=== PATIENT | male | born 1940 | race Caucasian/White ===

== ENCOUNTER 2016-11-27 21:48 | Inpatient (IN) | payer MEDICARE, OTHER ==
[2016-11-27] MEDS ORDERED: Famotidine TAB* 20 MG PO ONE (22:02)
[2016-11-27] MEDS: Aspirin Low Dose CHEW TAB* 81 MG PO ONE ×2 (22:39→22:40)
[2016-11-27 22:44] LABS: Hematocrit 38 % (42-52); Hemoglobin 12.8 g/dl (14.0-18.0); Mean Corpuscular HGB Conc 33 g/dl (31-36); Mean Corpuscular Hemoglobin 30 pg (27-31); Mean Corpuscular Volume 89 fL (80-94); Mean Platelet Volume 9 um3 (7.4-10.4); Red Blood Count 4.31 10^6/ul (4.0-5.4); Red Cell Distribution Width 13 % (10.5-15); White Blood Count 9.3 10^3/ul (3.5-10.8)
--- NOTE | 2016-11-27 22:53 | RAD ---
INDICATION: Midsternal chest pain for a few hours. Previous cardiac valve replacement. Coronary artery disease. Respiratory disease. COMPARISON: May 02, 2016 TECHNIQUE: Dual energy PA and routine lateral views of the chest were obtained. REPORT: Minimal prominence and rarefaction of the interstitial markings. Negative for alveolar consolidation, focal pulmonary lesion, pleural effusion, pneumothorax. Negative for cardiomegaly. Median sternotomy wires and aortic valve replacement. Unremarkable central pulmonary vasculature and mediastinal contours. IMPRESSION: Stigmata of potential chronic obstructive pulmonary disease and emphysema. No acute cardiopulmonary process evident.
[2016-11-27 23:01] LABS: Albumin 3.7 g/dL (3.2-5.2); BUN/Creatinine Ratio 31.8 (8-20); Calcium 9.3 mg/dL (8.6-10.3); EGFR African American 112.4 (>60); EGFR Non-African American 87.4 (>60); Globulin 2.4 g/dL (2-4); Magnesium 1.8 mg/dL (1.9-2.7); Potassium 3.8 mmol/L (3.5-5.0); Total Bilirubin 1.5 mg/dL (0.2-1.0); Total Protein 6.1 g/dL (6.4-8.9)
[2016-11-27 23:02] LABS: Troponin I 0.03 ng/mL (<0.04)
[2016-11-27] MEDS ORDERED: Nitroglycerin TAB 0.4 MG* 0.4 MG TAB SL ONE (23:34)
[2016-11-27] MEDS ORDERED: Morphine INJ* 2 MG/ML 1 ML CARPUJECT IV ONE (23:34)
[2016-11-27] MEDS ORDERED: Ondansetron INJ* 2 MG/ML VIAL IV ONE (23:34)
[2016-11-27] MEDS ORDERED: Nitroglycerin TAB 0.4 MG* 0.4 MG TAB ONE (23:36)
[2016-11-27] MEDS ORDERED: NS 0.9% 1000 ML* 1,000 ML IV ONE (23:56)
[2016-11-28] MEDS ORDERED: Ondansetron INJ* 2 MG/ML VIAL IV PRN (00:34)
[2016-11-28] MEDS ORDERED: Acetaminophen TAB* 325 MG PO PRN (00:34)
[2016-11-28] MEDS ORDERED: Al Hydrox/Mg Hydrox/Simet LIQ* 30 ML UDC PO PRN (00:41)
[2016-11-28] MEDS ORDERED: NS 0.9% 1000 ML* 1,000 ML IV SCH (00:45)
[2016-11-28] MEDS ORDERED: Pantoprazole IV* 40 MG IV SCH (01:00)
[2016-11-28] MEDS: Morphine INJ* 2 MG/ML 1 ML CARPUJECT IV PRN ×3 (03:05→21:16)
[2016-11-28] MEDS: Heparin VIAL(*) 5000 UNITS/ML VIAL (FIVE THOUSAND) SUBCUT SCH ×3 (05:13→21:15)
[2016-11-28 05:42] LABS: Troponin I 0.03 ng/mL (<0.04)
[2016-11-28] MEDS: Aspirin TAB* 325 MG PO SCH (09:11)
[2016-11-28] MEDS: Tamsulosin CAP* 0.4 MG PO SCH (09:16)
[2016-11-28] MEDS: Lisinopril TAB* 10 MG PO SCH (09:17)
[2016-11-28] MEDS: Finasteride TAB* 5 MG PO SCH (09:18)
[2016-11-28] MEDS: Metoprolol Tartrate TAB* 25 MG PO SCH (09:28)
[2016-11-28] MEDS: amLODIPine TAB* 5 MG PO SCH (09:29)
[2016-11-28] MEDS: Hydrochlorothiazide TAB* 25 MG PO SCH (09:30)
[2016-11-28] MEDS ORDERED: Magnesium Sulfate 1 GM IV* 1 GM/100 ML BAG IV ONE (10:30)
[2016-11-28 10:43] LABS: Urine Bacteria Absent (Absent); Urine Bilirubin Negative (Negative); Urine Glucose Negative (Negative); Urine Nitrite Negative (Negative)
--- NOTE | 2016-11-28 11:01 | PN ---
Subjective Date of Service: 11/28/16 Interval History: pt had N/v after eating at a diner last night. c/o his ribs hurting when taking a deep breath after vomiting. Noted some blood in urine. Has not had a BM since admission. Denies abd pain, stated that his chest is "sore" Had clears for breakfast and tolerated it fine. Noted to be in sinus tachy with PVC's on telem. Objective Active Medications: Acetaminophen (Tylenol Tab*) 650 mg PO Q4H PRN PRN Reason: FEVER/PAIN Al Hydrox/Mg Hydrox/Simethicone (Maalox Plus*) 30 ml PO Q6H PRN PRN Reason: INDIGESTION Amlodipine Besylate (Norvasc Tab*) [facility] [place] Last Admin: 11/28/16 09:29 Dose: 5 mg Aspirin (Aspirin Tab*) [facility] [place] Last Admin: 11/28/16 09:11 Dose: 325 mg Atorvastatin Calcium (Lipitor*) 40 mg PO QPM [facility] Finasteride (Proscar Tab*) 5 mg PO [facility] Last Admin: 11/28/16 09:18 Dose: 5 mg Heparin Sodium (Porcine) (Heparin Vial(*)) 5,000 units SUBCUT Q8HR [facility] Last Admin: 11/28/16 05:13 Dose: 5,000 units Hydrochlorothiazide (Hydrodiuril Tab*) 12.5 mg PO DAILY [facility] Last Admin: 11/28/16 09:30 Dose: 12.5 mg Magnesium Sulfate/Dextrose (Magnesium Sulfate 1 Gm Iv*) 1 gm in 100 mls @ 200 mls/hr IV ONCE ONE Stop: 11/28/16 10:59 Lisinopril (Prinivil Tab*) 20 mg PO [facility] Last Admin: 11/28/16 09:17 Dose: 20 mg Metoprolol Tartrate (Lopressor Tab*) 12.5 mg PO DAILY [facility] Last Admin: 11/28/16 09:28 Dose: 12.5 mg Morphine Sulfate (Morphine Inj (Syringe)*) 2 mg IV Q2H PRN PRN Reason: PAIN Last Admin: 11/28/16 09:03 Dose: 2 mg Ondansetron HCl (Zofran Inj*) 4 mg IV Q4H PRN PRN Reason: NAUSEA Pantoprazole Sodium (Protonix Iv*) 40 mg IV 2200 [facility] Last Admin: 11/28/16 01:01 Dose: 40 mg Tamsulosin HCl (Flomax Cap*) 0.4 mg PO QAM [facility] Last Admin: 11/28/16 09:16 Dose: 0.4 mg Vital Signs 11/28/16 11/28/16 11/28/16 01:00 01:01 01:30 Temperature 98.0 F Pulse Rate 71 66 Respiratory 21 16 16 Rate Blood Pressure 145/62 148/60 (mmHg) O2 Sat by Pulse 94 91 Oximetry 11/28/16 11/28/16 11/28/16 02:10 03:05 03:30 Temperature 97.9 F Pulse Rate 86 Respiratory 16 16 24 Rate Blood Pressure 145/62 (mmHg) O2 Sat by Pulse 100 Oximetry 11/28/16 11/28/16 11/28/16 04:05 04:06 04:21 Temperature Pulse Rate Respiratory 16 20 16 Rate Blood Pressure (mmHg) O2 Sat by Pulse Oximetry 11/28/16 11/28/16 11/28/16 07:42 09:03 09:11 Temperature 97.9 F Pulse Rate 117 109 Respiratory 16 18 Rate Blood Pressure 129/62 (mmHg) O2 Sat by Pulse 90 94 Oximetry Oxygen Devices in Use Now: None Appearance: 76 yo M in nAD, aAOx3, [place] Eyes: No Scleral Icterus, PERRLA Ears/Nose/Mouth/Throat: NL Teeth, Lips, Gums, Mucous Membranes Moist Neck: NL Appearance and Movements; NL JVP, Trachea Midline Respiratory: Symmetrical Chest Expansion and Respiratory Effort, - - faint crackles at b/l bases Cardiovascular: NL Sounds; No Murmurs; No JVD, RRR Abdominal: NL Sounds; No Tenderness; No Distention, No Hepatosplenomegaly Lymphatic: No Cervical Adenopathy Extremities: No Edema, No Clubbing, Cyanosis Skin: No Rash or Ulcers, No Nodules or Sclerosis Neurological: Alert and Oriented x 3, NL Muscle Strength and Tone Result Diagrams: 11/27/16 22:30 11/27/16 22:30 Assess/Plan/Problems-Billing Assessment: 76 yo M with h/o HTN, porcine AVR in 2008, NSTEMI in 04/2016 ( unremarkable cath) presents with N/V after eating at a diner - Patient Problems (1) Nausea & vomiting Comment: resolved, suspect foord poisoning. Stop IVF, advance diet (2) Pleuritic chest pain Comment: suspect related to vomiting and of musculoskeletal origin Trop 0.03 x 3 D dimer negative (3) HTN (hypertension) Comment: BP is under good control. Continue current medication regimen. (4) Hematuria Comment: no WBC's on UA. to f/u with urology as outpatient (5) DVT prophylaxis Comment: SQ heparin Status and Disposition: cont OBV, most likely d/c tomorrow
[2016-11-28 11:02] LABS: Albumin 3.6 g/dL (3.2-5.2); BUN/Creatinine Ratio 36.2 (8-20); EGFR Non-African American 111.2 (>60); Globulin 2.4 g/dL (2-4); Magnesium 1.6 mg/dL (1.9-2.7); Potassium 4.2 mmol/L (3.5-5.0); Total Bilirubin 1.9 mg/dL (0.2-1.0)
--- NOTE | 2016-11-28 11:35 | HP ---
HISTORY AND PHYSICAL: DATE OF ADMISSION: 11/29/16 CHIEF COMPLAINT: Chest/abdominal pain. HISTORY OF PRESENT ILLNESS: The patient is a 76-year-old gentleman who says he was in his usual state of health until this evening when he was watching TV, after eating ice cream, he had pain in his abdomen that went up to his chest. It was a sharp pain. He says it was steady but sometimes is worse than others. At its worst, was about 9/10 in severity. He was recently given nitro with no benefit. He was sweating quite a bit and his daughter noticed as well. He had no palpitations. Sometimes, it went to his back, sometimes it went towards his upper chest. It was not a burning pain. It was more of a stabbing-type pain and it was worse when he took a deep breath. In the ED, the patient was evaluated and had a troponin of 0.03. Of note, the patient did have a cardiac catheterization this past April.The thought was he initially had a non-STEMI but his coronaries were clean. PAST MEDICAL HISTORY: Significant for porcine aortic valve replacement for severe aortic stenosis in 2008, hypertension, hyperlipidemia, BPH, and kyphoscoliosis with chronic pain. PAST SURGICAL HISTORY: Significant for the porcine aortic valve replacement and right inguinal hernia repair. CURRENT MEDICATIONS: Include: 1. Metoprolol tartrate 12.5 mg daily. 2. Atorvastatin 40 mg in the evening. 3. Amlodipine 5 mg in the morning. 4. Tamsulosin 0.4 mg in the morning. 5. Lisinopril/hydrochlorothiazide 1 tablet in the morning. 6. Finasteride 5 mg in the morning. 7. Aspirin 325 mg daily. ALLERGIES: He has no known drug allergies. FAMILY HISTORY: Reviewed and noncontributory. SOCIAL HISTORY: No tobacco. One to two beers a day. No recreational drugs. . Lives alone. His daughter, February, is his healthcare proxy. REVIEW OF SYSTEMS: A 14-point review of systems was completed with the patient. All pertinent positives and negatives are in the history of present illness, otherwise it is negative. PHYSICAL EXAMINATION GENERAL: A pleasant gentleman lying in bed, in no acute distress. VITAL SIGNS: His temperature is 97.5 degrees, his heart rate 65 beats per minute, respiratory rate 15 breaths per minute, pulse ox 96%, blood pressure 118 /84. HEENT: Normocephalic, atraumatic. Pupils are equal, round, and reactive to light. Moist mucous membranes. NECK: Supple. No JVD, bruits, palpable thyroid, or lymphadenopathy. CHEST: Clear to auscultation and percussion bilaterally. CARDIOVASCULAR: S1, S2 appreciated. ABDOMEN: Positive bowel sounds in all 4 quadrants. Soft, nontender, and nondistended. EXTREMITIES: No cyanosis, clubbing, or edema. NEURO: Alert and oriented x3. Moves all extremities. SKIN: No rashes or abnormalities. DIAGNOSTIC STUDIES/LAB DATA: White count 9.3, hemoglobin 12.8, hematocrit 38, platelets are 196. Sodium 139, potassium 3.8, chloride 101, CO2 34, BUN 27, creatinine 0.85, glucose is 145. Troponin 0.03. Total bili 1.5. His chest x-ray shows stigmata of COPD and emphysema. No acute cardiopulmonary process evident. EKG not available at this time of dictation. ASSESSMENT AND PLAN: 1. Chest pain. The patient had negative cardiac cath just this April and does not sound like it is a cardiac event. His troponins have stabilized. I do not believe that is the etiology of it. In fact, I think he is most likely having some gastroenteritis. However, if his abdominal pain does not clear by morning , it may be appropriate to do a CAT scan of his abdomen and pelvis to look for other pathology. 2. Hypertension. Stable. Continue amlodipine, lisinopril/hydrochlorothiazide , and metoprolol. 3. BPH. Stable. Continue tamsulosin and finasteride. 4. FEN. Regular diet. 5. DVT prophylaxis. Heparin subcu. 6. The patient is a full code. TIME SPENT: Over 75 minutes was spent on this H and P; more than 40 minutes of which was spent in direct [id number] contact with the patient in evaluation, physical exam, counseling, and coordination of care. CC: Dr. Chacko * [id number]/[facility] #: [id number] MTDD
[2016-11-28] MEDS: Atorvastatin* 40 MG TAB PO SCH (17:45)
--- NOTE | 2016-11-28 22:08 | ED ---
Lavon Gloria Billy, scribed for Chris Abraham MD on 11/27/16 at 2301 . HPI Chest Pain - HPI Summary HPI Summary: Patient is a 76 year-old male coming to [facility] presenting with constant retrosternal chest pain starting earlier this evening. He states that the pain originally began in the lower abdomen before moving to the chest, where it has continued. Pain severity 7/10. Nothing makes it better or worse. He reports mild SOB but denies any diaphoresis, N/V. He states these symptoms began shortly after having ice cream. - History of Current Complaint Chief Complaint: EDChestPainROMI Time Seen by Provider: 11/27/16 21:55 Hx Obtained From: Patient Onset/Duration: Started Hours Ago, Still Present Timing: Constant Initial Severity: Moderate Current Severity: Moderate Pain Intensity: 7 Pain Scale Used: 0-10 Numeric Chest Pain Radiates: No Aggravating Factor(s): Nothing Alleviating Factor(s): Nothing Associated Signs and Symptoms: Positive: Chest Pain, Shortness of Breath. Negative: Diaphoresis, Nausea - Additional Pertinent History Primary Care Physician: [id number] - Allergy/Home Medications Allergies/Adverse Reactions: Allergies Allergy/AdvReac Type Severity Reaction Status Date / Time No Known Allergies Allergy Verified 11/27/16 21:48 Home Medications: Home Medications Atorvastatin* [Lipitor 80 MG*] 40 mg PO QPM 11/28/16 [History Confirmed 11/28/16 ] Metoprolol Tartrate TAB* [Lopressor TAB*] 12.5 mg PO DAILY 11/28/16 [History Confirmed 11/28/16] PMH/Surg Hx/FS Hx/Imm Hx Endocrine/Hematology History: Denies: Hx Diabetes Cardiovascular History: Reports: Hx Coronary Artery Disease, Hx Hypercholesterolemia, Hx Hypertension, Hx Syncope, 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, Other Cardiovascular Problems/Disorders - CABG Respiratory History: Reports: Other Respiratory Problems/Disorders - USES INHALER FOR OCCASIONAL WHEEZING, SPUTUM PRODUCTION History: Reports: Hx Benign Prostatic Hyperplasia, Other Problems/ Disorders - BENIGN PROSTATIC HYPERTROPHY Denies: Hx Renal Disease Musculoskeletal History: Reports: Hx Arthritis, Hx Back Problems, Other Musculoskeletal History - ABOUT 1 YEAR AGO SMALL TREE FELL ON HIM SOME BACKACHES FROM THAT Sensory History: Reports: Hx Contacts or Glasses - reading, Hx Hearing Aid - bilateral, Hx Hearing Problem Opthamlomology History: Reports: Hx Contacts or Glasses - reading Neurological History: Reports: Other Neuro Impairments/Disorders - possible stroke-like symptoms at home 01/02/16 - Surgical History Surgery Procedure, Year, and Place: 05/2009 CARDIAC CATHERIZATION, [facility]. 2009 AORTIC VALVE(PORCINE) REPLACEMENT, [facility] Hx Anesthesia Reactions: No Infectious Disease History: No Infectious Disease History: Denies: Traveled Outside the [place] in Last 30 Days - Family History Known Family History: Positive: Cardiac Disease - Social History Alcohol Use: Weekly Alcohol Amount: 1 Substance Use Type: Reports: None Hx Tobacco Use: Yes Smoking Status (MU): Former Smoker Type: Cigarettes Amount Used/How Often: 1 PPD Length of Time of Smoking/Using Tobacco: 10 years Have You Smoked in the Last Year: No Review of Systems Negative: Skin Diaphoresis Positive: Chest Pain Positive: Shortness Of Breath Negative: Vomiting, Nausea All Other Systems Reviewed And Are Negative: Yes Physical Exam - Summary Physical Exam Summary: VITAL SIGNS: Reviewed. GENERAL: Patient is a well developed and nourished male who is lying comfortable in the stretcher. Patient is not in any acute respiratory distress. HEAD AND FACE: No signs of trauma. No ecchymosis, hematomas or skull depressions. No sinus tenderness. EYES: PERRLA, EOMI x 2, No injected conjunctiva, no nystagmus. EARS: Hearing grossly intact. Ear canals and tympanic membranes are within normal limits. MOUTH: Oropharynx within normal limits. NECK: Supple, trachea is midline, no adenopathy, no JVD, no carotid bruit, no c- spine tenderness, neck with full ROM. CHEST: Symmetric, no tenderness at palpation LUNGS: Clear to auscultation bilaterally. No wheezing or crackles. CVS: Regular rate and rhythm, S1 and S2 present, no murmurs or gallops appreciated. ABDOMEN: Soft, non-tender. No signs of distention. No rebound no guarding, and no masses palpated. Bowel sounds are normal. EXTREMITIES: FROM in all major joints, no edema, no cyanosis or clubbing. NEURO: Alert and oriented x 3. No acute neurological deficits. Speech is normal and follows commands. SKIN: Dry and warm Triage Information Reviewed: Yes Vital Signs On Initial Exam: Initial Vitals Temp Pulse Resp BP Pulse Ox 97.5 F 60 18 140/81 96 11/27/16 21:49 11/27/16 21:49 11/27/16 21:49 11/27/16 21:49 11/27/16 21:49 Vital Signs Reviewed: Yes Diagnostics - Vital Signs Vital Signs Temp Pulse Resp BP Pulse Ox 11/27/16 21:49 97.5 F 60 18 140/81 96 - Laboratory Result Diagrams: 11/27/16 22:30 11/28/16 05:08 Lab Statement: Any lab studies that have been ordered have been reviewed, and results considered in the medical decision making process. - Radiology cxr Radiology Interpretation Completed By: Radiologist - Stigmata of potential chronic obstructive pulmonary disease and emphysema. No acute cardiopulmonary process evident. - EKG 2153 EKG Interpretation: sinus marion 52 bpm, no ST elevation Chest Pain Course/Dx - Course Assessment/Plan: Patient is a 76 year-old male coming to [facility] presenting with constant retrosternal chest pain starting earlier this evening. He states that the pain originally began in the lower abdomen before moving to the chest, where it has continued. Pain severity 7/10. Nothing makes it better or worse. He reports mild SOB but denies any diaphoresis, N/V. He states these symptoms began shortly after having ice cream. Bloodwork WNL. Troponin 0.03. EKG shows no ST elevations. CXR shows no acute pathology. The patient was given Pepcid, and the symptoms did not improve. Therefore he was given morphine and NTG and his BP decreased. Symptoms improved. Patient was then given IV fluids. At this point, I discussed my physical exam findings with Dr. Hua who will be admitting the pt to his services for further workup and management. He is feeling better. He is A&Ox3. - Chest Pain Differential Diagnosis/HQI/PQRI: ACS, Angina, Chest Wall - Diagnoses Provider Diagnoses: chest pain r/o ACS - Provider Notifications Discussed Care Of Patient With: Dr. Hua (hospitalist) @ 1487: accepts admission. Discharge - Discharge Plan Condition: Stable Disposition: ADMITTED TO [facility] documentation as recorded by the Lavon shukla Billy accurately reflects the service I personally performed and the decisions made by me, Chris Abraham MD.
[2016-11-29] MEDS: Heparin VIAL(*) 5000 UNITS/ML VIAL (FIVE THOUSAND) SUBCUT SCH ×2 (06:19→14:16)
[2016-11-29 08:51] LABS: Albumin 3.3 g/dL (3.2-5.2); BUN/Creatinine Ratio 38.9 (8-20); EGFR African American 136.1 (>60); EGFR Non-African American 105.9 (>60); Globulin 2.5 g/dL (2-4); Magnesium 1.7 mg/dL (1.9-2.7); Total Bilirubin 3.8 mg/dL (0.2-1.0); Total Protein 5.8 g/dL (6.4-8.9)
[2016-11-29] MEDS: Tamsulosin CAP* 0.4 MG PO SCH (09:02)
[2016-11-29] MEDS: Finasteride TAB* 5 MG PO SCH (09:02)
[2016-11-29] MEDS: Lisinopril TAB* 10 MG PO SCH (09:02)
[2016-11-29] MEDS: Aspirin TAB* 325 MG PO SCH (09:02)
[2016-11-29] MEDS: Metoprolol Tartrate TAB* 25 MG PO SCH (09:02)
[2016-11-29] MEDS: Hydrochlorothiazide TAB* 25 MG PO SCH (09:03)
[2016-11-29] MEDS: amLODIPine TAB* 5 MG PO SCH (09:04)
[2016-11-29] MEDS ORDERED: Magnesium Sulfate IV* 3 GM in NS 0.9% 100 ML* 100 ML IVPB ONE (09:25)
[2016-11-29 10:02] LABS: Add Diff/Slide Review? Slide Review Added; Comments Flag Yes; Hematocrit 36 % (42-52); Hemoglobin 11.6 g/dl (14.0-18.0); Mean Corpuscular HGB Conc 33 g/dl (31-36); Mean Corpuscular Hemoglobin 29 pg (27-31); Mean Corpuscular Volume 90 fL (80-94); Mean Platelet Volume 10 um3 (7.4-10.4); Red Blood Count 3.96 10^6/ul (4.0-5.4); Red Cell Distribution Width 13 % (10.5-15)
[2016-11-29 10:59] LABS: Direct Bilirubin 0.6 mg/dL (0.03-0.18)
[2016-11-29] MEDS ORDERED: Iohexol 300* (CONTRAST) 10 ML SDV IV ONE (15:20)
--- NOTE | 2016-11-29 15:52 | PN ---
Subjective Date of Service: 11/29/16 Interval History: Pt still c/o pain, but now it migrated from his chest to RUQ Objective Active Medications: Acetaminophen (Tylenol Tab*) 650 mg PO Q4H PRN PRN Reason: FEVER/PAIN Last Admin: 11/29/16 09:06 Dose: 650 mg Al Hydrox/Mg Hydrox/Simethicone (Maalox Plus*) 30 ml PO Q6H PRN PRN Reason: INDIGESTION Amlodipine Besylate ([facility]asc Tab*) [facility] Last Admin: 11/29/16 09:04 Dose: 5 mg Aspirin (Aspirin Tab*) [facility] [place] Last Admin: 11/29/16 09:02 Dose: 325 mg Atorvastatin Calcium (Lipitor*) 40 mg PO QPM [facility] Last Admin: 11/28/16 17:45 Dose: 40 mg Finasteride (Proscar Tab*) [facility] [place] Last Admin: 11/29/16 09:02 Dose: 5 mg Heparin Sodium (Porcine) (Heparin Vial(*)) 5,000 units SUBCUT Q8HR [facility] Last Admin: 11/29/16 14:16 Dose: 5,000 units Hydrochlorothiazide (Hydrodiuril Tab*) 12.5 mg PO DAILY [facility] Last Admin: 11/29/16 09:03 Dose: 12.5 mg Lisinopril (Prinivil Tab*) 20 mg PO [facility] Last Admin: 11/29/16 09:02 Dose: 20 mg Metoprolol Tartrate (Lopressor Tab*) 12.5 mg PO DAILY [facility] Last Admin: 11/29/16 09:02 Dose: 12.5 mg Morphine Sulfate (Morphine Inj (Syringe)*) 2 mg IV Q2H PRN PRN Reason: PAIN Last Admin: 11/28/16 21:16 Dose: 2 mg Ondansetron HCl (Zofran Inj*) 4 mg IV Q4H PRN PRN Reason: NAUSEA Tamsulosin HCl (Flomax Cap*) [facility] [place] Last Admin: 11/29/16 09:02 Dose: 0.4 mg Vital Signs 11/28/16 11/28/16 11/28/16 19:16 21:16 22:16 Temperature 100.0 F Pulse Rate 71 Respiratory 18 20 16 Rate Blood Pressure 121/51 (mmHg) O2 Sat by Pulse 93 Oximetry 11/28/16 11/28/16 11/29/16 23:34 23:36 03:38 Temperature 98.4 F 98.0 F Pulse Rate 88 85 Respiratory 16 16 Rate Blood Pressure 120/56 136/57 (mmHg) O2 Sat by Pulse 89 95 93 Oximetry 11/29/16 11/29/16 07:58 11:08 Temperature 100.0 F 99.4 F Pulse Rate 82 60 Respiratory 16 16 Rate Blood Pressure 126/50 109/49 (mmHg) O2 Sat by Pulse 92 93 Oximetry Oxygen Devices in Use Now: None Appearance: 76 yo M in nAD, aAOx3 Eyes: No Scleral Icterus, PERRLA Ears/Nose/Mouth/Throat: NL Teeth, Lips, Gums, Mucous Membranes Moist Neck: NL Appearance and Movements; NL JVP, Trachea Midline Respiratory: Symmetrical Chest Expansion and Respiratory Effort, Clear to Auscultation Cardiovascular: NL Sounds; No Murmurs; No JVD, RRR Abdominal: No Hepatosplenomegaly, - - tender in RUQ, no rebound, no guarding, BS + Lymphatic: No Cervical Adenopathy Extremities: No Edema, No Clubbing, Cyanosis Skin: No Rash or Ulcers, No Nodules or Sclerosis Neurological: Alert and Oriented x 3, NL Muscle Strength and Tone Result Diagrams: 11/29/16 07:44 11/29/16 07:46 Assess/Plan/Problems-Billing Assessment: 76 yo M with h/o HTN, porcine AVR in 2008, NSTEMI in 04/2016 ( unremarkable cath) presents with N/V after eating at a diner - Patient Problems (1) RUQ abdominal pain Comment: with elevation in WBC's and CRP suspect cholecystitis. Temp at 100 last night. will start clear liquid diet. start Zosyn Awaiting CT abd results (2) Gilbert syndrome Comment: bili elevated, mostly indirect. Pt has h/o chronic mild bilirubin elevation suspect Gilbert's (3) Nausea & vomiting Comment: resolved (4) Pleuritic chest pain Comment: suspect related to vomiting and of musculoskeletal origin Trop 0.03 x 3 D dimer negative (5) HTN (hypertension) Comment: BP is under good control. Continue current medication regimen. (6) Hematuria Comment: no WBC's on UA. to f/u with urology as outpatient (7) DVT prophylaxis Comment: SQ heparin Status and Disposition: cont OBV, most likely d/c tomorrow
[2016-11-29] MEDS ORDERED: Piperac/Tazob 3.375 gm in NS* 3.375 GM/100 ML BAG IVPB SCH (16:00)
--- NOTE | 2016-11-29 16:10 | RAD ---
INDICATION: Abdominal pain COMPARISON: None TECHNIQUE: Axial source images were obtained from the hemidiaphragms to the symphysis pubis following administration of oral and intravenous contrast. 100 mL Omnipaque 300 was utilized. Coronal and sagittal reconstructed images were acquired. Lung bases: There are small bilateral pleural effusions with right basilar atelectasis. The heart is mildly prominent. There is pacemaker artifact. Liver: The liver is normal in size. There are no masses. There is no ductal dilatation. Gallbladder: There is cholelithiasis. There is a small amount of pericholecystic fluid/inflammatory change. The gallbladder is mildly distended with minor thickening of the gallbladder wall. The CT findings suggest acute cholecystitis. Spleen: The spleen is normal in size. There are no masses. Pancreas: There is no focal pancreatic mass or ductal dilatation. Adrenal glands: There is no evidence of adrenal mass. Kidneys: The kidneys are normal in size and position. There are prompt nephrograms and there is prompt excretion bilaterally. There are no renal parenchymal masses. There is no evidence of nephrolithiasis. Adenopathy: There is no evidence of adenopathy by size criteria. Fluid collections: No additional fluid collections. Vessels:There are atherosclerotic changes involving the aorta and iliac vessels. There is no focal aneurysm. The IVC appears normal. GI tract: There are no acute CT bowel findings. There is no obstruction. The stomach and small bowel appear normal. The lower GI tract is remarkable for scattered diverticula. The cecum, ileocecal valve, and terminal ileum appear normal. The appendix is visualized and appear normal. Pelvic organs: The prostate is enlarged Bladder: There are no bladder masses. Abdominal and pelvic soft tissues: The extraperitoneal abdominal and pelvic soft tissues appear normal.. Osseous structures: There are no acute appearing osseous findings. There is a superior endplate compression deformity of L2. There is degenerative disc disease about L5-S1. There is multilevel degenerative spurring. There is sternotomy. Other: None IMPRESSION: 1. Bilateral pleural effusions with right basilar atelectasis 2. CT findings suggest acute cholecystitis. 3. Scattered diverticula. No CT evidence of acute diverticulitis. 4. Advanced atherosclerotic changes. 5. Prostatic hypertrophy.
[2016-11-29] MEDS: Atorvastatin* 40 MG TAB PO SCH (17:03)
[2016-11-29] MEDS ORDERED: NS 0.9% 1000 ML* 1,000 ML IV SCH (19:00)
[2016-11-29] MEDS ORDERED: Metoprolol Tartrate TAB* 25 MG PO ONE (19:04)
[2016-11-29] MEDS ORDERED: Piperac/Tazob 3.375 gm in NS* 3.375 GM/100 ML BAG IVPB ONE (20:00)
--- NOTE | 2016-11-29 20:11 | CONS ---
SURGICAL CONSULTATION REPORT: DATE OF CONSULT: 11/29/16 LOCATION: The patient is seen in room 446. HISTORY OF PRESENT ILLNESS: I was contacted by the hospitalist service to evaluate Mr. David, a 76-year-old gentleman who presented to the emergency room late on Wednesday with complaints of chest pain that acutely began just after eating a meal with his son. The patient has a history of severe aortic stenosis that required aortic valve replacement in 2008. He was admitted for what appears to be ACS syndrome, was followed and noted to have elevated white count today as well as localizing abdominal pain in the right upper quadrant and for this reason, he was sent for a CAT scan of the abdomen and pelvis. These images as well as report were reviewed and it was consistent with acute cholecystitis. The patient denies any previous similar symptoms. Pain is diffuse in the lower abdomen that now seems to be focusing more in the upper abdomen mostly on the right just under his right rib cage. It does not radiate to his back or his shoulder. He denies any previous similar symptoms. He had decreased appetite. He denies any nausea or vomiting. No fevers but according to the son he was having chills yesterday in the hospital and shakes. The patient is only tolerating clear diet. PAST MEDICAL HISTORY: Includes hypertension, hypercholesterolemia, BPH, kyphoscoliosis with chronic pain. PAST SURGICAL HISTORY: Right inguinal hernia repair a year and a half ago and valve replacement as described above in 2008. MEDICATIONS: Medication list is reviewed and includes: 1. Metoprolol. He is on no blood thinners. 2. He takes aspirin 325 mg daily and has been getting it here. SOCIAL HISTORY: He is a nonsmoker. Lives with his son. He is retired. REVIEW OF SYSTEMS: The patient describes minimal weight loss, decreased appetite. No jaundice-type symptoms. No palpitations but does describe shortness of breath at this time. Chills as described above. Abdominal pain as described. No dysuria. No dark-colored urine. No light-colored stools. Poor exercise tolerance. No cerebrovascular disease but cardiovascular disease as described. PHYSICAL EXAM: T-max is 100.0, T-current 98.1; blood pressure 144/61; pulse 84 ; O2 sat 94% on room air. He is alert and oriented x3, in no apparent distress. Head, Ears, Eyes and Throat: Normocephalic, atraumatic. Sclerae anicteric. Mucous membranes are moist. Neck: No lymphadenopathy. Abdomen is soft, nondistended. It is tender in the right upper quadrant and epigastrium on deep palpation. Negative Tracy sign. No hernias. Well-healed right groin incision. Rectal exam is not performed. No CVA tenderness. Extremities: Within normal limits. DIAGNOSTIC STUDIES/LAB DATA: Labs show white count of 12 with left shift, H and H 12/36. His most recent coag studies are within normal limits. His metabolic panel does show a bilirubin of 3.8, this is up from yesterday's 1.9 with direct bilirubin of 0.6. Elevated CRP, normal lipase. He has 3+ blood in his urine. CAT scan reviewed, described as above. IMPRESSION: Mr. David is a 76-year-old gentleman who presents to the hospital with what appears to be acute cholecystitis. He was admitted with ACS issue, but this does not appear cardiac in nature. Concern is that the patient may be suffering with a common bile duct obstruction as well with his elevated bilirubin; however, this is mostly unconjugated. My recommendation is an ultrasound of the gallbladder just to evaluate the common bile duct to ensure its size. Repeat LFTs in the morning with the likelihood of patient going to the OR tomorrow for a laparoscopic cholecystectomy. I believe that this is acute cholecystitis and has been going on for 3 days and our recommendation would be a more urgent laparoscopic cholecystectomy and we will look towards tomorrow for the planned procedure. He understands that it may be me or my partner performing the procedure. We will give him antibiotics and he has been started with the hospitalist service on Zosyn at this time. He will be n.p.o. after midnight, but will receive his beta-makenzie. We will continue to follow closely with planned OR and discharge from our service. CC: Rayo Chacko MD; [facility]* [id number]/[facility] #: [id number] [place]
[2016-11-30] MEDS: Piperac/Tazob 3.375 gm in NS* 3.375 GM/100 ML BAG IVPB SCH ×3 (00:32→16:16)
[2016-11-30 05:28] LABS: Hematocrit 35 % (42-52); Hemoglobin 11.7 g/dl (14.0-18.0); Mean Corpuscular HGB Conc 33 g/dl (31-36); Mean Corpuscular Hemoglobin 29 pg (27-31); Mean Corpuscular Volume 88 fL (80-94); Mean Platelet Volume 9 um3 (7.4-10.4); Red Blood Count 3.97 10^6/ul (4.0-5.4); Red Cell Distribution Width 13 % (10.5-15); White Blood Count 11.2 10^3/ul (3.5-10.8)
[2016-11-30 05:43] LABS: BUN/Creatinine Ratio 29.6 (8-20); Calcium 8.4 mg/dL (8.6-10.3); EGFR African American 138.4 (>60); EGFR Non-African American 107.6 (>60); Globulin 2.6 g/dL (2-4); Magnesium 1.8 mg/dL (1.9-2.7); Potassium 3.6 mmol/L (3.5-5.0); Total Bilirubin 3.5 mg/dL (0.2-1.0); Total Protein 5.6 g/dL (6.4-8.9)
[2016-11-30] MEDS: Metoprolol Tartrate TAB* 25 MG PO SCH ×2 (07:26→20:28)
--- NOTE | 2016-11-30 08:15 | CONSULT ---
Subjective Date of Service: 11/30/16 Interval History: Admission Date: 11/29/16 Service: Hospitalist Mechanical Commissioning Engineer: Dr. Denis Chacko CHIEF COMPLAINT: Chest/abdominal pain, cholecystitis Reason for consult: Pre-operative cardiac risk stratification HISTORY OF PRESENT ILLNESS: Mr. Luca David is a 76-year-old man with a history of bioprosthetic AVR 2008, FL no culprit 04/2016, HTN, dyslipidemia admitted with abdomen pain radiating up to his chest and back. He ruled out for acute ACS and was found with acute cholecystitis with plans for invasive/surgical management pending abdomen uS results. Patient denies any exertional chest pain, edema, orthopnea, PND, palpitations or syncope. Has had exertional fatigue/dyspnea for at least 6 months. PAST MEDICAL HISTORY: Significant for porcine aortic valve replacement for severe aortic stenosis in 2008 hypertension hyperlipidemia BPH kyphoscoliosis with chronic pain. FL no culprit PAST SURGICAL HISTORY: Significant for the porcine aortic valve replacement and right inguinal hernia repair. CURRENT MEDICATIONS: Include: 1. Metoprolol tartrate 12.5 mg daily. 2. Atorvastatin 40 mg in the evening. 3. Amlodipine 5 mg in the morning. 4. Tamsulosin 0.4 mg in the morning. 5. Lisinopril/hydrochlorothiazide 1 tablet in the morning. 6. Finasteride 5 mg in the morning. 7. Aspirin 325 mg daily. ALLERGIES: He has no known drug allergies. FAMILY HISTORY: Reviewed and noncontributory. SOCIAL HISTORY: No tobacco. One to two beers a day. No recreational drugs. . Lives alone. His daughter, Antionette David, is his healthcare proxy. Medications Active Medications: Acetaminophen (Tylenol Tab*) 650 mg PO Q4H PRN PRN Reason: FEVER/PAIN Last Admin: 11/29/16 09:06 Dose: 650 mg Al Hydrox/Mg Hydrox/Simethicone (Maalox Plus*) 30 ml PO Q6H PRN PRN Reason: INDIGESTION Amlodipine Besylate (Norvasc Tab*) 5 mg PO QAM [facility] Last Admin: 11/29/16 09:04 Dose: 5 mg Atorvastatin Calcium (Lipitor*) 40 mg PO QPM [facility] Last Admin: 11/29/16 17:03 Dose: 40 mg Finasteride (Proscar Tab*) [facility] Last Admin: 11/29/16 09:02 Dose: 5 mg Hydrochlorothiazide (Hydrodiuril Tab*) 12.5 mg PO DAILY [facility] Last Admin: 11/29/16 09:03 Dose: 12.5 mg Sodium Chloride (Ns 0.9% 1000 Ml*) 1,000 mls @ 75 mls/hr IV PER RATE [facility] Last Admin: 11/29/16 19:56 Dose: 75 mls/hr Piperacillin Sod/Tazobactam Sod (Zosyn 3.375 Gm In Ns Premix*) 3.375 gm in 100 mls @ 25 mls/hr IVPB Q8H [facility] Last Admin: 11/30/16 07:26 Dose: 25 mls/hr Lisinopril (Prinivil Tab*) [facility] [place] Last Admin: 11/29/16 09:02 Dose: 20 mg Metoprolol Tartrate (Lopressor Tab*) 12.5 mg PO DAILY [facility] Last Admin: 11/30/16 07:26 Dose: 12.5 mg Morphine Sulfate (Morphine Inj (Syringe)*) 2 mg IV Q2H PRN PRN Reason: PAIN Last Admin: 11/28/16 21:16 Dose: 2 mg Ondansetron HCl (Zofran Inj*) 4 mg IV Q4H PRN PRN Reason: NAUSEA Tamsulosin HCl (Flomax Cap*) [facility] [place] Last Admin: 11/29/16 09:02 Dose: 0.4 mg Home Medications: Aspirin TAB* 325 mg PO [facility] 03/21/15 [History Confirmed 11/28/16] Lisinopril/HCTZ 20/12.5(NF) [Zestoretic 20/12.5(NF)] 1 tab PO [facility] 03/21/15 [ History Confirmed 11/28/16] Tamsulosin CAP* [Flomax CAP*] 0.4 mg PO [facility] 03/21/15 [History Confirmed 11/28/16 ] amLODIPine TAB* [Norvasc TAB*] 5 mg PO QA 03/21/15 [History Confirmed 11/28/16] Finasteride TAB* [Proscar TAB*] 5 mg PO [facility] 04/11/15 [History Confirmed 11/28/16 ] Atorvastatin* [Lipitor 80 MG*] 40 mg PO QPM 11/28/16 [History Confirmed 11/28/16 ] Metoprolol Tartrate TAB* [Lopressor TAB*] 12.5 mg PO DAILY 11/28/16 [History Confirmed 11/28/16] Review of Systems - Measurements Intake and Output: Intake and Output Last 24 Hours 11/28/16 11/29/16 11/30/16 12/01/16 06:59 06:59 06:59 06:59 Intake Total 1459 Output Total 350 Balance 1109 Weight 147 lb Intake: IV Fluids 239 NS (0.9%) 239 IVPB 100 ABX - ZOSYN 100 Oral 1120 Output: Urine 350 Other: Estimated Void Medium # Bowel Movements 5 Estimated Stool Amount Small # Voids 2 - Review of Systems Constitutional Symptoms: Positive: Weakness, Fatigue Negative: Weight Gain, Weight Loss, Fever, Unexplained Falls Dermatology: Negative: Rash, Skin Lesions, Cancer HEENT: Negative: Change in Hearing, Vertigo, Sinus Problem Eyes: Negative: Change in Vision, Double Vision Thyroid: Negative: Goiter, Thyroid Nodule, Cold Intolerance, Heat Intolerance, Constipation, Palpitations, Weight Loss, Weight Gain Pulmonary: Positive: Shortness of Breath Negative: Cough, Sputum, Hemoptysis, Wheezing, COPD Cardiology: Positive: Shortness of Breath Negative: Palpitations, Swelling of Ankles, Peripheral Vascular Dis, Edema, Faintness, Syncope, Claudication, Paroxysmal Nocturnal Dyspnea, Orthopnea Gastroenterology: Positive: Abdominal Pain Negative: Nausea, Vomiting, Anorexia, Indigestion, Difficulty Swallowing, Heartburn, Constipation, Diarrhea, Blood in Stools, Change in Bowel Habits, Haematemesis, Melena Genital - Urinary: Negative: Dysuria, Polyuria Musculoskeletal: Negative: Joint Pain, Joint Stiffness, Arthritis Endocrinology: Negative: Thyroid Problems, Family Hx Endocrine Disorders, Obesity, Polydipsia, Polyuria Hematologic/Lymphatic: Positive: Use of Antiplatelet Drugs Negative: Hx Leukemia, Hx Lymphoma, Use of Anticoagulant, Other Neurology: Negative: Headaches, Migraines, Change in Vision, Diplopia, Dizziness, Change in Balancing, Change in Coordination, Change in Memory, Change in Speech , Change in Sphincter Function, Numbness\Paresthesiae, Unexplained Weakness Psychiatry: Negative: Depression, Anxiety, Depressed Mood, Adhedonia, Sexual Dysfunction , Weight Change, Guilt Feelings, Tearfulness, Unusual Fatigue Allergic/Immunologic: Negative: Hx Anaphylaxis, Hx Angioedema, Hx Environmental Allergies, Hx Seasonal Allergies, Hx HIV Review of Systems Statement: All other review of systems negative, unless stated above. Objective Vital Signs: Temp Pulse Resp BP Pulse Ox 97.4 F 78 16 145/69 98 11/30/16 07:22 11/30/16 07:22 11/30/16 07:22 11/30/16 07:22 11/30/16 07:22 Oxygen Devices in Use Now: None Appearance: NAD, pleasant Ears/Nose/Mouth/Throat: Clear Oropharnyx, Mucous Membranes Moist Neck: Trachea Midline, - - mild jvp elevation Respiratory: Symmetrical Chest Expansion and Respiratory Effort, - - crackles b/ l bases Cardiovascular: RRR, No Edema, - - 2/6 systolic murmur Abdominal: NL Sounds; No Tenderness; No Distention Extremities: No Edema, No Clubbing, Cyanosis Skin: No Rash or Ulcers Neurological: Alert and Oriented x 3 Laboratory Results: 11/30/16 05:12 11/30/16 05:12 Total Bilirubin 3.50 mg/dL (0.2-1.0) H 11/30/16 05:12 Direct Bilirubin 0.60 mg/dL (0.03-0.18) H 11/29/16 07:46 AST 13 U/L (13-39) 11/30/16 05:12 ALT 12 U/L (7-52) 11/30/16 05:12 Alkaline Phosphatase 46 U/L (34-104) 11/30/16 05:12 B-Natriuretic Peptide 57 pg/mL (-100) 11/27/16 22:30 Total Protein 5.6 g/dL (6.4-8.9) L 11/30/16 05:12 Albumin 3.0 g/dL (3.2-5.2) L 11/30/16 05:12 Globulin 2.6 g/dL (2-4) 11/30/16 05:12 Albumin/Globulin Ratio 1.2 (1-3) 11/30/16 05:12 11/27/16 11/28/16 11/28/16 22:30 01:20 05:08 Troponin I 0.03 0.03 0.03 Diagnostic Imaging: TTE 11/30/2016: Normal LVEF 55-60%, normal functioning aortic bioprosthesis, moderate LA dilation, mild pHTN EKG Data: EKG 11/30/2016: NSR, IVCD, non-specific anterolateral ST changes, ST depression imrpoved anterolateral from 11/28 and 11/[address] changes more prominent than 05/05/2016 Assessment/Plan Mr. Luca David is a 76-year-old man with a history of bioprosthetic AVR 2008, FL no culprit 04/2016, HTN, dyslipidemia admitted with suspected acute cholecystitis with plans for possible cholecystectomy. No recent FL, decompensated significant CHF, malignant arrhythmia or severe valve disease based off today TTE, LVEF normal 55%. There are no absolute contraindications to proceeding with proposed surgery and no further cardiac evaluation is warranted prior to surgery. Patient is not high risk for cardiovascular complications from surgery although there is some inherent risk for cardiovascular complications based off of comorbidities, age and nature of the procedure. - Continue beta-makenzie allie-operatively - Continue statin allie-operatively - Restart aspirin KHLOE once bleeding risks are minimized. - No pleural effusions noted on initial CXR but seen on CT scan 2 days later after IVF. Likely component of heart failure with preserved EF may need to watch fluid balance closely post-operatively. Thank you for allowing me to participate in the cardiovascular care of this patient. Please do not hesitate to contact me with questions or concerns.
[2016-11-30] MEDS ORDERED: Magnesium Sulfate 2 GM IV* 2 GM/50 ML BAG IVPB ONE (09:12)
[2016-11-30] MEDS: amLODIPine TAB* 5 MG PO SCH (09:25)
--- NOTE | 2016-11-30 09:25 | ECHO ---
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 Technical Comments: The study quality is good. Completed at 0821. Left Ventricle: The left ventricular chamber size is normal. Mild concentric left ventricular hypertrophy is observed. Global left ventricular wall motion and contractility are within normal limits. There is normal left ventricular systolic function. The estimated ejection fraction is 55-60%. The assessment of diastolic function is non-diagnostic. Left Atrium: The left atrium is moderately dilated. Right Ventricle: The right ventricle is slightly dilated. The right ventricular global systolic function is normal. Right Atrium: The right atrium is mildly dilated. Aortic Valve: There is a trace of aortic regurgitation. A porcine bio-prosthetic aortic valve is present. by history. Peak velocity 2.55 m/s, mean gradient 12.4 mmHg. Stable from prior examination suggestive of normal functioning bioprosthesis. The prosthetic aortic valve leaflets are normal. The bio-prosthetic aortic valve appears to be functioning normally. Mitral Valve: The mitral valve leaflets are mildly thickened. There is mild mitral regurgitation. Tricuspid Valve: The tricuspid valve leaflets are normal. There is mild tricuspid regurgitation. There is evidence of mild pulmonary hypertension. There is no tricuspid stenosis. Pulmonic Valve: The pulmonic valve appears normal. There is a trace pulmonic regurgitation. There is no pulmonic stenosis. Pericardium: There is no significant pericardial effusion. Aorta: There is mild dilatation of the ascending aorta. There is no dilatation of the aortic arch. There is mild dilatation of the aortic root. Pulmonary Artery: The main pulmonary artery appears normal. Venous: The venous system is not well visualized. Conclusions The left ventricular chamber size is normal. Mild concentric left ventricular hypertrophy is observed. There is normal left ventricular systolic function with an estimated LV ejection fraction of 55-60%. The left atrium is moderately dilated. The right ventricle is slightly dilated with normal RV function The bio-prosthetic aortic valve appears to be functioning normally. There is evidence of mild pulmonary hypertension. Compared to prior study from 05/03/2016, no significant changes noted. Measurements Name Value Normal Range RVIDd (AP) 2D 3.1 cm (0.9 - 2.6) RVDdMajor (2D) 4.6 cm (2.2 - 4.4) RAd ISD 4CH 6 cm (3.4 - 4.9) RA (A4C)W 3.3 cm (2.9 - 4.6) IVSd (2D) 1.1 cm (0.6 - 1) LVPWd (2D) 1.2 cm (0.6 - 1) LVIDd (2D) 4 cm (3.6 - 5.4) LVIDs (2D) 2.2 cm - LV FS (2D) 33 % (25 - 45) Aortic Annulus 2.1 cm (1.4 - 2.6) Ao root diameter (2D) 3.7 cm (2.1 - 3.5) Ascending Ao 3.9 cm (2.1 - 3.4) Aortic arch 1.8 cm (1.8 - 3.4) Descending Ao 0.5 cm - LA dimension (AP) 2D 5.2 cm (2.3 - 3.8) LAd ISD 4CH 6.1 cm (2.9 - 5.3) LA ISD 4CH W 4.6 cm (2.5 - 4.5) Name Value Normal Range LA ESV SP 4CH (A/L) 74 ml - LA ESV SP 2CH (A/L) 107 ml - LA ESV BP (A/L) 92 ml - LA ESV BP (A/L) index 52.05 ml/m2 - LA ESV SP 4CH (MOD) 71 ml - LA ESV SP 2CH (MOD) 102 ml - Name Value Normal Range MV E-wave Vmax 1.1 m/sec - MV deceleration time 227 msec - MV A-wave Vmax 0.8 m/sec - MV E:A ratio 1.26 ratio - LV septal e' Vmax 0.06 m/sec - LV lateral e' Vmax 0.1 m/sec - LV E:e' septal ratio 18.33 ratio - LV E:e' lateral ratio 11 ratio - Name Value Normal Range AV Vmax 2.4 m/sec - AV VTI 54.5 cm - AV peak gradient 22.98 mmHg - AV mean gradient 11.47 mmHg - LVOT diameter 2.1 cm - LVOT Vmax 1.8 m/sec - LVOT VTI 38.7 cm - LVOT peak gradient 13.13 mmHg - LVOT mean gradient 6.08 mmHg - SV LVOT 133 ml - NOA (continuity Vmax) 2.6 cm2 - NOA (continuity VTI) 2.4 cm2 - AR PHT 562 msec - AR peak gradient 50.74 mmHg - Name Value Normal Range TR Vmax 2.8 m/sec - TR peak gradient 32 mmHg - RAP 8 mmHg - RVSP 40 mmHg - Name Value Normal Range PV Vmax 0.8 m/sec - PV peak gradient 2.37 mmHg -
[2016-11-30] MEDS: Lisinopril TAB* 10 MG PO SCH (09:26)
[2016-11-30] MEDS: Finasteride TAB* 5 MG PO SCH (09:26)
[2016-11-30] MEDS: Tamsulosin CAP* 0.4 MG PO SCH (09:26)
[2016-11-30] MEDS: Hydrochlorothiazide TAB* 25 MG PO SCH (09:26)
--- NOTE | 2016-11-30 09:29 | RAD ---
INDICATION: Elevated bilirubin evaluate common bile duct, cholelithiasis. COMPARISON: Comparison is made with a prior CT of the abdomen and pelvis from November 29, 2016. TECHNIQUE: Multiple real-time images of the right upper quadrant were obtained. FINDINGS: There are multiple gallstones and sludge present. The gallbladder wall is diffusely thickened measuring up to 5 mm in thickness. There is a small amount of pericholecystic fluid suggesting the possibility of acute cholecystitis. No intra or extrahepatic ductal distention is present. The common bile duct measured 0.5 cm in diameter. The liver is normal in size without significant focal abnormality. The pancreas is partially obscured by overlying bowel gas. The right kidney is normal in size without evidence for hydronephrosis. IMPRESSION: CHOLELITHIASIS, IN ADDITION THERE IS A GALLBLADDER WALL THICKENING AND PERICHOLECYSTIC FLUID SUGGESTIVE OF ACUTE CHOLECYSTITIS.
--- NOTE | 2016-11-30 16:39 | PN ---
Subjective Date of Service: 11/30/16 Interval History: pt feels well. Minimal epigastric discomfort. Objective Active Medications: Acetaminophen (Tylenol Tab*) 650 mg PO Q4H PRN PRN Reason: FEVER/PAIN Last Admin: 11/29/16 09:06 Dose: 650 mg Al Hydrox/Mg Hydrox/Simethicone (Maalox Plus*) 30 ml PO Q6H PRN PRN Reason: INDIGESTION Amlodipine Besylate ([facility]asc Tab*) [facility] Last Admin: 11/29/16 09:04 Dose: 5 mg Atorvastatin Calcium (Lipitor*) 40 mg PO QPM [facility] Last Admin: 11/29/16 17:03 Dose: 40 mg Finasteride (Proscar Tab*) 5 mg PO [facility] Last Admin: 11/29/16 09:02 Dose: 5 mg Hydrochlorothiazide (Hydrodiuril Tab*) 12.5 mg PO DAILY [facility] Last Admin: 11/29/16 09:03 Dose: 12.5 mg Piperacillin Sod/Tazobactam Sod (Zosyn 3.375 Gm In Ns Premix*) 3.375 gm in 100 mls @ 25 mls/hr IVPB Q8H [facility] Last Admin: 11/30/16 16:16 Dose: 25 mls/hr Lisinopril (Prinivil Tab*) 20 mg PO [facility] Last Admin: 11/29/16 09:02 Dose: 20 mg Metoprolol Tartrate (Lopressor Tab*) 12.5 mg PO DAILY [facility] Last Admin: 11/30/16 07:26 Dose: 12.5 mg Metoprolol Tartrate (Lopressor Iv*) 5 mg IV ONCE ONE Stop: 11/30/16 17:01 Last Admin: 11/30/16 16:16 Dose: 5 mg Morphine Sulfate (Morphine Inj (Syringe)*) 2 mg IV Q2H PRN PRN Reason: PAIN Last Admin: 11/28/16 21:16 Dose: 2 mg Ondansetron HCl (Zofran Inj*) 4 mg IV Q4H PRN PRN Reason: NAUSEA Tamsulosin HCl (Flomax Cap*) 0.4 mg PO [facility] Last Admin: 11/29/16 09:02 Dose: 0.4 mg Vital Signs 11/29/16 11/29/16 11/29/16 19:41 20:00 23:17 Temperature 98.1 F 98.2 F Pulse Rate 84 77 Respiratory 18 18 16 Rate Blood Pressure 137/49 147/65 (mmHg) O2 Sat by Pulse 94 91 Oximetry 11/30/16 11/30/16 11/30/16 03:33 07:22 08:00 Temperature 97.4 F 97.4 F Pulse Rate 71 78 Respiratory 16 16 16 Rate Blood Pressure 152/65 145/69 (mmHg) O2 Sat by Pulse 91 98 Oximetry 11/30/16 11/30/16 12:28 15:30 Temperature 98.3 F 97.3 F Pulse Rate 74 79 Respiratory 16 16 Rate Blood Pressure 139/68 171/77 (mmHg) O2 Sat by Pulse 98 97 Oximetry Oxygen Devices in Use Now: None Appearance: 76 yo M in NAd, AAOx3 Eyes: No Scleral Icterus, PERRLA Ears/Nose/Mouth/Throat: NL Teeth, Lips, Gums, Mucous Membranes Moist Neck: NL Appearance and Movements; NL JVP, Trachea Midline Respiratory: Symmetrical Chest Expansion and Respiratory Effort, - - faint bibasiliar crackles Cardiovascular: RRR, - - 2/6 SUSSY Abdominal: - - minimal LUQ tenderness, no rebound, no guarding, BS+ Lymphatic: No Cervical Adenopathy Extremities: No Edema, No Clubbing, Cyanosis Skin: No Rash or Ulcers, No Nodules or Sclerosis Neurological: Alert and Oriented x 3, NL Muscle Strength and Tone Result Diagrams: 11/30/16 05:12 11/30/16 05:12 Assess/Plan/Problems-Billing Assessment: 76 yo M with h/o HTN, porcine AVR in 2008, NSTEMI in 04/2016 ( unremarkable cath) presents with N/V after eating at a diner - Patient Problems (1) RUQ abdominal pain Comment: CT consistent with cholecysitis. evan Leiva Just spoke with Dr. Germain-due to scheduling issues surgery had to be postponed till tomorrow Appreciate Dr. Guadarrama's consult for preop cardiac evaluation. Pt is medically optimised for the surgery (2) Gilbert syndrome Comment: bili elevated, mostly indirect. Pt has h/o chronic mild bilirubin elevation suspect Gilbert's (3) Nausea & vomiting Comment: resolved (4) Pleuritic chest pain Comment: suspect related to vomiting and of musculoskeletal origin Trop 0.03 x 3 D dimer negative (5) HTN (hypertension) Comment: BP is under good control. Continue current medication regimen. (6) Hematuria Comment: no WBC's on UA. to f/u with urology as outpatient (7) DVT prophylaxis Comment: SQ heparin held prior to surgery. Pt is ambulating Status and Disposition: inpatient due to acute cholecystitis
[2016-11-30] MEDS ORDERED: Metoprolol Tartrate IV* 1 MG/ML 5 ML VIAL IV ONE (17:00)
[2016-11-30] MEDS: Atorvastatin* 40 MG TAB PO SCH (17:55)
--- NOTE | 2016-11-30 21:36 | PN ---
Progress Note - Progress Note SOAP: Subjective: Feels comfortable Very mild pain in right upper quadrant abdomen Objective: Temp Pulse Resp BP Pulse Ox 97.7 F 67 16 144/64 93 11/30/16 19:21 11/30/16 19:21 11/30/16 19:21 11/30/16 19:21 11/30/16 19:21 Intake & Output 11/28/16 11/29/16 11/30/16 12/01/16 06:59 06:59 06:59 06:59 Intake Total 1347 1357 2254 1088 Output Total 0 310 600 Balance 1347 1047 1654 1088 Weight 147 lb 3.2 oz 147 lb Intake: IV Fluids 1347 622 359 576 NS (0.9%) 347 497 249 150 magnesium sulfate 110 426 IVPB 100 212 ABX - ZOSYN 100 212 Oral 0 735 1795 300 Output: Urine 0 310 600 Other: Estimated Void Small Medium # Bowel Movements 0 0 5 Estimated Stool Amount Small # Voids 1 2 PEX: Comfortable and alert; NAD Abd is soft and non-distended. Bowel sounds are present Very mild tenderness in the RUQ without guarding, rebound or mass Assessment: Acute calculous cholecystitis Plan: Plan OR tomorrow for cholecystectomy-there were scheduling issues with OR tonight. IV anbx All discussed with patient
[2016-12-01] MEDS: Piperac/Tazob 3.375 gm in NS* 3.375 GM/100 ML BAG IVPB SCH ×3 (00:08→16:42)
[2016-12-01 06:27] LABS: Hematocrit 37 % (42-52); Hemoglobin 12.4 g/dl (14.0-18.0); Mean Corpuscular HGB Conc 34 g/dl (31-36); Mean Corpuscular Hemoglobin 30 pg (27-31); Mean Corpuscular Volume 88 fL (80-94); Mean Platelet Volume 9 um3 (7.4-10.4); Red Blood Count 4.15 10^6/ul (4.0-5.4); Red Cell Distribution Width 13 % (10.5-15); White Blood Count 9.3 10^3/ul (3.5-10.8)
[2016-12-01 06:46] LABS: Albumin 3.1 g/dL (3.2-5.2); BUN/Creatinine Ratio 27.7 (8-20); Calcium 8.5 mg/dL (8.6-10.3); EGFR African American 153.2 (>60); EGFR Non-African American 119.1 (>60); Globulin 2.8 g/dL (2-4); Magnesium 2.1 mg/dL (1.9-2.7); Potassium 3.6 mmol/L (3.5-5.0); Total Bilirubin 2.8 mg/dL (0.2-1.0); Total Protein 5.9 g/dL (6.4-8.9)
[2016-12-01] MEDS: Metoprolol Tartrate TAB* 25 MG PO SCH ×2 (08:56→21:01)
[2016-12-01] MEDS: Tamsulosin CAP* 0.4 MG PO SCH (09:06)
[2016-12-01] MEDS: amLODIPine TAB* 5 MG PO SCH (09:06)
[2016-12-01] MEDS: Finasteride TAB* 5 MG PO SCH (09:06)
[2016-12-01] MEDS: Hydrochlorothiazide TAB* 25 MG PO SCH (09:47)
[2016-12-01] MEDS: Lisinopril TAB* 10 MG PO SCH (09:47)
--- NOTE | 2016-12-01 11:28 | PN ---
Subjective Date of Service: 12/01/16 Interval History: pt feels well. Had BM. C/o very mild epigastric discomfort. OR scheduled for noon Objective Active Medications: Acetaminophen (Tylenol Tab*) 650 mg PO Q4H PRN PRN Reason: FEVER/PAIN Last Admin: 11/29/16 09:06 Dose: 650 mg Al Hydrox/Mg Hydrox/Simethicone (Maalox Plus*) 30 ml PO Q6H PRN PRN Reason: INDIGESTION Amlodipine Besylate (Norvasc Tab*) [address] [facility] Admin: 12/01/16 09:06 Dose: Not Given Atorvastatin Calcium (Lipitor*) 40 mg PO QPM [facility] Last Admin: 11/30/16 17:55 Dose: 40 mg Finasteride (Proscar Tab*) [address] [facility] [place] Last Admin: 12/01/16 09:06 Dose: Not Given Hydrochlorothiazide (Hydrodiuril Tab*) 12.5 mg PO DAILY [facility] Last Admin: 12/01/16 09:47 Dose: 12.5 mg Piperacillin Sod/Tazobactam Sod (Zosyn 3.375 Gm In Ns Premix*) 3.375 gm in 100 mls @ 25 mls/hr IVPB Q8H [facility] Last Admin: 12/01/16 08:56 Dose: 25 mls/hr Lisinopril (Prinivil Tab*) 20 mg PO [facility] Last Admin: 12/01/16 09:47 Dose: 20 mg Metoprolol Tartrate (Lopressor Tab*) 12.5 mg PO BID [facility] Last Admin: 12/01/16 08:56 Dose: 12.5 mg Morphine Sulfate (Morphine Inj (Syringe)*) 2 mg IV Q2H PRN PRN Reason: PAIN Last Admin: 11/28/16 21:16 Dose: 2 mg Ondansetron HCl (Zofran Inj*) 4 mg IV Q4H PRN PRN Reason: NAUSEA Pantoprazole Sodium (Protonix Iv*) 40 mg IV Q24H ONE Stop: 12/01/16 12:01 Tamsulosin HCl (Flomax Cap*) 0.4 mg PO [facility] Last Admin: 12/01/16 09:06 Dose: Not Given Vital Signs 11/30/16 11/30/16 11/30/16 12:28 15:30 19:21 Temperature 98.3 F 97.3 F 97.7 F Pulse Rate 74 79 67 Respiratory 16 16 16 Rate Blood Pressure 139/68 171/77 144/64 (mmHg) O2 Sat by Pulse 98 97 93 Oximetry 11/30/16 11/30/16 12/01/16 20:00 23:38 03:34 Temperature 97.9 F 98.4 F Pulse Rate 67 75 Respiratory 16 17 17 Rate Blood Pressure 161/65 142/57 (mmHg) O2 Sat by Pulse 97 97 Oximetry 12/01/16 12/01/16 07:33 08:00 Temperature 97.8 F Pulse Rate 59 Respiratory 18 16 Rate Blood Pressure 184/79 (mmHg) O2 Sat by Pulse 96 Oximetry Oxygen Devices in Use Now: Nasal Cannula - at 2 L when lying doen, 02 sat 96% on RA when walking Appearance: 76 yo M in nAD, aAOx3 Eyes: No Scleral Icterus, PERRLA Ears/Nose/Mouth/Throat: NL Teeth, Lips, Gums, Mucous Membranes Moist Neck: NL Appearance and Movements; NL JVP, Trachea Midline Respiratory: Symmetrical Chest Expansion and Respiratory Effort Cardiovascular: NL Sounds; No Murmurs; No JVD, RRR Abdominal: - - mild RUQ tenderness, no rebound, no guarding, BS+ Lymphatic: No Cervical Adenopathy Extremities: No Edema, No Clubbing, Cyanosis Skin: No Rash or Ulcers, No Nodules or Sclerosis Neurological: Alert and Oriented x 3, NL Muscle Strength and Tone Result Diagrams: 12/01/16 05:47 12/01/16 05:47 Assess/Plan/Problems-Billing Assessment: 76 yo M with h/o HTN, porcine AVR in 2008, NSTEMI in 04/2016 ( unremarkable cath) presents with N/V after eating at a diner - Patient Problems (1) RUQ abdominal pain Comment: CT consistent with cholecysitis. cont Zosyn To OR today Appreciate Dr. Guadarrama's consult for preop cardiac evaluation. Pt is medically optimized for the surgery (2) Gilbert syndrome Comment: bili elevated, mostly indirect. Pt has h/o chronic mild bilirubin elevation suspect Gilbert's (3) Nausea & vomiting Comment: resolved (4) Pleuritic chest pain Comment: suspect related to vomiting and of musculoskeletal origin Trop 0.03 x 3 D dimer negative resolved (5) HTN (hypertension) Comment: BP high today, but vitals were checked before pt got his HTN meds. Continue current medication regimen. (6) Hematuria Comment: no WBC's on UA. to f/u with urology as outpatient (7) DVT prophylaxis Comment: SQ heparin held prior to surgery. Pt is ambulating Status and Disposition: inpatient due to acute cholecystitis
[2016-12-01] MEDS ORDERED: Bupivacaine 0.25% EPI 200,000* 30 ML SDV ONE (11:50)
[2016-12-01] MEDS ORDERED: Pantoprazole IV* 40 MG IV ONE (12:00)
[2016-12-01] MEDS ORDERED: Lidocaine 2% MPF* 2 ML VIAL ONE (12:32)
[2016-12-01] MEDS ORDERED: Rocuronium* 10 MG/ML VIAL ONE (12:32)
[2016-12-01] MEDS ORDERED: Propofol* 10 MG/ML 20 ML BTL IV PUSH ONE (12:32)
[2016-12-01] MEDS ORDERED: fentaNYL* 50 MCG/ML 2 ML VIAL (100 MCG VIAL) ONE (12:34)
[2016-12-01] MEDS ORDERED: Phenylephrine IV* 40 MCG/ML 10 ML SYRINGE ONE (13:01)
[2016-12-01] MEDS ORDERED: Phenylephrine INJ* 10 MG/ML 1 ML VIAL (10 MG) ONE (13:06)
[2016-12-01] MEDS ORDERED: Dexamethasone IV* 4 MG/ML 1 ML (4 MG) ONE (13:15)
[2016-12-01] MEDS ORDERED: Ondansetron INJ* 2 MG/ML VIAL ONE (13:27)
[2016-12-01] MEDS ORDERED: oxyCODONE TAB* 5 MG TAB PO PRN (13:37)
[2016-12-01] MEDS ORDERED: PROCHLORPERAZINE INJ 5 MG/ML 2 ML VIAL IV PRN (13:37)
[2016-12-01] MEDS ORDERED: Acetaminophen IV 1GM/100ML * 100 ML IVPB ONE (13:37)
[2016-12-01] MEDS ORDERED: fentaNYL* 50 MCG/ML 2 ML VIAL (100 MCG VIAL) IV PRN (13:37)
[2016-12-01] MEDS ORDERED: Glycopyrrolate IV* 0.2 MG/ML 1 ML VIAL ONE (13:48)
[2016-12-01] MEDS ORDERED: Neostigmine Methylsulfate* 2 MG/2 ML SYRINGE ONE (13:48)
--- NOTE | 2016-12-01 14:04 | PN ---
Progress Note - Progress Note Note: Brief Op Note: Preop Dx: acute cholecystitis Postop Dx: same, gangrenous Procedure: lap cholecystectomy Anesthesia: GET Surgeon: Marcellus Asst: MICHAEL Mcintyre EBL: 100 ml Fluids: 1800 crystalloid Drains: none (Surgicel left in liver bed) Findings: dictated
[2016-12-01] MEDS ORDERED: oxyCODONE/Acetamin 5/325 MG* TAB PO PRN (14:06)
[2016-12-01] MEDS ORDERED: Acetaminophen IV 1GM/100ML * 100 ML ONE (15:46)
[2016-12-01] MEDS: Atorvastatin* 40 MG TAB PO SCH (16:42)
[2016-12-02] MEDS: Piperac/Tazob 3.375 gm in NS* 3.375 GM/100 ML BAG IVPB SCH ×2 (00:47→08:11)
[2016-12-02 08:01] LABS: Hematocrit 36 % (42-52); Hemoglobin 12.1 g/dl (14.0-18.0); Mean Corpuscular HGB Conc 34 g/dl (31-36); Mean Corpuscular Hemoglobin 30 pg (27-31); Mean Corpuscular Volume 88 fL (80-94); Mean Platelet Volume 9 um3 (7.4-10.4); Red Blood Count 4.11 10^6/ul (4.0-5.4); Red Cell Distribution Width 13 % (10.5-15); White Blood Count 10.3 10^3/ul (3.5-10.8)
[2016-12-02 08:03] VITALS: BP 170/73
[2016-12-02] MEDS: Lisinopril TAB* 10 MG PO SCH (08:12)
[2016-12-02] MEDS: Hydrochlorothiazide TAB* 25 MG PO SCH (08:12)
[2016-12-02] MEDS: Metoprolol Tartrate TAB* 25 MG PO SCH (08:12)
[2016-12-02] MEDS: Tamsulosin CAP* 0.4 MG PO SCH (08:13)
[2016-12-02] MEDS: Finasteride TAB* 5 MG PO SCH (08:13)
[2016-12-02] MEDS: amLODIPine TAB* 5 MG PO SCH (08:13)
[2016-12-02 08:17] LABS: BUN/Creatinine Ratio 21.9 (8-20); Calcium 8.7 mg/dL (8.6-10.3); EGFR Non-African American 121.3 (>60); Potassium 3.3 mmol/L (3.5-5.0)
--- NOTE | 2016-12-02 10:40 | DCNOTE ---
Patient seen this morning. Feels well, abdominal pain very mild. Tolerating diet with no issues. Urinating, moved bowels yesterday. On exam, RRR, s1 and s2 present, no m/g/r, abd soft, mild TTP, dressing in place , no LE edema. D/C home today on ABx and pain medications as written by surgery. F/U with PCP and Surgery.
--- NOTE | 2016-12-03 21:38 | DS ---
DISCHARGE SUMMARY: DATE OF ADMISSION: DATE OF DISCHARGE: 12/02/16 PRIMARY CARE PHYSICIAN: Rayo Chacko MD CONSULTANTS DURING HOSPITALIZATION: 1. Cali Germain MD, Surgery. 2. Cali Guadarrama DO, Cardiology. PRINCIPAL DISCHARGE DIAGNOSIS: Acute cholecystitis. SECONDARY DIAGNOSES: 1. Aortic stenosis, status post aortic valve replacement. 2. Hypertension. 3. Hyperlipidemia. 4. Benign prostatic hyperplasia. STUDIES DONE DURING HOSPITALIZATION: Chest x-ray, impression: Stigmata of potential chronic obstructive pulmonary disease and emphysema. No acute cardiopulmonary process is evident. CT abdomen and pelvis with contrast, impression: Bilateral pleural effusions. CT findings suggest acute cholecystitis, scattered diverticula. No CT evidence of acute diverticulitis. Advanced atherosclerotic changes, prostatic hypertrophy. Transthoracic echocardiogram, conclusions: Left ventricular chamber size is normal. Mild concentric LVH is observed. Normal left ventricular systolic function with an estimated ejection fraction of 55% to 60%. The left atrium is moderately dilated. The right ventricle is slightly dilated with normal RV function. The bioprosthetic aortic valve appears to be functioning normally. There is evidence of mild pulmonary hypertension. No significant changes from 05/03/16. Gallbladder ultrasound, impression: Cholelithiasis. In addition, there is a gallbladder wall thickening and pericholecystic fluid suggestive of acute cholecystitis. DISCHARGE MEDICATION REGIMEN: 1. Tylenol 650 mg by mouth every 4 hours as needed for pain. 2. Augmentin 875 mg by mouth 2 times daily. 3. Percocet 5/325 mg 1 tablet by mouth every 3 hours as needed for pain. 4. Aspirin 325 mg by mouth daily. 5. Finasteride 5 mg by mouth daily. 6. Lisinopril/hydrochlorothiazide 20/12.5 mg 1 tablet by mouth daily. 7. Tamsulosin 0.4 mg by mouth daily. 8. Amlodipine 5 mg by mouth daily. 9. Atorvastatin 40 mg by mouth nightly. 10. Metoprolol tartrate 12.5 mg by mouth daily. HISTORY OF PRESENT ILLNESS AND HOSPITAL SUMMARY: Please see the full history and physical by Dr. Linwood Hua for full details. Briefly, Mr. David is a 76- year-old male with past medical history as above, who presented to the hospital with upper abdominal pain that was radiating to the chest. He had a mild elevation of his troponin. As noted above, imaging showed evidence of acute cholecystitis. Surgery was consulted as well as cardiology for preoperative assessment. The patient was taken to the OR for laparoscopic cholecystectomy on 12/01/16. Surgery went well. The patient had no issues postoperatively and was tolerating a diet. He was discharged the following day with pain medications and antibiotics. He will follow up with surgery and with his PCP as an outpatient. TIME SPENT: Total time spent on this discharge 35 minutes. This is a summary of the hospitalization. Please see the full medical record for further details. CC: Dr. Chacko* [id number]/CPS #: [id number] MTDD
--- NOTE | 2016-12-08 03:06 | OP ---
DATE OF OPERATION: 12/01/16 - ROOM #422 DATE OF : 38 SURGEON: Dr. Cali Germain. REVERSE UNIT OPERATOR: MICHAEL Bauman ANESTHESIOLOGIST: Gómez James MD ANESTHESIA: General. PRE-OP DIAGNOSIS: Acute cholecystitis. POST-OP DIAGNOSIS: Gangrenous cholecystitis. OPERATIVE PROCEDURE: Laparoscopic cholecystectomy. BLOOD LOSS: 100 cc. FLUIDS: 1800 cc of crystalloid fluid given. DRAINS: None. DESCRIPTION OF PROCEDURE: Mr. David was identified in the preoperative area, again I discussed the case with him going over the risks, benefits, and alternatives to the procedure. He wished to proceed. We talked about the possible complications which included but not limited to bleeding, infection, retained common bile duct stones, need for open procedure or additional procedures, bile leak, and the possibility of placement of drain. The patient' s questions were answered and he was marked, taken to the operating room and placed on the operating room table in a supine position. Preoperative antibiotics were given. Sequential devices were placed on bilateral lower extremities. General anesthesia was induced. The patient abdomen was prepped and dapped in a standard surgical fashion and a time-out was performed. Folds of the umbilicus were elevated anteriorly, and a Veress needle was inserted into the abdominal cavity which was then allowed to insufflate to a pressure of 15 mmHg. Periumbilical incision was then made and a 12 mm trocar was inserted. Laparoscope was inserted through this and there was no evidence of injury from the trocar insertion or from the Veress needle, which was then removed. Review of the abdomen showed some scant fluid above the liver. Additional trocars were then placed in the following position, a 12-mm in the subxiphoid area and two 5-mm along the right coastal margin. The table was repositioned. Next, the fundus of the gallbladder was identified. This proved to be somewhat difficult to grasp, but we ultimately were able to free up some of the omental attachments to this and grasp the fundus, which showed some patchy areas of necrosis and elevated this anteriorly. Blunt dissection was carried out to expose the infundibular area of the gallbladder. This was very friable and we promptly got into the gallbladder at this site. It was mostly bile that was suctioned out and again the wall of the gallbladder showed these patchy areas of necrosis consistent with gangrene. With blunt dissection, we were able to isolate the cystic duct, which did appear intact. Some electrocautery was utilized to take the peritoneal attachments off the lateral aspect of the gallbladder, mostly blunt dissection was utilized to expose a cystic artery that was aberrant in its course on the lateral side of the gallbladder. This was doubly clipped and ligated. The cystic duct was seen extending towards the common bile duct and critical visual was obtained and the cystic duct was triply clipped and ligated. The gallbladder was then removed from the liver bed with mostly blunt dissection as this tissue was very friable. It was placed in an endoscopic retrieval bag and placed over the liver. Copious irrigation was utilized. Hemostasis was achieved with electrocautery on most of the liver bed, but we utilized Surgicel in some aspects to gain hemostasis. The Surgicel was placed with a 4 x 8 gauze over this and pressure was held. While pressure was held, copious irrigation was utilized. We suctioned this out until the effluent was clear. Review of the cystic duct stump and cystic artery stump showed no bleeding or bile leak. The Surgicel was removed and there was minimal oozing that was controlled with electrocautery. An additional piece of Surgicel was then draped over the surgical bed and the table was repositioned back to neutral. Next, the gallbladder and its endoscopic retrieval bag was brought out through the subxiphoid port site without difficulty and passed off as specimen. Camera was shifted to this port site and the umbilical port was reapproximated at the fascial layer with an 0 Polysorb suture with an Endo close device. The abdomen was allowed to collapse, trocar was removed under direct vision and all 4 skin incisions were reapproximated with 4-0 Monocryl subcuticular sutures followed by Steri-Strips and sterile dressing. The patient tolerated the procedure well , was awoken up in the OR and transferred to the PACU in stable condition. [id number]/[facility] #: [id number] LORETA
== END 2016-12-02 13:35 | disposition home or self-care (01) | DRG 419 ==
LOC: ED 21:48 → MEDTELE 11-28 00:41 → OBSVTOIN 11-29 15:57 → MED 12-01 16:32
PROVIDERS: ADMIT Internal Medicine; ATTEND Hospitalist
PROC: 0FT44ZZ Resection of Gallbladder, Percutaneous Endoscopic Approach (ICD-10-PCS; principal; 2016-12-01 12:00)
DX: K80.12 Calculus of gallbladder with acute and chronic cholecystitis without obstruction (principal); M41.9 Scoliosis, unspecified; R31.9 Hematuria, unspecified; I10 Essential (primary) hypertension; N40.0 Benign prostatic hyperplasia without lower urinary tract symptoms; G89.29 Other chronic pain; E80.4 Gilbert syndrome; E78.5 Hyperlipidemia, unspecified; I25.2 Old myocardial infarction; Z95.2 Presence of prosthetic heart valve; Z79.82 Long term (current) use of aspirin; Z79.899 Other long term (current) drug therapy
CPT/HCPCS: 36415; 71020; 74177; 76705; 80048; 80053; 81003; 81015; 82248; 82550; 83605; 83690; 83735; 83880; 84484; 85025; 85379; 86140; 88304; 93005; 93306; 94760; A9270-GY; G0378; J1100; J1644; J2270; J2405; J2543; J2704; J3010; J3475; J3490; Q9967

== ENCOUNTER 2017-03-27 13:44 | Inpatient (IN) | payer MEDICARE ==
[2017-03-27 14:23] LABS: Hematocrit 40 % (42-52); Hemoglobin 13.1 g/dl (14.0-18.0); Mean Corpuscular HGB Conc 33 g/dl (31-36); Mean Corpuscular Hemoglobin 29 pg (27-31); Mean Corpuscular Volume 88 fL (80-94); Mean Platelet Volume 8 um3 (7.4-10.4); Red Cell Distribution Width 14 % (10.5-15); White Blood Count 8.4 10^3/ul (3.5-10.8)
[2017-03-27 14:28] LABS: Chloride 87 mmol/L (101-111); Potassium 4.3 mmol/L (3.5-5.0); Sodium 130 mmol/L (133-145)
[2017-03-27 14:45] LABS: ALT 38 U/L (7-52); AST 28 U/L (13-39); Albumin 3.8 g/dL (3.2-5.2); Alkaline Phosphatase 73 U/L (34-104); Anion Gap 4 mmol/L (2-11); BUN/Creatinine Ratio 27.1 (8-20); Blood Urea Nitrogen 19 mg/dL (6-24); C Reactive Protein < 1.00 mg/L (< 5.00); CO2 Carbon Dioxide 39 mmol/L (22-32); Calcium 8.8 mg/dL (8.6-10.3); EGFR African American 140.6 (>60); EGFR Non-African American 109.4 (>60); Globulin 2.7 g/dL (2-4); Glucose 198 mg/dL (70-100); Total Protein 6.5 g/dL (6.4-8.9)
--- NOTE | 2017-03-27 14:47 | RAD ---
INDICATION: Shortness of breath. COMPARISON: Comparison is made with a prior chest x-ray study from November 27, 2016. TECHNIQUE: A portable view of the chest was obtained. FINDINGS: The patient is status post sternotomy. There is a dual-chamber transvenous pacemaker present. The heart is within normal limits in size. The lungs are clear. No pleural effusion is seen. IMPRESSION: POSTSURGICAL CHANGES, NO EVIDENCE FOR ACUTE FINDING.
[2017-03-27 14:49] LABS: Troponin I 0.13 ng/mL (<0.04)
[2017-03-27] MEDS ORDERED: Iohexol 350* (CONTRAST) 500 ML MDV IV ONE (15:25)
--- NOTE | 2017-03-27 15:44 | RAD ---
INDICATION: Shortness of breath. COMPARISON: Comparison is made with a prior chest x-ray study from March 27, 2017. TECHNIQUE: A CT angiogram of the chest was performed with intravenous following intravenous injection of 62 ml of Omnipaque 350 nonionic contrast. Contiguous axial sections were obtained from the lung apices through the lung bases. Images were reconstructed in the coronal and sagittal planes. FINDINGS: There is relatively homogeneous opacification of the pulmonary arteries. No intraluminal filling defect or pulmonary embolism is seen. The patient is status post sternotomy. There is a cardiac pacemaker present. The heart is within normal limits in size. No pericardial effusion is present. The thoracic aorta is normal in caliber. There is moderate calcific plaque present. No significant enlarged mediastinal or hilar lymph nodes are seen. There are small bilateral pleural effusions and mild dependent bilateral lower lobe infiltrates most consistent with atelectasis. No significant focal osseous abnormality is seen. IMPRESSION: 1. NO EVIDENCE FOR PULMONARY EMBOLISM. 2. SMALL BILATERAL PLEURAL EFFUSIONS.
[2017-03-27] MEDS ORDERED: Ondansetron INJ* 2 MG/ML VIAL IV PRN (17:05)
[2017-03-27] MEDS ORDERED: Acetaminophen TAB* 325 MG PO PRN (17:05)
[2017-03-27] MEDS ORDERED: Albuterol/Ipratropium NEB.SOL* Albuterol 2.5 MG/Ipratropium 0.5 MG 3 ML INH PRN (17:05)
[2017-03-27] MEDS ORDERED: Docusate CAP* 100 MG PO PRN (17:05)
[2017-03-27] MEDS ORDERED: Naloxone* 0.4 MG/ML 1 ML VIAL IV PUSH ONE (17:12)
[2017-03-27] MEDS ORDERED: Naloxone* 0.4 MG/ML 1 ML VIAL ONE (17:13)
[2017-03-27 17:43] LABS: PCO2 Arterial > 124 mmHg (35-45)
[2017-03-27] MEDS ORDERED: Etomidate* 2 MG/ML 10 ML VIAL ONE (17:52)
[2017-03-27] MEDS ORDERED: Midazolam* 1 MG/ML 5 ML VIAL (5 MG) ONE (17:52)
[2017-03-27] MEDS ORDERED: Etomidate* 2 MG/ML 10 ML VIAL IV ONE (17:57)
[2017-03-27] MEDS ORDERED: Midazolam* 1 MG/ML 10 ML VIAL (10 MG) IV ONE (17:59)
--- NOTE | 2017-03-27 17:59 | RAD ---
INDICATION: Lethargy. COMPARISON: Correlation is made with a prior CT angiogram from January 03, 2016. TECHNIQUE: Contiguous axial sections of the brain were obtained from the skull base to the vertex without contrast. The exam is slightly limited. FINDINGS: The ventricles, cisterns and sulci are within normal limits. No significant focal abnormality or mass effect is seen. There is no evidence for hemorrhage. No significant focal osseous abnormality is seen. The visualized portion of the paranasal sinuses and mastoid air cells appear clear. IMPRESSION: NO EVIDENCE FOR GROSS ACUTE INFARCT, MASS EFFECT OR HEMORRHAGE.
[2017-03-27] MEDS ORDERED: Propofol* 100 ML ONE (18:09)
[2017-03-27] MEDS ORDERED: Propofol* 500 MG/50 ML BTL IV SCH ×2 (18:14→19:00)
[2017-03-27 18:34] LABS: Urine Bacteria Absent (Absent); Urine Bilirubin Negative (Negative); Urine Glucose Negative (Negative); Urine Nitrite Negative (Negative)
[2017-03-27] MEDS ORDERED: Propofol* 100 ML IV SCH (19:27)
[2017-03-27] MEDS ORDERED: LORazepam INJ* 2 MG/ML 1 ML VIAL IV PUSH ONE (19:30)
[2017-03-27] MEDS ORDERED: LORazepam INJ* 2 MG/ML 1 ML VIAL ONE (19:33)
[2017-03-27] MEDS: NS 0.9% 1000 ML* 2,000 ML IV ONE ×2 (19:40→20:54)
--- NOTE | 2017-03-27 19:52 | RAD ---
INDICATION: Status post intubation. COMPARISON: Comparison is made with a prior study from approximately 5 hours earlier. TECHNIQUE: A portable view of the chest was obtained. FINDINGS: The patient is status post intubation. The endotracheal tube projects over the midline. The catheter tip is at the level of the clavicular heads. The endotracheal tube cuff balloon appears prominent, recommend clinical correlation. The heart is within normal limits in size. There is a cardiac pacemaker defibrillator present. The lungs are clear. The right and left costophrenic angles are cut off from the film. IMPRESSION: STATUS POST INTUBATION. THE ENDOTRACHEAL TUBE CUFF BALLOON APPEARS PROMINENT. RECOMMEND CLINICAL CORRELATION.
[2017-03-27] MEDS: NS 0.9% 1000 ML* 1,000 ML IV SCH (22:00)
[2017-03-27 22:17] LABS: FIO2 50; Resp Rate 12; Ventilator Volume 500
[2017-03-27 22:19] LABS: PCO2 Arterial 50 mmHg (35-45)
[2017-03-27] MEDS: Atorvastatin* 40 MG TAB PO SCH (22:26)
[2017-03-27] MEDS ORDERED: LORazepam INJ* 2 MG/ML 1 ML VIAL IV PUSH PRN (22:32)
[2017-03-27] MEDS: Chlorhexidine MOUTHWASH 0.12%* 15 ML UDC SWISH SPIT SCH (23:13)
--- NOTE | 2017-03-28 00:43 | HP ---
ADMISSION HISTORY AND PHYSICAL: DATE OF ADMISSION: 03/27/17 PRIMARY CARE PROVIDER: Rayo Chacko MD HEALTH CARE PROXY: Daughter, Antionette David. CODE STATUS: Full. Discussed with the patient's health care proxy. SOURCE OF INFORMATION: History obtained from review of past medical records and discussion with the patient's daughter. RELIABILITY OF THE RECORDS: Fair. CHIEF COMPLAINT: Sent from PCP's office for hypoxia. HISTORY OF PRESENT ILLNESS: This is a 76-year-old man, recent hospital stay 3 weeks prior at [facility] after being found down by his daughter. She reports at that time, she performed a CPR though it is unclear that he lost his pulse. His discharge paperwork from [facility] at that time indicate altered mental status. She reports he was placed on a CPAP machine and his mental status improved. Additionally at that time, he received a permanent pacemaker. She notes over the last 3 weeks, he has been increasingly tired and difficult to perform activities. The tempo of decline has dramatically increased over the last 2 weeks, although 2 weeks ago he was still able to walk downstairs to laundry on his own, he was going out to eat with his son. Again 2 to 3 days ago, he became increasingly lethargic, more difficult to arouse, sleeping most of the day. Today, he went to Dr. Chacko's office and met with Dr. Calles who reportedly found his oxygen saturation to be in the 70s, for which he was directed to [facility]. On presentation to [facility], his first recorded oxygen saturation was 85%, increased to 98% on 4 L nasal cannula. Reportedly, he was ambulating and still interactive with staff on presentation; however, when seen by this author, he was largely unresponsive, drooling with respiratory rate of 10. He was given 0.4 mg IV Narcan without response. Subsequent review of his medication list with his daughter indicated no narcotic use. ABG was performed by this author, the results indicating significant respiratory acidosis pH 7.1, arterial partial pressure of CO2 124, and pO2 of 207 on 3 L nasal cannula. He was intubated by Dr. Campos in the emergency room at this author's request prior to transportation to the intensive care unit. PAST MEDICAL HISTORY: Includes: 1. Permanent pacemaker placement in [place] 3 weeks prior, records are being requested. 2. Aortic valve replacement in 2008. 3. Hypertension. 4. Hyperlipidemia. 5. BPH. 6. Kyphoscoliosis. 7. The patient had an NSTEMI without a notable culprit lesion in April 2016 with a troponin peak at that time of 14. 8. Right inguinal hernia repair. 9. Lap cholecystectomy in November 2016. MEDICATIONS: Reviewed: 1. Magnesium oxide 400 mg daily. 2. Lisinopril 10 mg daily. 3. Finasteride 5 mg daily. 4. Aspirin 81 mg daily. 5. Metoprolol 50 mg daily. 6. Atorvastatin 40 mg in the evening. 7. Tamsulosin 0.4 mg in the morning. ALLERGIES: No known drug allergies. FAMILY HISTORY: Reviewed and noncontributory to this admission including absence of CAD or stroke. SOCIAL HISTORY: Unable to obtain. Previously, was drinking 1 to 2 beers per day. He is . He lives with his son. REVIEW OF SYSTEMS: As obtained from his daughter including increasing lethargy status post discharge from [facility] 3 weeks prior. Otherwise, no notable fevers, chills, or night sweats. Not noticed to have a cough. No changes in urinary frequency. No other notable complaints, although largely inconclusive secondary to the patient's lethargy. PHYSICAL EXAMINATION GENERAL: An elderly gentleman, sitting up in bed, noninteractive, arouses to sternal rub. VITAL SIGNS: Vitals when seen by this author blood pressure 147/60, heart rate 71, 98% on 4 L nasal cannula, remained 97% on room air, T-max in the emergency room 97.5 and T-low 96.5, and respiratory rate 10. HEENT: His oropharynx is clear. He has moist mucous membranes. Sclerae are anicteric. He has bilateral cerumen impaction; unable to visualize tympanic membranes. NECK: No cervical or supraclavicular lymphadenopathy. LUNGS: His lung sounds are diminished throughout with faint rales in the right base. HEART: He has a regular rate and rhythm. ABDOMEN: Soft, nontender, and nondistended. EXTREMITIES: Warm and well perfused. Trace lower extremity pitting edema. NEURO: He is A and O x3. Wakes to sternal rub. Localizes to pain in all 4 extremities. Babinski is downgoing. His pupils are equal, round, and reactive. Does not follow commands. DIAGNOSTIC STUDIES/LAB DATA: Laboratory data reviewed. ABG as indicated above pH 7.1, pCO2 greater than 120, and pO2 207. His white blood cell count is 8.4, hemoglobin 13.1, and platelets 236. Sodium is 130, chloride 87, bicarb 39, BUN 19, creatinine 0.7, and glucose 198. Lactic acid 1.9. Total bili 1.6. Ammonia 66. Troponin I 0.13. CRP is less than 1. BNP is 272. Urine was obtained during a straight catheterization, of which 160 cc were obtained and results are pending. Data reviewed. CTA chest, impression: No evidence of pulmonary embolism. Small bilateral pleural effusions. Bilateral lower lobe infiltrates, most consistent with atelectasis. Brain CT is pending reviewed by this author. No obvious subdural or intracerebral hemorrhage. Official read is pending. EKG, A-paced and ST depression in V4 through V6. ASSESSMENT AND PLAN: A 76-year-old man with past medical history as outlined above including recently placed permanent pacemaker and admission to [facility] with altered mental status, reportedly improved with CPAP, now presenting with 3 weeks of continued decline and respiratory failure after initiation of oxygen in the emergency room. 1. Hypercapnic respiratory failure: Unclear etiology for hypercapnia at this time. The patient did not respond to Narcan. He has no significant underlying pulmonary disease that is known of at this time and none elucidated on CTA. Suspect undiagnosed chronic obstructive pulmonary disease or sleep apnea with gradual increase of CO2. Likely worsened once he presented to the hospital and lost his hypoxic drive to respirate. The patient is being intubated at this time and will be transferred to the ICU. Plan on overventilating and repeat ABG in 4 hours. 2. Elevated troponin approximately 1 year ago: Nonobstructive CAD, troponin is elevated to 14. Not planned on anticoagulate at this time. Suspect demand in the setting of respiratory failure. We will trend troponins and decide to heparinize if continues to improve. 3. Hyperglycemia: No known history of diabetes. Add on hemoglobin A1c to be followed tomorrow. 4. Hypertension: Continue home medications. Likely hold in a.m. if need additional sedation, although if sedation is needed, suspect we will extubate. 5. Please note urine and blood cultures are pending. CODE STATUS: Full. [id number]/[facility] #: [id number] [facility]
[2017-03-28 05:33] LABS: BUN/Creatinine Ratio 27.6 (8-20); Calcium 7.8 mg/dL (8.6-10.3); EGFR African American 174.7 (>60); EGFR Non-African American 135.9 (>60); Potassium 4.7 mmol/L (3.5-5.0)
[2017-03-28] MEDS: Chlorhexidine MOUTHWASH 0.12%* 15 ML UDC SWISH SPIT SCH (05:44)
[2017-03-28] MEDS: NS 0.9% 1000 ML* 1,000 ML IV SCH (05:44)
--- NOTE | 2017-03-28 07:07 | RAD ---
INDICATION: Orogastric tube placement. COMPARISON: Comparison is made with a prior study from June 27, 2017. TECHNIQUE: A portable view of the chest was obtained. FINDINGS: The patient is status post intubation and orogastric tube placement. The endotracheal tube projects over the midline. The catheter tip is at the level of the clavicular heads. There is a nasogastric tube which demonstrates normal course. The catheter tip projects in the left upper quadrant. The heart is within normal limits in size. There is a dual-chamber transvenous pacemaker present. The lungs are underinflated and grossly clear. No pleural effusion is seen. IMPRESSION: STATUS POST OROGASTRIC TUBE PLACEMENT NOTED.
[2017-03-28] MEDS: Metoprolol Tartrate TAB* 50 mg PO SCH (11:11)
[2017-03-28] MEDS: Lisinopril TAB* 10 MG PO SCH (11:12)
--- NOTE | 2017-03-28 11:13 | PN ---
Progress Note - Progress Note Note: CRITICAL CARE MEDICINE Date: 03/28/17 Time: 935 SUBJECTIVE: Patient seen and examined. PHYSICAL EXAM: elderly appearing. Vital Signs: Reviewed. Neurologic: awakens on vent. HEENT: pupils equal. Sclera anicteric. Trachea midline. Cardiovascular: S1 S2, 3/6 faustino; pacer pocket intact Respiratory: distant but clear Abdomen: Soft, nt. No r/g/r. Extremities: Warm. Access: piv LABS: Reviewed. IMAGING: Reviewed. MEDICATIONS: Reviewed. ASSESSMENT: 76 M Acute hypercarbic and hypoxic resp failure - combination of hypercarbia and narcotics with hypoventilation Copd exac PLAN: Doing fine. can liberate from vent. ensure he tolerates from there. nebs. needs outpt pulm eval. No abx need. no steroid need. Po diet. brodie frazier and potential floor later today or tomorrow. Resume cardiac meds. Supportive and preventative care as ordered. SUP: po VTE prophylaxis: lovenox Disposition: ICU currently Code Status: Full Critical Care Time: 35min Elton Estrada DO
[2017-03-28] MEDS: Aspirin EC Low Dose* 81 MG TAB.EC PO SCH (11:30)
[2017-03-28] MEDS: Tamsulosin CAP* 0.4 MG PO SCH (11:30)
[2017-03-28] MEDS: Magnesium Oxide TAB* 400 MG PO SCH (11:31)
[2017-03-28] MEDS: Finasteride TAB* 5 MG PO SCH (11:31)
[2017-03-28] MEDS: Enoxaparin(*) 40 MG/0.4 ML SYR SUBCUT SCH (13:30)
--- NOTE | 2017-03-28 14:48 | ED ---
Luis M Gloria Matthew, scribed for Nikhil Campos MD on 03/27/17 at 1444 . Shortness of Breath - HPI Summary HPI Summary: A 76 y/o male presents to the ED with constant SOB. He states that he's been feeling ill since November after his cholecystectomy. The patient is not on home oxygen. He was referred to the ED by Dr. Calles's office for low O2 levels. Associated symptoms include general weakness per the daughter. The patient had a pacemaker placed on 03/12/17 in [facility]. - History of Current Complaint Chief Complaint: EDShortnessOfBreath Time Seen by Provider: 03/27/17 13:52 Hx Obtained From: Patient Onset/Duration: Lasting Weeks, Still Present Timing: Constant Current Severity: Mild Dyspnea At: Rest - Allergy/Home Medications Allergies/Adverse Reactions: Allergies Allergy/AdvReac Type Severity Reaction Status Date / Time No Known Allergies Allergy Verified 11/27/16 21:48 Home Medications: Home Medications Aspirin EC Low Dose* [Ecotrin EC Low Dose 81 MG*] 81 mg PO DAILY 03/27/17 [ History Confirmed 03/27/17] Lisinopril [Zestril 10 MG-] 10 mg PO DAILY 03/27/17 [History Confirmed 03/27/17] Magnesium Oxide 400 mg PO DAILY 03/27/17 [History Confirmed 03/27/17] PMH/Surg Hx/FS Hx/Imm Hx Endocrine/Hematology History: Denies: Hx Diabetes, Hx Thyroid Disease Cardiovascular History: Reports: Hx Coronary Artery Disease, Hx Hypercholesterolemia, Hx Hypertension, Hx Syncope, 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, Other Cardiovascular Problems/Disorders - CABG Denies: Hx Peripheral Vascular Disease Respiratory History: Reports: Other Respiratory Problems/Disorders - USES INHALER FOR OCCASIONAL WHEEZING, SPUTUM PRODUCTION History: Reports: Hx Benign Prostatic Hyperplasia, Other Problems/ Disorders - BENIGN PROSTATIC HYPERTROPHY Denies: Hx Renal Disease Musculoskeletal History: Reports: Hx Back Problems, Other Musculoskeletal History - ABOUT 1 YEAR AGO SMALL TREE FELL ON HIM SOME BACKACHES FROM THAT Denies: Hx Arthritis Sensory History: Reports: Hx Contacts or Glasses - reading, Hx Hearing Aid - bilateral, Hx Hearing Problem Opthamlomology History: Reports: Hx Contacts or Glasses - reading Neurological History: Reports: Other Neuro Impairments/Disorders - possible stroke-like symptoms at home 01/02/16 Denies: Hx Headaches Psychiatric History: Denies: Hx Anxiety, Hx Depression - Surgical History Surgery Procedure, Year, and Place: 05/2009 CARDIAC CATHERIZATION, [facility]. 2009 AORTIC VALVE(PORCINE) REPLACEMENT, [facility] Hx Anesthesia Reactions: No Infectious Disease History: No Infectious Disease History: Denies: Traveled Outside the [place] in Last 30 Days - Family History Known Family History: Positive: Cardiac Disease - Social History Alcohol Use: Weekly Alcohol Amount: 1 Substance Use Type: Reports: None Hx Tobacco Use: Yes Smoking Status (MU): Former Smoker Type: Cigarettes Amount Used/How Often: 1 PPD Length of Time of Smoking/Using Tobacco: 10 years Have You Smoked in the Last Year: No Review of Systems Constitutional: Negative Eyes: Negative ENT: Negative Cardiovascular: Negative Positive: Shortness Of Breath Gastrointestinal: Negative Genitourinary: Negative Musculoskeletal: Negative Skin: Negative Positive: Weakness - general Psychological: Normal All Other Systems Reviewed And Are Negative: Yes Physical Exam Triage Information Reviewed: Yes Vital Signs On Initial Exam: Initial Vitals Temp Pulse Resp BP Pulse Ox 97.5 F 70 20 151/66 85 03/27/17 13:48 03/27/17 13:48 03/27/17 13:48 03/27/17 13:48 03/27/17 13:48 Vital Signs Reviewed: Yes Appearance: Positive: No Pain Distress Skin: Positive: Warm, Skin Color Reflects Adequate Perfusion, Dry Head/Face: Positive: Normal Head/Face Inspection Eyes: Positive: Normal ENT: Positive: Normal ENT inspection Neck: Positive: Supple, Nontender Respiratory/Lung Sounds: Positive: Decreased Breath Sounds - reduced breath sounds in all berry Cardiovascular: Positive: RRR, Murmur - Systolic injection murmur; questionable diastolic murmur Abdomen Description: Positive: Nontender, Soft Bowel Sounds: Positive: Present Musculoskeletal: Positive: Strength/ROM Intact Neurological: Positive: Normal, Alert, Oriented to Person Place, Time Psychiatric: Positive: Affect/Mood Appropriate Procedures - Intubation Intubation Method: orotracheal Tube Size (cm): 8.0 Medications: Versed - 5 Breath Sounds after Intubation: equal Intubation Complications: no complications Diagnostics - Vital Signs Vital Signs Temp Pulse Resp BP Pulse Ox 03/27/17 13:48 97.5 F 70 23 151/66 84 - Laboratory Lab Results: Lab Results 03/27/17 03/27/17 03/27/17 Range/Units 14:03 14:03 14:03 WBC 8.4 (3.5-10.8) 10^3/ul RBC 4.50 (4.0-5.4) 10^6/ul Hgb 13.1 L (14.0-18.0) g/dl Hct 40 L (42-52) % MCV 88 (80-94) fL MCH 29 (27-31) pg MCHC 33 (31-36) g/dl RDW 14 (10.5-15) % Plt Count 236 (150-450) 10^3/ul MPV 8 (7.4-10.4) um3 Neut % (Auto) 87.5 H (38-83) % Lymph % (Auto) 7.9 L (25-47) % Maury % (Auto) 3.9 (1-9) % Eos % (Auto) 0.2 (0-6) % Baso % (Auto) 0.5 (0-2) % Absolute Neuts (auto) 7.4 (1.5-7.7) 10^3/ul Absolute Lymphs (auto) 0.7 L (1.0-4.8) 10^3/ul Absolute Monos (auto) 0.3 (0-0.8) 10^3/ul Absolute Eos (auto) 0 (0-0.6) 10^3/ul Absolute Basos (auto) 0 (0-0.2) 10^3/ul Absolute Nucleated RBC 0 10^3/ul Nucleated RBC % 0 Sodium 130 L (133-145) mmol/L Potassium 4.3 (3.5-5.0) mmol/L Chloride 87 L (101-111) mmol/L Carbon Dioxide 39 H (22-32) mmol/L Anion Gap 4 (2-11) mmol/L BUN 19 (6-24) mg/dL Creatinine 0.70 (0.67-1.17) mg/dL Est GFR ( Amer) 140.6 (>60) Est GFR (Non-Af Amer) 109.4 (>60) BUN/Creatinine Ratio 27.1 H (8-20) Glucose 198 H (70-100) mg/dL Hemoglobin A1c (Less than 6.0) % Lactic Acid 1.9 (0.5-2.0) mmol/L Calcium 8.8 (8.6-10.3) mg/dL Total Bilirubin 1.60 H (0.2-1.0) mg/dL AST 28 (13-39) U/L ALT 38 (7-52) U/L Alkaline Phosphatase 73 (34-104) U/L Troponin I 0.13 H* (<0.04) ng/mL C-Reactive Protein < 1.00 (< 5.00) mg/L B-Natriuretic Peptide ( - 100) pg/mL Total Protein 6.5 (6.4-8.9) g/dL Albumin 3.8 (3.2-5.2) g/dL Globulin 2.7 (2-4) g/dL Albumin/Globulin Ratio 1.4 (1-3) 03/27/17 03/27/17 Range/Units 14:03 14:03 WBC (3.5-10.8) 10^3/ul RBC (4.0-5.4) 10^6/ul Hgb (14.0-18.0) g/dl Hct (42-52) % MCV (80-94) fL MCH (27-31) pg MCHC (31-36) g/dl RDW (10.5-15) % Plt Count (150-450) 10^3/ul MPV (7.4-10.4) um3 Neut % (Auto) (38-83) % Lymph % (Auto) (25-47) % Maury % (Auto) (1-9) % Eos % (Auto) (0-6) % Baso % (Auto) (0-2) % Absolute Neuts (auto) (1.5-7.7) 10^3/ul Absolute Lymphs (auto) (1.0-4.8) 10^3/ul Absolute Monos (auto) (0-0.8) 10^3/ul Absolute Eos (auto) (0-0.6) 10^3/ul Absolute Basos (auto) (0-0.2) 10^3/ul Absolute Nucleated RBC 10^3/ul Nucleated RBC % Sodium (133-145) mmol/L Potassium (3.5-5.0) mmol/L Chloride (101-111) mmol/L Carbon Dioxide (22-32) mmol/L Anion Gap (2-11) mmol/L BUN (6-24) mg/dL Creatinine (0.67-1.17) mg/dL Est GFR ( Amer) (>60) Est GFR (Non-Af Amer) (>60) BUN/Creatinine Ratio (8-20) Glucose (70-100) mg/dL Hemoglobin A1c 5.6 (Less than 6.0) % Lactic Acid (0.5-2.0) mmol/L Calcium (8.6-10.3) mg/dL Total Bilirubin (0.2-1.0) mg/dL AST (13-39) U/L ALT (7-52) U/L Alkaline Phosphatase (34-104) U/L Troponin I (<0.04) ng/mL C-Reactive Protein (< 5.00) mg/L B-Natriuretic Peptide 272 H ( - 100) pg/mL Total Protein (6.4-8.9) g/dL Albumin (3.2-5.2) g/dL Globulin (2-4) g/dL Albumin/Globulin Ratio (1-3) Result Diagrams: 03/27/17 14:03 03/28/17 05:10 Lab Statement: Any lab studies that have been ordered have been reviewed, and results considered in the medical decision making process. - Radiology CXR Xray Interpretation: No Acute Changes - IMPRESSION: POSTSURGICAL CHANGES, NO EVIDENCE FOR ACUTE FINDING. Radiology Interpretation Completed By: Radiologist - CT CTA Chest CT Interpretation: Positive (See Comments) - IMPRESSION: 1. NO EVIDENCE FOR PULMONARY EMBOLISM. 2. SMALL BILATERAL PLEURAL EFFUSIONS. CT Interpretation Completed By: Radiologist - EKG 14:13 Cardiac Rate: NL - 75 bpm EKG Interpretation: Atrial-Paced Complexes; PACs; Non-Specific ST changes Course/Dx - Course Course Of Treatment: Mr. David was brought in by his daughter with the concern that he is getting lethargic a lot at home and C/O SOB with exertion. He arrived here and was put on 4l NC when he got here and whe I seel him she tells me he is more alert. He had a recent ICD placement and I oredered a CTA for PE as he is lungs were clear and he had an equivical troponin elevation at 0.13. This was negative and I asked the hospitalists to see him. When they got here he had become unresponsive and an ABG revealed hypercarbia. He was intubated and went to the ICU. - Diagnoses Provider Diagnoses: Respiratory insufficiency, Hypercarbia - Physician Notifications Discussed Care of Patient With: Dr. Hancock (Hospitalist) at 16:40 -- Notified of patient's history and will admit the patient. - Critical Care Time Critical Care Time: 30-74 min Discharge - Discharge Plan Condition: Critical Disposition: ADMITTED TO [facility] documentation as recorded by the Luis M shukla Matthew accurately reflects the service I personally performed and the decisions made by me, Nikhil Campos MD.
[2017-03-28] MEDS: Atorvastatin* 40 MG TAB PO SCH (17:01)
[2017-03-29 06:04] LABS: Hematocrit 35 % (42-52); Hemoglobin 11.7 g/dl (14.0-18.0); Mean Corpuscular HGB Conc 33 g/dl (31-36); Mean Corpuscular Hemoglobin 29 pg (27-31); Mean Corpuscular Volume 88 fL (80-94); Mean Platelet Volume 8 um3 (7.4-10.4); Red Cell Distribution Width 14 % (10.5-15); White Blood Count 7.8 10^3/ul (3.5-10.8)
[2017-03-29 06:21] LABS: BUN/Creatinine Ratio 18.5 (8-20); Calcium 8.2 mg/dL (8.6-10.3); EGFR African American 153.2 (>60); EGFR Non-African American 119.1 (>60)
[2017-03-29] MEDS: Magnesium Oxide TAB* 400 MG PO SCH (09:02)
[2017-03-29] MEDS: Finasteride TAB* 5 MG PO SCH (09:02)
[2017-03-29] MEDS: Tamsulosin CAP* 0.4 MG PO SCH (09:03)
[2017-03-29] MEDS: Aspirin EC Low Dose* 81 MG TAB.EC PO SCH (09:03)
--- NOTE | 2017-03-29 11:50 | PN ---
Progress Note - Progress Note Note: Progress Note Critical Care 24 hour events/significant events: -extubated yesterday; on NC now, no distress. -last fevers were 03/27, has been off abx and doing well -no complaints of sob/cp/cough/sputum production/chills. -restarted on antihypertensives yesterday but this morning BP 80-90s, last 100+ ; asymptomatic Tele: atrial paced rhythm Vitals: i/o 1816/2725/-909 Vital Signs Temp 97.9 F 03/29/17 07:19 Pulse 67 03/29/17 11:10 Resp 19 03/29/17 11:10 BP 111/60 03/29/17 11:10 Pulse Ox 99 03/29/17 11:10 Intake & Output 03/28/17 03/29/17 03/29/17 18:59 06:59 18:59 Intake Total 1076 740 550 Output Total 725 2000 Balance 351 -1260 550 Weight 145 lb 11.609 oz Intake: IV Fluids 476 NS (0.9%) 476 Oral 600 740 550 Output: Urine 100 Frazier 625 600 Straight Cath 1400 Other: Estimated Void Small # Bowel Movements 1 Estimated Stool Amount Large # Voids 1 O2/Vent: NC, sat 100% Infusions: none Medications: Acetaminophen (Tylenol Tab*) 650 mg PO Q4H PRN PRN Reason: FEVER/PAIN Albuterol/Ipratropium (Duoneb (Albuterol 2.5 Mg/Ipratropium 0.5 Mg)) 1 neb INH [id number] AWAKE PRN PRN Reason: sob/wheexing Aspirin (Aspirin Ec Low Dose*) 81 mg PO DAILY [facility] Last Admin: 03/29/17 09:03 Dose: 81 mg Atorvastatin Calcium (Lipitor*) 40 mg PO QPM [facility] Last Admin: 03/28/17 17:01 Dose: 40 mg Docusate Sodium (Colace Cap*) 100 mg PO BID PRN PRN Reason: CONFUSION Enoxaparin Sodium (Lovenox(*)) 40 mg SUBCUT Q24H [facility] Last Admin: 03/28/17 13:30 Dose: 40 mg Finasteride (Proscar Tab*) 5 mg PO QAM [facility] Last Admin: 03/29/17 09:02 Dose: 5 mg Magnesium Oxide (Magox 400 Tab*) 400 mg PO DAILY [facility] Last Admin: 03/29/17 09:02 Dose: 400 mg Metoprolol Tartrate (Lopressor Tab*) 25 mg PO DAILY [facility] Ondansetron HCl (Zofran Inj*) 4 mg IV Q4H PRN PRN Reason: NAUSEA/VOMITING Tamsulosin HCl (Flomax Cap*) 0.4 mg PO QAM [facility] Last Admin: 03/29/17 09:03 Dose: 0.4 mg Physical Exam: General: awake, alert, no distress, no diaphoresis Head: normocephalic, atraumatic HEENT: no pallor, no icterus, moist mucous membranes Neck: soft, supple, no jvd, no stridor CVS: normal rate, normal rhythm, no murmur Resp: bilateral air entry with mild diminished sounds bilaterally, no rhales, no wheeze, no rhonchi, no acc muscle use Abdomen: soft, nontender, nondistended, bowel sounds present Ext: pulses+, warm, no edema Skin: intact, no breakdown, no dryness Neuro: awake, alert, orientedx3, moving all extremities, no gross focal deficit Labs: Laboratory Results - last 24 hr 03/29/17 03/29/17 05:45 05:45 WBC 7.8 RBC 4.00 Hgb 11.7 L Hct 35 L MCV 88 MCH 29 MCHC 33 RDW 14 Plt Count 174 MPV 8 Neut % (Auto) 77.6 Lymph % (Auto) 11.3 L Whitman % (Auto) 9.5 H Eos % (Auto) 1.0 Baso % (Auto) 0.6 Absolute Neuts (auto) 6.1 Absolute Lymphs (auto) 0.9 L Absolute Monos (auto) 0.7 Absolute Eos (auto) 0.1 Absolute Basos (auto) 0 Absolute Nucleated RBC 0 Nucleated RBC % 0 Sodium 137 Potassium 4.0 Chloride 97 L Carbon Dioxide 39 H Anion Gap 1 L BUN 12 Creatinine 0.65 L Est GFR ( Amer) 153.2 Est GFR (Non-Af Amer) 119.1 BUN/Creatinine Ratio 18.5 Glucose 102 H Calcium 8.2 L Phosphorus 4.0 Magnesium 2.0 Imaging: cxr 03/27 - no acute infiltrate/effusion/ptx noted. Assessment: 76y M w/pmhx CAD s/p CABG, HLD, HTN, s/p bioAVR 2008, s/p PPM 2016, BPH, former smoker; came to ER for low oxygenation, weakness, found to be hypercapneic and intubated. Extubated 03/28. -Acute on Chronic Hypercapneic respiratory failure; improved -Likely underlying obstructive lung disease, COPD exaccerbation, given smoking history -urinary retention Plan: Neuro- intact; alert/awake. CVS- cont asa/statin; hold Lopressor and acei for now; resume BB slowly at 25mg po daily instead; current BP improved on its own. Off IVF infusion. No resp distress/cp. Atrial pacing, americo left pocket need to discontinued, can have EPS look or outpatient stable removal can be done. Resp- on NC, good air entry today, no wheezing. No steroids. On duoneb q4h. Would start albuterol inh q4h prn; start spiriva for home. Discussed with patient that given smoking history will need outpatient pulm eval for PFTs and w /u for COPD/Emphysema. wean fio2. ID- afebrile past 24 hours; wbc normal. Off abx. Cultures neg so far. GI- tolerating PO intake; gi prophylaxis Renal- stable renal function, neg balance, good urine output; frazier placed for retention. H/o BPH noted. On finasteride/tamsulosin. Urology consult for retention. Heme- hg stable, plt stable; no bleeding noted. Endo- FS as needed Musculsk- none Wounds- pressure ulcer prophylaxis Nutrition- PO intake DVT prophylaxis: lovenox sq GI prophylaxis: none Central Line: none Arterial Line: none Frazier Cathetor: yes, for acute urinary retention Disposition: stable for downgrade to medical floor Code Status: full code Johnny Beth MD Blacksmith Assistant (Electronically Signed)
[2017-03-29] MEDS: Lisinopril TAB* 10 MG PO SCH (12:09)
[2017-03-29] MEDS: Metoprolol Tartrate TAB* 50 mg PO SCH (12:10)
[2017-03-29] MEDS: Enoxaparin(*) 40 MG/0.4 ML SYR SUBCUT SCH (13:15)
[2017-03-29] MEDS: Atorvastatin* 40 MG TAB PO SCH (17:43)
[2017-03-30] MEDS: Tiotropium CAP.INH* CAP.INH/18 MCG INH SCH (08:49)
[2017-03-30] MEDS ORDERED: Spiriva Inhaler DEVICE* 1 EACH DEVICE ONE (09:00)
[2017-03-30] MEDS: Aspirin EC Low Dose* 81 MG TAB.EC PO SCH (09:46)
[2017-03-30] MEDS: Tamsulosin CAP* 0.4 MG PO SCH (09:46)
[2017-03-30] MEDS: Finasteride TAB* 5 MG PO SCH (09:46)
[2017-03-30] MEDS: Magnesium Oxide TAB* 400 MG PO SCH (09:47)
[2017-03-30] MEDS: Metoprolol Tartrate TAB* 25 MG PO SCH (09:47)
--- NOTE | 2017-03-30 13:12 | PN ---
Subjective Date of Service: 03/30/17 Interval History: C/O he was nauseous a little while ago but that passed and now he is eating well. No cough, SOB. Quit smoking 1964. Objective Active Medications: Acetaminophen (Tylenol Tab*) 650 mg PO Q4H PRN PRN Reason: FEVER/PAIN Albuterol/Ipratropium (Duoneb (Albuterol 2.5 Mg/Ipratropium 0.5 Mg)) 1 neb INH [id number] AWAKE PRN PRN Reason: sob/wheexing Aspirin (Aspirin Ec Low Dose*) 81 mg PO DAILY [facility] Last Admin: 03/30/17 09:46 Dose: 81 mg Atorvastatin Calcium (Lipitor*) 40 mg PO QPM [facility] Last Admin: 03/29/17 17:43 Dose: 40 mg Docusate Sodium (Colace Cap*) 100 mg PO BID PRN PRN Reason: CONFUSION Enoxaparin Sodium (Lovenox(*)) 40 mg SUBCUT Q24H [facility] Last Admin: 03/29/17 13:15 Dose: 40 mg Finasteride (Proscar Tab*) 5 mg PO QAM [facility] Last Admin: 03/30/17 09:46 Dose: 5 mg Magnesium Oxide (Magox 400 Tab*) 400 mg PO DAILY [facility] Last Admin: 03/30/17 09:47 Dose: 400 mg Metoprolol Tartrate (Lopressor Tab*) 25 mg PO DAILY [facility] Last Admin: 03/30/17 09:47 Dose: 25 mg Mometasone Furoate/Formoterol Fumar (Dulera 200/5 Mdi*) 2 puff INH BID [facility] Ondansetron HCl (Zofran Inj*) 4 mg IV Q4H PRN PRN Reason: NAUSEA/VOMITING Tamsulosin HCl (Flomax Cap*) 0.4 mg PO QAM [facility] Last Admin: 03/30/17 09:46 Dose: 0.4 mg Tiotropium [place] (Spiriva Cap.Inh*) 1 cap INH DAILY [facility] Last Admin: 03/30/17 08:49 Dose: 1 cap Vital Signs 03/29/17 03/29/17 03/29/17 13:18 13:20 13:35 Temperature 97.9 F Pulse Rate 75 72 83 Respiratory 19 16 Rate Blood Pressure 113/68 122/47 (mmHg) O2 Sat by Pulse 98 98 99 Oximetry 03/29/17 03/29/17 03/29/17 19:39 20:00 23:30 Temperature 98.2 F 98.4 F Pulse Rate 70 69 Respiratory 16 16 20 Rate Blood Pressure 101/42 157/60 (mmHg) O2 Sat by Pulse 98 100 Oximetry 03/30/17 03/30/17 03/30/17 03:21 07:37 08:00 Temperature 98.6 F 98.3 F Pulse Rate 72 81 Respiratory 20 15 16 Rate Blood Pressure 149/56 114/39 (mmHg) O2 Sat by Pulse 100 98 Oximetry 03/30/17 08:52 Temperature Pulse Rate 76 Respiratory 16 Rate Blood Pressure (mmHg) O2 Sat by Pulse 96 Oximetry Oxygen Devices in Use Now: Nasal Cannula Appearance: Alert, in a chair. In good spirits. Looks comfortable Ears/Nose/Mouth/Throat: Clear Oropharnyx, Mucous Membranes Moist Neck: NL Appearance and Movements; NL JVP, No Thyroid Enlargement, Masses Respiratory: Symmetrical Chest Expansion and Respiratory Effort, Clear to Auscultation, Clear to Percussion Cardiovascular: RRR, No Edema, - - 1-2/6 systolic murmur across precordium Extremities: No Edema, No Clubbing, Cyanosis, - Skin: No Rash or Ulcers, No Nodules or Sclerosis, - Neurological: Alert and Oriented x 3, NL Sensation Result Diagrams: 03/29/17 05:45 03/29/17 05:45 Additional Lab and Data: Lab Results 03/27/17 03/27/17 03/27/17 Range/Units 14:03 14:03 14:03 WBC 8.4 (3.5-10.8) 10^3/ul RBC 4.50 (4.0-5.4) 10^6/ul Hgb 13.1 L (14.0-18.0) g/dl Hct 40 L (42-52) % MCV 88 (80-94) fL MCH 29 (27-31) pg MCHC 33 (31-36) g/dl RDW 14 (10.5-15) % Plt Count 236 (150-450) 10^3/ul MPV 8 (7.4-10.4) um3 Neut % (Auto) 87.5 H (38-83) % Lymph % (Auto) 7.9 L (25-47) % Addison % (Auto) 3.9 (1-9) % Eos % (Auto) 0.2 (0-6) % Baso % (Auto) 0.5 (0-2) % Absolute Neuts (auto) 7.4 (1.5-7.7) 10^3/ul Absolute Lymphs (auto) 0.7 L (1.0-4.8) 10^3/ul Absolute Monos (auto) 0.3 (0-0.8) 10^3/ul Absolute Eos (auto) 0 (0-0.6) 10^3/ul Absolute Basos (auto) 0 (0-0.2) 10^3/ul Absolute Nucleated RBC 0 10^3/ul Nucleated RBC % 0 Sodium 130 L (133-145) mmol/L Potassium 4.3 (3.5-5.0) mmol/L Chloride 87 L (101-111) mmol/L Carbon Dioxide 39 H (22-32) mmol/L Anion Gap 4 (2-11) mmol/L BUN 19 (6-24) mg/dL Creatinine 0.70 (0.67-1.17) mg/dL Est GFR ( Amer) 140.6 (>60) Est GFR (Non-Af Amer) 109.4 (>60) BUN/Creatinine Ratio 27.1 H (8-20) Glucose 198 H (70-100) mg/dL Hemoglobin A1c (Less than 6.0) % Lactic Acid 1.9 (0.5-2.0) mmol/L Calcium 8.8 (8.6-10.3) mg/dL Total Bilirubin 1.60 H (0.2-1.0) mg/dL AST 28 (13-39) U/L ALT 38 (7-52) U/L Alkaline Phosphatase 73 (34-104) U/L Troponin I 0.13 H* (<0.04) ng/mL C-Reactive Protein < 1.00 (< 5.00) mg/L B-Natriuretic Peptide ( - 100) pg/mL Total Protein 6.5 (6.4-8.9) g/dL Albumin 3.8 (3.2-5.2) g/dL Globulin 2.7 (2-4) g/dL Albumin/Globulin Ratio 1.4 (1-3) 03/27/17 03/27/17 Range/Units 14:03 14:03 WBC (3.5-10.8) 10^3/ul RBC (4.0-5.4) 10^6/ul Hgb (14.0-18.0) g/dl Hct (42-52) % MCV (80-94) fL MCH (27-31) pg MCHC (31-36) g/dl RDW (10.5-15) % Plt Count (150-450) 10^3/ul MPV (7.4-10.4) um3 Neut % (Auto) (38-83) % Lymph % (Auto) (25-47) % Addison % (Auto) (1-9) % Eos % (Auto) (0-6) % Baso % (Auto) (0-2) % Absolute Neuts (auto) (1.5-7.7) 10^3/ul Absolute Lymphs (auto) (1.0-4.8) 10^3/ul Absolute Monos (auto) (0-0.8) 10^3/ul Absolute Eos (auto) (0-0.6) 10^3/ul Absolute Basos (auto) (0-0.2) 10^3/ul Absolute Nucleated RBC 10^3/ul Nucleated RBC % Sodium (133-145) mmol/L Potassium (3.5-5.0) mmol/L Chloride (101-111) mmol/L Carbon Dioxide (22-32) mmol/L Anion Gap (2-11) mmol/L BUN (6-24) mg/dL Creatinine (0.67-1.17) mg/dL Est GFR ( Amer) (>60) Est GFR (Non-Af Amer) (>60) BUN/Creatinine Ratio (8-20) Glucose (70-100) mg/dL Hemoglobin A1c 5.6 (Less than 6.0) % Lactic Acid (0.5-2.0) mmol/L Calcium (8.6-10.3) mg/dL Total Bilirubin (0.2-1.0) mg/dL AST (13-39) U/L ALT (7-52) U/L Alkaline Phosphatase (34-104) U/L Troponin I (<0.04) ng/mL C-Reactive Protein (< 5.00) mg/L B-Natriuretic Peptide 272 H ( - 100) pg/mL Total Protein (6.4-8.9) g/dL Albumin (3.2-5.2) g/dL Globulin (2-4) g/dL Albumin/Globulin Ratio (1-3) Microbiology and Other Data: Microbiology 03/27/17 17:23 Aerobic Blood Culture - Preliminary Blood Venous No Growth Day 2 Anaerobic Blood Culture - Preliminary No Growth Day 2 Blood Culture - Final 03/27/17 17:17 Aerobic Blood Culture - Preliminary Blood Venous No Growth Day 2 Anaerobic Blood Culture - Preliminary No Growth Day 2 Blood Culture - Final 03/27/17 18:04 Nasal Screen MRSA (PCR)(RAJAN) - Final Nasal Mrsa Negative Assess/Plan/Problems-Billing Assessment: - Patient Problems (1) COPD (chronic obstructive pulmonary disease) Current Visit: Yes Status: Acute Code(s): J44.9 - CHRONIC OBSTRUCTIVE PULMONARY DISEASE, UNSPECIFIED SNOMED Code(s): 52261788 Comment: Extubated 03/28/17. Add mometasone/formoterol inhaler, continue tiotropium, prn albuterol. (2) Urinary retention Current Visit: Yes Status: Acute Code(s): R33.9 - RETENTION OF URINE, UNSPECIFIED SNOMED Code(s): 321330827 Comment: 600 ml residual by cath, 635 ml by bladder scan 03/29. Continue Huerta drainage. (3) Aortic valve replaced Current Visit: Yes Status: Acute Code(s): Z95.2 - PRESENCE OF PROSTHETIC HEART VALVE SNOMED Code(s): 0270416310350 Comment: 2008, evidently tissue valve as not on anticoagulant. (4) CAD (coronary artery disease) Current Visit: Yes Status: Acute Code(s): I25.10 - ATHSCL HEART DISEASE OF [place] CORONARY ARTERY W/O ANG PCTRS SNOMED Code(s): 07991526 Comment: Continue ASA, statin,BB. (5) Hypomagnesemia Current Visit: Yes Status: Acute Code(s): E83.42 - HYPOMAGNESEMIA SNOMED Code(s): 489245454 Comment: Continue oral mag oxide.
[2017-03-30] MEDS: Enoxaparin(*) 40 MG/0.4 ML SYR SUBCUT SCH (13:25)
[2017-03-30] MEDS: Atorvastatin* 40 MG TAB PO SCH (17:56)
[2017-03-30] MEDS: Mometasone/Formoter 200/5 MDI INH SCH (19:51)
--- NOTE | 2017-03-31 07:54 | PN ---
Progress Note - Progress Note Note: Time spent on discharge 35 minutes.
[2017-03-31 08:01] VITALS: BP 176/62
[2017-03-31] MEDS: Metoprolol Tartrate TAB* 25 MG PO SCH (08:09)
[2017-03-31] MEDS: Aspirin EC Low Dose* 81 MG TAB.EC PO SCH (08:09)
[2017-03-31] MEDS: Finasteride TAB* 5 MG PO SCH (08:09)
[2017-03-31] MEDS: Tamsulosin CAP* 0.4 MG PO SCH (08:09)
[2017-03-31] MEDS: Magnesium Oxide TAB* 400 MG PO SCH (08:09)
[2017-03-31] MEDS: Mometasone/Formoter 200/5 MDI INH SCH (08:23)
[2017-03-31] MEDS: Tiotropium CAP.INH* CAP.INH/18 MCG INH SCH (08:23)
--- NOTE | 2017-03-31 09:03 | DS ---
DISCHARGE SUMMARY: DATE OF ADMISSION: 03/27/17 DATE OF DISCHARGE: 03/31/17 HISTORY OF PRESENT ILLNESS: This 76-year-old man was referred to the emergency room from his primary care provider's office because of hypoxia. He had a pacemaker inserted at [facility] about 3 weeks prior to admission. The patient noticed he was fatigued and was noted by his family to do less and less, and he was no longer able to walk downstairs to do the laundry on his own. He became more difficult to arouse, sleeping most of the day. He was brought to Dr. Chacko's office. His O2 sat was reported to be in the 70s and he was sent to the emergency room. He was given Narcan in the emergency room without any response. There is no history of narcotic use. The patient was admitted to intensive care unit. The patient was intubated. He was extubated on 03/28/17. He did well thereafter. He did not receive antibiotics or steroids. He was doing well off oxygen the last 24 hours in the hospital, ambulating, feeling much better than before. O2 sat on room air was 94% the evening before discharge. The patient did not get lisinopril in the hospital. His blood pressure on the day of discharge was 149/64. FINAL DIAGNOSES: 1. Chronic obstructive pulmonary disease exacerbation. 2. Urinary retention. 3. Aortic valve replacement. 4. Coronary artery disease. 5. Hypomagnesemia. The patient is being discharged with a Huerta catheter. His residual urine volume was about 600 mL the last time the Huerta catheter was inserted. DISCHARGE MEDICATIONS: 1. Acetaminophen 650 mg every 4 hours p.r.n. 2. Mometasone/formoterol 200/5, two puffs b.i.d. 3. Tiotropium 1 capsule daily. 4. Tamsulosin 0.4 mg daily. 5. Finasteride 5 mg daily. 6. Metoprolol tartrate 50 mg daily. 7. Atorvastatin 40 mg h.s. 8. Aspirin 81 mg daily. 9. Magnesium oxide 400 mg daily. CC: Dr. Chacko* [id number]/CPS #: [id number] MTDD
== END 2017-03-31 10:15 | disposition home or self-care (01) | DRG 208 ==
LOC: ED 13:44 → ICU 17:05 → MED 03-29 13:54
PROVIDERS: ADMIT Internal Medicine; ATTEND Internal Medicine
PROC: 0BH17EZ Insertion of Endotracheal Airway into Trachea, Via Natural or Artificial Opening (ICD-10-PCS; principal; 2017-03-27)
PROC: 5A1935Z Respiratory Ventilation, Less than 24 Consecutive Hours (ICD-10-PCS; 2017-03-27)
DX: J44.1 Chronic obstructive pulmonary disease with (acute) exacerbation (principal); J96.01 Acute respiratory failure with hypoxia; J96.02 Acute respiratory failure with hypercapnia; E87.2 Acidosis; R33.9 Retention of urine, unspecified; I25.10 Atherosclerotic heart disease of native coronary artery without angina pectoris; I11.9 Hypertensive heart disease without heart failure; E83.42 Hypomagnesemia; E78.5 Hyperlipidemia, unspecified; N40.0 Benign prostatic hyperplasia without lower urinary tract symptoms; M41.9 Scoliosis, unspecified; R73.9 Hyperglycemia, unspecified; R74.8 Abnormal levels of other serum enzymes; Z95.2 Presence of prosthetic heart valve; I25.2 Old myocardial infarction; Z79.82 Long term (current) use of aspirin; Z79.899 Other long term (current) drug therapy; Z95.810 Presence of automatic (implantable) cardiac defibrillator
CPT/HCPCS: 36415; 36600; 70450; 71010; 71275; 80048; 80053; 81003; 81015; 82140; 82803; 83036; 83605; 83735; 83880; 84100; 84484; 85025; 86140; 87040; 87641; 93005; 94002; 94003; 94640; 94760; A9270-GY; J1650; J2060; J2250; J2310; J2704; Q9967

== ENCOUNTER 2017-04-12 10:06 | Inpatient (IN) | payer MEDICARE, OTHER ==
[2017-04-12 10:33] LABS: EPAP 5; FIO2 40; IPAP 12; Resp Rate 14
[2017-04-12 10:51] LABS: PCO2 Arterial 113 mmHg (35-45)
[2017-04-12 11:13] LABS: Comments Flag Yes; Hematocrit 40 % (42-52); Hemoglobin 12.6 g/dl (14.0-18.0); Mean Corpuscular HGB Conc 32 g/dl (31-36); Mean Corpuscular Hemoglobin 28 pg (27-31); Mean Corpuscular Volume 90 fL (80-94); Mean Platelet Volume 8 um3 (7.4-10.4); Red Blood Count 4.44 10^6/ul (4.0-5.4); Red Cell Distribution Width 14 % (10.5-15); White Blood Count 15.6 10^3/ul (3.5-10.8)
[2017-04-12 11:14] LABS: Add Diff/Slide Review? Slide Review Added
--- NOTE | 2017-04-12 11:18 | RAD ---
INDICATION: Unresponsive COMPARISON: March 27, 2017 TECHNIQUE: An AP portable view obtained at 1115 hours is submitted. FINDINGS: Bones/Soft Tissues: There are no acute bony findings. There is sternotomy with a left-sided cardiac pacemaker. Cardiomediastinal: The cardiomediastinal silhouette is normal. Lungs: There are no infiltrates. There are chronic interstitial changes. Pleura: There is minimal blunting of left costal phrenic angle. Other: None IMPRESSION: NO ACTIVE DISEASE.
[2017-04-12 11:30] LABS: B Type Natriuretic Peptide 610 pg/mL
[2017-04-12 11:31] LABS: Albumin 3.3 g/dL (3.2-5.2); BUN/Creatinine Ratio 31.6 (8-20); Calcium 8.8 mg/dL (8.6-10.3); EGFR African American 95.1 (>60); Globulin 3.1 g/dL (2-4); Magnesium 2.3 mg/dL (1.9-2.7); Potassium 5.6 mmol/L (3.5-5.0); Total Bilirubin 1.4 mg/dL (0.2-1.0); Total Protein 6.4 g/dL (6.4-8.9)
[2017-04-12 11:35] LABS: Troponin I 0.19 ng/mL (<0.04)
[2017-04-12 11:39] LABS: Ammonia 44 mol/L (16-53)
[2017-04-12 11:40] LABS: EPAP 5; FIO2 40; IPAP 12; Resp Rate 14
[2017-04-12 11:51] LABS: PCO2 Arterial 93 mmHg (35-45)
--- NOTE | 2017-04-12 11:52 | RAD ---
INDICATION: Unresponsive COMPARISON: March 27, 2017 TECHNIQUE: Noncontrast axial source images were acquired from the skull base to the vertex. Images are mildly limited due to positioning. FINDINGS: Ventricles/sulci: The ventricles and cisterns are normal in size and configuration for age. Brain parenchyma: There is no focal parenchymal finding, evidence of intracranial mass, or intracranial mass effect. Intracranial hemorrhage:None. Extra-axial spaces: There are no abnormal extra axial fluid collections or evidence of extra-axial mass. Calvarium: There is no calvarial fracture or other calvarial abnormality. Scalp: There is no evidence of scalp or extracalvarial soft tissue abnormality. Paranasal sinuses/mastoid: The paranasal sinuses and mastoid air cells are clear. Other: None. IMPRESSION: No acute intracranial findings
[2017-04-12] MEDS ORDERED: NS 0.9% 1000 ML* 1,000 ML IV ONE (12:13)
[2017-04-12 12:23] LABS: TSH (Thyroid Stimulating Horm) 1.65 mcIU/mL (0.34-5.60)
[2017-04-12] MEDS: methylPREDNISolone SOD 40 MG* 1 ML VIAL IV SCH ×2 (12:23→19:13)
[2017-04-12 12:58] LABS: C Reactive Protein 137.27 mg/L (< 5.00); Erythrocyte Sed Rate 49 mm/Hr (0-40)
[2017-04-12] MEDS ORDERED: Azithromycin IV(*) 500 MG in NS 0.9% 250 ML* 250 ML IVPB SCH (13:00)
[2017-04-12] MEDS ORDERED: Albuterol/Ipratropium NEB.SOL* Albuterol 2.5 MG/Ipratropium 0.5 MG 3 ML INH SCH (13:00)
[2017-04-12] MEDS ORDERED: Albuterol/Ipratropium NEB.SOL* Albuterol 2.5 MG/Ipratropium 0.5 MG 3 ML ONE (13:02)
[2017-04-12] MEDS: Albuterol 2.5 MG/3 ML NEB.SOL* (0.083%) INH SCH ×2 (13:11→19:59)
[2017-04-12] MEDS: Levofloxacin 500 MG IVPREMIX(* 500 MG/100 ML BAG IVPB SCH (13:53)
[2017-04-12] MEDS ORDERED: Spiriva Inhaler DEVICE* 1 EACH DEVICE INH ONE (14:00)
[2017-04-12 15:10] LABS: Urine Bacteria Absent (Absent); Urine Bilirubin Negative (Negative); Urine Glucose Negative (Negative); Urine Nitrite Negative (Negative)
--- NOTE | 2017-04-12 15:26 | HP ---
H&P (Free Text) History and Physical: CRITICAL CARE MEDICINE DATE: 04/12/17 TIME: 1200 PRIMARY CARE PROVIDER: Ginna REFERRING PROVIDER: Jarad REASON/CHIEF COMPLAINT: "unresponsive" HISTORY OF PRESENT ILLNESS: 77 M with recent ICU stay for acute hypercarbic resp failure and disposition home, was doing ok per daughter, but then last few days was acting more tired and just wanting to sleep. She went to see him today and he was poorly responsive to her and she summoned EMS. IN ED he was weakly responsive to verbal stimuli and a little more to tactile. Placed on bipap and slowly improving. Hypercarbic resp failure noted on abg and icu admission requested. Daughter and son present on my arrival in ED. Pt becoming more arousable but not communicating much back. 14/ on bipap, 30% and tolerating. REVIEW OF SYSTEMS: As per HPI. Limited sec to acuity. PAST MEDICAL HISTORY: As per HPI. recent pacemaker, avr 2009, htn, lipids; chronic frazier MEDICATIONS: Reviewed. ALLERGIES: Reviewed. SOCIAL HISTORY: Reviewed. FAMILY HISTORY: Noncontributory at present. PHYSICAL EXAM: supraclavicular wasting Vital Signs: Reviewed. Neurologic: awakening. 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 HEENT: anicteric. pupils eq Cardiovascular: distant, reg S1 S2 Respiratory: thin, on bipap, left rhonchi and and mild wheeze but not forced Abdomen: oft, nt Extremities: warm Access: piv LABS: Reviewed. Recent urine cx with Kleb and ecoli from 04/07 (no ua attached) IMAGING: Reviewed. cxr with small vol and micro atelectasis and perhaps mild interstitial fluid MEDICATIONS: Reviewed. ASSESSMENT: 77 M Acute hypercarbic resp failure requiring bipap rescue copd exac bronchitis possible uti deconditioning PLAN: Neurologic: improving slowly. able to protrude tongue. Cardiovascular: Perfusing. vol status perhaps a little dry. 1 L saline total. Respiratory: may have copd exac now and can support with bipap and adjunctives, but question if any other more pressing chronic decline (ie fibrosis or alternatives) affecting his lung disease. Seems to have good strength so seems unlikely to be neuromuscular. Will re-eval dyanmics post bipap rescue. Needs pulm referral. Gastrointestinal: npo for now. Renal/Metabolic: function ok. bicarb up due to chronic compensation. re-eval urine and may need frazier exchanged Infectious Disease: non toxic, but uti could certainly weaken his compliance, and give recent cx and his lung ailments will place him on a course of Levaquin. Hematology: counts ok. check esr, crp to question other confounders. Endocrine: steroids to support and see if we can improve his dynamics. Musculoskeletal: weak and deconditioned. pt eval Psych/Social: social work eval. not sure he is going to be suited for a quick return home. Supportive and preventative care as ordered. SUP: H2 VTE prophylaxis: heparin Chronic frazier catheter Disposition: ICU Code Status: Full presently Critical Care Time: 40min Elton Estrada DO
[2017-04-13] MEDS: Albuterol 2.5 MG/3 ML NEB.SOL* (0.083%) INH SCH ×2 (01:09→08:09)
[2017-04-13] MEDS: methylPREDNISolone SOD 40 MG* 1 ML VIAL IV SCH (04:44)
[2017-04-13] MEDS: Tiotropium CAP.INH* CAP.INH/18 MCG INH SCH (08:08)
[2017-04-13 10:06] LABS: Hematocrit 36 % (42-52); Hemoglobin 11.5 g/dl (14.0-18.0); Mean Corpuscular HGB Conc 32 g/dl (31-36); Mean Corpuscular Hemoglobin 28 pg (27-31); Mean Corpuscular Volume 89 fL (80-94); Mean Platelet Volume 8 um3 (7.4-10.4); Red Blood Count 4.07 10^6/ul (4.0-5.4); Red Cell Distribution Width 14 % (10.5-15); White Blood Count 14.1 10^3/ul (3.5-10.8)
[2017-04-13 10:25] LABS: BUN/Creatinine Ratio 46.5 (8-20); Calcium 8.4 mg/dL (8.6-10.3); EGFR African American 91.9 (>60); EGFR Non-African American 71.4 (>60); Magnesium 2.4 mg/dL (1.9-2.7); Phosphorus 3.9 mg/dL (2.5-5.0); Potassium 4.9 mmol/L (3.5-5.0)
[2017-04-13] MEDS ORDERED: Albuterol 2.5 MG/3 ML NEB.SOL* (0.083%) INH PRN (10:29)
--- NOTE | 2017-04-13 11:41 | PN ---
Progress Note - Progress Note Note: CRITICAL CARE MEDICINE DATE: 04/13/17 TIME: 1000 SUBJECTIVE: Patient seen and examined. PHYSICAL EXAM: Vital Signs: Reviewed. Neurologic: awake. communicating. HEENT: anicteric. pupils eq Cardiovascular: distant, reg S1 S2 Respiratory: thin, better resp status. nc. no wheeze Abdomen: soft, nt Extremities: warm Access: piv LABS: Reviewed. BC with ecoli IMAGING: Reviewed. MEDICATIONS: Reviewed. ASSESSMENT: 77 M Acute hypercarbic resp failure requiring bipap rescue copd exac bronchitis severe sepsis sec to uti deconditioning PLAN: Neurologic: improved. at baseline. Cardiovascular: Perfused. vol status well and avoid lung water overload. po intake. Respiratory: copd adjunctives. tipped over the edge with uti. O2. sleep study needs. Needs pulm referral. Gastrointestinal: resume diet Renal/Metabolic: function ok. BUN up a touch with steroids. Infectious Disease: non toxic, but cx pos ecoli. Keep levaquin for now until sens. Hematology: counts ok. check esr, crp but in setting of infection. Endocrine: received steroids and can have short course prednisone. Musculoskeletal: deconditioned. pt eval Psych/Social: social work eval. Supportive and preventative care as ordered. SUP: po VTE prophylaxis: heparin Chronic frazier catheter; change out Disposition: to floor Code Status: Full presently Critical Care Time: 26min Elton Estrada DO
[2017-04-13] MEDS: predniSONE TAB* 20 MG PO SCH (12:17)
[2017-04-13] MEDS: Aspirin EC Low Dose* 81 MG TAB.EC PO SCH (12:18)
[2017-04-13] MEDS: Mometasone/Formoter 200/5 MDI INH SCH ×2 (12:18→19:38)
[2017-04-13] MEDS: Levofloxacin 500 MG IVPREMIX(* 500 MG/100 ML BAG IVPB SCH (13:47)
[2017-04-13] MEDS: Atorvastatin* 40 MG TAB PO SCH (17:53)
--- NOTE | 2017-04-13 18:37 | PN ---
Progress Note - Progress Note Note: Patient and son asked many questions about his diagnosis. He does not have O2 at home. He quit smoking about age [age]. He has had a Huerta for 2 months or so and is followed by Dr. Sharp. On RA in bed, O2 sat 91-92%. Overnight oximetry on RA ordered.
--- NOTE | 2017-04-13 19:18 | ED ---
Darryn Gloria Anna, scribed for Chris Abraham MD on 04/12/17 at 1032 . Complex/Multi-Sys Presentation - HPI Summary HPI Summary: Patient is a 77 y/o male coming to [facility] presenting with altered mental status that began this morning when his daughter came to wake him up. The patient has a history of COPD, and his daughter reports that he has had elevated levels of carbon monoxide and this is the third time this has happened. The patient was admitted to [facility] on 03/27 and released 03/31. She reports the patient has been declining since he was released from the hospital. His O2 levels have been dropping. He has a sleep study scheduled. LEVEL 5 CAVEAT UNABLE TO OBTAIN FULL HISTORY DUE TO ALTERED MENTAL STATUS - History Of Current Complaint Chief Complaint: EDAltMentalStatus Hx Obtained From: Family/Bookkeepers Supervisor - accompanied by daughter Hx From Patient Unobtainable Due To: Altered Mental Status - Allergies/Home Medications Allergies/Adverse Reactions: Allergies Allergy/AdvReac Type Severity Reaction Status Date / Time No Known Allergies Allergy Verified 04/12/17 10:19 PMH/Surg Hx/FS Hx/Imm Hx Endocrine/Hematology History: Denies: Hx Diabetes, Hx Thyroid Disease Cardiovascular History: Reports: Hx Coronary Artery Disease, Hx Hypercholesterolemia, Hx Hypertension, Hx Pacemaker/ICD, Hx Syncope, 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, Other Cardiovascular Problems/Disorders - CABG Denies: Hx Peripheral Vascular Disease Respiratory History: Reports: Hx Chronic Obstructive Pulmonary Disease (COPD), Other Respiratory Problems/Disorders - USES INHALER FOR OCCASIONAL WHEEZING, SPUTUM PRODUCTION GI History: Reports: Hx Gall Bladder Disease History: Reports: Hx Benign Prostatic Hyperplasia, Other Problems/ Disorders - BENIGN PROSTATIC HYPERTROPHY Denies: Hx Renal Disease Musculoskeletal History: Reports: Hx Back Problems, Other Musculoskeletal History - ABOUT 1 YEAR AGO SMALL TREE FELL ON HIM SOME BACKACHES FROM THAT Denies: Hx Arthritis Sensory History: Reports: Hx Contacts or Glasses - reading, Hx Hearing Aid - bilateral, Hx Hearing Problem Denies: Hx Cataracts, Hx Eye Injury, Hx Eye Prosthesis, Hx Glaucoma, Hx Legally Blind, Hx Macular Degeneration, Hx Vision Problem Opthamlomology History: Reports: Hx Contacts or Glasses - reading Denies: Hx Cataracts, Hx Eye Injury, Hx Eye Prosthesis, Hx Glaucoma, Hx Legally Blind, Hx Macular Degeneration, Hx Vision Problem Neurological History: Reports: Other Neuro Impairments/Disorders - possible stroke-like symptoms at home 01/02/16 Denies: Hx Headaches Psychiatric History: Denies: Hx Anxiety, Hx Depression - Surgical History Surgery Procedure, Year, and Place: 05/2009 CARDIAC CATHERIZATION, [facility]. 2009 AORTIC VALVE(PORCINE) REPLACEMENT, [facility] Hx Anesthesia Reactions: No Infectious Disease History: No Infectious Disease History: Denies: Hx Clostridium Difficile, Hx Hepatitis, Hx Human Immunodeficiency Virus (HIV), Hx of Known/Suspected MRSA, Hx Shingles, Hx Tuberculosis, Traveled Outside the [place] in Last 30 Days - Family History Known Family History: Positive: Cardiac Disease - Social History Alcohol Use: Weekly Alcohol Amount: 1 Substance Use Type: Reports: None Hx Tobacco Use: Yes Smoking Status (MU): Former Smoker Type: Cigarettes Amount Used/How Often: 1 PPD Length of Time of Smoking/Using Tobacco: 10 years Have You Smoked in the Last Year: No Review of Systems - ROS Summary Review of Systems Summary: LEVEL 5 CAVEAT UNABLE TO OBTAIN FULL HISTORY DUE TO ALTERED MENTAL STATUS Constitutional: Other - Pt is unresponsive Positive: Shortness Of Breath All Other Systems Reviewed And Are Negative: No Physical Exam - Summary Physical Exam Summary: VITAL SIGNS: Reviewed. GENERAL: ~Patient is a male who is alert, only responsive to painful stimuli. He is on bipap. HEAD AND FACE: No signs of trauma. ~No ecchymosis, hematomas or skull depressions. No sinus tenderness. EYES: PERRLA, EOMI x 2, No injected conjunctiva, no nystagmus. EARS: Hearing grossly intact. Ear canals and tympanic membranes are within normal limits. MOUTH: Oropharynx within normal limits. NECK: Supple, trachea is midline, no adenopathy, no JVD, no carotid bruit, no c- spine tenderness, neck with full ROM. CHEST: Has a healing scar on left side of chest for pacemaker. Symmetric, no tenderness at palpation LUNGS: Breath sounds coarse bilaterally. CVS: Regular rate and rhythm, S1 and S2 present, no murmurs or gallops appreciated. ABDOMEN: Soft, non-tender. No signs of distention. No rebound no guarding, and no masses palpated. Bowel sounds are present. EXTREMITIES: FROM in all major joints, no edema, no cyanosis or clubbing. NEURO: Alert and oriented x 3. No acute neurological deficits. Speech is normal and follows commands. SKIN: Dry and warm GCS: 9 Triage Information Reviewed: Yes Vital Signs On Initial Exam: Initial Vitals Temp Pulse Resp BP Pulse Ox 97.1 F 97 24 156/52 97 04/12/17 10:16 04/12/17 10:16 04/12/17 10:16 04/12/17 10:16 04/12/17 10:16 Vital Signs Reviewed: Yes Diagnostics - Vital Signs Vital Signs Temp Pulse Resp BP Pulse Ox 04/12/17 10:16 97.1 F 88 24 156/52 98 - Laboratory Lab Results: Lab Results 04/12/17 04/12/17 04/12/17 Range/Units 10:25 10:50 10:50 WBC 15.6 H (3.5-10.8) 10^3/ul RBC 4.44 (4.0-5.4) 10^6/ul Hgb 12.6 L (14.0-18.0) g/dl Hct 40 L (42-52) % MCV 90 (80-94) fL MCH 28 (27-31) pg MCHC 32 (31-36) g/dl RDW 14 (10.5-15) % Plt Count 247 (150-450) 10^3/ul MPV 8 (7.4-10.4) um3 Neut % (Auto) 94.2 H (38-83) % Lymph % (Auto) 1.5 L (25-47) % [place] % (Auto) 4.2 (1-9) % Eos % (Auto) 0 (0-6) % Baso % (Auto) 0.1 (0-2) % Absolute Neuts (auto) 14.7 H (1.5-7.7) 10^3/ul Absolute Lymphs (auto) 0.2 L (1.0-4.8) 10^3/ul Absolute Monos (auto) 0.7 (0-0.8) 10^3/ul Absolute Eos (auto) 0 (0-0.6) 10^3/ul Absolute Basos (auto) 0 (0-0.2) 10^3/ul Absolute Nucleated RBC 0 10^3/ul Nucleated RBC % 0 ESR 49 H (0-40) mm/Hr Patient Temperature Not Reportable ABG pH 7.20 L (7.35-7.45) ABG pCO2 113 H* (35-45) mmHg ABG pO2 122 H (80-100) mmHg ABG HCO3 33.8 H (19-31) mmol/L ABG O2 Saturation 99.4 H (95-98) % ABG Base Excess 11.5 H (-2.0-2.0) Respiration Rate 14 O2 Delivery Device Bipap Ventilator Type Not Reportable Vent Mode Not Reportable FiO2 40 Inspiratory Time Not Reportable PEEP Not Reportable Pressure Support Not Reportable Pressure Control Not Reportable EPAP 5 IPAP 12 BiPAP Not Reportable Sodium 133 (133-145) mmol/L Potassium 5.6 H (3.5-5.0) mmol/L Chloride 91 L (101-111) mmol/L Carbon Dioxide 39 H (22-32) mmol/L Anion Gap 3 (2-11) mmol/L BUN 31 H (6-24) mg/dL Creatinine 0.98 (0.67-1.17) mg/dL Est GFR ( Amer) 95.1 (>60) Est GFR (Non-Af Amer) 74.0 (>60) BUN/Creatinine Ratio 31.6 H (8-20) Glucose 154 H (70-100) mg/dL Lactic Acid (0.5-2.0) mmol/L Calcium 8.8 (8.6-10.3) mg/dL Magnesium 2.3 (1.9-2.7) mg/dL Total Bilirubin 1.40 H (0.2-1.0) mg/dL AST 17 (13-39) U/L ALT 22 (7-52) U/L Alkaline Phosphatase 89 (34-104) U/L Ammonia (16-53) mol/L Troponin I 0.19 H* (<0.04) ng/mL C-Reactive Protein 137.27 H (< 5.00) mg/L B-Natriuretic Peptide ( - 100) pg/mL Total Protein 6.4 (6.4-8.9) g/dL Albumin 3.3 (3.2-5.2) g/dL Globulin 3.1 (2-4) g/dL Albumin/Globulin Ratio 1.1 (1-3) TSH 1.65 (0.34-5.60) mcIU/mL 04/12/17 04/12/17 04/12/17 Range/Units 10:50 10:50 11:30 WBC (3.5-10.8) 10^3/ul RBC (4.0-5.4) 10^6/ul Hgb (14.0-18.0) g/dl Hct (42-52) % MCV (80-94) fL MCH (27-31) pg MCHC (31-36) g/dl RDW (10.5-15) % Plt Count (150-450) 10^3/ul MPV (7.4-10.4) um3 Neut % (Auto) (38-83) % Lymph % (Auto) (25-47) % [place] % (Auto) (1-9) % Eos % (Auto) (0-6) % Baso % (Auto) (0-2) % Absolute Neuts (auto) (1.5-7.7) 10^3/ul Absolute Lymphs (auto) (1.0-4.8) 10^3/ul Absolute Monos (auto) (0-0.8) 10^3/ul Absolute Eos (auto) (0-0.6) 10^3/ul Absolute Basos (auto) (0-0.2) 10^3/ul Absolute Nucleated RBC 10^3/ul Nucleated RBC % ESR (0-40) mm/Hr Patient Temperature Not Reportable ABG pH 7.23 L (7.35-7.45) ABG pCO2 93 H* (35-45) mmHg ABG pO2 115 H (80-100) mmHg ABG HCO3 31.5 H (19-31) mmol/L ABG O2 Saturation 99.8 H (95-98) % ABG Base Excess 8.5 H (-2.0-2.0) Respiration Rate 14 O2 Delivery Device Bipap Ventilator Type Not Reportable Vent Mode Not Reportable FiO2 40 Inspiratory Time Not Reportable PEEP Not Reportable Pressure Support Not Reportable Pressure Control Not Reportable EPAP 5 IPAP 12 BiPAP Not Reportable Sodium (133-145) mmol/L Potassium (3.5-5.0) mmol/L Chloride (101-111) mmol/L Carbon Dioxide (22-32) mmol/L Anion Gap (2-11) mmol/L BUN (6-24) mg/dL Creatinine (0.67-1.17) mg/dL Est GFR ( Amer) (>60) Est GFR (Non-Af Amer) (>60) BUN/Creatinine Ratio (8-20) Glucose (70-100) mg/dL Lactic Acid 1.4 (0.5-2.0) mmol/L Calcium (8.6-10.3) mg/dL Magnesium (1.9-2.7) mg/dL Total Bilirubin (0.2-1.0) mg/dL AST (13-39) U/L ALT (7-52) U/L Alkaline Phosphatase (34-104) U/L Ammonia 44 (16-53) mol/L Troponin I (<0.04) ng/mL C-Reactive Protein (< 5.00) mg/L B-Natriuretic Peptide 610 H ( - 100) pg/mL Total Protein (6.4-8.9) g/dL Albumin (3.2-5.2) g/dL Globulin (2-4) g/dL Albumin/Globulin Ratio (1-3) TSH (0.34-5.60) mcIU/mL Result Diagrams: 04/13/17 09:45 04/13/17 09:45 Lab Statement: Any lab studies that have been ordered have been reviewed, and results considered in the medical decision making process. - Radiology CXR Xray Interpretation: No Acute Changes Radiology Interpretation Completed By: Radiologist - IMPRESSION: NO ACTIVE DISEASE. - CT CT Brain CT Interpretation: No Acute Changes CT Interpretation Completed By: Radiologist - IMPRESSION: No acute intracranial findings - EKG 1025 Cardiac Rate: NL - 81 bpm EKG Rhythm: Sinus Rhythm Ectopy: PVCs - Multiple EKG Interpretation: ST depressions in V4,V5,V6. Complex Multi-Symp Course/Dx Assessment/Plan: The pt was found unresponsive. He responds only to painful stimuli. We immediately obtained two IV accesses and placed on a monitor. Pt was placed on O2 since saturation was only in the 70s. Patient was placed on Bipap since he has a history of CO2 retention. Pt is maintaining his airway at this point. I discussed intubation with patients daughter. She requested we not to do it at this point since she believes that he will come back after the bipap management as it happened the last visit. Labs reveal slight increased in WBC to 15.6 w/o any bands. Hgb is 12.6. Glucose is 154. Troponin is 0.19. BNP is 620. I discussed the case with Dr. Estrada, who came and assessed the pt. He agrees the pt does not need an intubation at this point. Will manage hypercapnia in ICU. He requested no meds at this point, just that the pt is brought to the ICU. Pt is hemodynamically stable and still unresponsive. Pt is being transferred to the ICU. - Diagnoses Differential Diagnoses/HQI/PQRI: Cardiac Ischemia, CVA, Sepsis, Urinary Tract Infection Provider Diagnoses: Hypercapnia, Unresponsive, CHF (congestive heart failure) - Physician Notifications Discussed Care Of Patient With: Tay Archibald (Hospitalist PA) at 1056. Recommends calling Main Estrada, surgery aid, after labs have returned. Dr. Estrada (surgery aid) at 1143. Agrees to accept patient for admission. Recommends no intubation at this time and pt should remain on bipap. - Critical Care Time Critical Care Time: 30-74 min Discharge - Discharge Plan Condition: Fair Disposition: ADMITTED TO [facility] documentation as recorded by the Darryn shukla Anna accurately reflects the service I personally performed and the decisions made by me, Chris Abraham MD.
[2017-04-14 06:31] LABS: Hematocrit 35 % (42-52); Hemoglobin 11.3 g/dl (14.0-18.0); Mean Corpuscular HGB Conc 32 g/dl (31-36); Mean Corpuscular Hemoglobin 29 pg (27-31); Mean Corpuscular Volume 89 fL (80-94); Mean Platelet Volume 8 um3 (7.4-10.4); Red Blood Count 3.97 10^6/ul (4.0-5.4); Red Cell Distribution Width 14 % (10.5-15); White Blood Count 14.4 10^3/ul (3.5-10.8)
[2017-04-14 06:47] LABS: BUN/Creatinine Ratio 42.5 (8-20); Calcium 8.3 mg/dL (8.6-10.3); EGFR African American 109.1 (>60); EGFR Non-African American 84.9 (>60); Potassium 5.3 mmol/L (3.5-5.0)
[2017-04-14] MEDS: predniSONE TAB* 20 MG PO SCH (08:35)
[2017-04-14] MEDS: Aspirin EC Low Dose* 81 MG TAB.EC PO SCH (08:35)
[2017-04-14] MEDS: Mometasone/Formoter 200/5 MDI INH SCH ×2 (08:41→20:32)
[2017-04-14] MEDS: Tiotropium CAP.INH* CAP.INH/18 MCG INH SCH (08:41)
[2017-04-14] MEDS ORDERED: predniSONE TAB* 10 MG PO SCH (10:56)
--- NOTE | 2017-04-14 11:31 | PN ---
Subjective Date of Service: 04/14/17 Interval History: No new c/o. Objective Active Medications: Albuterol (Ventolin 2.5 Mg/3 Ml Neb.Tarah*) 2.5 mg INH Q4H PRN PRN Reason: SOB/WHEEZING Aspirin (Aspirin Ec Low Dose*) 81 mg PO DAILY [facility] Last Admin: 04/14/17 08:35 Dose: 81 mg Atorvastatin Calcium (Lipitor*) 40 mg PO QPM [facility] Last Admin: 04/13/17 17:53 Dose: 40 mg Levofloxacin/Dextrose (Levaquin 500 Mg Ivpremix(*)) 500 mg in 100 mls @ 100 mls /hr IVPB Q24H [facility] Stop: 04/18/17 13:59 Last Admin: 04/13/17 13:47 Dose: 100 mls/hr Mometasone Furoate/Formoterol Fumar (Dulera 200/5 Mdi*) 2 puff INH BID [facility] Last Admin: 04/14/17 08:41 Dose: 2 puff Prednisone (Deltasone Tab*) 10 mg PO DAILY [facility] Tiotropium [place] (Spiriva Cap.Inh*) 1 cap INH DAILY [facility] Last Admin: 04/14/17 08:41 Dose: 1 cap Vital Signs 04/13/17 04/13/17 04/13/17 12:49 12:55 15:27 Temperature 98.2 F 98.2 F 97.9 F Pulse Rate 100 100 107 Respiratory 28 28 17 Rate Blood Pressure 141/49 141/49 142/52 (mmHg) O2 Sat by Pulse 100 100 98 Oximetry 04/13/17 04/13/17 04/13/17 19:47 20:00 20:03 Temperature 98.7 F Pulse Rate 86 88 Respiratory 20 17 Rate Blood Pressure 133/55 (mmHg) O2 Sat by Pulse 86 98 Oximetry 04/13/17 04/14/17 04/14/17 23:15 03:26 07:28 Temperature 98.4 F 97.9 F 97.5 F Pulse Rate 86 85 81 Respiratory 20 20 16 Rate Blood Pressure 136/62 133/56 133/55 (mmHg) O2 Sat by Pulse 99 98 98 Oximetry 04/14/17 04/14/17 08:00 08:44 Temperature Pulse Rate 101 Respiratory 18 14 Rate Blood Pressure (mmHg) O2 Sat by Pulse 91 Oximetry Oxygen Devices in Use Now: None Appearance: Alert, partly up in be. In good spirits. Looks comfortable. Eyes: No Scleral Icterus Neck: NL Appearance and Movements; NL JVP, No Thyroid Enlargement, Masses Respiratory: Symmetrical Chest Expansion and Respiratory Effort, Clear to Auscultation, Clear to Percussion Cardiovascular: NL Sounds; No Murmurs; No JVD, RRR, No Edema, - Extremities: No Edema, No Clubbing, Cyanosis, - Skin: No Rash or Ulcers, No Nodules or Sclerosis, - Neurological: Alert and Oriented x 3, NL Sensation Result Diagrams: 04/14/17 06:06 04/14/17 06:06 Additional Lab and Data: Lab Results 04/12/17 04/12/17 04/12/17 Range/Units 10:25 10:50 10:50 WBC 15.6 H (3.5-10.8) 10^3/ul RBC 4.44 (4.0-5.4) 10^6/ul Hgb 12.6 L (14.0-18.0) g/dl Hct 40 L (42-52) % MCV 90 (80-94) fL MCH 28 (27-31) pg MCHC 32 (31-36) g/dl RDW 14 (10.5-15) % Plt Count 247 (150-450) 10^3/ul MPV 8 (7.4-10.4) um3 Neut % (Auto) 94.2 H (38-83) % Lymph % (Auto) 1.5 L (25-47) % [place] % (Auto) 4.2 (1-9) % Eos % (Auto) 0 (0-6) % Baso % (Auto) 0.1 (0-2) % Absolute Neuts (auto) 14.7 H (1.5-7.7) 10^3/ul Absolute Lymphs (auto) 0.2 L (1.0-4.8) 10^3/ul Absolute Monos (auto) 0.7 (0-0.8) 10^3/ul Absolute Eos (auto) 0 (0-0.6) 10^3/ul Absolute Basos (auto) 0 (0-0.2) 10^3/ul Absolute Nucleated RBC 0 10^3/ul Nucleated RBC % 0 ESR 49 H (0-40) mm/Hr Patient Temperature Not Reportable ABG pH 7.20 L (7.35-7.45) ABG pCO2 113 H* (35-45) mmHg ABG pO2 122 H (80-100) mmHg ABG HCO3 33.8 H (19-31) mmol/L ABG O2 Saturation 99.4 H (95-98) % ABG Base Excess 11.5 H (-2.0-2.0) Respiration Rate 14 O2 Delivery Device Bipap Ventilator Type Not Reportable Vent Mode Not Reportable FiO2 40 Inspiratory Time Not Reportable PEEP Not Reportable Pressure Support Not Reportable Pressure Control Not Reportable EPAP 5 IPAP 12 BiPAP Not Reportable Sodium 133 (133-145) mmol/L Potassium 5.6 H (3.5-5.0) mmol/L Chloride 91 L (101-111) mmol/L Carbon Dioxide 39 H (22-32) mmol/L Anion Gap 3 (2-11) mmol/L BUN 31 H (6-24) mg/dL Creatinine 0.98 (0.67-1.17) mg/dL Est GFR ( Amer) 95.1 (>60) Est GFR (Non-Af Amer) 74.0 (>60) BUN/Creatinine Ratio 31.6 H (8-20) Glucose 154 H (70-100) mg/dL Lactic Acid (0.5-2.0) mmol/L Calcium 8.8 (8.6-10.3) mg/dL Magnesium 2.3 (1.9-2.7) mg/dL Total Bilirubin 1.40 H (0.2-1.0) mg/dL AST 17 (13-39) U/L ALT 22 (7-52) U/L Alkaline Phosphatase 89 (34-104) U/L Ammonia (16-53) mol/L Troponin I 0.19 H* (<0.04) ng/mL C-Reactive Protein 137.27 H (< 5.00) mg/L B-Natriuretic Peptide ( - 100) pg/mL Total Protein 6.4 (6.4-8.9) g/dL Albumin 3.3 (3.2-5.2) g/dL Globulin 3.1 (2-4) g/dL Albumin/Globulin Ratio 1.1 (1-3) TSH 1.65 (0.34-5.60) mcIU/mL 05/29/17 05/29/17 05/29/17 Range/Units 10:50 10:50 11:30 WBC (3.5-10.8) 10^3/ul RBC (4.0-5.4) 10^6/ul Hgb (14.0-18.0) g/dl Hct (42-52) % MCV (80-94) fL MCH (27-31) pg MCHC (31-36) g/dl RDW (10.5-15) % Plt Count (150-450) 10^3/ul MPV (7.4-10.4) um3 Neut % (Auto) (38-83) % Lymph % (Auto) (25-47) % [place] % (Auto) (1-9) % Eos % (Auto) (0-6) % Baso % (Auto) (0-2) % Absolute Neuts (auto) (1.5-7.7) 10^3/ul Absolute Lymphs (auto) (1.0-4.8) 10^3/ul Absolute Monos (auto) (0-0.8) 10^3/ul Absolute Eos (auto) (0-0.6) 10^3/ul Absolute Basos (auto) (0-0.2) 10^3/ul Absolute Nucleated RBC 10^3/ul Nucleated RBC % ESR (0-40) mm/Hr Patient Temperature Not Reportable ABG pH 7.23 L (7.35-7.45) ABG pCO2 93 H* (35-45) mmHg ABG pO2 115 H (80-100) mmHg ABG HCO3 31.5 H (19-31) mmol/L ABG O2 Saturation 99.8 H (95-98) % ABG Base Excess 8.5 H (-2.0-2.0) Respiration Rate 14 O2 Delivery Device Bipap Ventilator Type Not Reportable Vent Mode Not Reportable FiO2 40 Inspiratory Time Not Reportable PEEP Not Reportable Pressure Support Not Reportable Pressure Control Not Reportable EPAP 5 IPAP 12 BiPAP Not Reportable Sodium (133-145) mmol/L Potassium (3.5-5.0) mmol/L Chloride (101-111) mmol/L Carbon Dioxide (22-32) mmol/L Anion Gap (2-11) mmol/L BUN (6-24) mg/dL Creatinine (0.67-1.17) mg/dL Est GFR ( Amer) (>60) Est GFR (Non-Af Amer) (>60) BUN/Creatinine Ratio (8-20) Glucose (70-100) mg/dL Lactic Acid 1.4 (0.5-2.0) mmol/L Calcium (8.6-10.3) mg/dL Magnesium (1.9-2.7) mg/dL Total Bilirubin (0.2-1.0) mg/dL AST (13-39) U/L ALT (7-52) U/L Alkaline Phosphatase (34-104) U/L Ammonia 44 (16-53) mol/L Troponin I (<0.04) ng/mL C-Reactive Protein (< 5.00) mg/L B-Natriuretic Peptide 610 H ( - 100) pg/mL Total Protein (6.4-8.9) g/dL Albumin (3.2-5.2) g/dL Globulin (2-4) g/dL Albumin/Globulin Ratio (1-3) TSH (0.34-5.60) mcIU/mL Microbiology and Other Data: Microbiology 04/12/17 17:25 Aerobic Blood Culture - Final Blood Venous Escherichia Coli Anaerobic Blood Culture - Final Escherichia Coli Blood Culture - Final 04/12/17 14:45 Urine Culture - Final Urine Klebsiella Pneumoniae Assess/Plan/Problems-Billing Assessment: - Patient Problems (1) Hypercapnic respiratory failure Current Visit: Yes Status: Acute Code(s): J96.92 - RESPIRATORY FAILURE, UNSPECIFIED WITH HYPERCAPNIA SNOMED Code(s): 835741729 Comment: Daughter reports similar hospitalization at [facility] 02/2017. He was unresponsive, and at [facility] was put on CPAP. This would then be his third episode. Consult Dr. Dominguez, consider home Trilogy ventilator. Taper prednisone. (2) UTI (urinary tract infection) due to urinary indwelling Huerta catheter Current Visit: Yes Status: Acute Code(s): T83.511A - I/I REACT D/T INDWELLING URETHRAL CATHETER, INIT; N39.0 - URINARY TRACT INFECTION, SITE NOT SPECIFIED SNOMED Code(s): 44317397 Comment: with bacteremia. Huerta changed 04/13. Continue IV levofloxacin. (3) CAD (coronary artery disease) Current Visit: No Status: Acute Code(s): I25.10 - ATHSCL HEART DISEASE OF [place] CORONARY ARTERY W/O ANG PCTRS SNOMED Code(s): 42429170 Comment: Continue ASA, statin,BB. (4) Urinary retention Current Visit: No Status: Acute Code(s): R33.9 - RETENTION OF URINE, UNSPECIFIED SNOMED Code(s): 952337882 Comment: 600 ml residual by cath, 635 ml by bladder scan 03/29. Continue Huerta drainage. Outpt fup Dr. Sharp.
[2017-04-14] MEDS: Levofloxacin 500 MG IVPREMIX(* 500 MG/100 ML BAG IVPB SCH (13:48)
--- NOTE | 2017-04-14 14:28 | PN ---
Progress Note - Progress Note Note: Additional diagnosis: Severe sepsis due to UTI with bacteremia.
--- NOTE | 2017-04-14 15:42 | CONS ---
PULMONARY CONSULTATION REPORT: DATE OF CONSULT: 04/14/17 CONSULTATION REQUESTED BY: Dr. Page. REASON FOR CONSULTATION: Evaluation of hypercapnic respiratory failure. HISTORY OF PRESENT ILLNESS: The patient is a 77-year-old male with history of trauma in the past with resultant kyphoscoliosis with decreased AP and vertical diameter of the chest with recent admissions and hospitalization for acute hypercapnic respiratory failure. The patient was recently treated for hypercapnic respiratory failure. He was intubated and was discharged home after he improved. The patient did well for a couple of days while at home, started having worsening altered mental status noted by his family. The patient 's sister found him to be poorly responsive, with falling sleepy easily and sleeping most of the day. He was weakly responsive to verbal stimuli and they brought him to the emergency room for a further evaluation. The patient was admitted to the ICU, was placed on BiPAP with significant improvement in mental status. The patient was seen and examined by me at bedside earlier today. The patient is alert, responsive, answering questions appropriately. The patient's family is concerned about his recurrent admissions and recurrent episodes of altered mental status at home. He denies fevers, chills. The patient denies history of seizures, was worked out for seizures in the past, which was negative as per family. No history of CVA. The patient is a former smoker and also with significant second-hand smoke exposure. The patient quit smoking long- time ago. 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 The patient has required intubation and ICU care during recent admission. The patient's blood gas showed severe respiratory acidosis on this admission. The patient is currently off BiPAP. He denies no other symptoms at this time. He reports dyspnea on exertion. I have personally reviewed chest x-ray and CT scan of the chest performed on last admission. The patient with evidence of hyperinflation without significant emphysema. He is status post sternotomy. A small bilateral pleural effusions were noted. No mediastinal or hilar adenopathy was noted. No acute opacity is noted on recent chest x-ray. CT of the brain did not reveal any acute opacity. The patient does have evidence of elevated bicarb on BMP. PAST MEDICAL HISTORY: 1. Aortic valve replacement in 2008. 2. Recent pacemaker placement. 3. Hypertension. 4. Chronic indwelling Huerta catheter placement. 5. BPH. 6. Kyphoscoliosis. 7. NSTEMI in 2016. 8. Right inguinal hernia repair. 9. Lap cholecystectomy in November of 2016. MEDICATIONS: At home: 1. Magnesium oxide. 2. Lisinopril. 3. Finasteride. 4. Aspirin. 5. Metoprolol. 6. Atorvastatin. 7. Flomax. ALLERGIES: No known drug allergies. FAMILY HISTORY: Reviewed and noncontributory to current admission. SOCIAL HISTORY: Former smoking history, drinks 1 to 2 beers per day. He lives at home with his son. REVIEW OF SYSTEMS: All 14 systems reviewed and as per HPI. PHYSICAL EXAM: The patient in bed, in no apparent distress. The patient with short stature. HEENT: Pupils equal, reactive to light. Mucous membranes moist. Neck: Supple. Trachea midline. Respiratory: Diminished air entry bilaterally, no wheeze on auscultation. Cardiovascular: Regular S1, S2 present. Abdomen: Soft, nontender, nondistended. Bowel sounds present. Extremities: Warm. Skin: No rash or bruises. Musculoskeletal: Kyphoscoliosis noted. Neurologic: No focal deficits. LABORATORY WORKUP: WBC count 14.4, hemoglobin 11.3, hematocrit 35, platelet count 243. Blood gas analysis showed pH of 7.23, pCO2 of 93, pO2 of 115 on FiO2 of 40%, bicarb 31.5, O2 sat 99%, and BiPAP of 12/5. Sodium 138, potassium 5.3, chloride 99, bicarb 40, BUN 37, creatinine 0.8. Troponin slightly elevated at 0.19. CRP 137, BNP 610. UA was positive. Chest x-ray and CT scan as described up in HPI. IMPRESSION AND RECOMMENDATIONS: 77-year-old male with significant kyphoscoliosis , with significant smoking history, quit long time ago with recurrent admissions for AMS secondary to hypercapnic respiratory failure. Hypercapnic respiratory failure, likely secondary to neuromuscular disease and COPD. The patient denied history of seizures. No evidence of CVA, less likely to be neurological event. No apparent drug abuse history or significant alcohol abuse. The patient responded quickly to positive pressure ventilation each time he was admitted. He will benefit from Trilogy given hypercapnic respiratory failure and recurrent admissions for the same condition. The patient responded to BiPAP in the hospital. Will send order for Trilogy. He would need PFTs as outpatient. Overnight oximetry not suggestive of significant hypoxemia. He will need ambulatory O2 measurement prior to discharge. Continue with steroid taper. I do not believe it is COPD exacerbation. He is being treated for UTI. Thank you for allowing me to participate in care of your patient. Will follow up with you. [id number]/[facility] #: [id number] [place]
[2017-04-14] MEDS: Atorvastatin* 40 MG TAB PO SCH (17:56)
[2017-04-14] MEDS: Metoprolol Tartrate TAB* 25 MG PO SCH (21:04)
[2017-04-15] MEDS: Mometasone/Formoter 200/5 MDI INH SCH (08:11)
[2017-04-15] MEDS: Tiotropium CAP.INH* CAP.INH/18 MCG INH SCH (08:12)
[2017-04-15 08:58] VITALS: BP 165/67
[2017-04-15] MEDS: Metoprolol Tartrate TAB* 25 MG PO SCH (09:31)
[2017-04-15] MEDS: Aspirin EC Low Dose* 81 MG TAB.EC PO SCH (09:31)
--- NOTE | 2017-04-15 12:25 | PN ---
Subjective Date of Service: 04/15/17 Interval History: No subj change. No c/o. Slept well last night. Objective Active Medications: Albuterol (Ventolin 2.5 Mg/3 Ml Neb.Tarah*) 2.5 mg INH Q4H PRN PRN Reason: SOB/WHEEZING Aspirin (Aspirin Ec Low Dose*) 81 mg PO DAILY [facility] Last Admin: 04/15/17 09:31 Dose: 81 mg Atorvastatin Calcium (Lipitor*) 40 mg PO QPM [facility] Last Admin: 04/14/17 17:56 Dose: 40 mg Levofloxacin/Dextrose (Levaquin 500 Mg Ivpremix(*)) 500 mg in 100 mls @ 100 mls /hr IVPB Q24H [facility] Stop: 04/18/17 13:59 Last Admin: 04/14/17 13:48 Dose: 100 mls/hr Metoprolol Tartrate (Lopressor Tab*) 12.5 mg PO Q12HR [facility] Last Admin: 04/15/17 09:31 Dose: 12.5 mg Mometasone Furoate/Formoterol Fumar (Dulera 200/5 Mdi*) 2 puff INH BID [facility] Last Admin: 04/15/17 08:11 Dose: 2 puff Prednisone (Deltasone Tab*) 10 mg PO DAILY [facility] Last Admin: 04/15/17 09:31 Dose: 10 mg Tiotropium [place] (Spiriva Cap.Inh*) 1 cap INH DAILY [facility] Last Admin: 04/15/17 08:12 Dose: 1 cap Vital Signs 04/14/17 04/14/17 04/14/17 13:01 15:59 20:00 Temperature Pulse Rate 100 89 Respiratory 18 18 Rate Blood Pressure 140/66 (mmHg) O2 Sat by Pulse 92 94 Oximetry 04/14/17 04/14/17 04/15/17 20:07 20:35 00:18 Temperature 98.2 F 99.4 F Pulse Rate 103 89 71 Respiratory 32 20 16 Rate Blood Pressure 153/67 143/67 (mmHg) O2 Sat by Pulse 91 92 96 Oximetry 04/15/17 04/15/17 04/15/17 03:54 07:56 08:13 Temperature 98.6 F 97.6 F Pulse Rate 73 72 73 Respiratory 16 18 16 Rate Blood Pressure 131/62 165/67 (mmHg) O2 Sat by Pulse 98 95 93 Oximetry 04/15/17 10:29 Temperature Pulse Rate Respiratory Rate Blood Pressure (mmHg) O2 Sat by Pulse 94 Oximetry Oxygen Devices in Use Now: None Appearance: Alert, partly up in bed. In good spirits. Looks comfortable. Eyes: No Scleral Icterus Neck: NL Appearance and Movements; NL JVP, No Thyroid Enlargement, Masses Respiratory: Symmetrical Chest Expansion and Respiratory Effort, Clear to Auscultation, Clear to Percussion Cardiovascular: NL Sounds; No Murmurs; No JVD, RRR, No Edema, - Extremities: No Edema, No Clubbing, Cyanosis, - Skin: No Rash or Ulcers, No Nodules or Sclerosis, - Neurological: Alert and Oriented x 3, NL Sensation Result Diagrams: 04/14/17 06:06 04/14/17 06:06 Additional Lab and Data: Lab Results 04/12/17 04/12/17 04/12/17 Range/Units 10:25 10:50 10:50 WBC 15.6 H (3.5-10.8) 10^3/ul RBC 4.44 (4.0-5.4) 10^6/ul Hgb 12.6 L (14.0-18.0) g/dl Hct 40 L (42-52) % MCV 90 (80-94) fL MCH 28 (27-31) pg MCHC 32 (31-36) g/dl RDW 14 (10.5-15) % Plt Count 247 (150-450) 10^3/ul MPV 8 (7.4-10.4) um3 Neut % (Auto) 94.2 H (38-83) % Lymph % (Auto) 1.5 L (25-47) % [place] % (Auto) 4.2 (1-9) % Eos % (Auto) 0 (0-6) % Baso % (Auto) 0.1 (0-2) % Absolute Neuts (auto) 14.7 H (1.5-7.7) 10^3/ul Absolute Lymphs (auto) 0.2 L (1.0-4.8) 10^3/ul Absolute Monos (auto) 0.7 (0-0.8) 10^3/ul Absolute Eos (auto) 0 (0-0.6) 10^3/ul Absolute Basos (auto) 0 (0-0.2) 10^3/ul Absolute Nucleated RBC 0 10^3/ul Nucleated RBC % 0 ESR 49 H (0-40) mm/Hr Patient Temperature Not Reportable ABG pH 7.20 L (7.35-7.45) ABG pCO2 113 H* (35-45) mmHg ABG pO2 122 H (80-100) mmHg ABG HCO3 33.8 H (19-31) mmol/L ABG O2 Saturation 99.4 H (95-98) % ABG Base Excess 11.5 H (-2.0-2.0) Respiration Rate 14 O2 Delivery Device Bipap Ventilator Type Not Reportable Vent Mode Not Reportable FiO2 40 Inspiratory Time Not Reportable PEEP Not Reportable Pressure Support Not Reportable Pressure Control Not Reportable EPAP 5 IPAP 12 BiPAP Not Reportable Sodium 133 (133-145) mmol/L Potassium 5.6 H (3.5-5.0) mmol/L Chloride 91 L (101-111) mmol/L Carbon Dioxide 39 H (22-32) mmol/L Anion Gap 3 (2-11) mmol/L BUN 31 H (6-24) mg/dL Creatinine 0.98 (0.67-1.17) mg/dL Est GFR ( Amer) 95.1 (>60) Est GFR (Non-Af Amer) 74.0 (>60) BUN/Creatinine Ratio 31.6 H (8-20) Glucose 154 H (70-100) mg/dL Lactic Acid (0.5-2.0) mmol/L Calcium 8.8 (8.6-10.3) mg/dL Magnesium 2.3 (1.9-2.7) mg/dL Total Bilirubin 1.40 H (0.2-1.0) mg/dL AST 17 (13-39) U/L ALT 22 (7-52) U/L Alkaline Phosphatase 89 (34-104) U/L Ammonia (16-53) mol/L Troponin I 0.19 H* (<0.04) ng/mL C-Reactive Protein 137.27 H (< 5.00) mg/L B-Natriuretic Peptide ( - 100) pg/mL Total Protein 6.4 (6.4-8.9) g/dL Albumin 3.3 (3.2-5.2) g/dL Globulin 3.1 (2-4) g/dL Albumin/Globulin Ratio 1.1 (1-3) TSH 1.65 (0.34-5.60) mcIU/mL 04/12/17 04/12/17 04/12/17 Range/Units 10:50 10:50 11:30 WBC (3.5-10.8) 10^3/ul RBC (4.0-5.4) 10^6/ul Hgb (14.0-18.0) g/dl Hct (42-52) % MCV (80-94) fL MCH (27-31) pg MCHC (31-36) g/dl RDW (10.5-15) % Plt Count (150-450) 10^3/ul MPV (7.4-10.4) um3 Neut % (Auto) (38-83) % Lymph % (Auto) (25-47) % [place] % (Auto) (1-9) % Eos % (Auto) (0-6) % Baso % (Auto) (0-2) % Absolute Neuts (auto) (1.5-7.7) 10^3/ul Absolute Lymphs (auto) (1.0-4.8) 10^3/ul Absolute Monos (auto) (0-0.8) 10^3/ul Absolute Eos (auto) (0-0.6) 10^3/ul Absolute Basos (auto) (0-0.2) 10^3/ul Absolute Nucleated RBC 10^3/ul Nucleated RBC % ESR (0-40) mm/Hr Patient Temperature Not Reportable ABG pH 7.23 L (7.35-7.45) ABG pCO2 93 H* (35-45) mmHg ABG pO2 115 H (80-100) mmHg ABG HCO3 31.5 H (19-31) mmol/L ABG O2 Saturation 99.8 H (95-98) % ABG Base Excess 8.5 H (-2.0-2.0) Respiration Rate 14 O2 Delivery Device Bipap Ventilator Type Not Reportable Vent Mode Not Reportable FiO2 40 Inspiratory Time Not Reportable PEEP Not Reportable Pressure Support Not Reportable Pressure Control Not Reportable EPAP 5 IPAP 12 BiPAP Not Reportable Sodium (133-145) mmol/L Potassium (3.5-5.0) mmol/L Chloride (101-111) mmol/L Carbon Dioxide (22-32) mmol/L Anion Gap (2-11) mmol/L BUN (6-24) mg/dL Creatinine (0.67-1.17) mg/dL Est GFR ( Amer) (>60) Est GFR (Non-Af Amer) (>60) BUN/Creatinine Ratio (8-20) Glucose (70-100) mg/dL Lactic Acid 1.4 (0.5-2.0) mmol/L Calcium (8.6-10.3) mg/dL Magnesium (1.9-2.7) mg/dL Total Bilirubin (0.2-1.0) mg/dL AST (13-39) U/L ALT (7-52) U/L Alkaline Phosphatase (34-104) U/L Ammonia 44 (16-53) mol/L Troponin I (<0.04) ng/mL C-Reactive Protein (< 5.00) mg/L B-Natriuretic Peptide 610 H ( - 100) pg/mL Total Protein (6.4-8.9) g/dL Albumin (3.2-5.2) g/dL Globulin (2-4) g/dL Albumin/Globulin Ratio (1-3) TSH (0.34-5.60) mcIU/mL Microbiology and Other Data: Microbiology 04/12/17 17:25 Aerobic Blood Culture - Final Blood Venous Escherichia Coli Anaerobic Blood Culture - Final Escherichia Coli Blood Culture - Final 04/12/17 14:45 Urine Culture - Final Urine Klebsiella Pneumoniae Assess/Plan/Problems-Billing Assessment: - Patient Problems (1) Hypercapnic respiratory failure Current Visit: Yes Status: Acute Code(s): J96.92 - RESPIRATORY FAILURE, UNSPECIFIED WITH HYPERCAPNIA SNOMED Code(s): 909788668 Comment: Daughter reports similar hospitalization at [facility] 02/2017. He was unresponsive, and at [facility] was put on CPAP. This would then be his third episode. Dr. Dominguez's consultation appreciated. Trilogy ventilator to be fitted 04/15. Slow taper of prednisone. (2) UTI (urinary tract infection) due to urinary indwelling Huerta catheter Current Visit: Yes Status: Acute Code(s): T83.511A - I/I REACT D/T INDWELLING URETHRAL CATHETER, INIT; N39.0 - URINARY TRACT INFECTION, SITE NOT SPECIFIED SNOMED Code(s): 66935903 Comment: with bacteremia. Huerta changed 04/13. Continue IV levofloxacin. (3) CAD (coronary artery disease) Current Visit: No Status: Acute Code(s): I25.10 - ATHSCL HEART DISEASE OF [place] CORONARY ARTERY W/O ANG PCTRS SNOMED Code(s): 54471700 Comment: Continue ASA, statin,BB. (4) Urinary retention Current Visit: No Status: Acute Code(s): R33.9 - RETENTION OF URINE, UNSPECIFIED SNOMED Code(s): 799639449 Comment: 600 ml residual by cath, 635 ml by bladder scan 03/29. Continue Huerta drainage. Outpt fup Dr. Sharp.
--- NOTE | 2017-04-15 12:42 | PN ---
Progress Note - Progress Note Note: Time spent on discharge 45 minutes.
--- NOTE | 2017-04-15 13:08 | PN ---
Progress Note - Progress Note Note: Pulm consult f/u note 04/15/17. Pt seen and examined at bedside. No acute evnets o /n. No new complaints Active Medications Generic Name Dose Route Start Last Admin Trade Name Freq PRN Reason Stop Dose Admin Albuterol 2.5 mg 04/13/17 10:29 Ventolin 2.5 Mg/3 Ml Neb.Tarah* INH Q4H PRN SOB/WHEEZING Aspirin 81 mg 04/13/17 12:00 04/15/17 09:31 Aspirin Ec Low Dose* PO 81 mg DAILY ALYSA Administration Atorvastatin Calcium 40 mg 04/13/17 18:00 04/14/17 17:56 Lipitor* PO 40 mg QPM ALYSA Administration Levofloxacin/Dextrose 500 mg in 100 mls @ 100 mls/hr 04/12/17 13:00 04/14/17 13:48 Levaquin 500 Mg Ivpremix(*) IVPB 04/18/17 13:59 100 mls/hr Q24H ALYSA Administration Metoprolol Tartrate 12.5 mg 04/14/17 21:00 04/15/17 09:31 Lopressor Tab* PO 12.5 mg Q12HR ALYSA Administration Mometasone Furoate/Formoterol Fumar 2 puff 04/13/17 11:00 04/15/17 08:11 Dulera 200/5 Mdi* INH 2 puff BID ALYSA Administration Prednisone 10 mg 04/14/17 10:56 04/15/17 09:31 Deltasone Tab* PO 10 mg DAILY ALYSA Administration Tiotropium [place] 1 cap 04/13/17 09:00 04/15/17 08:12 Spiriva Cap.Inh* INH 1 cap DAILY ALYSA Administration Vital Signs Temp Pulse Resp BP Pulse Ox 97.6 F 73 16 165/67 94 04/15/17 07:56 04/15/17 08:13 04/15/17 08:13 04/15/17 07:56 04/15/17 10:29 Gen: Alert, in NAD. HEENT: No Scleral Icterus, mucus membranes moist Neck: NL Appearance and Movements; NL JVP, No Thyroid Enlargement, Masses Respiratory: Kyphoscoliosis of chest wall, Symmetrical Chest Expansion and Respiratory Effort, Clear to Auscultation Cardiovascular: NL Sounds; No Murmurs; No JVD, RRR, No Edema Extremities: No Edema, No Clubbing, Cyanosis Skin: No Rash or Ulcers, No Nodules or Sclerosis Neurological: Alert and Oriented x 3 I/R: 77 y o m with kypho scoliosis possible COPD a/w hypercapnic resp failure improved with BiPAP Pt also with E.Coli bacteremia from uro sepsis Pt improved with PPV Plan for d/c today Trilogy arranged at home Steroid taper
[2017-04-15] MEDS: Levofloxacin 500 MG IVPREMIX(* 500 MG/100 ML BAG IVPB SCH (13:11)
--- NOTE | 2017-04-16 03:25 | DS ---
DISCHARGE SUMMARY: DATE OF ADMISSION: 04/12/17 DATE OF DISCHARGE: 04/15/17 HISTORY: This 77-year-old man was home for less than 2 weeks since his last hospital discharge here. Last few days, he is acting more tired and wanting to sleep. On the day of admission when she went to visit him, he was poorly responsive and she called the ambulance. He was very weakly responsive to verbal stimuli in the emergency room. Blood gas showed hypercarbic respiratory failure. He was placed on BiPAP and improved. His pCO2 is 113. He had rapid recovery. He was found to have urinary tract infection with bacteremia. Urine from 04/07/17 has grown klebsiella and E. coli. Blood culture on 04/12/17 showed E. coli in one bottle, a second blood culture showed E. coli in two bottles. Urine culture from 04/12 showed klebsiella. These were all sensitive to quinolones. He was treated with intravenous levofloxacin. He will have 7 more days of oral levofloxacin as an outpatient. I note his Huerta catheter was changed during his hospital stay. He also had an indwelling Huerta catheter at home for a short period of time and was being seen by Dr. Sharp in the office for possible catheter removal. He will continue to consult with Dr. Sharp in terms of managing the catheter. FINAL DIAGNOSES: 1. Hypercapnic respiratory failure. The patient is being fitted for a Trilogy ventilator, which he will have at home on the day of discharge. He will have his prednisone tapered. 2. Urinary tract infection with bacteremia. 3. Urinary retention. 4. Coronary artery disease. DISCHARGE MEDICATIONS: 1. Prednisone 5 mg 2 tablets on 04/16 and 04/17, one tablet on 04/18 and 04/19. 2. Symbicort 160/4.5 one puff b.i.d. 3. Levofloxacin 500 mg daily for 7 days. 4. Tamsulosin 0.4 mg daily. 5. Finasteride 5 mg daily. 6. Metoprolol tartrate 50 mg daily. 7. Atorvastatin 40 mg h.s. 8. Aspirin 81 mg daily. 9. Magnesium oxide 400 mg daily. 10. Acetaminophen 650 mg every 4 hours p.r.n. 11. Tiotropium 1 capsule daily. CC: Dr. Chacko; Dr. Sharp* [id number]/[facility] #: [id number] MTDHema
== END 2017-04-15 15:45 | disposition home or self-care (01) | DRG 698 ==
LOC: ED 10:06 → ICU 12:03 → MED 04-13 12:44
PROVIDERS: ADMIT Internal Medicine Critical Care Medicine; ATTEND Internal Medicine
PROC: 5A09457 Assistance with Respiratory Ventilation, 24-96 Consecutive Hours, Continuous Positive Airway Pressure (ICD-10-PCS; principal; 2017-04-12)
PROC: 0T2BX0Z Change Drainage Device in Bladder, External Approach (ICD-10-PCS; 2017-04-13)
DX: T83.511A Infection and inflammatory reaction due to indwelling urethral catheter, initial encounter (principal); J96.22 Acute and chronic respiratory failure with hypercapnia; A41.51 Sepsis due to Escherichia coli [E. coli]; R65.20 Severe sepsis without septic shock; E87.2 Acidosis; J44.1 Chronic obstructive pulmonary disease with (acute) exacerbation; I50.9 Heart failure, unspecified; M41.9 Scoliosis, unspecified; I11.0 Hypertensive heart disease with heart failure; I25.10 Atherosclerotic heart disease of native coronary artery without angina pectoris; E78.00 Pure hypercholesterolemia, unspecified; N40.0 Benign prostatic hyperplasia without lower urinary tract symptoms; N39.0 Urinary tract infection, site not specified; H91.93 Unspecified hearing loss, bilateral; B96.1 Klebsiella pneumoniae [K. pneumoniae] as the cause of diseases classified elsewhere; R40.2422 Glasgow coma scale score 9-12, at arrival to emergency department; Z77.090 Contact with and (suspected) exposure to asbestos; R33.9 Retention of urine, unspecified; Y84.6 Urinary catheterization as the cause of abnormal reaction of the patient, or of later complication, without mention of misadventure at the time of the procedure; Y92.9 Unspecified place or not applicable; Z79.82 Long term (current) use of aspirin; Z95.0 Presence of cardiac pacemaker; Z95.1 Presence of aortocoronary bypass graft; Z97.4 Presence of external hearing-aid; Z82.49 Family history of ischemic heart disease and other diseases of the circulatory system; Z87.891 Personal history of nicotine dependence; Z72.89 Other problems related to lifestyle; I25.2 Old myocardial infarction; Z90.49 Acquired absence of other specified parts of digestive tract; Z95.3 Presence of xenogenic heart valve
CPT/HCPCS: 36415; 36600; 70450; 71010; 80048; 80053; 81003; 81015; 82140; 82803; 83605; 83735; 83880; 84100; 84443; 84484; 85025; 85027; 85652; 86140; 87040; 87077; 87086; 87186; 87205; 93005; 94640; 94660; 94760; 94762; A9270-GY; J1956; J2920; J7512

== ENCOUNTER 2017-04-25 08:57 | Emergency (ER) | payer MEDICARE, OTHER ==
[2017-04-25 10:28] LABS: Urine Bacteria Absent (Absent); Urine Bilirubin Negative (Negative); Urine Glucose Negative (Negative); Urine Nitrite Negative (Negative)
[2017-04-25 12:04] VITALS: BP 136/74
--- NOTE | 2017-04-27 15:48 | ED ---
Robi Gloria Auryana, scribed for Chris Abraham MD on 04/25/17 at 1001 . GI/ HPI - HPI Summary HPI Summary: 77 y/o male presents to ED with trouble urinating. Patient had a catheter removed three days ago by Dr. Sharp and c/o trouble urinating without it. Patient has minimal urine dribbling, and denies fever and chills. Patient was recently admitted to the ED for a bladder infection, given Prednisone and antibiotics, and sent home in stable condition. PMHx COPD (04/12/17). - History of Current Complaint Chief Complaint: EDGeneral Time Seen by Provider: 04/25/17 09:10 Stated Complaint: UNABLE TO URINATE Hx Obtained From: Patient Onset/Duration: Started Days Ago - Since catether removal three days ago Timing: Constant Severity: Moderate Current Severity: Moderate Pain Intensity: 3 - No pain on ED physician visit, but per triage Associated Signs and Symptoms: Positive: Other: - Urinary retention. 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, Other Cardiovascular Problems/Disorders - CABG Denies: Hx Peripheral Vascular Disease Respiratory History: Reports: Hx Chronic Obstructive Pulmonary Disease (COPD), Other Respiratory Problems/Disorders - USES INHALER FOR OCCASIONAL WHEEZING, SPUTUM PRODUCTION GI History: Reports: Hx Gall Bladder Disease History: Reports: Hx Benign Prostatic Hyperplasia, Other Problems/ Disorders - BENIGN PROSTATIC HYPERTROPHY Denies: Hx Renal Disease Musculoskeletal History: Reports: Hx Back Problems, Other Musculoskeletal History - ABOUT 1 YEAR AGO SMALL TREE FELL ON HIM SOME BACKACHES FROM THAT Denies: Hx Arthritis Sensory History: Reports: Hx Contacts or Glasses - reading, Hx Hearing Aid - bilateral, Hx Hearing Problem Denies: Hx Cataracts, Hx Eye Injury, Hx Eye Prosthesis, Hx Glaucoma, Hx Legally Blind, Hx Macular Degeneration, Hx Vision Problem Opthamlomology History: Reports: Hx Contacts or Glasses - reading Denies: Hx Cataracts, Hx Eye Injury, Hx Eye Prosthesis, Hx Glaucoma, Hx Legally Blind, Hx Macular Degeneration, Hx Vision Problem Neurological History: Reports: Other Neuro Impairments/Disorders - possible stroke-like symptoms at home 01/02/16 Denies: Hx Headaches Psychiatric History: Denies: Hx Anxiety, Hx Depression - Surgical History Surgery Procedure, Year, and Place: 05/2009 CARDIAC CATHERIZATION, [facility]. 2009 AORTIC VALVE(PORCINE) REPLACEMENT, [facility] Hx Anesthesia Reactions: No Infectious Disease History: No Infectious Disease History: Denies: Hx Clostridium Difficile, Hx Hepatitis, Hx Human Immunodeficiency Virus (HIV), Hx of Known/Suspected MRSA, Hx Shingles, Hx Tuberculosis, Traveled Outside the [place] in Last 30 Days - Family History Known Family History: Positive: Cardiac Disease - Social History Occupation: Retired Lives: Alone Alcohol Use: Weekly Alcohol Amount: 1 Substance Use Type: Reports: None Hx Tobacco Use: Yes Smoking Status (MU): Former Smoker Type: Cigarettes Amount Used/How Often: 1 PPD Length of Time of Smoking/Using Tobacco: 10 years Have You Smoked in the Last Year: No Review of Systems Constitutional: Negative Negative: Fever, Chills Eyes: Negative ENT: Negative Cardiovascular: Negative Respiratory: Negative Gastrointestinal: Negative Genitourinary: Other - Trouble urinating Positive: incontinence - see HPI Musculoskeletal: Negative Skin: Negative Neurological: Negative Psychological: Normal All Other Systems Reviewed And Are Negative: Yes Physical Exam - Summary Physical Exam Summary: VITAL SIGNS: Reviewed. GENERAL: Patient is a well-developed and nourished male who is lying comfortable in the stretcher. Patient is not in any acute respiratory distress. HEAD AND FACE: No signs of trauma. No ecchymosis, hematomas or skull depressions. No sinus tenderness. EYES: PERRLA, EOMI x 2, No injected conjunctiva, no nystagmus. EARS: Hearing grossly intact. Ear canals and tympanic membranes are within normal limits. MOUTH: Oropharynx within normal limits. NECK: Supple, trachea is midline, no adenopathy, no JVD, no carotid bruit, no c- spine tenderness, neck with full ROM. CHEST: Symmetric, no tenderness at palpation LUNGS: Clear to auscultation bilaterally. No wheezing or crackles. CVS: Regular rate and rhythm, S1 and S2 present, no murmurs or gallops appreciated. ABDOMEN: Soft, non-tender. Positive lower abdomen distention secondary to enlarged bladder. No rebound no guarding, and no masses palpated. Bowel sounds are normal. EXTREMITIES: FROM in all major joints, no edema, no cyanosis or clubbing. NEURO: Alert and oriented x 3. No acute neurological deficits. Speech is normal and follows commands. SKIN: Dry and warm. Triage Information Reviewed: Yes Vital Signs On Initial Exam: Initial Vitals Temp Pulse Resp BP Pulse Ox 98.2 F 70 18 141/73 98 04/25/17 08:58 04/25/17 08:58 04/25/17 08:58 04/25/17 08:58 04/25/17 08:58 Vital Signs Reviewed: Yes Diagnostics - Vital Signs Vital Signs Temp Pulse Resp BP Pulse Ox 04/25/17 09:01 98.3 F 67 16 141/73 98 04/25/17 08:58 98.2 F 70 18 141/73 98 - Laboratory Lab Statement: Any lab studies that have been ordered have been reviewed, and results considered in the medical decision making process. GIGU Course/Dx - Course Assessment/Plan: 77 y/o male presents to ED with trouble urinating. Patient had a catheter removed three days ago by Dr. Sharp and c/o trouble urinating without it. Patient has minimal urine dribbling, and denies fever and chills. Patient was recently admitted to the ED for a bladder infection, given Prednisone and antibiotics, and sent home in stable condition. PMHx COPD (). Tests - WNL except 2+ blood in urine, 1+ WBC. In the ED course I performed a bladder scan and proceeded to place a urinary frazier catheter in the patient. The patient expelled 900 cc urine. At this time, the patient feels comfortable with no pain and no distension. Therefore, I discharged the patient with follow up to Dr. Sharp of Urology. Patient was sent home with a urinary frazier catheter in place. The patient is Hemodynamically stable and A&Ox3. - Diagnoses Provider Diagnoses: Urinary retention Discharge - Discharge Plan Condition: Stable Disposition: HOME Patient Education Materials: Urinary Retention in Men (ED) Referrals: Rayo Chacko MD [Primary Care Provider] - (F/U IN 2-3 DAYS) Bereket Sharp MD [Medical Doctor] - 2 Days The documentation as recorded by the Robi shukla Auryana accurately reflects the service I personally performed and the decisions made by me, Chris Abraham MD.
== END 2017-04-25 12:03 | disposition home or self-care (01) ==
LOC: ED 08:57
DX: R33.9 Retention of urine, unspecified (principal); I25.10 Atherosclerotic heart disease of native coronary artery without angina pectoris; I10 Essential (primary) hypertension; Z95.1 Presence of aortocoronary bypass graft; Z95.0 Presence of cardiac pacemaker; Z95.2 Presence of prosthetic heart valve; E78.00 Pure hypercholesterolemia, unspecified; J44.9 Chronic obstructive pulmonary disease, unspecified; N40.0 Benign prostatic hyperplasia without lower urinary tract symptoms; Z87.891 Personal history of nicotine dependence
CPT/HCPCS: 51702; 81003; 81015; 99282

== ENCOUNTER 2017-05-16 20:52 | Emergency (ER) | payer MEDICARE, OTHER ==
[2017-05-16] MEDS ORDERED: Acetaminophen TAB* 325 MG PO ONE (22:24)
[2017-05-16] MEDS ORDERED: NS 0.9% 1000 ML* 1,000 ML IV ONE (22:24)
[2017-05-16] MEDS ORDERED: DOXYcycline IV* 100 MG VIAL IVPB ONE (22:26)
[2017-05-16 22:35] LABS: Hematocrit 36 % (42-52); Hemoglobin 11.8 g/dl (14.0-18.0); Mean Corpuscular HGB Conc 33 g/dl (31-36); Mean Corpuscular Hemoglobin 29 pg (27-31); Mean Corpuscular Volume 88 fL (80-94); Mean Platelet Volume 8 um3 (7.4-10.4); Red Blood Count 4.13 10^6/ul (4.0-5.4); Red Cell Distribution Width 14 % (10.5-15); White Blood Count 7.4 10^3/ul (3.5-10.8)
--- NOTE | 2017-05-16 22:39 | ED ---
Roberto Gloria Alfonso, scribed for Joselo Rios MD on 05/16/17 at 2215 . Skin Complaint - HPI Summary HPI Summary: This patient is a 77 year old male presenting accompanied by daughter to [facility] c /o a rash since 3 days ago. The rash on his left chest is erythemous and pruritic. He reports a possible tick bite on his ankle. He also complains of myalgia from his heals up to his knees. He rates the pain 7/10 in severity. Symptoms aggravated and alleviated by nothing. He reports a fever, chills, wheezing, dry throat, loss of appetite, and frontal headache. He denies N/V, cough, diarrhea, back pain, photophobia. PMHx of COPD and CAD. - History of Current Complaint Chief Complaint: EDRashSkinAbscess Time Seen by Provider: 05/16/17 22:03 Stated Complaint: TICK BITE,RASH Hx Obtained From: Patient, Family/Pressroom Supervisor - Daughter Onset/Duration: Started Days Ago - 3 days, Still Present Skin Exposure Onset/Duration: Days Ago - 3 days Timing: Constant Onset Severity: Moderate Current Severity: Moderate Pain Intensity: 7 Pain Scale Used: 0-10 Numeric Skin Location: Chest - Left chest Character: Pruritus, Redness Aggravating Symptom(s): Nothing Alleviating Symptom(s): Nothing Associated Signs & Symptoms: Fever, Chills, Wheezing, Rash - Additional Pertinent History Primary Care Physician: VALERIE - Allergy/Home Medications Allergies/Adverse Reactions: Allergies Allergy/AdvReac Type Severity Reaction Status Date / Time No Known Allergies Allergy Verified 04/12/17 10:19 PMH/Surg Hx/FS Hx/Imm Hx Endocrine/Hematology History: Denies: Hx Diabetes, Hx Thyroid Disease Cardiovascular History: Reports: Hx Coronary Artery Disease, Hx Hypercholesterolemia, Hx Hypertension, Hx Pacemaker/ICD, Hx Syncope, 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, Other Cardiovascular Problems/Disorders - CABG Denies: Hx Peripheral Vascular Disease Respiratory History: Reports: Hx Chronic Obstructive Pulmonary Disease (COPD), Other Respiratory Problems/Disorders - USES INHALER FOR OCCASIONAL WHEEZING, SPUTUM PRODUCTION GI History: Reports: Hx Gall Bladder Disease History: Reports: Hx Benign Prostatic Hyperplasia, Other Problems/ Disorders - BENIGN PROSTATIC HYPERTROPHY Denies: Hx Renal Disease Musculoskeletal History: Reports: Hx Back Problems, Other Musculoskeletal History - ABOUT 1 YEAR AGO SMALL TREE FELL ON HIM SOME BACKACHES FROM THAT Denies: Hx Arthritis Sensory History: Reports: Hx Contacts or Glasses - reading, Hx Hearing Aid - bilateral, Hx Hearing Problem Denies: Hx Cataracts, Hx Eye Injury, Hx Eye Prosthesis, Hx Glaucoma, Hx Legally Blind, Hx Macular Degeneration, Hx Vision Problem Opthamlomology History: Reports: Hx Contacts or Glasses - reading Denies: Hx Cataracts, Hx Eye Injury, Hx Eye Prosthesis, Hx Glaucoma, Hx Legally Blind, Hx Macular Degeneration, Hx Vision Problem Neurological History: Reports: Other Neuro Impairments/Disorders - possible stroke-like symptoms at home 01/02/16 Denies: Hx Headaches Psychiatric History: Denies: Hx Anxiety, Hx Depression - Surgical History Surgery Procedure, Year, and Place: 05/2009 CARDIAC CATHERIZATION, [facility]. 2009 AORTIC VALVE(PORCINE) REPLACEMENT, [facility] Hx Anesthesia Reactions: No Infectious Disease History: No Infectious Disease History: Denies: Hx Clostridium Difficile, Hx Hepatitis, Hx Human Immunodeficiency Virus (HIV), Hx of Known/Suspected MRSA, Hx Shingles, Hx Tuberculosis, Traveled Outside the [place] in Last 30 Days - Family History Known Family History: Positive: Cardiac Disease - Social History Alcohol Use: Weekly Alcohol Amount: 1 Substance Use Type: Reports: None Hx Tobacco Use: Yes Smoking Status (MU): Former Smoker Type: Cigarettes Amount Used/How Often: 1 PPD Length of Time of Smoking/Using Tobacco: 10 years Have You Smoked in the Last Year: No Review of Systems Positive: Fever, Chills Negative: Photophobia Positive: Other - Positive dry throat Positive: Other - Positive wheezing. Negative: Cough Negative: Vomiting, Diarrhea, Nausea Positive: Myalgia - from his heals up to his knees. Negative: Arthralgia - Back pain Positive: Rash - left chest is erythemous and pruritic Neurological: Other - Positive loss of appetite, Positive: Headache - frontal All Other Systems Reviewed And Are Negative: Yes Physical Exam - Summary Physical Exam Summary: The patient is well-nourished in no acute distress and in no acute pain. The skin has a large blanching erythematous rash 15 cm by 15 cm on left chest that is float builder on periphery with no vesicles. HEENT: The head is normocephalic and atraumatic. The pupils are equal and reactive. The conjunctivae are clear and without drainage. Nares are patent and without drainage. Mouth reveals moist mucous membranes and the throat is without erythema and exudate. The external ears are intact. The ear canals are patent and without drainage. The tympanic membranes are intact. Neck is supple with full range of motion and non-tender. There are no carotid bruits. There is no neck vein distension. Respiratory: Chest is non-tender. Rhonchi in bilateral bases and breath sounds are symmetrical and equal. Cardiovascular: Heart is regular rate and rhythm. Murmur auscultated. There is no peripheral edema and pulses are symmetrical and equal. Abdomen: The abdomen is soft and non-tender. There are normal bowel sounds heard in all four quadrants and there is no organomegaly palpated. Musculoskeletal: There is no back pain noted. Extremities are non-tender with full range of motion. There is good capillary refill. There is no peripheral edema or calf tenderness elicited. Neurological: Patient is alert and oriented to person, place and time. The patient has symmetrical motor strength in all four extremities. Cranial nerves are grossly intact. Deep tendon reflexes are symmetrical and equal in all four extremities. Psychiatric: The patient has an appropriate affect and does not exhibit any anxiety or depression. Triage Information Reviewed: Yes Vital Signs On Initial Exam: Initial Vitals Temp Pulse Resp BP Pulse Ox 101.2 F 97 20 161/71 94 05/16/17 20:53 05/16/17 20:53 05/16/17 20:53 05/16/17 20:53 05/16/17 20:53 Vital Signs Reviewed: Yes - Yariel Coma Scale Coma Scale Total: 15 Diagnostics - Vital Signs Vital Signs Temp Pulse Resp BP Pulse Ox 05/16/17 21:50 101.2 F 97 20 161/71 94 05/16/17 20:53 101.2 F 97 20 161/ 94 - Laboratory Lab Statement: Any lab studies that have been ordered have been reviewed, and results considered in the medical decision making process. Course/Dx - Course Assessment/Plan: A 77 year-old M presents to the ED with a CC of erythemous and pruritic rash on his left chest for 3 days. He reports a possible tick bite on his ankle. He reports myalgia from his heals up to his knees, fever, chills, wheezing, dry throat, loss of appetite, and frontal headache. He denies N/V, cough, diarrhea, back pain, photophobia. Patient will be discharged with follow up from Dr. Chacko (PCP). Pt is agreeable with this plan. - Differential Diagnoses - Skin Complaint Differential Diagnoses: Cellulitis, Other - lyme's arthritis - Diagnoses Provider Diagnoses: Acute Lyme disease Discharge - Discharge Plan Condition: Stable Disposition: HOME Prescriptions: DOXYcycline CAP(*) [DOXYcycline 100MG CAP(*)] 100 mg PO BID #[id number] cap Patient Education Materials: Doxycycline (By mouth), Lyme Disease (ED) Referrals: Rayo Chacko MD [Primary Care Provider] - 3 Days The documentation as recorded by the Roberto shukla Alfonso accurately reflects the service I personally performed and the decisions made by me, Joselo Rios MD.
[2017-05-16 22:45] LABS: Albumin 3.5 g/dL (3.2-5.2); BUN/Creatinine Ratio 21.9 (8-20); Calcium 8.8 mg/dL (8.6-10.3); EGFR African American 133.6 (>60); EGFR Non-African American 103.9 (>60); Globulin 3.3 g/dL (2-4); Potassium 4.2 mmol/L (3.5-5.0); Total Bilirubin 2.1 mg/dL (0.2-1.0); Total Protein 6.8 g/dL (6.4-8.9)
[2017-05-16] MEDS ORDERED: DOXYcycline IV* 100 MG x ONCE IVPB ONE ×2 (23:00)
[2017-05-17 00:38] VITALS: BP 148/81
== END 2017-05-17 00:36 | disposition home or self-care (01) ==
LOC: ED 20:52
DX: A69.20 Lyme disease, unspecified (principal); I25.10 Atherosclerotic heart disease of native coronary artery without angina pectoris; I10 Essential (primary) hypertension; Z95.1 Presence of aortocoronary bypass graft; E78.00 Pure hypercholesterolemia, unspecified; Z95.0 Presence of cardiac pacemaker; Z95.4 Presence of other heart-valve replacement; J44.9 Chronic obstructive pulmonary disease, unspecified; N40.0 Benign prostatic hyperplasia without lower urinary tract symptoms; Z87.891 Personal history of nicotine dependence
CPT/HCPCS: 36415; 80053; 83605; 85025; 85610; 85730; 86618; 87040; 96365; 99283; A9270-GY

== ENCOUNTER 2017-06-05 11:25 | Emergency (ER) | payer MEDICARE, OTHER ==
[2017-06-05 13:11] VITALS: BP 143/73
--- NOTE | 2017-06-05 14:11 | ED ---
Complaint/Male - History of Current Complaint Chief Complaint: EDUrogenitalProblems Time Seen by Provider: 06/05/17 12:00 Hx Obtained From: Patient Onset/Duration: Gradual Onset Timing: Constant Severity Initially: Moderate Severity Currently: Moderate Location: Suprapubic Character: Constant Pressure Aggravating Factor(s): Nothing Alleviating Factor(s): Nothing Associated Signs And Symptoms: Negative - Risk Factors Testicular Torsion: Negative - Allergies/Home Medications Allergies/Adverse Reactions: Allergies Allergy/AdvReac Type Severity Reaction Status Date / Time No Known Allergies Allergy Verified 04/12/17 10:19 PMH/Surg Hx/FS Hx/Imm Hx Previously Healthy: No - see below Endocrine/Hematology History: Denies: Hx Diabetes, Hx Thyroid Disease Cardiovascular History: Reports: Hx Coronary Artery Disease, Hx Hypercholesterolemia, Hx Hypertension, Hx Pacemaker/ICD, Hx Syncope, 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, Other Cardiovascular Problems/Disorders - CABG Denies: Hx Peripheral Vascular Disease Respiratory History: Reports: Hx Chronic Obstructive Pulmonary Disease (COPD), Other Respiratory Problems/Disorders - USES INHALER FOR OCCASIONAL WHEEZING, SPUTUM PRODUCTION GI History: Reports: Hx Gall Bladder Disease History: Reports: Hx Benign Prostatic Hyperplasia, Other Problems/ Disorders - BENIGN PROSTATIC HYPERTROPHY Denies: Hx Renal Disease Musculoskeletal History: Reports: Hx Back Problems, Other Musculoskeletal History - ABOUT 1 YEAR AGO SMALL TREE FELL ON HIM SOME BACKACHES FROM THAT Denies: Hx Arthritis Sensory History: Reports: Hx Contacts or Glasses - reading, Hx Hearing Aid - bilateral, Hx Hearing Problem Denies: Hx Cataracts, Hx Eye Injury, Hx Eye Prosthesis, Hx Glaucoma, Hx Legally Blind, Hx Macular Degeneration, Hx Vision Problem Opthamlomology History: Reports: Hx Contacts or Glasses - reading Denies: Hx Cataracts, Hx Eye Injury, Hx Eye Prosthesis, Hx Glaucoma, Hx Legally Blind, Hx Macular Degeneration, Hx Vision Problem Neurological History: Reports: Other Neuro Impairments/Disorders - possible stroke-like symptoms at home 01/02/16 Denies: Hx Headaches Psychiatric History: Denies: Hx Anxiety, Hx Depression - Surgical History Surgery Procedure, Year, and Place: 05/2009 CARDIAC CATHERIZATION, [facility]. 2009 AORTIC VALVE(PORCINE) REPLACEMENT, [facility] Hx Anesthesia Reactions: No Infectious Disease History: No Infectious Disease History: Denies: Hx Clostridium Difficile, Hx Hepatitis, Hx Human Immunodeficiency Virus (HIV), Hx of Known/Suspected MRSA, Hx Shingles, Hx Tuberculosis, Traveled Outside the [place] in Last 30 Days - Family History Known Family History: Positive: Cardiac Disease - Social History Occupation: Retired Lives: With Family Alcohol Use: Weekly Alcohol Amount: 1 Hx Substance Use: No Substance Use Type: Reports: None Hx Tobacco Use: Yes Smoking Status (MU): Former Smoker Type: Cigarettes Amount Used/How Often: 1 PPD Length of Time of Smoking/Using Tobacco: 10 years Have You Smoked in the Last Year: No Review Of Systems Constitutional: Positive: Negative Skin: Positive: Negative Eyes: Positive: Negative Cardiovascular: Positive: Negative Gastrointestinal: Positive: Negative Genitourinary: Positive: Other - suprapubic pressure d/t catheter obstruction Musculoskeletal: Positive: Negative Neurological: Positive: Negative Psychological: Positive: Negative All Other Systems Reviewed And Are Negative: Yes Physical Exam Triage Information Reviewed: Yes Vital Signs On Initial Exam: Initial Vitals Temp Resp BP Pulse Ox 97.3 F 97 06/05/17 11:28 06/05/17 11:28 06/05/17 11:28 06/05/17 11:28 Vital Signs Reviewed: Yes Appearance: Positive: Well-Appearing, Well-Nourished Skin: Positive: Warm, Skin Color Reflects Adequate Perfusion Head/Face: Positive: Normal Head/Face Inspection Neck: Positive: Supple, Nontender, No Lymphadenopathy Respiratory/Lung Sounds: Positive: Clear to Auscultation, Breath Sounds Present Cardiovascular: Positive: Normal, RRR, Pulses are Symmetrical in both Upper and Lower Extremities Male Genital Exam: Positive: other - suprapubic pressure d/t catheter obstruction Musculoskeletal: Positive: Normal, Strength/ROM Intact Neurological: Positive: Sensory/Motor Intact, Alert, Oriented to Person Place, Time Psychiatric: Positive: Normal AVPU Assessment: Alert - [place] Coma Scale Coma Scale Total: 15 Diagnostics - Vital Signs Vital Signs Temp Pulse Resp BP Pulse Ox 06/05/17 13:11 98.7 F 70 16 143/73 06/05/17 11:38 97.3 F 87 17 97 06/05/17 11:28 97.3 F 17 97 - Laboratory Lab Statement: Any lab studies that have been ordered have been reviewed, and results considered in the medical decision making process. Complaint Male Course/Dx - Course Course Of Treatment: suprapubic pressure d/t catheter obstruction. catheter was placed 3 weeks ago by his urologist dr. sharp. no clots visulized by patient or provider. Attempted to flush without success. 18 gauge caudet placed by RN. 466ml with bladder scan prior to successful catheter placement. Patient has follow up with Dr. Sharp on Wednesday next week. - Differential Dx/Diagnosis Differential Diagnosis/HQI/PQRI: Trauma, Ureteral Calculi, Other Provider Diagnoses: Catheter obstruction
== END 2017-06-05 13:10 | disposition home or self-care (01) ==
LOC: ED 11:25
DX: T83.098A Other mechanical complication of other urinary catheter, initial encounter (principal)
CPT/HCPCS: 99282

== ENCOUNTER 2017-06-25 04:02 | Emergency (ER) | payer MEDICARE, OTHER ==
[2017-06-25 04:51] LABS: Urine Bacteria 1+ (Absent); Urine Bilirubin Negative (Negative); Urine Glucose Negative (Negative); Urine Nitrite Positive (Negative)
[2017-06-25] MEDS ORDERED: Sulfamethox/Trimethoprim DS 800/160* TAB PO ONE (05:09)
--- NOTE | 2017-06-25 05:09 | ED ---
Kinza Gloria Edward, scribed for Luca Oh MD on 06/25/17 at 0406 . GI/ HPI - HPI Summary HPI Summary: 77 y/o male presents to ED c/o constant pain secondary to catheter not draining starting this morning at 01:00. The pain is rated at 7/10 at triage. Pt states the catheter was last changed around a month ago. PMHx enlarged prostate. - History of Current Complaint Stated Complaint: CATH PROBLEM Hx Obtained From: Patient Onset/Duration: Started Hours Ago - 01:00 this morning, Still Present Timing: Constant Pain Intensity: 7 - Additional Pertinent History Primary Care Physician: VALERIE - Allergy/Home Medications Allergies/Adverse Reactions: Allergies Allergy/AdvReac Type Severity Reaction Status Date / Time No Known Allergies Allergy Verified 04/12/17 10:19 PMH/Surg Hx/FS Hx/Imm Hx Previously Healthy: No Endocrine/Hematology History: Denies: Hx Diabetes, Hx Thyroid Disease Cardiovascular History: Reports: Hx Coronary Artery Disease, Hx Hypercholesterolemia, Hx Hypertension, Hx Pacemaker/ICD, Hx Syncope, 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, Other Cardiovascular Problems/Disorders - CABG Denies: Hx Peripheral Vascular Disease Respiratory History: Reports: Hx Chronic Obstructive Pulmonary Disease (COPD), Other Respiratory Problems/Disorders - USES INHALER FOR OCCASIONAL WHEEZING, SPUTUM PRODUCTION GI History: Reports: Hx Gall Bladder Disease History: Reports: Hx Benign Prostatic Hyperplasia, Other Problems/ Disorders - BENIGN PROSTATIC HYPERTROPHY Denies: Hx Renal Disease Musculoskeletal History: Reports: Hx Back Problems, Other Musculoskeletal History - ABOUT 1 YEAR AGO SMALL TREE FELL ON HIM SOME BACKACHES FROM THAT Denies: Hx Arthritis Sensory History: Reports: Hx Contacts or Glasses - reading Denies: Hx Cataracts, Hx Eye Injury, Hx Eye Prosthesis, Hx Glaucoma, Hx Legally Blind, Hx Macular Degeneration, Hx Vision Problem Opthamlomology History: Reports: Hx Contacts or Glasses - reading Denies: Hx Cataracts, Hx Eye Injury, Hx Eye Prosthesis, Hx Glaucoma, Hx Legally Blind, Hx Macular Degeneration, Hx Vision Problem Neurological History: Reports: Other Neuro Impairments/Disorders - possible stroke-like symptoms at home 01/02/16 Denies: Hx Headaches Psychiatric History: Denies: Hx Anxiety, Hx Depression - Surgical History Surgery Procedure, Year, and Place: 05/2009 CARDIAC CATHERIZATION, [facility]. 2009 AORTIC VALVE(PORCINE) REPLACEMENT, [facility] Hx Anesthesia Reactions: No Infectious Disease History: Denies: Hx Clostridium Difficile, Hx Hepatitis, Hx Human Immunodeficiency Virus (HIV), Hx of Known/Suspected MRSA, Hx Shingles, Hx Tuberculosis - Family History Known Family History: Positive: Cardiac Disease - Social History Alcohol Use: Weekly Alcohol Amount: 1 Hx Substance Use: No Substance Use Type: Reports: None Hx Tobacco Use: Yes Smoking Status (MU): Former Smoker Type: Cigarettes Amount Used/How Often: 1 PPD Length of Time of Smoking/Using Tobacco: 10 years Have You Smoked in the Last Year: No Review of Systems Constitutional: Negative Eyes: Negative ENT: Negative Cardiovascular: Negative Respiratory: Negative Gastrointestinal: Negative Genitourinary: Other - Catheter not draining Positive: pain - Due to catheter not draining Musculoskeletal: Negative Skin: Negative Neurological: Negative Psychological: Normal All Other Systems Reviewed And Are Negative: Yes Physical Exam Triage Information Reviewed: Yes Vital Signs Reviewed: Yes Appearance: Positive: Well-Appearing, Pain Distress - mild discomfort Skin: Positive: Warm Head/Face: Positive: Normal Head/Face Inspection Eyes: Positive: DENISE ENT: Positive: Hearing grossly normal Neck: Positive: Supple Respiratory/Lung Sounds: Positive: Breath Sounds Present Cardiovascular: Positive: RRR Abdomen Description: Positive: Soft, Other: - mild bladder distnesion Bowel Sounds: Positive: Present Musculoskeletal: Positive: Strength/ROM Intact Re-Evaluation - Re-Evaluation First Eval Change: Improved - frazier catheter changed without complication GIGU Course/Dx - Course Assessment/Plan: 77 y/o male presents to ED c/o constant pain secondary to catheter not draining starting this morning at 01:00. The pain is rated at 7/10 at triage. Pt states the catheter was last changed around a month ago. PMHx enlarged prostate. Pt will be d/c home. - Diagnoses Provider Diagnoses: UTI (urinary tract infection), frazier catheter change Discharge - Discharge Plan Condition: Improved Disposition: HOME Prescriptions: Sulfamethox/Trimethoprim DS* [Bactrim DS 800/160 TAB*] 1 tab PO BID #14 tab Patient Education Materials: Urinary Tract Infection in Men (ED), Frazier Catheter Placement and Care (ED) Referrals: Rayo Chacko MD [Primary Care Provider] - 3 Days (Please f/u in 2-3 days) The documentation as recorded by the Kinza shukla Edward accurately reflects the service I personally performed and the decisions made by me, Luca Oh MD.
[2017-06-25 06:16] VITALS: BP 155/77
== END 2017-06-25 06:24 | disposition home or self-care (01) ==
LOC: ED 04:02
DX: N39.0 Urinary tract infection, site not specified (principal); Z46.6 Encounter for fitting and adjustment of urinary device
CPT/HCPCS: 81003; 81015; 87077; 87086; 87186; 99282; A9270-GY

== ENCOUNTER 2017-10-08 10:44 | Emergency (ER) | payer MEDICARE, OTHER ==
[2017-10-08] MEDS ORDERED: NS 0.9% 1000 ML* 1,000 ML IV ONE (11:04)
[2017-10-08 12:21] LABS: Hematocrit 37 % (42-52); Hemoglobin 12.4 g/dl (14.0-18.0); Mean Corpuscular HGB Conc 34 g/dl (31-36); Mean Corpuscular Hemoglobin 29 pg (27-31); Mean Corpuscular Volume 86 fL (80-94); Mean Platelet Volume 8 um3 (7.4-10.4); Red Cell Distribution Width 14 % (10.5-15); White Blood Count 6.4 10^3/ul (3.5-10.8)
[2017-10-08 12:24] LABS: Urine Bacteria Absent (Absent); Urine Bilirubin Negative (Negative); Urine Glucose Negative (Negative); Urine Nitrite Negative (Negative)
[2017-10-08 12:36] LABS: ALT 29 U/L (7-52); AST 26 U/L (13-39); Albumin 3.6 g/dL (3.2-5.2); Alkaline Phosphatase 71 U/L (34-104); Anion Gap 5 mmol/L (2-11); BUN/Creatinine Ratio 31.9 (8-20); Blood Urea Nitrogen 23 mg/dL (6-24); C Reactive Protein < 1.00 mg/L (< 5.00); CO2 Carbon Dioxide 29 mmol/L (22-32); Calcium 9.2 mg/dL (8.6-10.3); Chloride 101 mmol/L (101-111); EGFR African American 135.8 (>60); EGFR Non-African American 105.6 (>60); Globulin 2.6 g/dL (2-4); Glucose 108 mg/dL (70-100); Potassium 4.3 mmol/L (3.5-5.0); Sodium 135 mmol/L (133-145); Total Protein 6.2 g/dL (6.4-8.9)
--- NOTE | 2017-10-08 13:31 | ED ---
Mateus Gloria Gabriel, scribed for Chris Abraham MD on 10/08/17 at 1104 . GI/ HPI - HPI Summary HPI Summary: This patient is a 77 year old M presenting to [facility] accompanied by family with a chief complaint of a clogged catheter since this morning. The patient rates the pain 0/10 in severity. Patient reports increased flatulence. Patient denies nausea and vomiting. He reports having some output last night but none today. - History of Current Complaint Chief Complaint: EDUrogenitalProblems Time Seen by Provider: 10/08/17 10:57 Stated Complaint: catheter NOT WORKING Hx Obtained From: Patient Onset/Duration: Started Days Ago - 1, Still Present Timing: Constant Pain Intensity: 0 Associated Signs and Symptoms: Positive: Nausea, Vomiting, Other: - increased flatulence - Additional Pertinent History Primary Care Physician: VALERIE - Allergy/Home Medications Allergies/Adverse Reactions: Allergies Allergy/AdvReac Type Severity Reaction Status Date / Time No Known Allergies Allergy Verified 09/12/17 11:18 PMH/Surg Hx/FS Hx/Imm Hx Previously Healthy: No Endocrine/Hematology History: Denies: Hx Anticoagulant Therapy, Hx Blood Disorders, Hx Diabetes, Hx Thyroid Disease Cardiovascular History: Reports: Hx Coronary Artery Disease, Hx Hypercholesterolemia, Hx Hypertension, Hx Pacemaker/ICD, Hx Syncope, 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, Other Cardiovascular Problems/Disorders - CABG Denies: Hx Peripheral Vascular Disease Respiratory History: Reports: Hx Chronic Obstructive Pulmonary Disease (COPD), Other Respiratory Problems/Disorders - USES INHALER FOR OCCASIONAL WHEEZING, SPUTUM PRODUCTION GI History: Reports: Hx Gall Bladder Disease History: Reports: Hx Benign Prostatic Hyperplasia, Other Problems/ Disorders - BENIGN PROSTATIC HYPERTROPHY - requires Frazier cath d/t urinary retention Denies: Hx Renal Disease Musculoskeletal History: Reports: Hx Back Problems, Other Musculoskeletal History - ABOUT 1 YEAR AGO SMALL TREE FELL ON HIM SOME BACKACHES FROM THAT Denies: Hx Arthritis Sensory History: Reports: Hx Contacts or Glasses - reading Denies: Hx Cataracts, Hx Eye Injury, Hx Eye Prosthesis, Hx Glaucoma, Hx Legally Blind, Hx Macular Degeneration, Hx Vision Problem Opthamlomology History: Reports: Hx Contacts or Glasses - reading Denies: Hx Cataracts, Hx Eye Injury, Hx Eye Prosthesis, Hx Glaucoma, Hx Legally Blind, Hx Macular Degeneration, Hx Vision Problem Neurological History: Reports: Other Neuro Impairments/Disorders - possible stroke-like symptoms at home 01/02/16 Denies: Hx Headaches Psychiatric History: Denies: Hx Anxiety, Hx Depression - Surgical History Surgery Procedure, Year, and Place: 05/2009 CARDIAC CATHERIZATION, [facility]. 2009 AORTIC VALVE(PORCINE) REPLACEMENT, [facility] Hx Anesthesia Reactions: No Infectious Disease History: Unable to Obtain/Confirm Infectious Disease History: Denies: Hx Clostridium Difficile, Hx Hepatitis, Hx Human Immunodeficiency Virus (HIV), Hx of Known/Suspected MRSA, Hx Shingles, Hx Tuberculosis, Traveled Outside the [place] in Last 30 Days - Family History Known Family History: Positive: Cardiac Disease - Social History Alcohol Use: None Alcohol Amount: 1 Hx Substance Use: No Substance Use Type: Reports: None Hx Tobacco Use: Yes Smoking Status (MU): Former Smoker Type: Cigarettes Amount Used/How Often: 1 PPD Length of Time of Smoking/Using Tobacco: 10 years Have You Smoked in the Last Year: No Review of Systems Negative: Fever Positive: Other - increased flatulence. Negative: Vomiting, Diarrhea All Other Systems Reviewed And Are Negative: Yes Physical Exam - Summary Physical Exam Summary: VITAL SIGNS: Reviewed. GENERAL: Patient is an elderly male who is lying comfortable in the stretcher. ~ Patient is not in any acute respiratory distress. HEAD AND FACE: Normocephalic and atraumatic. EYES: PERRLA, EOMI x 2, No injected conjunctiva. EARS: Hearing grossly intact. Ear canals and tympanic membranes are WNL. MOUTH: Oropharynx within normal limits. NECK: Supple, trachea is midline, no adenopathy, no JVD. CHEST: Symmetric, no tenderness at palpation LUNGS: Clear to auscultation bilaterally. No wheezing or crackles. CVS: RRR, S1 and S2 present, no murmurs or gallops appreciated. ABDOMEN: Soft, non-tender. No signs of distention. Positive bowel sounds. No rebound no guarding, and no masses palpated. No abdominal bruit or pulsations. EXTREMITIES: FROM in all major joints, no edema, no cyanosis or clubbing. Patient has a leg catheter bag with approximately 30ccs of urine that he reports is from last night. NEURO: Alert and oriented x 3. No acute neurological deficits. Speech is normal. SKIN: Dry and warm Triage Information Reviewed: Yes Vital Signs On Initial Exam: Initial Vitals Temp Pulse Resp BP Pulse Ox 97.7 F 99 17 138/96 96 10/08/17 10:45 10/08/17 10:45 10/08/17 10:45 10/08/17 10:45 10/08/17 10:45 Vital Signs Reviewed: Yes Diagnostics - Vital Signs Vital Signs Temp Pulse Resp BP Pulse Ox 10/08/17 10:45 97.7 F 99 17 138/96 96 - Laboratory Lab Results: Lab Results 10/08/17 10/08/17 10/08/17 Range/Units 11:55 12:02 12:02 WBC 6.4 (3.5-10.8) 10^3/ul RBC 4.30 (4.0-5.4) 10^6/ul Hgb 12.4 L (14.0-18.0) g/dl Hct 37 L (42-52) % MCV 86 (80-94) fL MCH 29 (27-31) pg MCHC 34 (31-36) g/dl RDW 14 (10.5-15) % Plt Count 196 (150-450) 10^3/ul MPV 8 (7.4-10.4) um3 Neut % (Auto) 77.1 (38-83) % Lymph % (Auto) 12.9 L (25-47) % Snyder % (Auto) 8.7 (1-9) % Eos % (Auto) 0.6 (0-6) % Baso % (Auto) 0.7 (0-2) % Absolute Neuts (auto) 5.0 (1.5-7.7) 10^3/ul Absolute Lymphs (auto) 0.8 L (1.0-4.8) 10^3/ul Absolute Monos (auto) 0.6 (0-0.8) 10^3/ul Absolute Eos (auto) 0 (0-0.6) 10^3/ul Absolute Basos (auto) 0 (0-0.2) 10^3/ul Absolute Nucleated RBC 0 10^3/ul Nucleated RBC % 0 Sodium 135 (133-145) mmol/L Potassium 4.3 (3.5-5.0) mmol/L Chloride 101 (101-111) mmol/L Carbon Dioxide 29 (22-32) mmol/L Anion Gap 5 (2-11) mmol/L BUN 23 (6-24) mg/dL Creatinine 0.72 (0.67-1.17) mg/dL Est GFR ( Amer) 135.8 (>60) Est GFR (Non-Af Amer) 105.6 (>60) BUN/Creatinine Ratio 31.9 H (8-20) Glucose 108 H (70-100) mg/dL Calcium 9.2 (8.6-10.3) mg/dL Total Bilirubin 2.90 H (0.2-1.0) mg/dL AST 26 (13-39) U/L ALT 29 (7-52) U/L Alkaline Phosphatase 71 (34-104) U/L C-Reactive Protein < 1.00 (< 5.00) mg/L Total Protein 6.2 L (6.4-8.9) g/dL Albumin 3.6 (3.2-5.2) g/dL Globulin 2.6 (2-4) g/dL Albumin/Globulin Ratio 1.4 (1-3) Urine Color Yellow Urine Appearance Cloudy Urine pH 7.0 (5-9) Ur Specific [place] 1.014 (1.010-1.030) Urine Protein 1+(30 mg/dl) H (Negative) Urine Ketones Negative (Negative) Urine Blood 3+ H (Negative) Urine Nitrate Negative (Negative) Urine Bilirubin Negative (Negative) Urine Urobilinogen Negative (Negative) Ur Leukocyte Esterase 3+ H (Negative) Urine WBC (Auto) 3+(>20/hpf) H (Absent) Urine RBC (Auto) 3+(>10/hpf) H (Absent) Urine Bacteria Absent (Absent) Urine Glucose Negative (Negative) Urine Ascorbic Acid * H (Negative) Result Diagrams: 10/08/17 12:02 10/08/17 12:02 Lab Statement: Any lab studies that have been ordered have been reviewed, and results considered in the medical decision making process. GIGU Course/Dx - Course Assessment/Plan: In the ED course an IV access was obtained. 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 Patient was started with IV fluids. P/E: reveals no abdominal distention. #30 cc of yellow urine in the leg bag. Bladder scan was done and he had >200 cc. We tried flushing the frazier catheter and did not work. At this point we changed the frazier catheter. Now he feels better . Labs without any significant abnormalities. Its at his baseline. UA shows some leukocytes esterase. However its from a chronic catheter and since patient is asymptomatic I will not start antibiotics. Patient is feeling better and will be discharged home. I discussed all the findings and test results with the patient. Patient was instructed to return to the emergency room immediately if any of the symptoms return or worsens. Plan of care was discussed with the patient and understands and agrees. All questions were answered at patient satisfaction. There were no further complaints or concerns. Lung exam before discharge: CTA B/L. Good air exchange. No wheezing or crackles heard. CVS: S1 and S2 present. No murmurs appreciated. Patient is alert and oriented x 3. Patient is hemodynamically stable. Patient will be discharged home with follow up PCP in the next 2-3 days - Diagnoses Provider Diagnoses: Encounter for Frazier catheter replacement Discharge - Discharge Plan Condition: Stable Disposition: HOME Patient Education Materials: Frazier Catheter Placement and Care (ED) Referrals: Rayo Chacko MD [Primary Care Provider] - 3 Days Additional Instructions: Return to the emergency room for persistent or worsening symptoms. The documentation as recorded by the Mateus shukla Gabriel accurately reflects the service I personally performed and the decisions made by me, Chris Abraham MD.
[2017-10-08 13:35] VITALS: BP 164/69
== END 2017-10-08 13:34 | disposition home or self-care (01) ==
LOC: ED 10:44
DX: Z46.6 Encounter for fitting and adjustment of urinary device (principal); R11.2 Nausea with vomiting, unspecified; Z87.891 Personal history of nicotine dependence; Z87.09 Personal history of other diseases of the respiratory system
CPT/HCPCS: 36415; 80053; 81003; 81015; 85025; 86140; 87077; 87086; 87186; 99282

== ENCOUNTER 2017-11-03 21:47 | Emergency (ER) | payer MEDICARE, OTHER ==
[2017-11-04 01:31] LABS: Urine Appearance Cloudy; Urine Blood 3+ (Negative); Urine Ketones Negative (Negative); Urine Protein 2+(100 mg/dL) (Negative); Urine Urobilinogen Negative (Negative)
[2017-11-04 01:32] LABS: Urine Color Red
[2017-11-04] MEDS ORDERED: Levofloxacin TAB* 500 MG PO ONE (01:34)
--- NOTE | 2017-11-04 01:46 | ED ---
Rema Gloria Emily, scribed for Lila Jackmanuel on 11/04/17 at 0005 . GI/ HPI - HPI Summary HPI Summary: This patient is a 77 year old M presenting to [facility] accompanied by family with a chief complaint of hematuria that began three days ago. Pt has a frazier catheter, and received a new catheter yesterday. The patient rates the pain 0/ 10 in severity. Symptoms aggravated by nothing. Symptoms alleviated by nothing. Patient denies abd pain. Pt finished antibiotic course three weeks ago. - History of Current Complaint Chief Complaint: EDUrogenitalProblems Time Seen by Provider: 11/03/17 23:49 Stated Complaint: BLOOD IN CATHER Hx Obtained From: Patient Onset/Duration: Started Days Ago, Still Present Timing: Constant, Lasting Days Severity: Mild Current Severity: Mild Pain Intensity: 0 Associated Signs and Symptoms: Positive: Other: - Negative abd pain - Additional Pertinent History Primary Care Physician: VALERIE - Allergy/Home Medications Allergies/Adverse Reactions: Allergies Allergy/AdvReac Type Severity Reaction Status Date / Time No Known Allergies Allergy Verified 09/12/17 11:18 PMH/Surg Hx/FS Hx/Imm Hx Previously Healthy: No Endocrine/Hematology History: Denies: Hx Anticoagulant Therapy, Hx Blood Disorders, Hx Diabetes, Hx Thyroid Disease Cardiovascular History: Reports: Hx Coronary Artery Disease, Hx Hypercholesterolemia, Hx Hypertension, Hx Pacemaker/ICD, Hx Syncope, 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, Other Cardiovascular Problems/Disorders - CABG Denies: Hx Peripheral Vascular Disease Respiratory History: Reports: Hx Chronic Obstructive Pulmonary Disease (COPD), Other Respiratory Problems/Disorders - USES INHALER FOR OCCASIONAL WHEEZING, SPUTUM PRODUCTION GI History: Reports: Hx Gall Bladder Disease History: Reports: Hx Benign Prostatic Hyperplasia, Other Problems/ Disorders - BENIGN PROSTATIC HYPERTROPHY - requires Frazier cath d/t urinary retention Denies: Hx Renal Disease Musculoskeletal History: Reports: Hx Back Problems, Other Musculoskeletal History - ABOUT 1 YEAR AGO SMALL TREE FELL ON HIM SOME BACKACHES FROM THAT Denies: Hx Arthritis Sensory History: Reports: Hx Contacts or Glasses - reading Denies: Hx Cataracts, Hx Eye Injury, Hx Eye Prosthesis, Hx Glaucoma, Hx Legally Blind, Hx Macular Degeneration, Hx Vision Problem Opthamlomology History: Reports: Hx Contacts or Glasses - reading Denies: Hx Cataracts, Hx Eye Injury, Hx Eye Prosthesis, Hx Glaucoma, Hx Legally Blind, Hx Macular Degeneration, Hx Vision Problem Neurological History: Reports: Other Neuro Impairments/Disorders - possible stroke-like symptoms at home 01/02/16 Denies: Hx Headaches Psychiatric History: Denies: Hx Anxiety, Hx Depression - Surgical History Surgery Procedure, Year, and Place: 05/2009 CARDIAC CATHERIZATION, [facility]. 2009 AORTIC VALVE(PORCINE) REPLACEMENT, [facility] Hx Anesthesia Reactions: No Infectious Disease History: No Infectious Disease History: Denies: Hx Clostridium Difficile, Hx Hepatitis, Hx Human Immunodeficiency Virus (HIV), Hx of Known/Suspected MRSA, Hx Shingles, Hx Tuberculosis, Traveled Outside the [place] in Last 30 Days - Family History Known Family History: Positive: Cardiac Disease - Social History Occupation: Retired Lives: With Family Alcohol Use: None Alcohol Amount: 1 Hx Substance Use: No Substance Use Type: Reports: None Hx Tobacco Use: Yes Smoking Status (MU): Former Smoker Type: Cigarettes Amount Used/How Often: 1 PPD Length of Time of Smoking/Using Tobacco: 10 years Have You Smoked in the Last Year: No Review of Systems Negative: Abdominal Pain Positive: hematuria All Other Systems Reviewed And Are Negative: Yes Physical Exam Triage Information Reviewed: Yes Vital Signs On Initial Exam: Initial Vitals Temp Pulse Resp BP Pulse Ox 97.9 F 70 16 143/76 97 11/03/17 21:53 11/03/17 21:53 11/03/17 21:53 11/03/17 21:53 11/03/17 21:53 Vital Signs Reviewed: Yes Appearance: Positive: Well-Appearing, No Pain Distress Skin: Positive: Warm, Skin Color Reflects Adequate Perfusion, Dry Head/Face: Positive: Normal Head/Face Inspection Eyes: Positive: EOMI, DENISE ENT: Positive: Normal ENT inspection Neck: Positive: Supple, Nontender Respiratory/Lung Sounds: Positive: Clear to Auscultation, Breath Sounds Present Cardiovascular: Positive: RRR, Pulses are Symmetrical in both Upper and Lower Extremities Abdomen Description: Positive: Nontender, Soft Bowel Sounds: Positive: Present Male Genital Exam: Positive: other - Frazier catheter with blood in the bag Musculoskeletal: Positive: Normal, Strength/ROM Intact Neurological: Positive: Normal, Sensory/Motor Intact, Alert, Oriented to Person Place, Time Psychiatric: Positive: Affect/Mood Appropriate Diagnostics - Vital Signs Vital Signs Temp Pulse Resp BP Pulse Ox 11/03/17 21:53 97.9 F 70 16 143/76 97 - Laboratory Lab Results: Lab Results 11/04/17 Range/Units 00:06 Urine Color Red A Urine Appearance Cloudy Urine pH 9.0 (5-9) Ur Specific [place] 1.010 (1.010-1.030) Urine Protein 2+(100 mg/dl) H (Negative) Urine Ketones Negative (Negative) Urine Blood 3+ H (Negative) Urine Nitrate Positive H (Negative) Urine Bilirubin Negative (Negative) Urine Urobilinogen Negative (Negative) Ur Leukocyte Esterase 3+ H (Negative) Urine WBC (Auto) 3+(>20/hpf) H (Absent) Urine RBC (Auto) 3+(>10/hpf) H (Absent) Triple Phos Crystals Present H (Absent) Urine Bacteria 1+ H (Absent) Urine Glucose Negative (Negative) Lab Statement: Any lab studies that have been ordered have been reviewed, and results considered in the medical decision making process. GIGU Course/Dx - Course Assessment/Plan: This patient is a 77 year old M presenting to [facility] accompanied by family with a chief complaint of hematuria that began three days ago. Pt has a frazier catheter, and received a new catheter yesterday. Pt finished antibiotic course three weeks ago. Physical Exam Findings. Frazier catheter with blood in the bag. UA obtained. In the ED course the patient was given Levaquin. Patient will be discharged with prescription for Levaquin and follow up from PCP. The patient is agreeable with this plan. - Diagnoses Differential Diagnoses - Male: Urinary Tract Infection Provider Diagnoses: Complication of Frazier catheter, UTI (urinary tract infection) Discharge - Discharge Plan Condition: Stable Disposition: HOME Prescriptions: Levofloxacin TAB* [Levaquin TAB*] 500 mg PO DAILY #7 tab Patient Education Materials: Levofloxacin (By mouth) Referrals: Rayo Chacko MD [Primary Care Provider] - 3 Days Additional Instructions: RETURN TO THE EMERGENCY DEPARTMENT FOR NEW OR WORSENING SYMPTOMS. The documentation as recorded by the Rema shukla Emily accurately reflects the service I personally performed and the decisions made by Augustina anna Emmanuel.
[2017-11-04 02:03] VITALS: BP 158/78
--- NOTE | 2017-11-06 08:59 | PN ---
Progress Note - Progress Note Date of Service: 11/04/17 Note: Urine culture grew Providencia Rettgeri Patient placed on Levaquin prior to discharge. Will await sensitivities. Nothing further at this time. iL Garduno PA-C
== END 2017-11-04 02:03 | disposition home or self-care (01) ==
LOC: ED 21:47
DX: T83.9XXA Unspecified complication of genitourinary prosthetic device, implant and graft, initial encounter (principal); N39.0 Urinary tract infection, site not specified; Z87.891 Personal history of nicotine dependence; Z87.09 Personal history of other diseases of the respiratory system; R33.9 Retention of urine, unspecified
CPT/HCPCS: 81003; 81015; 87077; 87086; 87186; 99282

== ENCOUNTER 2018-03-16 23:18 | Emergency (ER) | payer MEDICARE, OTHER ==
[2018-03-17] MEDS ORDERED: Acetaminophen TAB* 325 MG PO ONE (00:22)
--- NOTE | 2018-03-17 00:30 | ED ---
Jermaine Gloria Thomas, scribed for Jose Arita MD on 03/16/18 at 2359 . Lower Extremity - HPI Summary HPI Summary: The patient is a 77 year old male complaining of cramping pains to his thighs that began today at 20:00. The patient took the first dose of Bactrim today at 18:00 for a bladder infection. He had a Huerta catheter removed 10 days ago, and he developed a bladder infection following this. - History of Current Complaint Chief Complaint: EDGeneral Stated Complaint: CRAMPING IN LEGS Time Seen by Provider: 03/16/18 23:35 Hx Obtained From: Patient Onset of Pain: Hours Onset/Duration: Still Present Severity Currently: Moderate Pain Intensity: 6 Pain Scale Used: 0-10 Numeric Timing: Constant Location: Is Discrete @ - legs Associated Signs And Symptoms: Negative: Fever Alleviating Factor(s): Nothing - Allergies/Home Medications Allergies/Adverse Reactions: Allergies Allergy/AdvReac Type Severity Reaction Status Date / Time sulfamethoxazole Allergy Unknown Verified 03/16/18 23:47 [From Bactrim] Reaction Details trimethoprim [From Bactrim] Allergy Unknown Verified 03/16/18 23:47 Reaction Details PMH/Surg Hx/FS Hx/Imm Hx Endocrine/Hematology History: Denies: Hx Anticoagulant Therapy, Hx Blood Disorders, Hx Diabetes, Hx Thyroid Disease Cardiovascular History: Reports: Hx Coronary Artery Disease, Hx Hypercholesterolemia, Hx Hypertension, Hx Pacemaker/ICD, Hx Syncope, 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, Other Cardiovascular Problems/Disorders - CABG Denies: Hx Peripheral Vascular Disease Respiratory History: Reports: Hx Chronic Obstructive Pulmonary Disease (COPD), Other Respiratory Problems/Disorders - USES INHALER FOR OCCASIONAL WHEEZING, SPUTUM PRODUCTION GI History: Reports: Hx Gall Bladder Disease History: Reports: Hx Benign Prostatic Hyperplasia, Other Problems/ Disorders - BENIGN PROSTATIC HYPERTROPHY - requires Huerta cath d/t urinary retention Denies: Hx Renal Disease Musculoskeletal History: Reports: Hx Back Problems, Other Musculoskeletal History - ABOUT 1 YEAR AGO SMALL TREE FELL ON HIM SOME BACKACHES FROM THAT Denies: Hx Arthritis Sensory History: Reports: Hx Contacts or Glasses - reading Denies: Hx Cataracts, Hx Eye Injury, Hx Eye Prosthesis, Hx Glaucoma, Hx Legally Blind, Hx Macular Degeneration, Hx Vision Problem Opthamlomology History: Reports: Hx Contacts or Glasses - reading Denies: Hx Cataracts, Hx Eye Injury, Hx Eye Prosthesis, Hx Glaucoma, Hx Legally Blind, Hx Macular Degeneration, Hx Vision Problem Neurological History: Reports: Other Neuro Impairments/Disorders - possible stroke-like symptoms at home 01/02/16 Denies: Hx Headaches Psychiatric History: Denies: Hx Anxiety, Hx Depression - Surgical History Surgery Procedure, Year, and Place: 05/2009 CARDIAC CATHERIZATION, [facility]. 2009 AORTIC VALVE(PORCINE) REPLACEMENT, [facility] Hx Anesthesia Reactions: No Infectious Disease History: No Infectious Disease History: Denies: Hx Clostridium Difficile, Hx Hepatitis, Hx Human Immunodeficiency Virus (HIV), Hx of Known/Suspected MRSA, Hx Shingles, Hx Tuberculosis, Traveled Outside the [place] in Last 30 Days - Family History Known Family History: Positive: Cardiac Disease - Social History Alcohol Use: None Alcohol Amount: 1 Hx Substance Use: No Substance Use Type: Reports: None Hx Tobacco Use: Yes Smoking Status (MU): Former Smoker Type: Cigarettes Amount Used/How Often: 1 PPD Length of Time of Smoking/Using Tobacco: 10 years Have You Smoked in the Last Year: No Review of Systems Negative: Fever Positive: Other - Leg cramps All Other Systems Reviewed And Are Negative: Yes Physical Exam - Summary Physical Exam Summary: VITAL SIGNS: Reviewed. GENERAL: Patient is a well-developed and nourished male who is lying comfortable in the stretcher. Patient is not in any acute respiratory distress. HEAD AND FACE: No signs of trauma. No ecchymosis, hematomas or skull depressions. No sinus tenderness. EYES: PERRLA, EOMI x 2, No injected conjunctiva, no nystagmus. EARS: Hearing grossly intact. Ear canals and tympanic membranes are within normal limits. MOUTH: Oropharynx within normal limits. NECK: Supple, trachea is midline, no adenopathy, no JVD, no carotid bruit, no c- spine tenderness, neck with full ROM. CHEST: Symmetric, no tenderness at palpation LUNGS: Clear to auscultation bilaterally. No wheezing or crackles. CVS: Regular rate and rhythm, S1 and S2 present, no murmurs or gallops appreciated. ABDOMEN: Soft, non-tender. No signs of distention. No rebound no guarding, and no masses palpated. Bowel sounds are normal. EXTREMITIES: FROM in all major joints, no edema, no cyanosis or clubbing. NEURO: Alert and oriented x 3. No acute neurological deficits. Speech is normal and follows commands. SKIN: Dry and warm Triage Information Reviewed: Yes Vital Signs On Initial Exam: Initial Vitals Temp Pulse Resp BP Pulse Ox 98.6 F 70 28 145/63 96 03/16/18 23:20 03/16/18 23:20 03/16/18 23:20 03/16/18 23:20 03/16/18 23:20 Vital Signs Reviewed: Yes Diagnostics - Vital Signs Vital Signs Temp Pulse Resp BP Pulse Ox 03/16/18 23:20 98.6 F 70 28 145/63 96 - Laboratory Lab Statement: Any lab studies that have been ordered have been reviewed, and results considered in the medical decision making process. Lower Extremity Course/Dx - Course Assessment/Plan: The patient is a 77 year old male complaining of cramping pains to his thighs that began today at 20:00 after taking his first dose of Bactrim for a bladder infection. The patients side effects could be from taking Bactrim for his UTI. I will switch his antibiotic to Levaquin. He was instructed to cease taking Bactrim. I advised Motrin for the pain. - Diagnoses Provider Diagnoses: Muscle cramps Discharge - Sign-Out/Discharge Documenting (check all that apply): Discharge/Admit/Transfer - Discharge Plan Condition: Stable Disposition: HOME Patient Education Materials: Muscle Cramp (ED) Referrals: Rayo Chacko MD [Primary Care Provider] - 3 Days Additional Instructions: Stop taking Bactrim. I have put you on Levaquin. Take Motrin as needed for the pain. Follow up with your primary care provider. Return to the emergency department for new or worsening symptoms. The documentation as recorded by the Jermaine shukla Thomas accurately reflects the service I personally performed and the decisions made by me, Jose Arita MD.
[2018-03-17 01:27] VITALS: BP 0/0
== END 2018-03-17 01:15 | disposition home or self-care (01) ==
LOC: ED 23:18
DX: R25.2 Cramp and spasm (principal); I25.10 Atherosclerotic heart disease of native coronary artery without angina pectoris; Z87.891 Personal history of nicotine dependence; Z95.5 Presence of coronary angioplasty implant and graft
CPT/HCPCS: 99282; A9270-GY

== ENCOUNTER 2018-08-07 14:49 | Observation (INO) | payer MEDICARE, OTHER ==
--- NOTE | 2018-08-07 15:11 | ED ---
Neurological HPI - HPI Summary HPI Summary: A 78 y/o male accompanied by his son presents to the ED c/o dizziness/near syncope reaching 2/10 in severity. As per triage, "Pt reports being dizzy and falling, possibly hit head. Pt denies any anticoagualation. PT denies loc. Pt wears cpap at night". According to the patient, he has not been feeling well lately. Around 0300 last night, he went to the bathroom to urinate in which he went back to bed shortly after. Once he got in bed, he felt that the room was shaking and felt that he was going to LOC/faint. Around 0800, he woke up and experienced dizziness to the point where he started to fall and tip over on the wall and felt that he was going to pass out. His son was able to put him back in bed. In route to [facility], the patient said his legs were weak. He noted that he has SOB, but that is chronic due to his COPD. Denies any chest pain, but has a frontal headache. Additionally he has slight blurred vision. Patient is on O2 at home, no blood thinners. Patient is on antibiotic as he was prescribed by Dr. Sesay due to his Lyme Disease (started last Wednesday). - History of Current Complaint Chief Complaint: EDDizziness Stated Complaint: WEAKNESS/FALL Time Seen by Provider: 08/07/18 15:03 Hx Obtained From: Patient Onset/Duration: Sudden Onset, Started hours ago, Still Present Timing: Intermittent Episodes Lasting: Onset Severity: Mild - 2/10 Current Severity: Mild - 2/10 Number of Seizures: 0 Headache Location: Frontal Pain Intensity: 2 Pain Scale Used: 0-10 Numeric Character: Room Spinning, Dizzy Aggravating: Nothing Alleviating: Nothing Associated Signs and Symptoms: Positive: Visual Changes, Headache, Weakness - Legs, Dizziness, Shortness of Breath - CHRONIC. Negative: Fever, Chest Pain - Additional Pertinent History Primary Care Physician: [id number] - Allergy/Home Medications Allergies/Adverse Reactions: Allergies Allergy/AdvReac Type Severity Reaction Status Date / Time sulfamethoxazole Allergy Unknown Verified 08/07/18 14:54 [From Bactrim] Reaction Details trimethoprim [From Bactrim] Allergy Unknown Verified 08/07/18 14:54 Reaction Details Home Medications: Home Medications Sertraline HCl [Zoloft] 50 mg PO DAILY 08/07/18 [History Confirmed 08/07/18] PMH/Surg Hx/FS Hx/Imm Hx Endocrine/Hematology History: Denies: Hx Anticoagulant Therapy, Hx Blood Disorders, Hx Diabetes, Hx Thyroid Disease Cardiovascular History: Reports: Hx Coronary Artery Disease, Hx Hypercholesterolemia, Hx Hypertension, Hx Pacemaker/ICD, Hx Syncope, 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, Other Cardiovascular Problems/Disorders - CABG Denies: Hx Peripheral Vascular Disease Respiratory History: Reports: Hx Chronic Obstructive Pulmonary Disease (COPD), Other Respiratory Problems/Disorders - USES INHALER FOR OCCASIONAL WHEEZING, SPUTUM PRODUCTION GI History: Reports: Hx Gall Bladder Disease History: Reports: Hx Benign Prostatic Hyperplasia, Other Problems/ Disorders - BENIGN PROSTATIC HYPERTROPHY - requires Huerta cath d/t urinary retention Denies: Hx Renal Disease Musculoskeletal History: Reports: Hx Back Problems, Other Musculoskeletal History - ABOUT 1 YEAR AGO SMALL TREE FELL ON HIM SOME BACKACHES FROM THAT Denies: Hx Arthritis Sensory History: Reports: Hx Contacts or Glasses - reading Denies: Hx Cataracts, Hx Eye Injury, Hx Eye Prosthesis, Hx Glaucoma, Hx Legally Blind, Hx Macular Degeneration, Hx Vision Problem Opthamlomology History: Reports: Hx Contacts or Glasses - reading Denies: Hx Cataracts, Hx Eye Injury, Hx Eye Prosthesis, Hx Glaucoma, Hx Legally Blind, Hx Macular Degeneration, Hx Vision Problem Neurological History: Reports: Other Neuro Impairments/Disorders - possible stroke-like symptoms at home 01/02/16 Denies: Hx Headaches Psychiatric History: Denies: Hx Anxiety, Hx Depression - Surgical History Surgery Procedure, Year, and Place: 05/2009 CARDIAC CATHERIZATION, [facility]. 2008 AORTIC VALVE(PORCINE) REPLACEMENT, [facility] Hx Anesthesia Reactions: No Infectious Disease History: No Infectious Disease History: Denies: Hx Clostridium Difficile, Hx Hepatitis, Hx Human Immunodeficiency Virus (HIV), Hx of Known/Suspected MRSA, Hx Shingles, Hx Tuberculosis, Traveled Outside the [place] in Last 30 Days - Family History Known Family History: Positive: Cardiac Disease - Social History Alcohol Use: None Alcohol Amount: 1 Hx Substance Use: No Substance Use Type: Reports: None Hx Tobacco Use: Yes Smoking Status (MU): Former Smoker Type: Cigarettes Amount Used/How Often: 1 PPD Length of Time of Smoking/Using Tobacco: 10 years Have You Smoked in the Last Year: No Review of Systems Negative: Fever Positive: Blurred Vision Negative: Chest Pain Positive: Shortness Of Breath - CHRONIC Neurological: Other - POSITIVE: Dizziness Positive: Headache, Weakness - IN LEGS All Other Systems Reviewed And Are Negative: Yes Physical Exam - Summary Physical Exam Summary: VITAL SIGNS: Reviewed. GENERAL: Patient is a elderly and thin male who is lying comfortable in the stretcher. Patient is not in any acute respiratory distress. No acute distress. HEAD AND FACE: No signs of trauma. No ecchymosis, hematomas or skull depressions. No sinus tenderness. EYES: PERRLA, EOMI x 2, No injected conjunctiva, no nystagmus. EARS: Hearing grossly intact. Ear canals and tympanic membranes are within normal limits. MOUTH: Oropharynx within normal limits. NECK: Supple, trachea is midline, no adenopathy, no JVD, no carotid bruit, no c- spine tenderness, neck with full ROM. CHEST: Symmetric, no tenderness at palpation LUNGS: Clear to auscultation bilaterally. No wheezing or crackles. CVS: Regular rate and rhythm, S1 and S2 present, no murmurs or gallops appreciated. ABDOMEN: Soft, non-tender. No signs of distention. No rebound no guarding, and no masses palpated. Bowel sounds are normal. EXTREMITIES: FROM in all major joints, no edema, no cyanosis or clubbing. NEURO: Alert and oriented x 3. No acute neurological deficits. Speech is normal and follows commands. SKIN: Dry and warm GCS: 15 Triage Information Reviewed: Yes Vital Signs On Initial Exam: Initial Vitals Temp Pulse Resp BP Pulse Ox 97 F 45 22 152/78 94 08/07/18 14:53 08/07/18 14:53 08/07/18 14:53 08/07/18 14:53 08/07/18 14:53 Vital Signs Reviewed: Yes Diagnostics - Vital Signs Vital Signs Temp Pulse Resp BP Pulse Ox 08/07/18 14:53 97 F 45 22 152/78 94 - Laboratory Result Diagrams: 08/08/18 09:21 08/08/18 09:21 Lab Statement: Any lab studies that have been ordered have been reviewed, and results considered in the medical decision making process. - Radiology CXR Radiology Interpretation Completed By: Radiologist - No radiographic evidence of acute cardiopulmonary disease. ED PHYSICIAN REVIEWED THIS RADIOLOGY REPORT. - CT BRAIN CT CT Interpretation Completed By: Radiologist - 1. Age-appropriate involutional changes and evidence of microvascular disease similar in appearance to the April 12, 2017 CT of the brain. 2. Left mastoid air cell effusion progressed since the previous CT of the brain. Please correlate to signs or symptoms of mastoiditis. ED PHYSICIAN REVIEWED THIS RADIOLOGY REPORT. - EKG 1456 Cardiac Rate: NL - 72 BPM EKG Rhythm: Sinus Rhythm EKG Interpretation: NO ST ELEVATIONS. ST DEPRESSIONS FROM V4 TO V6. Course/Dx - Course Assessment/Plan: This patient is a 78-year-old male who presents to the emergency department with a chief complaint of having dizziness, 2 fainting episodes and generalized weakness. He reports that approximately the morning he woke up he went to the bathroom and he was very dizzy, feeling that he was going to pass out. He returned to bed and fell asleep. At 8 o'clock in the morning he woke up again and when he was trying to go to the bathroom he started having dizziness. and he was going to pass out. He had a fainting episode without any loss of consciousness. The patient continued to be very weak and very dizzy and feeling that he is going to pass out therefore he decided to come to the emergency department for further workup and management. Patient denies any chest pain, shortness of the breathe and palpitations. Patient has occasional headaches but denies any nausea vomiting or photophobia. He has past medical history significant for BPH, bradycardia, syncopal episodes, hypertension, NSTEMI, dyslipidemia, Gilbert syndrome, COPD on oxygen at home, urinary retention, out department replaced, CVAT, and UTI. Blood test results without any significant abnormality except for a slight anemia, glucose of 109, and urinalysis is negative for UTI. Head CT impression: IMPRESSION: 1. Age-appropriate involutional changes and evidence of microvascular disease similar in appearance to the April 12, 2017 CT of the brain. 2. Left mastoid air cell effusion progressed since the previous CT of the brain. Please. correlate to signs or symptoms of mastoiditis. Therefore patient was placed in Zosyn. Chest x-ray impression no acute pathology. Since the patient is having these and the syncopal episodes I discussed my physical exam and findings with Dr. Doll from the hospitalist services accepted the patient for admission. He requested to ask a d-dimer and he will follow up the results. At this point the patient is hemodynamically stable alert and oriented 3. - Differential Dx Differential Diagnoses Neuro: Positive: Cerebrovascular Accident, Dysrhythmia, Headache, Meniere's, Migraine, Seizure Disorder, Transient Ischemic Attack, Vasovagal Reaction - Diagnoses Provider Diagnoses: Near syncope, Mastoiditis - Physician Notifications Discussed Care Of Patient With: Evens Doll Time Discussed With Above Provider: 16:43 Instructed by Provider To: Other - Accepts patient for admission. Discharge - Sign-Out/Discharge Documenting (check all that apply): Patient Departure - ADMIT, Sign-Out Patient Signing out patient TO: Evens Doll Receiving patient FROM: Chris Abraham - Discharge Plan Condition: Stable Disposition: ADMITTED TO [facility] - Billing Disposition and Condition Condition: STABLE Disposition: Admitted to [facility] - Attestation Statements Document Initiated by Scribe: Yes Documenting Scribe: Sampson Motta Provider For Whom Scribe is Documenting (Include Credential): Chris Abraham MD Scribe Attestation: Sampson Gloria scribed for Chris Abraham MD on 08/08/18 at 1137. Scribe Documentation Reviewed: Yes Provider Attestation: The documentation as recorded by the Sampson shukla accurately reflects the service I personally performed and the decisions made by Chris anna MD
[2018-08-07 15:41] LABS: ABS Basophils 0 10^3/ul (0-0.2); ABS Eosinophils 0.1 10^3/ul (0-0.6); ABS Lymphocytes 1.3 10^3/ul (1.0-4.8); ABS Monocytes 0.6 10^3/ul (0-0.8); ABS Neutrophils 4.2 10^3/ul (1.5-7.7); ABS Nucleated RBC 0 10^3/ul; Eosinophil % 0.9 % (0-6); Hematocrit 39 % (42-52); Hemoglobin 13.2 g/dl (14.0-18.0); Lymphocyte % 20.8 % (25-47); Mean Corpuscular HGB Conc 34 g/dl (31-36); Mean Corpuscular Hemoglobin 30 pg (27-31); Mean Corpuscular Volume 88 fL (80-94); Mean Platelet Volume 8.2 um3 (7.4-10.4); Nucleated Red Blood Cells % 0; Platelet Count 201 10^3/ul (150-450); Red Blood Count 4.45 10^6/ul (4.00-5.40); Red Cell Distribution Width 14 % (10.5-15); White Blood Count 6.1 10^3/ul (3.5-10.8)
--- NOTE | 2018-08-07 15:52 | RAD ---
INDICATION: Syncope COMPARISON: Most recent CT the brain is dated April 12, 2017 TECHNIQUE: Contiguous axial sections of the brain were obtained from the skull base to the vertex without contrast. FINDINGS: The ventricles, cisterns and sulci there are symmetrical involutional changes similar in appearance to the previous CT of the brain.. There is mild periventricular and subcortical white matter hypoattenuation most consistent with chronic microvascular disease and unchanged from the previous CT of the brain. Otherwise the lai-white matter differentiation is adequately maintained and there is no sulcal effacement. No significant focal abnormality or mass effect is present. There is no evidence for intracranial hemorrhage. No significant focal osseous abnormality is present. The visualized portion of the paranasal sinuses appear clear. There is a fusion of the left mastoid air cells that has progressed since the previous CT of the brain. IMPRESSION: 1. Age-appropriate involutional changes and evidence of microvascular disease similar in appearance to the April 12, 2017 CT of the brain. 2. Left mastoid air cell effusion progressed since the previous CT of the brain. Please correlate to signs or symptoms of mastoiditis.
[2018-08-07 15:57] LABS: EGFR Non-African American 103.6 (>60); INR 0.97 (0.77-1.02)
--- NOTE | 2018-08-07 15:58 | RAD ---
INDICATION: Syncope COMPARISON: Chest x-ray dated October 12, 2017 TECHNIQUE: PA and lateral views of the chest were obtained. FINDINGS: Iatrogenic findings include a left upper chest cardiac pacemaker with 2 leads overlying the heart and sternotomy wires. The heart and mediastinum are normal in size and contour. There is coarse calcification overlying the arch of the aorta. The lungs are grossly clear. There is no evidence of large pleural effusion. Degenerative changes of the thoracic spine includes loss of intervertebral disc height and anterior marginal osteophyte formation. There is no radiographic evidence of free air beneath the diaphragm IMPRESSION: No radiographic evidence of acute cardiopulmonary disease.
[2018-08-07] MEDS ORDERED: ZOSYN 3.375 GM x ONE DOSE over 30 miuntes IVPB ×2 (18:00)
[2018-08-07] MEDS ORDERED: Zosyn per Pharmacy* NOTE FOLLOW UP SCH (18:00)
[2018-08-07] MEDS ORDERED: Spiriva Inhaler DEVICE* 1 EACH DEVICE INH ONE (18:00)
[2018-08-07] MEDS ORDERED: Enoxaparin(*) 40 MG/0.4 ML SYR SUBCUT SCH (18:00)
[2018-08-07] MEDS ORDERED: Vancomycin per Pharmacy* NOTE FOLLOW UP PRN (18:20)
--- NOTE | 2018-08-07 19:39 | HP ---
ADMISSION HISTORY AND PHYSICAL: DATE OF ADMISSION: 08/07/18 CHIEF COMPLAINT: Presyncope. HISTORY OF PRESENT ILLNESS: The patient is a 78-year-old gentleman with history of hypertension, CAD, and aortic valve replacement back in 2008, status post permanent pacemaker placement in [place] a year ago, who presents with the above chief complaint. More specifically, he mentions that at around 3 a.m., a few hours prior to admission, that he almost "passed out." However, he decided to observe his symptoms and to take a rest and went back to sleep. He woke up at around 8 a.m., at this time he was with his son, who he lives with and again almost "passed out," but was caught by his son prior to hitting anything. On further inquiry, he mentioned that when he would look to his left side that the pictures on the wall seems to be moving from side to side. He denied any other prodromal symptoms such as palpitations, chest pain, or shortness of breath. On further inquiry, he also mentions that, about 1 week prior to admission, he was prescribed doxycycline by his primary care physician , Dr. Chacko, given his previous history of Lyme's disease and his many complaints of feeling unwell. He also noted that 1 day prior to admission that his left upper molar which is the only molar tooth left in his left maxilla where his false teeth attaches does not seem to be inflamed on exam, although he mentions that it was hurting the day prior to admission. In the ED, he had a CT scan done, which revealed an age-appropriate involutional change and evidence of microvascular disease similar in appearance back in 2017, although there is a noted left mastoid air cell effusion that has progressed since his previous CT of the brain, which is suspicious for mastoiditis. PAST MEDICAL AND SURGICAL HISTORY: Hypercapnic respiratory failure secondary to COPD exacerbation, the patient is on BiPAP q.h.s., although the patient does not remember his BiPAP settings; CAD and aortic valve replacement back in 2008; status post permanent pacemaker placement back in [place] about a year ago; history of hypertension; hyperlipidemia; BPH; kyphoscoliosis; history of NSTEMI with a notable culprit lesion back in April of 2016 with a troponin peak of 14; history of right inguinal hernia repair; status post lap cholecystectomy back in November of 2016. MEDICATIONS: His home medications are as follows: 1. Tiotropium 1 cap inhalation daily. 2. Tamsulosin 0.4 mg p.o. q.a.m. 3. Metoprolol tartrate 50 mg p.o. daily. 4. Magnesium oxide 400 mg p.o. daily. 5. Doxycycline 100 mg p.o. b.i.d. 6. Symbicort 160/4.5 mcg 1 puff inhalation b.i.d. 7. Atorvastatin 80 mg p.o. daily. 8. Aspirin 81 mg p.o. daily. 9. Tylenol 650 mg p.o. q.4 p.r.n. ALLERGIES: To BACTRIM where he mentions that he gets more pains such as myalgias and arthralgias when he uses it. FAMILY HISTORY: Mentions that his mom had a heart murmur that she went through surgery for, but did not survive the aforementioned surgery, unclear what the actual diagnosis was. This was purported to be when she was in her 60s when she was diagnosed. SOCIAL HISTORY: Denies history of IV drug use, alcohol abuse. He is and he currently lives with his son. REVIEW OF SYSTEMS: He complains of dizziness, which he describes as false movements of the pictures on his wall when he moves his head from right to left causing him to fall. Denies any recent history of chest pain, shortness of breath, increased cough, sputum production, abdominal pain, diarrhea, constipation, pain, and/or increased frequency on urination, myalgias, arthralgias, throat pain, or new skin lesions, although he describes some tooth pain 1 day prior to admission almost a week after starting doxycycline. PHYSICAL EXAMINATION GENERAL APPEARANCE: The patient is awake, alert, and oriented x3, not in acute distress. VITAL SIGNS: Revealed the most recent vital signs of record with blood pressure of 152/78, saturating at 94% on room air, 97 degrees Fahrenheit, 45 beats per minute heart rate. HEENT: Normocephalic, atraumatic. PERRLA. Extraocular muscles intact. Negative for icterus. Moist oral mucosa. Negative throat erythema. There is no tenderness in the bilateral pinnae, tragus as well as mastoid processes, and on otoscopic exam, he has impacted cerumen on the right and on the left, while not impacted, he has a big cerumen blocking his external auditory meatus and only a portion of his eardrum can be visualized, which did not appear to be impacted, although unable to further evaluate given the cerumen blocking the view. NECK: Soft, supple with no cervical lymphadenopathy, no JVD. CHEST: Clear to auscultation bilaterally. Good air entry. No wheezes, rales, or rhonchi. HEART: S1, S2 within normal limits. Regular rate and rhythm. No murmurs, rubs , or gallops. ABDOMEN: Soft, nondistended, nontender. Normoactive bowel sounds x4 quadrants. EXTREMITIES: No cyanosis, clubbing, or edema. PSYCHIATRIC: No active psychosis, depression, suicidal or homicidal ideation. SKIN: Warm to touch. LABORATORY DATA: Most recent and pertinent laboratories show CBC with a WBC of 6.1, H and H of 13.2 and 39, platelets of 201. D-dimer of 554. Sodium and potassium of 138 and 4.2, BUN and creatinine of 23 and 0.73. LFTs: Total bilirubin of 2.4, but this is chronically elevated for unclear reasons. Serum alcohol of less than 10. TSH of 2.26. ASSESSMENT AND PLAN: The patient is a 78-year-old gentleman with history of hypertension, benign prostatic hyperplasia, coronary artery disease status post non-ST elevation myocardial infarction and aortic valve replacement , with status post permanent pacemaker placement, admitted for presyncopal episode likely secondary to vertigo. 1. Presyncopal episode, likely secondary to vertigo given his sensation of false movement as described above. Although he denies that the room is spinning or him spinning, this is still considered vertigo and this is likely induced by possible left mastoiditis as shown in the CT scan, which is consistent with his history when he moves his head from right to left. Therefore, we will place the patient on meclizine and given the above symptoms as well as CT scan findings despite normal white count and absence of fever, I am concerned that further imaging study such as an MRI should be done given his white count could be falsely low given his recent use of doxycycline, which he is still currently taking, although he did not take his doxycycline this morning. In addition, he complained of some tooth pain on the left upper molar in his maxilla and on visual inspection, the tooth although did not appear inflamed, has a lot of tartar and he has not seen a dentist in many years. Therefore, we will admit the patient for an MRI in a.m. and although I have called Dr. Bonilla who is on-call for Neurology at the time of this dictation, I have not received a call back. We will touch base again in the morning and we will place the patient empirically on Zosyn and vancomycin. 2. History of coronary artery disease. We will continue aspirin. We will lower down the metoprolol to 12.5 mg p.o. daily given his asymptomatic bradycardia, which may further exacerbate his presyncopal episode as described above. 3. Benign prostatic hyperplasia. We will continue Flomax and finasteride. 4. History of chronic obstructive pulmonary disease, not in acute exacerbation. We will continue tiotropium and we will place the patient on 12/4 BiPAP given he does not know his settings at night. 5. DVT prophylaxis. We will place the patient on Lovenox subcu low dose at 30 mg given his advanced age. 6. Disposition. For PT eval to further assess his gait in the morning for discharge planning. [id number]/[facility] #: [id number] [place]
[2018-08-07] MEDS: Atorvastatin* 40 MG TAB PO SCH (20:30)
[2018-08-07] MEDS: Enoxaparin(*) 30 MG/0.3 ML SYR SUBCUT SCH (20:30)
[2018-08-07 22:15] LABS: Urine Appearance Clear; Urine Blood Negative (Negative); Urine Color Straw; Urine Ketones Trace (Negative); Urine Protein Negative (Negative); Urine Urobilinogen Negative (Negative)
[2018-08-07] MEDS: Meclizine TAB* 12.5 MG PO SCH (22:49)
[2018-08-08] MEDS: ZOSYN 3.375 GM Q8H per EXTENDED INFUSION IVPB SCH ×4 (00:40→16:37)
[2018-08-08] MEDS: Meclizine TAB* 12.5 MG PO SCH ×3 (06:33→23:27)
[2018-08-08] MEDS: Tiotropium CAP.INH* CAP.INH/18 MCG (USE ORDER SET !) INH SCH (07:46)
[2018-08-08] MEDS: Vancomycin(*) 1,250 MG in NS 0.9% 250 ML* 250 ML IVPB SCH ×2 (07:51→08:05)
[2018-08-08] MEDS: Finasteride TAB* 5 MG PO SCH (07:52)
[2018-08-08] MEDS: Aspirin EC TAB* 81 MG TAB.EC PO SCH (07:52)
[2018-08-08] MEDS ORDERED: Vancomycin(*) 1,000 MG in NS 0.9% 250 ML* 250 ML IVPB SCH (08:00)
[2018-08-08] MEDS ORDERED: Metoprolol Tartrate TAB* 50 mg PO SCH (09:00)
[2018-08-08] MEDS ORDERED: Metoprolol Tartrate TAB* 25 MG PO SCH (09:00)
[2018-08-08 09:30] LABS: Hematocrit 38 % (42-52); Hemoglobin 12.9 g/dl (14.0-18.0); Mean Corpuscular HGB Conc 34 g/dl (31-36); Mean Corpuscular Hemoglobin 30 pg (27-31); Mean Corpuscular Volume 89 fL (80-94); Mean Platelet Volume 8.2 um3 (7.4-10.4); Platelet Count 192 10^3/ul (150-450); Red Blood Count 4.29 10^6/ul (4.00-5.40); Red Cell Distribution Width 14 % (10.5-15)
[2018-08-08 09:45] LABS: EGFR Non-African American 90.6 (>60)
[2018-08-08] MEDS ORDERED: NS 0.9% 500 ML* 500 ML IV ONE (09:57)
[2018-08-08] MEDS ORDERED: ZOSYN 3.375 GM Q8H per EXTENDED INFUSION IVPB SCH ×2 (10:00)
--- NOTE | 2018-08-08 10:00 | PN ---
Subjective Date of Service: 08/08/18 Interval History: Full note to be written later. On review of data, pt also appears to be orthostatic and will bolus pt with NS and place on maintenance. Spoken with Dr. Peres who believes CT scan is benign and possibly a red shaw although mentioned that abx (Doxycycline) could possibly mask symptoms. D/W Drs. Montejo and Chad. Will order a CTV of brain to evaluate for venous throbosis given complaints of tooth pain on Left upper molar. Objective Active Medications: Aspirin (Aspirin Ec Tab*) 81 mg PO DAILY [facility] Last Admin: 08/08/18 07:52 Dose: 81 mg Atorvastatin Calcium (Lipitor*) 40 mg PO QPM [facility] Last Admin: 08/07/18 20:30 Dose: 40 mg Enoxaparin Sodium (Lovenox(*)) 30 mg SUBCUT Q24H [facility] Last Admin: 08/07/18 20:30 Dose: 30 mg Finasteride (Proscar Tab*) 5 mg PO QAM [facility] Last Admin: 08/08/18 07:52 Dose: 5 mg Vancomycin HCl 1,000 mg/ (Sodium Chloride) 250 mls @ 166.667 mls/hr IVPB Q12H [facility] Last Admin: 08/08/18 08:36 Dose: 166.667 mls/hr Piperacillin Sod/Tazobactam (Sod 3.375 gm/ Sodium Chloride) 100 mls @ 25 mls/ hr IVPB 0200,1000,1800 [facility] Sodium Chloride (Ns 0.9% 500 Ml*) 500 mls @ 0 mls/hr IV ONCE ONE Stop: 08/08/18 09:58 Sodium Chloride (Ns 0.9% 1000 Ml*) 1,000 mls @ 75 mls/hr IV PER RATE [facility] Stop: 08/09/18 23:19 Meclizine HCl (Antivert Tab*) 25 mg PO Q8HR [facility] Last Admin: 08/08/18 06:33 Dose: 25 mg Metoprolol Tartrate (Lopressor Tab*) 12.5 mg PO DAILY [facility] Last Admin: 08/08/18 07:52 Dose: 12.5 mg Pharmacy Consult (Zosyn Per Pharmacy*) 1 note FOLLOW UP .ZOSYN PER PHARMACY [facility] Pharmacy Consult (Vancomycin Per Pharmacy*) 1 note FOLLOW UP . PRN PRN Reason: PER PROTOCOL Pharmacy Profile Note (Vancomycin Trough Check) 1 note FOLLOW UP ONCE ONE Stop: 08/10/18 07:31 Tiotropium [place] (Spiriva Cap.Inh*) 1 cap INH DAILY [facility] Last Admin: 08/08/18 07:46 Dose: 1 cap Vital Signs - 8 hr 08/08/18 08/08/18 08/08/18 03:39 07:48 07:49 Temperature 98.4 F 98.9 F Pulse Rate 70 64 70 Respiratory 20 14 18 Rate Blood Pressure 113/56 121/69 (mmHg) O2 Sat by Pulse 98 98 97 Oximetry Oxygen Devices in Use Now: None Result Diagrams: 08/08/18 09:21 08/08/18 09:21 Assess/Plan/Problems-Billing Assessment:
[2018-08-08] MEDS ORDERED: Iohexol 350* (CONTRAST) 500 ML MDV IV ONE (12:21)
[2018-08-08] MEDS: NS 0.9% 1000 ML* 1,000 ML IV SCH (13:04)
--- NOTE | 2018-08-08 13:59 | CONS ---
CONSULTATION REPORT: DATE OF CONSULT: 08/08/18 REQUESTING PROVIDER: Dr. Doll. CONSULTING SERVICE: Infectious Disease. REASON FOR CONSULT: Question otitis media and mastoid effusion. IMPRESSION: 1. Presyncope, malaise, frontal headache, no facial pain or pressure, some left maxillary tooth pain, and vertigo, all symptoms are resolved other than some malaise. Some CT imaging showed left mastoid effusion. He is not tender there. He has some chronic hearing loss, which has not worsened. He has no ear pain. His auditory canal is obscured by cerumen impaction. I do not think he has mastoiditis. He could have an resolving otitis media with mastoid effusion for which he has had a few days of doxycycline and now a day of vancomycin and Zosyn. 2. Frontal headache. No temporal component and it is resolved as well, is being evaluated by Neurology. 3. Allergy to BACTRIM. RECOMMENDATION: We will stop his vancomycin and Zosyn, observe off antibiotic. He should have dental followup for what looks like a maxillary tooth cavity. HISTORY OF PRESENT ILLNESS: This is a 78-year-old man who had had a few days of malaise and worsening shortness of breath and was prescribed doxycycline as an outpatient, which he had taken. He had some frontal headache and feeling of presyncope and vertigo and looking sideways. He had no fevers, chills, or sweats. His appetite was fair. Because of worsening and feeling like he is going to pass out, he came to the hospital on 08/07/18. He had no leukocytosis. He has been afebrile and normotensive, though apparently he has been found to be orthostatic, did think his appetite was decreased while taking doxycycline. Today, his headache, vertigo, and feeling that he might pass out are all resolved. He does have some tooth pain. He has no ear pain. He had a CT scan that showed mastoid effusion on the left, which has been thoroughly evaluated and so far found to be fairly benign. PAST MEDICAL HISTORY: 1. COPD, on nocturnal BiPAP. 2. Coronary disease. 3. Status post aortic valve replacement. 4. Status post pacemaker placement. 5. Hypertension. 6. Hyperlipidemia. 7. Benign prostatic hypertrophy. 8. Kyphoscoliosis. 9. Status post right inguinal hernia repair. 10. Status post laparoscopic cholecystectomy. MEDICATIONS: 1. Aspirin. 2. Lipitor. 3. Enoxaparin. 4. Finasteride. 5. Meclizine. 6. Metoprolol. 7. Zosyn 3.375 g every 8 hours by extended infusion. 8. Vancomycin 1 g every 12 hours. ALLERGIES: SULFA caused myalgia. FAMILY HISTORY: Mother had a heart murmur, from cardiac surgery in her 60s. SOCIAL HISTORY: He lives in [place]. He is nonsmoker. He is not a drinker. Lives with his son. REVIEW OF SYSTEMS: All negative except as noted above in the 14-point review of systems. PHYSICAL EXAM: Vital Signs: Temperature is 37, heart rate 70, respiratory rate 18, blood pressure 121/69, oxygen saturation 97% on 2 L. General: He is awake and not in distress. Neurologic: He is oriented x3, follows all commands. Cranial nerves II through XII are intact. HEENT: There is no conjunctival hemorrhage. Oropharynx without lesions. There is an upper plate, there is a remaining yellowed maxillary tooth on the left, which is nontender. There is no surrounding gum fluctuance. Auditory canal impacted cerumen. Neck is supple without mass. Lymph Nodes: There is no cervical, supraclavicular, inguinal, axillary, or epitrochlear lymphadenopathy. Heart has regular rate and rhythm without murmurs, rubs, or gallops. Lungs are clear to auscultation bilaterally. Abdomen: Soft, nontender, and nondistended. There are bowel sounds present. Skin: There is no rash or splinter hemorrhage. Musculoskeletal: No spine tenderness to palpation or joint synovitis. LABORATORY DATA: Creatinine is 0.8. White blood cell count 5, hemoglobin 12.9 , platelets 192. Please see impressions and recommendations outlined above, which I have discussed with Dr. Doll. Thanks for asking me to see Mr. David in consultation. [id number]/[facility] #: [id number] [facility]ITAL[facility]
[2018-08-08] MEDS ORDERED: hydrALAZINE IV* 20 MG/ML VIAL IV SLOW PU PRN (15:22)
--- NOTE | 2018-08-08 17:04 | PN ---
Subjective Date of Service: 08/08/18 Interval History: Pt seen and examined. Meds and labs reviewed. CC: N/A ROS: Denied DALE/dizziness, F/C, N/V, CP, SOB, increased cough, sputum production , abd pain, diarrhea, constipation, dysuria, myalgias, arthralgias, throat pain , and new skin lesions. The rest of the 14 point ROS are unremarkable. PHYSICAL EXAM: GEN APPEARANCE: Awake, not in acute distress HEENT: NC/AT, PERRLA, moist oral mucosa, (-) throat erythema NECK: Soft, supple, (-) cervical LAD, (-)JVD HEART: S1S2 WNL, RRR, No MRG CHEST: CTA, BL, GAE, No W/R/R ABD: Soft, ND/NT, NABS 4x Q EXT: No C/C/E SKIN: Warm to touch PSYCH: No active psychosis, hallucinations, depression, SI/HI Objective Active Medications: Aspirin (Aspirin Ec Tab*) 81 mg PO DAILY [facility] Last Admin: 08/08/18 07:52 Dose: 81 mg Atorvastatin Calcium (Lipitor*) 40 mg PO QPM [facility] Last Admin: 08/07/18 20:30 Dose: 40 mg Enoxaparin Sodium (Lovenox(*)) 30 mg SUBCUT Q24H [facility] Last Admin: 08/07/18 20:30 Dose: 30 mg Finasteride (Proscar Tab*) 5 mg PO QAM [facility] Last Admin: 08/08/18 07:52 Dose: 5 mg Hydralazine HCl (Apresoline Iv*) 10 mg IV SLOW PU Q6H PRN PRN Reason: BLOOD PRESSURE Sodium Chloride (Ns 0.9% 1000 Ml*) 1,000 mls @ 75 mls/hr IV PER RATE [facility] Stop: 08/09/18 23:19 Last Admin: 08/08/18 13:04 Dose: 75 mls/hr Meclizine HCl (Antivert Tab*) 25 mg PO Q8HR [facility] Last Admin: 08/08/18 16:25 Dose: 25 mg Metoprolol Tartrate (Lopressor Tab*) 25 mg PO BID [facility] Tiotropium [place] (Spiriva Cap.Inh*) 1 cap INH DAILY [facility] Last Admin: 08/08/18 07:46 Dose: 1 cap Vital Signs - 8 hr 08/08/18 08/08/18 08/08/18 11:30 15:17 16:20 Temperature 98.3 F 98.0 F Pulse Rate 70 68 Respiratory 18 12 Rate Blood Pressure 167/82 170/103 146/82 (mmHg) O2 Sat by Pulse 95 96 Oximetry Oxygen Devices in Use Now: None Result Diagrams: 08/08/18 09:21 08/08/18 09:21 Assess/Plan/Problems-Billing Assessment: - Patient Problems (1) Pre-syncope Current Visit: Yes Status: Acute Comment: -Likely due to possible BPPV and orthostasis -Bolused pt with NS 500 and placed on maintenance IVF; will recheck orthostatic VS in AM -Vertigo resolved -D/W Drs. Montejo, Cristobal/Ja (ENT), Charmaine -Progression noted in official CT report thought to be stable by Dr. Jain -Will D/C Zosyn and Vancomycin -Continue to follow cultures -Awaiting result of CTA/VenogramD/W Drs. Montejo and radiologist -Will await any further input from Dr. Bonilla -PT to perform Lorenza-Hallpike maneuver (2) CAD (coronary artery disease) Current Visit: No Status: Acute Code(s): I25.10 - ATHSCL HEART DISEASE OF [place] CORONARY ARTERY W/O ANG PCTRS SNOMED Code(s): 76783880 Comment: Continue ASA, statin,BB. (3) BPH (benign prostatic hyperplasia) Current Visit: No Status: Acute Code(s): N40.0 - BENIGN PROSTATIC HYPERPLASIA WITHOUT LOWER URINRY TRACT SYMP SNOMED Code(s): 720561245 Comment: -Continue Finasteride -Will resume Flomax (4) HTN (hypertension) Current Visit: No Status: Acute Code(s): I10 - ESSENTIAL (PRIMARY) HYPERTENSION SNOMED Code(s): 40874612 Comment: -Improved with med changes below -Resume Flomax -Changed metoprolol frequency and dosing as discussed above -Continue PRN Hydralazine (5) COPD (chronic obstructive pulmonary disease) Current Visit: No Status: Acute Code(s): J44.9 - CHRONIC OBSTRUCTIVE PULMONARY DISEASE, UNSPECIFIED SNOMED Code(s): 25452888 Comment: -Not in acute exacerbation -Continue Spiriva and Symbicort as ordered -Continue BiPAP qHS (6) DVT prophylaxis Current Visit: No Status: Acute Code(s): ZZB8440 - SNOMED Code(s): 504826654 Comment: -Continue Lovenox Status and Disposition: -Continue PT -For OT eval
--- NOTE | 2018-08-08 17:47 | RAD ---
INDICATION: Dizziness and left upper molar pain. COMPARISON: Noncontrast CT of the brain August 07, 2018 TECHNIQUE: A CT angiogram of the head only was performed with 60 cc of Omnipaque 350. Contiguous axial sections were obtained from the base of the skull to the vertex. Images were reconstructed in the sagittal, coronal planes and in a 3-D volume rendered format. Poor bolus timing limits evaluation of the intracranial arterial vasculature. CTA of the brain: Bilaterally the internal carotid arteries and right anterior middle cerebral arteries are adequately patent. There is relative stenosis of the left anterior cerebral artery and middle cerebral artery without focal occlusion. The vertebral, basilar and posterior cerebral arteries appear patent without high grade stenosis or occlusion. The [place] is complete with bilateral posterior communicating arteries identified. No focal luminal filling defect, aneurysm or vascular malformation is seen. NON-ARTERIAL FINDINGS: Again seen is a left mastoid air cell effusion. There is no significant enhancement when comparing the previous noncontrast CT of the brain to today's arterial phase images. IMPRESSION: 1. Evaluation is limited by poor bolus timing. 2. There is relative narrowing of the left anterior and middle cerebral arteries compared to the contralateral side without focal or brought occlusion. 3. Again noted is a left mastoid air cell effusion without signs of enhancement.
[2018-08-08] MEDS: Atorvastatin* 40 MG TAB PO SCH (17:59)
[2018-08-08] MEDS: Enoxaparin(*) 30 MG/0.3 ML SYR SUBCUT SCH (17:59)
[2018-08-08] MEDS: Mometasone/Formoter 200/5 MDI INH SCH (19:19)
--- NOTE | 2018-08-08 20:14 | CONS ---
NEUROLOGY CONSULTATION: DATE OF CONSULT: 08/08/18 LOCATION: He is an inpatient in room 432. REFERRING PROVIDER: Dr. Doll. PRIMARY CARE PROVIDER: Dr. Chacko. CHIEF COMPLAINT: Dizziness. HISTORY OF PRESENT ILLNESS: Luca David is a 78-year-old man who presented to the hospital yesterday with complaints of dizziness and a near fall. He had not been feeling well for about a week in a fairly nonspecific way. He was put on doxycycline sometime close to a week ago for possible Lyme disease. On the day of admission, he got up and felt extremely dizzy. It was about 3 in the morning and he was in the bathroom and fell against the wall. He called for his son who brought him in. He is not sure if he lost consciousness or not. He also describes episodes of feeling dizzy going back at least a week if not longer. He will sometimes lie down and things will briefly feel like they are moving back and forth. It was hard to pin him down as to how long this has been going on. He generally feels unsteady and gets short of breath very easily when he is up on his feet for very long. He is hard of hearing, but he has not noticed any change in hearing in recent months. He has not hit his head recently. As part of evaluation, he had a CT of the brain, which was interpreted as possible mastoiditis. He has seen Dr. Montejo who feels he probably has an active infection. He has noted a "mild" bifrontal headache for a couple of days. He has not noticed any change in speech or difficulty swallowing. He has not noticed any incoordination in his hands. Other than doxycycline, there has been no change in his medications recently. He was found to have significant orthostatic drop in blood pressure when his orthostatic vitals were checked yesterday. PAST MEDICAL HISTORY: His past medical history is notable for aortic valve replacement, permanent pacemaker, coronary artery disease, COPD, sleep apnea, kyphoscoliosis, hypertension, hyperlipidemia. MEDICATIONS: At home consist of: 1. Tamsulosin 0.4 mg p.o. q.a.m. 2. Metoprolol 50 mg p.o. q. day. 3. Doxycycline 100 mg p.o. b.i.d. 4. Symbicort b.i.d. inhaler. 5. Atorvastatin 80 mg p.o. q. day. 6. Aspirin 81 mg p.o. q. day. ALLERGIES: He is allergic to SULFA, which caused pains in his joints and muscles. REVIEW OF SYSTEMS: Negative for chills or sweats. He gets short of breath very easy. He is prone to constipation. No nausea or vomiting. No problems with diarrhea. He feels his memory is probably pretty good. He is a nonsmoker. He lives with his son. PHYSICAL EXAM: He is a thin, elderly gentleman with significant kyphoscoliosis. He appears well hydrated. Most recent vital signs: Blood pressure 167/82, temperature 98.3, heart rate in the 60s, respiratory rate is 18 and oxygen saturation is 95% on 2 L of supplemental oxygen by nasal cannula. Heart tones are distant. I do not hear any murmurs. Lungs revealed mild diffuse wheezing. Neck range of motion is quite limited. Head is atraumatic. He has contractures of his right fingers. He has limited range of motion at the right shoulder. Neurological Exam: Pupils react equally from 3 to 2.5 mm. Fundi were poorly seen with either cataracts or some other opacities. Eye movements are notable for nystagmus and rightward gaze. It is not sustained but does go on for at least 6 to 8 beats. I do not see nystagmus in any other direction of gaze. Visual berry are full to confrontation. He is very hard of hearing bilaterally. Facial musculature is symmetric. Palate and tongue appear normal, tongue protrudes in the midline, palate rises symmetrically. There is no dysarthria. Facial sensation to light touch is symmetric. Motor exam notable for marked limitations about the right shoulder and in the hand. He has antigravity strength in all limbs symmetrically. There is no rest tremor. [id number] maneuver is normal on the left. Finger taps are inhibited in the right hand from his orthopedic deformities. Finger taps in the left arm seem normal. Head thrust test proves he has a corrective saccade when head thrusts to the left. When he stands he has wide-based gait, but he does not walk any distance. He says he feels reasonably steady. Head shaking does not produce any dizziness. Reflexes are hypoactive, but present. Plantars are flexor. He is alert and oriented. His is not the best of historian with mixing up chronological details. Language is fluent. DIAGNOSTIC STUDIES/LAB DATA: Includes a CT of the brain, which I reviewed. It shows some atrophy and some subcortical hypodensity consistent with chronic ischemic changes. There may be some fluid in the left mastoid. Laboratory studies are reviewed. An elevated D-dimer at 554, negative toxicology screen, normal urinalysis. Chemistry profile from yesterday is unremarkable. Total bilirubin is elevated at 2.2 today. TSH was normal at 2.26 yesterday. A CBC is unremarkable other than a mild anemia with a hemoglobin of 12.[address] angiogram of the brain was done earlier today and is reviewed. There appears to be some atherosclerotic changes in the vertebral arteries bilaterally , particularly the left vertebra distally. Final report is pending. 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 It is hard to tell how long it has been going on. He appears to have a monosymptomatic positionally aggravated vertigo. It does not appear to be sustained nor it is accompanied by other neurological signs or symptoms to suggest a central nervous system process such as a cerebellar infarct. Nevertheless, he clearly has significant vascular risks. An MRI scan is not possible with his pacemaker. He is already on aspirin therapy. To complicate matters, he also had some orthostatic hypotension. I will await the interpretation of his CT angiogram. We might consider adding Plavix to aspirin for 30 days or less if the radiologist believes there is significant atherosclerotic disease in the posterior circulation. I will certainly adjust medications and make sure he stays hydrated to avoid orthostatic hypotension. He should work with physical therapy while he is here on the safe ambulation and if he is discharged and probably should have some outpatient physical therapy for gait training and vestibular rehab therapy. I will continue to follow him along with you while he is here. [id number]/[facility] #: [id number] LORETA
[2018-08-08] MEDS ORDERED: Tamsulosin CAP* 0.4 MG PO SCH (21:00)
[2018-08-08] MEDS: Metoprolol Tartrate TAB* 25 MG PO SCH (21:18)
[2018-08-09 05:59] LABS: ABS Basophils 0 10^3/ul (0-0.2); ABS Eosinophils 0.1 10^3/ul (0-0.6); ABS Lymphocytes 1.6 10^3/ul (1.0-4.8); ABS Monocytes 0.6 10^3/ul (0-0.8); ABS Neutrophils 3.2 10^3/ul (1.5-7.7); ABS Nucleated RBC 0 10^3/ul; Hematocrit 37 % (42-52); Hemoglobin 12.7 g/dl (14.0-18.0); Lymphocyte % 28.3 % (25-47); Mean Corpuscular HGB Conc 35 g/dl (31-36); Mean Corpuscular Hemoglobin 31 pg (27-31); Mean Corpuscular Volume 88 fL (80-94); Mean Platelet Volume 8.4 um3 (7.4-10.4); Nucleated Red Blood Cells % 0.2; Platelet Count 174 10^3/ul (150-450); Red Blood Count 4.16 10^6/ul (4.00-5.40); Red Cell Distribution Width 13 % (10.5-15); White Blood Count 5.5 10^3/ul (3.5-10.8)
[2018-08-09 06:13] LABS: EGFR Non-African American 127.5 (>60)
[2018-08-09] MEDS: NS 0.9% 1000 ML* 1,000 ML IV SCH (06:27)
[2018-08-09] MEDS: Meclizine TAB* 12.5 MG PO SCH ×2 (06:27→12:50)
[2018-08-09] MEDS: Tiotropium CAP.INH* CAP.INH/18 MCG (USE ORDER SET !) INH SCH (08:03)
[2018-08-09] MEDS: Mometasone/Formoter 200/5 MDI INH SCH (08:03)
[2018-08-09] MEDS: Metoprolol Tartrate TAB* 25 MG PO SCH (08:55)
[2018-08-09] MEDS: Aspirin EC TAB* 81 MG TAB.EC PO SCH (08:55)
[2018-08-09] MEDS: Finasteride TAB* 5 MG PO SCH (08:56)
[2018-08-09] MEDS ORDERED: NS 0.9% 500 ML* 500 ML IV ONE (09:13)
[2018-08-09 11:05] VITALS: BP 132/67
--- NOTE | 2018-08-09 12:34 | RAD ---
INDICATION: Elevated D dimer with presyncopal episode. Comparison: Comparison is made with prior chest x-ray studies from October 12, 2017 and August 09, 2018. Technique: The patient was given 15.6 mCi of xenon-133 via a rebreathing mask. The lungs were imaged in both the anterior and posterior projections. Subsequently, the patient received 6.3 mCi of technetium 99 MAA intravenously and the lungs were imaged in 8 projections. FINDINGS: There appear to be small matched subsegmental perfusion ventilation defects at the posterior lung bases. No moderate or large perfusion defects are seen. Chest x-ray examination demonstrates hyperinflated clear lungs consistent with COPD. IMPRESSION: LOW PROBABILITY FOR PULMONARY EMBOLISM.
--- NOTE | 2018-08-09 14:17 | RAD ---
Indication: Elevated d-dimer. 2 views of the chest demonstrates no mediastinal shift. Heart is of normal size and configuration. Pacemaker leads are in place. Lungs are clear. Patient is status post tracer thoracotomy. IMPRESSION: No active cardiopulmonary disease is noted.
[2018-08-09] MEDS ORDERED: Captopril TAB* 12.5 MG PO SCH (18:00)
[2018-08-09] MEDS ORDERED: Metoprolol Tartrate TAB* 25 MG PO SCH (21:00)
--- NOTE | 2018-08-09 22:01 | CONS ---
NEUROLOGY FOLLOWUP: DATE OF FOLLOWUP: 08/09/18 LOCATION: He is an inpatient in room 432. HOSPITALIST: Dr. Doll. CHIEF COMPLAINT: Dizziness. INTERVAL HISTORY: Since yesterday, Mr. David feels a lot better. He says he has not had "much" dizziness. He says he has been able to walk without feeling faint. He gets short of breath very easily and his son who is present says that has been getting worse at home. MEDICATIONS: Reviewed and he is on: 1. Atorvastatin 40 mg p.o. q. day. 2. Aspirin 81 mg p.o. q. day. 3. Captopril 12.5 mg p.o. q.p.m. 4. Lovenox 30 mg subcutaneous q.24 hours. 5. Proscar 5 mg p.o. q.a.m. 6. Meclizine 25 mg p.o. q.8 hours. 7. Metoprolol 12.5 mg p.o. b.i.d. 8. Flomax 0.4 mg p.o. q.h.s. PHYSICAL EXAM: He is well nourished and well hydrated. His orthostatic vitals as of early this morning notable for supine blood pressure of 147/77, standing 115/45. Most recent temperature is 98.5, heart rate is in the 60s. Respiratory rate is 18. Neurological Exam: Eye movements are full without nystagmus. Speech is clear. There is no tremor. He is stable to stand independently. He does not get dizzy or lightheaded. IMPRESSION AND PLAN: Impression is that of orthostatic hypotension. I suspect his antihypertensive medications should be adjusted. I recommend stopping meclizine. His CT angiogram did not show significant posterior circulation stenosis. Though as far as stroke prevention goes, he would just remain on aspirin 81 mg per day. [id number]/[facility] #: [id number] LORETA
--- NOTE | 2018-08-10 04:46 | DS ---
CC: Dr. Abraham; Dr. Nile Bonilla; Dr. Blake Montejo; Dr. Keny Peres; Dr. Macedo; Dr. Rayo Chacko * DISCHARGE SUMMARY: DATE OF ADMISSION: DATE OF DISCHARGE: 08/09/18 DISCHARGE DIAGNOSES: Are as follows: 1. Presyncope likely secondary to: A. Orthostatic hypotension with supine hypertension. B. vertigo secondary to benign paroxysmal positional vertigo, resolved. 2. Isolated hyperbilirubinemia, asymptomatic. 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 3. History of coronary artery disease. 4. History of benign prostatic hypertrophy. 5. History of chronic obstructive pulmonary disease with minimal smoking history, which is mirrored by son's history, alpha-1 antitrypsin test pending. DISCHARGE MEDICATIONS: Are as follows: 1. Aspirin 81 mg p.o. daily. 2. Atorvastatin 40 p.o. q.p.m. 3. Captopril 12.5 mg p.o. q.p.m. 4. Finasteride 5 mg p.o. q.a.m. 5. Meclizine 25 mg p.o. q.8 hours p.r.n. 6. Metoprolol tartrate 12.5 mg p.o. b.i.d. 7. Tiotropium 1 cap inhalation daily. 8. Tylenol 650 mg p.o. q.4 p.r.n. The patient informed that maximum for him is 2 g per day. 9. Symbicort 160/4.5 one puff inhalation b.i.d. 10. Magnesium oxide 400 mg p.o. daily. 11. Sertraline 50 mg p.o. daily. 12. Tamsulosin 0.4 mg p.o. q.a.m. HISTORY OF PRESENT ILLNESS/HOSPITAL COURSE: The patient is a 78-year-old gentleman with history of hypertension, CAD, and aortic valve replacement back in 2008, status post permanent pacemaker placement in [place] a year ago, who presented with a chief complaint of almost "passing out." On further inquiry, he mentioned that when he would stand up and especially by moving his head from right to left, he would see the pictures on his wall as if they were moving and hence, given above false sensations of movement i.e. vertigo, he was prescribed meclizine during his hospitalization stay. On exam, he also was found to have bad dental plaques/tartar and has complained of some tooth pain the day prior to admission. He was advised to follow up with a dentist as an outpatient. His presyncopal episode was thought to be secondary to his supine hypertension accompanied by significant orthostatic hypotension and hence, his metoprolol was decreased as prescribed above as well as by placing him on short-acting antihypertensive at night to protect him from sequelae of uncontrolled hypertension such as worsening of his known coronary artery disease as well as possible stroke in the future. In addition, he was also seen by both Physical Therapy and Occupational Therapy to instruct him on lifestyle modifications as well as behavioral changes to limit chances of falls given this. In addition, this is complicated by his vertigo and given his description, it is likely due to BPPV. I have discussed the case with Dr. Macedo, who also reviewed his CT scan which was initially read by the radiologist as having some progression of the mastoid air cells on his left. However, on exam, he did not clinically present with mastoiditis given there were no mastoid tenderness nor tenderness around the aforementioned ear. However, he was initially placed on antibiotics while Infectious Disease was consulted who mentioned to take him off of antibiotics for observation and he has done well with this. Of note, he previously was prescribed doxycycline and initially, there was some concern that this may have masked any form of symptoms that would be consistent for possible mastoiditis. He was also seen by Dr. Bonilla during this hospitalization stay and agreed with the above assessment and plan. I also further discussed this case with Dr. Das given my concerns during his initial admission for possible mastoiditis and to further evaluate whether he has venous sinus thrombosis given his poor oral hygiene that will need to be seen by a dentist especially when he complained of tooth pain on the left side where the incidental finding of the CT scan was found just as described above. He recommended a CT angio/ venogram, which did not reveal any concerning aspects other than known narrowing of the left anterior and middle cerebral arteries on the left compared to the contralateral side and this is consistent with his history of CAD. In addition, he was also found to have asymptomatic isolated hyperbilirubinemia initially presenting with a total bilirubin of 2.4 which is subsequently decreased with appropriate hydration to now 1.8. The rest of his LFTs were found to be normal and does not have any history of confusion in the past that would be consistent with Macario's disease. Hence, bilirubin fractionation was ordered prior to his discharge which will need to be followed up by his primary care physician to consider possible Guillain-Savannah's versus other causes. If it is unconjugated hyperbilirubinemia that is asymptomatic, this is likely the cause of it. However, it is also possible for uncontrolled Macario's disease to have this type of pattern with normal alkaline phosphatase; however, he has not had any history of confusion as well as hepatic problems in the past and this is deemed highly unlikely, but something to consider. In addition, on further review of his history, he mentions that he has only smoked for a few years; however, was subsequently diagnosed with COPD. This same history was also mirrored by his son's history where he mentions that he smoked for about 1 or 2 years, but then was diagnosed with COPD and has difficulty with exertion when he goes up the hill. Given this history, I have also sent for alpha-1 antitrypsin level to be reviewed by his primary care physician on follow up and hence we will defer. Given his presyncopal complaints, D-dimer was done on admission, which was found to be elevated and a V/Q scan has ruled out pulmonary embolism. He had been advised to follow up and/or call his PCP within 3 days post discharge and he has been advised to ask his PCP regarding the results of the tests called bilirubin fractionation as well as alpha-1 antitrypsin levels. He is to follow up with Dr. Macedo, his ENT, within 1 week and to call to setup an appointment. He was advised to see a dentist soon and he was advised that if his symptoms resume or develop new ones or feel unwell for any reason to call his PCP and if is PCP cannot entertain him due to scheduling issues alone, he was advised to call [facility] if his issue is deemed nonemergent. He was advised to call my office regarding any questions, concerns , or further clarifications regarding his discharge plans and prescriptions and to take his medications as prescribed. REVIEW OF SYSTEMS: On review of systems, the patient denied any recent headaches, dizziness, fevers, chills, nausea, vomiting, chest pain, shortness of breath, increased cough and/or sputum production, abdominal pain, diarrhea or constipation, pain and/or increased frequency of urination, myalgias or arthralgias, throat pain, or new skin lesions. The rest of the 14-point review of systems are otherwise unremarkable. PHYSICAL EXAMINATION: Shows the most recent vital signs of record showing that he is still orthostatic from a sitting position to a standing position of 132/ 67 to 109/57, heart rate of 68, 98.5 degrees Fahrenheit, 18 per minute respiratory rate, saturating at 99% on room air. General Appearance: The patient is awake, alert, and oriented x3, not in acute distress. HEENT: Normocephalic, atraumatic. PERRLA. Extraocular muscles intact. Negative for icterus. Moist oral mucosa. Negative throat erythema. Neck is soft, supple with no cervical lymphadenopathy. No JVD. Heart: S1, S2 within normal limits. Regular rate and rhythm. No murmurs, rubs, and gallops. Chest: Clear to auscultation bilaterally. Good air entry. No wheezes, rales, or rhonchi. Abdomen is soft, nondistended, nontender. Normoactive bowel sounds x4 quadrants. Extremities: No cyanosis, clubbing, or edema. Psychiatric: No active psychosis, depression, suicidal or homicidal ideations. Skin is warm to touch. TIME SPENT: The total time spent evaluating the patient, reviewing pertinent data, and appropriate documentation is 50 minutes. [id number]/[facility] #: [id number] MTDD
[2018-08-10] MEDS ORDERED: Vancomycin Trough Check NOTE FOLLOW UP ONE (07:30)
== END 2018-08-09 16:10 | disposition home or self-care (01) ==
LOC: ED 14:49 → MEDTELE 17:26
PROVIDERS: ADMIT Student in an Organized Health Care Education/Training Program; ATTEND Student in an Organized Health Care Education/Training Program
DX: R55 Syncope and collapse (principal); H70.90 Unspecified mastoiditis, unspecified ear; I10 Essential (primary) hypertension; I95.1 Orthostatic hypotension; I25.10 Atherosclerotic heart disease of native coronary artery without angina pectoris; N40.0 Benign prostatic hyperplasia without lower urinary tract symptoms; Z95.4 Presence of other heart-valve replacement; R42 Dizziness and giddiness; Z79.82 Long term (current) use of aspirin; Z95.0 Presence of cardiac pacemaker; Z87.891 Personal history of nicotine dependence; R06.02 Shortness of breath; R51 Headache; R53.1 Weakness; J44.9 Chronic obstructive pulmonary disease, unspecified; I25.2 Old myocardial infarction
CPT/HCPCS: 36415; 70450; 70496; 71046; 78582; 80053; 80307; 80320; 81003; 82103; 82140; 82247; 82248; 83605; 83735; 83880; 84100; 84443; 84484; 85025; 85027; 85379; 85610; 87040; 93005; 94640; 94660; 99283; A9270-GY; A9540; A9558; G0378; G0480; G8978-GP-CJ; G8979-GP-CI; G8987-GO-CJ; G8988-GO-CI; J1650; J2543; J3370; Q9967

== ENCOUNTER 2018-10-01 20:37 | Inpatient (IN) | payer MEDICARE, OTHER ==
[2018-10-01] MEDS ORDERED: Dexamethasone IV* 4 MG/ML 1 ML (4 MG) IV SLOW PU ONE (20:42)
[2018-10-01] MEDS ORDERED: NS 0.9% 1000 ML* 1,000 ML IV ONE (20:42)
[2018-10-01] MEDS ORDERED: Albuterol 0.5% CONC NEB.SOL* 5 MG/ML 20 ml BOT INH ONE (20:42)
--- NOTE | 2018-10-01 20:47 | ED ---
Shortness of Breath - HPI Summary HPI Summary: 78 [facility] of shortness of breath since "a few days" ago, worse since 1-2 days ago. The patient rates the pain 0/ 10 in severity. Symptoms aggravated by nothing. Symptoms alleviated by nothing. Patient reports productive cough and increasing weakness since 1-2 days ago. He also notes decreased appetite. Patient has hx COPD. He uses CPap at home. EMS reports that patient was given two in-line nebs en route. - History of Current Complaint Time Seen by Provider: 10/01/18 20:42 Hx Obtained From: Patient, EMS Onset/Duration: Lasting Days - "a few days", Still Present, Worse Since - 1-2 days ago Aggrevating Factors: Nothing Alleviating Factors: Nothing - Allergy/Home Medications Allergies/Adverse Reactions: Allergies Allergy/AdvReac Type Severity Reaction Status Date / Time sulfamethoxazole Allergy Unknown Verified 08/07/18 14:54 [From Bactrim] Reaction Details trimethoprim [From Bactrim] Allergy Unknown Verified 08/07/18 14:54 Reaction Details PMH/Surg Hx/FS Hx/Imm Hx Previously Healthy: No Endocrine/Hematology History: Denies: Hx Anticoagulant Therapy, Hx Blood Disorders, Hx Diabetes, Hx Thyroid Disease Cardiovascular History: Reports: Hx Coronary Artery Disease, Hx Hypercholesterolemia, Hx Hypertension, Hx Pacemaker/ICD - [facility] - NO MRIs @ [facility] [place], Hx Syncope, 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, Other Cardiovascular Problems/Disorders - CABG Denies: Hx Congestive Heart Failure, Hx Peripheral Vascular Disease Respiratory History: Reports: Hx Asthma, Hx Chronic Obstructive Pulmonary Disease (COPD), Hx Sleep Apnea - Bipap, Other Respiratory Problems/Disorders - USES INHALER FOR OCCASIONAL WHEEZING, SPUTUM PRODUCTION GI History: Reports: Hx Gall Bladder Disease History: Reports: Hx Benign Prostatic Hyperplasia, Other Problems/ Disorders - BENIGN PROSTATIC HYPERTROPHY - requires Huerta cath d/t urinary retention Denies: Hx Renal Disease Musculoskeletal History: Reports: Hx Back Problems, Other Musculoskeletal History - ABOUT 1 YEAR AGO SMALL TREE FELL ON HIM SOME BACKACHES FROM THAT Denies: Hx Arthritis Sensory History: Reports: Hx Contacts or Glasses - reading, Hx Hearing Aid, Hx Hearing Problem Denies: Hx Cataracts, Hx Eye Injury, Hx Eye Prosthesis, Hx Glaucoma, Hx Legally Blind, Hx Macular Degeneration, Hx Vision Problem Opthamlomology History: Reports: Hx Contacts or Glasses - reading Denies: Hx Cataracts, Hx Eye Injury, Hx Eye Prosthesis, Hx Glaucoma, Hx Legally Blind, Hx Macular Degeneration, Hx Vision Problem Neurological History: Reports: Other Neuro Impairments/Disorders - possible stroke-like symptoms at home 01/02/16 Denies: Hx Headaches Psychiatric History: Denies: Hx Anxiety, Hx Depression - Surgical History Surgery Procedure, Year, and Place: [facility] - NO MRIs Hx Anesthesia Reactions: No Infectious Disease History: Denies: Hx Clostridium Difficile, Hx Hepatitis, Hx Human Immunodeficiency Virus (HIV), Hx of Known/Suspected MRSA, Hx Shingles, Hx Tuberculosis - Family History Known Family History: Positive: Cardiac Disease - Social History Alcohol Use: Rare Alcohol Amount: 1 Hx Substance Use: No Substance Use Type: Reports: None Hx Tobacco Use: Yes Smoking Status (MU): Former Smoker Type: Cigarettes Amount Used/How Often: 1 PPD Length of Time of Smoking/Using Tobacco: 10 years Have You Smoked in the Last Year: No Review of Systems Positive: Shortness Of Breath, Cough - productive Positive: Other - decreased appetite Positive: Weakness All Other Systems Reviewed And Are Negative: Yes Physical Exam - Summary Physical Exam Summary: Appearance: elderly, chronically ill-appearing man coming in on bipap in obvious respiratory distress with tachypnea and labored breathing Skin: Warm, dry, no obvious rash Eyes: sclera anicteric, no conjunctival pallor ENT: mucous membranes moist, pharynx appears normal Neck: Supple, nontender Respiratory: breath sounds are distant and decreased but no crackles or wheezes , no peripheral edema Cardiovascular: Normal S1, S2. No murmurs. Normal distal pulses in tibial and radial bilaterally. Abdomen: Soft, nontender, normal active bowel sounds present Musculoskeletal: Normal, Strength/ROM Intact Neurological: A&Ox3, awake and alert, mentation is normal, speech is fluent and appropriate Psychiatric: affect is normal, does not appear anxious or depressed Triage Information Reviewed: Yes Vital Signs Reviewed: Yes Diagnostics - Laboratory Result Diagrams: 10/09/18 04:48 10/09/18 04:48 Lab Statement: Any lab studies that have been ordered have been reviewed, and results considered in the medical decision making process. - Radiology CXR Radiology Interpretation Completed By: ED Physician Summary of Radiographic Findings: No acute disease. Pending official report. - EKG 2048 Cardiac Rate: Tachycardia - 126 BPM EKG Rhythm: Atrial Fibrillation Summary of EKG Findings: A-fib vs PAT, favor a-fib with RVR Course/Dx - Course Course Of Treatment: 78 year old M brought in by ambulance to [facility] complains of shortness of breath since "a few days" ago, worse since 1-2 days ago. In ED course, patient given Albuterol, Decadron, and IV fluids. EKG shows A-fib vs PAT , favor a-fib with RVR. CXR shows no acute disease. - Diagnoses Provider Diagnoses: COPD (chronic obstructive pulmonary disease), Acute on chronic respiratory failure with hypoxia Discharge - Sign-Out/Discharge Documenting (check all that apply): Patient Departure - Discharge Plan Condition: Good Disposition: ADMITTED TO [facility] - Billing Disposition and Condition Condition: GOOD Disposition: Admitted to [facility] - Attestation Statements Document Initiated by Scribe: Yes Documenting Scribe: Merari Lang Provider For Whom Kwadwo is Documenting (Include Credential): Nikhil Cifuentes MD Scribe Attestation: Merari Gloria, scribed for Nikhil Cifuentes MD on 10/10/18 at 0101. Scribe Documentation Reviewed: Yes Provider Attestation: The documentation as recorded by the Merari shukla accurately reflects the service I personally performed and the decisions made by me, Nikhil Cifuentes MD
[2018-10-01 21:26] LABS: ABS Basophils 0 10^3/ul (0-0.2); ABS Eosinophils 0 10^3/ul (0-0.6); ABS Lymphocytes 0.3 10^3/ul (1.0-4.8); ABS Monocytes 0.6 10^3/ul (0-0.8); ABS Neutrophils 4.5 10^3/ul (1.5-7.7); ABS Nucleated RBC 0 10^3/ul; Eosinophil % 0 % (0-6); Hematocrit 34 % (42-52); Hemoglobin 11.5 g/dl (14.0-18.0); Lymphocyte % 5.1 % (25-47); Mean Corpuscular HGB Conc 34 g/dl (31-36); Mean Corpuscular Hemoglobin 30 pg (27-31); Mean Corpuscular Volume 87 fL (80-94); Mean Platelet Volume 8.7 fL (7.4-10.4); Nucleated Red Blood Cells % 0.1; Platelet Count 117 10^3/ul (150-450); Red Blood Count 3.88 10^6/ul (4.00-5.40); Red Cell Distribution Width 14 % (10.5-15); White Blood Count 5.4 10^3/ul (3.5-10.8)
[2018-10-01] MEDS ORDERED: Azithromycin IV(*) 500 MG in NS 0.9% 250 ML* 250 ML IVPB ONE (23:06)
[2018-10-01] MEDS ORDERED: Acetaminophen TAB* 325 MG PO PRN (23:07)
[2018-10-02] MEDS: Enoxaparin(*) 60 MG/0.6 ML SYR SUBCUT SCH ×2 (01:16→13:34)
--- NOTE | 2018-10-02 03:53 | HP ---
CC: Dr. Chacko * [facility] MEDICINE HISTORY AND PHYSICAL: DATE OF ADMISSION: 10/01/18 PRIMARY CARE PHYSICIAN: Dr. Chacko ATTENDING PHYSICIAN: Antonio Nava MD * (dictation provided by Carmel Fontana NP) CHIEF COMPLAINT: Shortness of breath. HISTORY OF PRESENT ILLNESS: Mr. David is a 78-year-old male with past medical history of COPD and chronic hypercapnic respiratory failure on home BiPAP at night, hypertension, and aortic valve replacement in 2008 with pacemaker placement a year ago who presents today to hospital with concern for shortness of breath. Mr. David stated he has been feeling unwell for probably 2 years; but, most notably, over the past week, he has felt more shortness of breath. He has had cough. His family knows that it seemed that he had elevated temperature but they did not take the temperature with the thermometer. He noted over the week that it was just becoming harder and harder to breath and therefore ultimately presented to the emergency room for evaluation today. His family notes that at one point, they did check his heart rate and his pulse oximeter and his heart rate was elevated to about 120 which seemed unusual as it normally runs about 70. The patient denies any palpitations. He denies chest pain. The patient reports diarrhea x1 today only. No report of abdominal pain. He has been urinating per normal. In the emergency room, Mr. David was in acute respiratory distress and was on BiPAP initially but this was able to be transitioned over to Vapotherm. On my evaluation, he states he is feeling a bit better. He has received steroids and nebulized treatments. He does have an elevated troponin to 0.06. His heart rate is about 120 and appears to show an atrial fibrillation. Chest x-ray shows no acute process. PAST MEDICAL HISTORY: 1. Hypertension. 2. Coronary artery disease. 3. Aortic valve repair in 2008. 4. History of pacemaker 1 year ago. 5. COPD on home BiPAP at night. 6. BPH. 7. Hyperlipidemia. 8. History of non-ST elevation MD. 9. Cholecystectomy in 2017. 10. Right inguinal hernia repair. MEDICATIONS: 1. Albuterol 1 puff inhaled q.4 hours p.r.n. 2. Meclizine 25 mg p.o. q.8 hours p.r.n. 3. Magnesium oxide 400 mg p.o. daily. 4. Finasteride 5 mg p.o. q.a.m. 5. Budesonide formoterol 160-4.5 one puff inhaled b.i.d. 6. Atorvastatin 40 mg p.o. q.p.m. 7. Aspirin 81 mg p.o. daily. 8. Tylenol 650 mg p.o. q.4 hours p.r.n. 9. Spiriva 1 cap inhaled daily. 10. Tamsulosin 0.4 mg p.o. q.a.m. 11. Sertraline 50 mg p.o. daily. ALLERGIES: To SULFAMETHOXAZOLE and TRIMETHOPRIM. FAMILY HISTORY: The patient's mom had heart murmur and related to complication of surgery for that, but the patient does not have any clear details for the rest of the family. SOCIAL HISTORY: No report of alcohol, tobacco, or drug use. The patient states that his daughterAntionette will be the healthcare proxy. REVIEW OF SYSTEMS: A 14-point review of systems was completed with Mr. David and all those not mentioned above were negative. PHYSICAL EXAMINATION GENERAL: Mr. David is lying in the bed. He appears in mild respiratory distress at rest but he is able to speak short complete sentences. He states that he is feeling better than on arrival. VITAL SIGNS: Temperature 99, respiratory rate is about 27, O2 saturation 92% on high flow O2, blood pressure 117/71. LUNGS: Diminished throughout. There is no wheezing noted, but there is good aeration in the upper lobes bilaterally. HEART: S1, S2. No murmur, rub, or gallop and irregular. ABDOMEN: Soft, nontender with bowel sounds positive x4. EXTREMITIES: No cyanosis or edema. NEURO: He is alert. He is oriented x3. He moves all extremities equally. There is no facial asymmetry or focal weakness. Extraocular movements are intact. SKIN: Intact. DIAGNOSTIC STUDIES/LAB DATA: WBC 5.4, hemoglobin 11.5, hematocrit 34, platelet count 117. Sodium 134, potassium 4.2, chloride 99, serum bicarbonate 31, BUN 18, creatinine is 0.53, glucose 143, lactic acid 1.1. Total bilirubin 2.4. AST 47, ALT 71, troponin 0.06. EKG appears to show an atrial fibrillation with heart rate of about 120. Chest x- ray shows no acute intrathoracic process per my read, but the official Radiology report is pending. ASSESSMENT AND PLAN: Mr. David is a 78-year-old male with past medical history of chronic obstructive pulmonary disease on home BiPAP at night as well as aortic valve replacement in 2008, pacemaker placement about a year ago who presents today to hospital with concern for worsening shortness of breath over the past week, found to be in acute hypoxic/hypercapnic respiratory failure, suspected secondary to chronic obstructive pulmonary disease exacerbation. Our plans are for inpatient admission to the intensive care unit as expected length of stay to be greater than 2 days for the followin. Acute on chronic hypercapnic respiratory failure secondary to chronic obstructive pulmonary disease exacerbation. The patient was on BiPAP on arrival and is initially transitioned over the Vapotherm. My plan is to transition him back over to BiPAP as I am concerned about CO2 retention with the high flow O2. The patient states that he is improved. He clearly continues to be significantly short of breath. Planned for chronic obstructive pulmonary disease exacerbation treatment with Solu-Medrol 60 mg q.8 hours with DuoNeb q.4 hours as scheduled. He will have azithromycin, can have oxygen available as needed. I see no evidence of an infiltrate to suggest pneumonia. It is possible perhaps that his atrial fibrillation with the heart rate of about 120 was contributing to his symptoms, but I think overall primarily this is related to chronic obstructive pulmonary disease exacerbation. 2. Atrial fibrillation. I see no record in the [facility]. The patient has a history of atrial fibrillation and do note he has a pacemaker but there is no record anywhere that this was placed for atrial fibrillation. The patient's heart rate is better controlled now at about 90. His blood pressure is running around 100 to 110 systolically. I do not see if there is any indication for rate control agent at this point, but we would like to start anticoagulation. I did discuss this with the patient and his family and reviewed the risks and benefits of anticoagulation for stroke prevention and atrial fibrillation and they agreed that we could start anticoagulation tonight. Plan for Lovenox 60 mg subcu b.i.d. Would suggest perhaps reviewing this with Cardiology tomorrow. The patient had recent echocardiogram from August 2017 which showed that the left atrium was moderately dilated, there was intact ejection fraction. The right atrium was mildly dilated. I suspect that atrial fibrillation is secondary to chronic obstructive pulmonary disease and they see no indication for repeat echocardiogram today. 3. Hypertension. The patient states that he was taken off his blood pressure medications. He is not on any medications at this point. 4. History of coronary artery disease. Continue aspirin. 5. Benign prostatic hypertrophy. Continue tamsulosin and Proscar. 6. Hyperlipidemia. Continue atorvastatin. 7. Code status is full code. This was reviewed with the patient and family at the bedside and he would accept intubation if needed tonight. 8. Disposition to intensive care unit. TIME SPENT: Approximately 60 minutes was spent on the admission of this patient , more than half the time spent with the patient at the bedside reviewing the events leading up to this hospitalization, performing the physical examination, and reviewing my plan of care. CARMEL FONTANA, KISHA [id number]/CPS #: [id number] LORETA
[2018-10-02] MEDS: methylPREDNISolone 125 MG* 2 ML VIAL IV SCH ×3 (05:37→21:33)
[2018-10-02] MEDS: Albuterol/Ipratropium NEB.SOL* Albuterol 2.5 MG/Ipratropium 0.5 MG 3 ML INH SCH ×4 (06:46→19:32)
[2018-10-02] MEDS: Tiotropium CAP.INH* CAP.INH/18 MCG (USE ORDER SET !) INH SCH (07:19)
[2018-10-02] MEDS ORDERED: Spiriva Inhaler DEVICE* 1 EACH DEVICE INH ONE (09:00)
[2018-10-02] MEDS ORDERED: guaiFENesin ER TAB 600 MG PO ONE (09:30)
[2018-10-02 09:33] LABS: ABS Basophils 0 10^3/ul (0-0.2); ABS Eosinophils 0 10^3/ul (0-0.6); ABS Lymphocytes 0.4 10^3/ul (1.0-4.8); ABS Monocytes 0.2 10^3/ul (0-0.8); ABS Neutrophils 6.4 10^3/ul (1.5-7.7); ABS Nucleated RBC 0 10^3/ul; Eosinophil % 0 % (0-6); Hematocrit 33 % (42-52); Hemoglobin 10.9 g/dl (14.0-18.0); Lymphocyte % 5.8 % (25-47); Mean Corpuscular HGB Conc 34 g/dl (31-36); Mean Corpuscular Hemoglobin 29 pg (27-31); Mean Corpuscular Volume 87 fL (80-94); Mean Platelet Volume 9.3 fL (7.4-10.4); Nucleated Red Blood Cells % 0.1; Platelet Count 138 10^3/ul (150-450); Red Blood Count 3.74 10^6/ul (4.00-5.40); Red Cell Distribution Width 15 % (10.5-15); White Blood Count 7.1 10^3/ul (3.5-10.8)
[2018-10-02] MEDS: Azithromycin TAB* 250 MG PO SCH (09:38)
[2018-10-02] MEDS: Sertraline* 50 MG TAB PO SCH (09:38)
[2018-10-02] MEDS: Finasteride TAB* 5 MG PO SCH (09:38)
[2018-10-02] MEDS: Aspirin EC TAB* 81 MG TAB.EC PO SCH (09:38)
[2018-10-02] MEDS: Tamsulosin CAP* 0.4 MG PO SCH (09:38)
[2018-10-02 09:45] LABS: EGFR Non-African American 137.9 (>60)
--- NOTE | 2018-10-02 10:31 | PN ---
Subjective Date of Service: 10/02/18 Interval History: coughing but productivity stopped. 10 pack years, quit 50 years ago. alpha 1 antitripysin wnl in July. repeat EKG with atrial bigeminy. He denies known Afib but also not best historian troponin flat 0.07. 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 Objective Active Medications: Acetaminophen (Tylenol Tab*) 650 mg PO Q4H PRN PRN Reason: FEVER/PAIN Albuterol/Ipratropium (Duoneb (Albuterol 2.5 Mg/Ipratropium 0.5 Mg)) 1 neb INH [id number] AWAKE [facility] Aspirin (Aspirin Ec Tab*) 81 mg PO DAILY [facility] Last Admin: 10/02/18 09:38 Dose: 81 mg Atorvastatin Calcium (Lipitor*) 40 mg PO QPM [facility] Azithromycin (Zithromax Tab*) 250 mg PO DAILY [facility] Last Admin: 10/02/18 09:38 Dose: 250 mg Enoxaparin Sodium (Lovenox(*)) 60 mg SUBCUT Q12H [facility] Last Admin: 10/02/18 01:16 Dose: 60 mg Finasteride (Proscar Tab*) 5 mg PO QAM [facility] Last Admin: 10/02/18 09:38 Dose: 5 mg Guaifenesin (Mucinex*) 600 mg PO BID [facility] Methylprednisolone Sodium Succinate (Solu-Medrol 125mg *) 60 mg IV Q8H [facility] Last Admin: 10/02/18 05:37 Dose: 60 mg Sertraline HCl (Zoloft*) 50 mg PO DAILY [facility] Last Admin: 10/02/18 09:38 Dose: 50 mg Tamsulosin HCl (Flomax Cap*) 0.4 mg PO QAM [facility] Last Admin: 10/02/18 09:38 Dose: 0.4 mg Tiotropium [place] (Spiriva Cap.Inh*) 1 cap INH DAILY [facility] Last Admin: 10/02/18 07:19 Dose: Not Given Vital Signs - 8 hr 10/02/18 10/02/18 10/02/18 02:31 02:45 03:00 Temperature Pulse Rate 91 92 86 Respiratory 25 20 33 Rate Blood Pressure 105/49 115/62 121/63 (mmHg) O2 Sat by Pulse 96 96 96 Oximetry 10/02/18 10/02/18 10/02/18 03:01 03:15 03:30 Temperature Pulse Rate 89 81 86 Respiratory 19 25 27 Rate Blood Pressure 109/60 114/68 (mmHg) O2 Sat by Pulse 96 97 95 Oximetry 10/02/18 10/02/18 10/02/18 03:40 03:45 03:54 Temperature 99.0 F Pulse Rate 85 Respiratory 22 26 Rate Blood Pressure 108/56 (mmHg) O2 Sat by Pulse 96 Oximetry 10/02/18 10/02/18 10/02/18 04:00 04:01 04:15 Temperature Pulse Rate 90 82 80 Respiratory 21 20 28 Rate Blood Pressure 109/56 105/49 (mmHg) O2 Sat by Pulse 97 97 97 Oximetry 10/02/18 10/02/18 10/02/18 04:30 04:45 05:00 Temperature Pulse Rate 80 88 80 Respiratory 27 25 36 Rate Blood Pressure 108/53 100/64 108/56 (mmHg) O2 Sat by Pulse 96 98 97 Oximetry 10/02/18 10/02/18 10/02/18 05:01 05:15 05:30 Temperature Pulse Rate 88 79 76 Respiratory 32 31 30 Rate Blood Pressure 119/52 117/75 (mmHg) O2 Sat by Pulse 94 97 97 Oximetry 10/02/18 10/02/18 10/02/18 05:45 06:00 06:01 Temperature Pulse Rate 83 91 79 Respiratory 24 30 32 Rate Blood Pressure 105/55 120/57 (mmHg) O2 Sat by Pulse 97 98 98 Oximetry 10/02/18 10/02/18 10/02/18 06:16 06:31 06:46 Temperature Pulse Rate 128 78 96 Respiratory 24 26 24 Rate Blood Pressure 161/138 134/60 97/66 (mmHg) O2 Sat by Pulse 97 94 93 Oximetry 10/02/18 10/02/18 10/02/18 07:00 07:01 07:16 Temperature Pulse Rate 93 91 101 Respiratory 33 21 28 Rate Blood Pressure 112/77 130/79 (mmHg) O2 Sat by Pulse 98 95 96 Oximetry 10/02/18 10/02/18 10/02/18 07:22 07:26 07:28 Temperature Pulse Rate 83 Respiratory 29 30 29 Rate Blood Pressure (mmHg) O2 Sat by Pulse 97 Oximetry 10/02/18 10/02/18 10/02/18 07:42 08:00 08:02 Temperature 97.6 F Pulse Rate 104 92 Respiratory 23 23 Rate Blood Pressure 121/66 (mmHg) O2 Sat by Pulse 91 95 Oximetry 10/02/18 10/02/18 10/02/18 09:00 09:27 10:00 Temperature Pulse Rate 115 95 Respiratory 25 30 30 Rate Blood Pressure (mmHg) O2 Sat by Pulse 97 96 Oximetry 10/02/18 10/02/18 10:01 10:06 Temperature Pulse Rate 104 Respiratory 31 30 Rate Blood Pressure 135/69 (mmHg) O2 Sat by Pulse 95 Oximetry Oxygen Devices in Use Now: BiPAP Appearance: Increased WOB Eyes: No Scleral Icterus, PERRLA Respiratory: Symmetrical Chest Expansion and Respiratory Effort, - - coarse breath sounds, no otf wheezing or rales. Cardiovascular: NL Sounds; No Murmurs; No JVD, RRR Extremities: No Clubbing, Cyanosis, - - trace edema Skin: No Rash or Ulcers, No Nodules or Sclerosis Neurological: Alert and Oriented x 3 Nutrition: Taking PO's Result Diagrams: 10/02/18 09:15 10/02/18 09:15 Additional Lab and Data: Laboratory Results - last 24 hr 10/01/18 10/01/18 10/01/18 21:12 21:12 21:12 WBC 5.4 RBC 3.88 L Hgb 11.5 L Hct 34 L MCV 87 MCH 30 MCHC 34 RDW 14 Plt Count 117 L MPV 8.7 Neut % (Auto) 83.1 H Lymph % (Auto) 5.1 L [place] % (Auto) 11.4 H Eos % (Auto) 0 Baso % (Auto) 0.4 Absolute Neuts (auto) 4.5 Absolute Lymphs (auto) 0.3 L Absolute Monos (auto) 0.6 Absolute Eos (auto) 0 Absolute Basos (auto) 0 Absolute Nucleated RBC 0 Nucleated RBC % 0.1 Sodium 134 L Potassium 4.2 Chloride 99 L Carbon Dioxide 31 Anion Gap 4 BUN 18 Creatinine 0.53 L Est GFR ( Amer) 181.5 Est GFR (Non-Af Amer) 150.0 BUN/Creatinine Ratio 34.0 H Glucose 143 H Lactic Acid Calcium 8.5 L Magnesium Total Bilirubin 2.40 H Direct Bilirubin Indirect Bilirubin AST 47 H ALT 71 H Alkaline Phosphatase 85 Troponin I 0.06 H* B-Natriuretic Peptide Total Protein 6.2 L Albumin 3.1 L Globulin 3.1 Albumin/Globulin Ratio 1.0 Procalcitonin 0.2 Influenza A (Rapid) Influenza B (Rapid) 10/01/18 10/02/18 10/02/18 21:16 00:24 02:27 WBC RBC Hgb Hct MCV MCH MCHC RDW Plt Count MPV Neut % (Auto) Lymph % (Auto) [place] % (Auto) Eos % (Auto) Baso % (Auto) Absolute Neuts (auto) Absolute Lymphs (auto) Absolute Monos (auto) Absolute Eos (auto) Absolute Basos (auto) Absolute Nucleated RBC Nucleated RBC % Sodium Potassium Chloride Carbon Dioxide Anion Gap BUN Creatinine Est GFR ( Amer) Est GFR (Non-Af Amer) BUN/Creatinine Ratio Glucose Lactic Acid 1.1 Calcium Magnesium Total Bilirubin Direct Bilirubin Indirect Bilirubin AST ALT Alkaline Phosphatase Troponin I 0.07 H* B-Natriuretic Peptide Total Protein Albumin Globulin Albumin/Globulin Ratio Procalcitonin Influenza A (Rapid) Negative Influenza B (Rapid) Negative 10/02/18 10/02/18 10/02/18 09:15 09:15 09:15 WBC 7.1 RBC 3.74 L Hgb 10.9 L Hct 33 L MCV 87 MCH 29 MCHC 34 RDW 15 Plt Count 138 L MPV 9.3 Neut % (Auto) 90.8 H Lymph % (Auto) 5.8 L [place] % (Auto) 3.1 Eos % (Auto) 0 Baso % (Auto) 0.3 Absolute Neuts (auto) 6.4 Absolute Lymphs (auto) 0.4 L Absolute Monos (auto) 0.2 Absolute Eos (auto) 0 Absolute Basos (auto) 0 Absolute Nucleated RBC 0 Nucleated RBC % 0.1 Sodium 138 Potassium 4.5 Chloride 103 Carbon Dioxide 29 Anion Gap 6 BUN 20 Creatinine 0.57 L Est GFR ( Amer) 166.8 Est GFR (Non-Af Amer) 137.9 BUN/Creatinine Ratio 35.1 H Glucose 178 H Lactic Acid Calcium 8.6 Magnesium 2.0 Total Bilirubin 2.00 H Direct Bilirubin 0.40 H Indirect Bilirubin 1.6 H AST 37 ALT 62 H Alkaline Phosphatase 82 Troponin I 0.07 H* B-Natriuretic Peptide 204 H Total Protein 6.3 L Albumin 3.1 L Globulin 3.2 Albumin/Globulin Ratio 1.0 Procalcitonin Influenza A (Rapid) Influenza B (Rapid) Microbiology and Other Data: Microbiology 10/02/18 00:01 Nasal Nasal Screen MRSA (PCR) - Final Mrsa Not Detected 10/02/18 00:01 Nasopharyngeal Influenza Types A,B Antigen - Final Specimen received for Influenza A/B Molecular testing Assess/Plan/Problems-Billing Assessment: 78 male PMH COPD with noctural (and sometimes day time) Bipap use for chronic hypoxic respiratory failure, [facility] PPM , bioprosthetic AVR, significant asbestos exposure presenting with 3 day productive cough, tachycardia, diaphoresis. Suspected COPD exacerbation. Course c/b Afib with RVR (no known prior history). Solumedrol, Bipap, CFTX/azithro/nebs. - Patient Problems (1) Acute respiratory failure with hypoxia Current Visit: Yes Status: Acute Code(s): J96.01 - ACUTE RESPIRATORY FAILURE WITH HYPOXIA SNOMED Code(s): 10376471 Comment: likely 2/2 COPD exacerbation. plan as below. (2) COPD (chronic obstructive pulmonary disease) Current Visit: No Status: Acute Code(s): J44.9 - CHRONIC OBSTRUCTIVE PULMONARY DISEASE, UNSPECIFIED SNOMED Code(s): 24567012 Comment: -Suspected acute exacerbation -Continue Spiriva - Dulera started (home uses Symbicort) - duonebs -Continue BiPAP qHS and prn - solumedrol 60q8 - CFTX and azithromycin, especially given spiked fever day of admission. no clear infiltrate on CXR. check procalcitonin. - sputum culture. (3) Aortic valve replaced Current Visit: No Status: Acute Code(s): Z95.2 - PRESENCE OF PROSTHETIC HEART VALVE SNOMED Code(s): 0121793415457 Comment: 2009, bioprosthetic (4) BPH (benign prostatic hyperplasia) Current Visit: No Status: Acute Code(s): N40.0 - BENIGN PROSTATIC HYPERPLASIA WITHOUT LOWER URINRY TRACT SYMP SNOMED Code(s): 450910627 Comment: -Continue Finasteride -continue Flomax (5) CAD (coronary artery disease) Current Visit: No Status: Acute Code(s): I25.10 - ATHSCL HEART DISEASE OF [place] CORONARY ARTERY W/O ANG PCTRS SNOMED Code(s): 74087038 Comment: Continue ASA, statin C April 2016 with 30% LAD narrowing at worst. not on BB 2/2 severe COPD likely (6) Gilbert syndrome Current Visit: No Status: Acute Code(s): E80.4 - GILBERT SYNDROME SNOMED Code(s): 49632782 Comment: bili elevated, mostly indirect. Pt has h/o chronic mild bilirubin elevation suspect Gilbert's Status and Disposition: medicine inpatient. in ICU for rescue Bipap.
[2018-10-02] MEDS: cefTRIAXone(*) 1 GM in NS 0.9% 50 ML* 50 ML IVPB SCH (15:45)
[2018-10-02] MEDS: Atorvastatin* 40 MG TAB PO SCH (17:48)
[2018-10-02] MEDS: LORazepam TAB(*) 0.5 MG PO PRN (19:27)
[2018-10-02] MEDS: Mometasone/Formoter 200/5 MDI INH SCH (20:00)
[2018-10-02] MEDS: guaiFENesin ER TAB 600 MG PO SCH (21:33)
[2018-10-03] MEDS: Albuterol/Ipratropium NEB.SOL* Albuterol 2.5 MG/Ipratropium 0.5 MG 3 ML INH SCH ×4 (00:46→20:09)
[2018-10-03] MEDS: methylPREDNISolone 125 MG* 2 ML VIAL IV SCH ×3 (05:28→21:29)
[2018-10-03 05:35] LABS: ABS Basophils 0 10^3/ul (0-0.2); ABS Eosinophils 0 10^3/ul (0-0.6); ABS Lymphocytes 0.5 10^3/ul (1.0-4.8); ABS Monocytes 0.4 10^3/ul (0-0.8); ABS Neutrophils 5.9 10^3/ul (1.5-7.7); ABS Nucleated RBC 0 10^3/ul; Eosinophil % 0 % (0-6); Hematocrit 29 % (42-52); Hemoglobin 9.5 g/dl (14.0-18.0); Lymphocyte % 6.7 % (25-47); Mean Corpuscular HGB Conc 33 g/dl (31-36); Mean Corpuscular Hemoglobin 29 pg (27-31); Mean Corpuscular Volume 87 fL (80-94); Mean Platelet Volume 9.2 fL (7.4-10.4); Nucleated Red Blood Cells % 0; Platelet Count 134 10^3/ul (150-450); Red Blood Count 3.28 10^6/ul (4.00-5.40); Red Cell Distribution Width 15 % (10.5-15); White Blood Count 6.8 10^3/ul (3.5-10.8)
[2018-10-03 05:52] LABS: EGFR Non-African American 172.3 (>60)
[2018-10-03] MEDS: Mometasone/Formoter 200/5 MDI INH SCH ×2 (07:15→23:05)
[2018-10-03] MEDS: Tiotropium CAP.INH* CAP.INH/18 MCG (USE ORDER SET !) INH SCH (07:15)
[2018-10-03] MEDS: Tamsulosin CAP* 0.4 MG PO SCH (08:23)
[2018-10-03] MEDS: Azithromycin TAB* 250 MG PO SCH (08:23)
[2018-10-03] MEDS: Finasteride TAB* 5 MG PO SCH (08:23)
[2018-10-03] MEDS: Sertraline* 50 MG TAB PO SCH (08:23)
[2018-10-03] MEDS: Enoxaparin(*) 40 MG/0.4 ML SYR SUBCUT SCH (08:25)
[2018-10-03] MEDS: Aspirin EC TAB* 81 MG TAB.EC PO SCH (08:26)
[2018-10-03] MEDS: LORazepam TAB(*) 0.5 MG PO PRN ×2 (08:26→20:26)
[2018-10-03] MEDS: guaiFENesin ER TAB 600 MG PO SCH ×2 (08:26→20:27)
[2018-10-03] MEDS ORDERED: Furosemide IV* 10 MG/ML 2 ML VIAL (20 MG) IV ONE (10:46)
--- NOTE | 2018-10-03 10:46 | PN ---
Subjective Date of Service: 10/03/18 Interval History: Tolerated Bipap overnight but really struggled with tachypnea, increased WOB when put on vapotherm. Tachy Improved back on Bipap. Daughter Antionette and Son Luca(who he lives with) and Antionette's son all had recent sore throat, DALE, myaglias, cough. PPM interrogated. PFTS from 10/12/17 FEV1 63% of predicted. MOLST form filled out -> DNR/DNI by February. Seems to tolerate NC Salter over vapotherm. Objective Active Medications: Acetaminophen (Tylenol Tab*) 650 mg PO Q4H PRN PRN Reason: FEVER/PAIN Albuterol/Ipratropium (Duoneb (Albuterol 2.5 Mg/Ipratropium 0.5 Mg)) 1 neb INH [id number] AWAKE [facility] Last Admin: 10/03/18 07:18 Dose: 1 neb Aspirin (Aspirin Ec Tab*) 81 mg PO DAILY [facility] Last Admin: 10/03/18 08:26 Dose: 81 mg Atorvastatin Calcium (Lipitor*) 40 mg PO QPM [facility] Last Admin: 10/02/18 17:48 Dose: 40 mg Azithromycin (Zithromax Tab*) 250 mg PO DAILY [facility] Last Admin: 10/03/18 08:23 Dose: 250 mg Enoxaparin Sodium (Lovenox(*)) 40 mg SUBCUT Q24H [facility] Last Admin: 10/03/18 08:25 Dose: 40 mg Finasteride (Proscar Tab*) 5 mg PO QAM [facility] Last Admin: 10/03/18 08:23 Dose: 5 mg Guaifenesin (Mucinex*) 600 mg PO BID [facility] Last Admin: 10/03/18 08:26 Dose: 600 mg Ceftriaxone Sodium 1 gm/ (Sodium Chloride) 50 mls @ 200 mls/hr IVPB Q24H [facility] Last Admin: 10/02/18 15:45 Dose: 200 mls/hr Lorazepam (Ativan Tab(*)) 0.5 mg PO Q6H PRN PRN Reason: ANXIETY Last Admin: 10/03/18 08:26 Dose: 0.5 mg Methylprednisolone Sodium Succinate (Solu-Medrol 125mg *) 60 mg IV Q8H [facility] Last Admin: 10/03/18 05:28 Dose: 60 mg Mometasone Furoate/Formoterol Fumar (Dulera 200/5 Mdi*) 2 puff INH BID [facility] Last Admin: 10/03/18 07:15 Dose: 2 puff Oseltamivir Phosphate (Tamiflu Cap*) 75 mg PO BID [facility] Stop: 10/07/18 21:01 Sertraline HCl (Zoloft*) 50 mg PO DAILY [facility] Last Admin: 10/03/18 08:23 Dose: 50 mg Tamsulosin HCl (Flomax Cap*) 0.4 mg PO QAM [facility] Last Admin: 10/03/18 08:23 Dose: 0.4 mg Tiotropium [place] (Spiriva Cap.Inh*) 1 cap INH DAILY [facility] Last Admin: 10/03/18 07:15 Dose: 1 cap Vital Signs - 8 hr 10/03/18 10/03/18 10/03/18 03:00 03:01 03:49 Temperature Pulse Rate 70 69 Respiratory 16 20 18 Rate Blood Pressure 109/57 (mmHg) O2 Sat by Pulse 99 99 Oximetry 10/03/18 10/03/18 10/03/18 04:00 04:01 04:54 Temperature 97.6 F Pulse Rate 70 70 Respiratory 20 21 19 Rate Blood Pressure 103/56 (mmHg) O2 Sat by Pulse 99 98 Oximetry 10/03/18 10/03/18 10/03/18 05:00 05:01 05:58 Temperature Pulse Rate 69 70 Respiratory 17 15 20 Rate Blood Pressure 113/61 (mmHg) O2 Sat by Pulse 97 98 Oximetry 10/03/18 10/03/18 10/03/18 06:00 06:01 07:00 Temperature Pulse Rate 75 74 76 Respiratory 24 21 26 Rate Blood Pressure 116/56 131/66 (mmHg) O2 Sat by Pulse 98 97 97 Oximetry 10/03/18 10/03/18 10/03/18 07:01 07:20 07:38 Temperature 98.6 F Pulse Rate 81 90 Respiratory 24 24 Rate Blood Pressure (mmHg) O2 Sat by Pulse 97 96 Oximetry 10/03/18 10/03/18 10/03/18 08:00 08:01 08:26 Temperature Pulse Rate 114 123 Respiratory 33 46 40 Rate Blood Pressure 133/75 (mmHg) O2 Sat by Pulse 92 93 Oximetry 10/03/18 10/03/18 10/03/18 09:00 09:01 10:00 Temperature Pulse Rate 79 90 105 Respiratory 25 25 21 Rate Blood Pressure 128/53 (mmHg) O2 Sat by Pulse 89 89 96 Oximetry 10/03/18 10:01 Temperature Pulse Rate 96 Respiratory 27 Rate Blood Pressure 131/67 (mmHg) O2 Sat by Pulse 96 Oximetry Oxygen Devices in Use Now: High Flow Heated Nasal Cannula Appearance: increased WOB, sometimes anxious appearing. Eyes: No Scleral Icterus Ears/Nose/Mouth/Throat: NL Teeth, Lips, Gums Neck: NL Appearance and Movements; NL JVP Respiratory: Symmetrical Chest Expansion and Respiratory Effort, Clear to Auscultation Cardiovascular: NL Sounds; No Murmurs; No JVD, - - tachycardic Extremities: No Edema Skin: No Rash or Ulcers Neurological: Alert and Oriented x 3 Nutrition: Taking PO's Result Diagrams: 10/03/18 05:24 10/03/18 05:24 Additional Lab and Data: Laboratory Results - last 24 hr 10/03/18 10/03/18 05:24 05:24 WBC 6.8 RBC 3.28 L Hgb 9.5 L Hct 29 L MCV 87 MCH 29 MCHC 33 RDW 15 Plt Count 134 L MPV 9.2 Neut % (Auto) 86.4 H Lymph % (Auto) 6.7 L Reynolds % (Auto) 6.4 Eos % (Auto) 0 Baso % (Auto) 0.5 Absolute Neuts (auto) 5.9 Absolute Lymphs (auto) 0.5 L Absolute Monos (auto) 0.4 Absolute Eos (auto) 0 Absolute Basos (auto) 0 Absolute Nucleated RBC 0 Nucleated RBC % 0 Sodium 136 Potassium 4.5 Chloride 104 Carbon Dioxide 33 H BUN 28 H Creatinine 0.47 L Est GFR ( Amer) 208.5 Est GFR (Non-Af Amer) 172.3 BUN/Creatinine Ratio 59.6 H Glucose 159 H Calcium 8.4 L Microbiology and Other Data: Microbiology 10/01/18 21:17 Blood Venous Aerobic Blood Culture - Preliminary No Growth Day 2 10/01/18 21:17 Blood Venous Anaerobic Blood Culture - Preliminary No Growth Day 2 10/01/18 21:11 Blood Venous Aerobic Blood Culture - Preliminary No Growth Day 2 10/01/18 21:11 Blood Venous Anaerobic Blood Culture - Preliminary No Growth Day 2 10/02/18 00:01 Nasal Nasal Screen MRSA (PCR) - Final Mrsa Not Detected 10/02/18 00:01 Nasopharyngeal Influenza Types A,B Antigen - Final Specimen received for Influenza A/B Molecular testing Assess/Plan/Problems-Billing Assessment: 78 male PMH COPD with noctural (and sometimes day time) Bipap use for chronic hypoxic respiratory failure, [facility] PPM , bioprosthetic AVR, significant asbestos exposure presenting with 3 day productive cough, tachycardia, diaphoresis. Suspected COPD exacerbation in setting of viral insult (daughter, son, grandson all sick). Solumedrol, Bipap, CFTX/azithro/nebs. Made DNR/DNI. Prognosis guarded. - Patient Problems (1) Acute respiratory failure with hypoxia Current Visit: Yes Status: Acute Code(s): J96.01 - ACUTE RESPIRATORY FAILURE WITH HYPOXIA SNOMED Code(s): 11959244 Comment: likely 2/2 COPD exacerbation + viral insult. plan as below. (2) COPD (chronic obstructive pulmonary disease) Current Visit: No Status: Acute Code(s): J44.9 - CHRONIC OBSTRUCTIVE PULMONARY DISEASE, UNSPECIFIED SNOMED Code(s): 67343332 Comment: - Suspected acute exacerbation + viral illness that affected whole family - Continue Spiriva - Dulera started (home uses Symbicort) - duonebs - Continue BiPAP qHS and prn, otherwise tolerating Salter better than vapotherm - solumedrol 60q8 - CFTX and azithromycin, (spiked fever day of admission). no clear infiltrate on CXR. He was not considered stable enough by [facility] to get a CT chest today, consider tomorrow. procalcitonin was wnl. As mentioned, suspect more viral insult. Despite negative Rapid Flu swab, empiric tamiflu was started in case this was false negative. - sputum culture if able to provide (3) Aortic valve replaced Current Visit: No Status: Acute Code(s): Z95.2 - PRESENCE OF PROSTHETIC HEART VALVE SNOMED Code(s): 8456420827831 Comment: 2009, bioprosthetic (4) BPH (benign prostatic hyperplasia) Current Visit: No Status: Acute Code(s): N40.0 - BENIGN PROSTATIC HYPERPLASIA WITHOUT LOWER URINRY TRACT SYMP SNOMED Code(s): 958462561 Comment: -Continue Finasteride -continue Flomax (5) CAD (coronary artery disease) Current Visit: No Status: Acute Code(s): I25.10 - ATHSCL HEART DISEASE OF [place] CORONARY ARTERY W/O ANG PCTRS SNOMED Code(s): 96415896 Comment: Continue ASA, statin [facility] April 2016 with 30% LAD narrowing at worst. not on BB 2/2 severe COPD likely (6) Gilbert syndrome Current Visit: No Status: Acute Code(s): E80.4 - GILBERT SYNDROME SNOMED Code(s): 03237892 Comment: bili elevated, mostly indirect. Pt has h/o chronic mild bilirubin elevation suspect Gilbert's Status and Disposition: medicine inpatient. in ICU for rescue Bipap.
[2018-10-03] MEDS: Oseltamivir CAP* 75 MG CAP PO SCH ×2 (12:22→20:35)
[2018-10-03] MEDS: cefTRIAXone(*) 1 GM in NS 0.9% 50 ML* 50 ML IVPB SCH (17:04)
[2018-10-03] MEDS: Atorvastatin* 40 MG TAB PO SCH (17:27)
[2018-10-04] MEDS: Albuterol/Ipratropium NEB.SOL* Albuterol 2.5 MG/Ipratropium 0.5 MG 3 ML INH SCH ×4 (01:00→20:06)
[2018-10-04] MEDS: methylPREDNISolone 125 MG* 2 ML VIAL IV SCH ×3 (05:16→21:09)
[2018-10-04 05:23] LABS: ABS Basophils 0 10^3/ul (0-0.2); ABS Eosinophils 0 10^3/ul (0-0.6); ABS Lymphocytes 0.4 10^3/ul (1.0-4.8); ABS Monocytes 0.5 10^3/ul (0-0.8); ABS Neutrophils 6.3 10^3/ul (1.5-7.7); ABS Nucleated RBC 0 10^3/ul; Eosinophil % 0 % (0-6); Hematocrit 30 % (42-52); Lymphocyte % 5.7 % (25-47); Mean Corpuscular HGB Conc 34 g/dl (31-36); Mean Corpuscular Hemoglobin 29 pg (27-31); Mean Corpuscular Volume 86 fL (80-94); Mean Platelet Volume 9.3 fL (7.4-10.4); Nucleated Red Blood Cells % 0; Platelet Count 163 10^3/ul (150-450); Red Blood Count 3.45 10^6/ul (4.00-5.40); Red Cell Distribution Width 15 % (10.5-15); White Blood Count 7.2 10^3/ul (3.5-10.8)
[2018-10-04 06:12] LABS: EGFR Non-African American 172.3 (>60)
[2018-10-04] MEDS: Mometasone/Formoter 200/5 MDI INH SCH ×2 (08:08→20:06)
[2018-10-04] MEDS: Tiotropium CAP.INH* CAP.INH/18 MCG (USE ORDER SET !) INH SCH (08:08)
[2018-10-04] MEDS: Aspirin EC TAB* 81 MG TAB.EC PO SCH (09:42)
[2018-10-04] MEDS: Finasteride TAB* 5 MG PO SCH (09:42)
[2018-10-04] MEDS: guaiFENesin ER TAB 600 MG PO SCH ×2 (09:42→21:09)
[2018-10-04] MEDS: Sertraline* 50 MG TAB PO SCH (09:42)
[2018-10-04] MEDS: Azithromycin TAB* 250 MG PO SCH (09:42)
[2018-10-04] MEDS: Tamsulosin CAP* 0.4 MG PO SCH (09:42)
[2018-10-04] MEDS: Enoxaparin(*) 40 MG/0.4 ML SYR SUBCUT SCH (09:42)
[2018-10-04] MEDS: Oseltamivir CAP* 75 MG CAP PO SCH ×2 (09:42→21:09)
--- NOTE | 2018-10-04 10:40 | PN ---
Subjective Date of Service: 10/04/18 Interval History: Pt is very tachypneic. Lost 5 lbs in the past month. Poor historian. We talked about hospice, but pt is unsure what to do and asks daughter to be present during the conversations. D/w RN about using morphine SL prn air hunger when pt it OOB Objective Active Medications: Acetaminophen (Tylenol Tab*) 650 mg PO Q4H PRN PRN Reason: FEVER/PAIN Albuterol/Ipratropium (Duoneb (Albuterol 2.5 Mg/Ipratropium 0.5 Mg)) 1 neb INH [id number] AWAKE [facility] Last Admin: 10/04/18 07:54 Dose: 1 neb Aspirin (Aspirin Ec Tab*) 81 mg PO DAILY [facility] Last Admin: 10/04/18 09:42 Dose: 81 mg Atorvastatin Calcium (Lipitor*) 40 mg PO QPM [facility] Last Admin: 10/03/18 17:27 Dose: 40 mg Azithromycin (Zithromax Tab*) 250 mg PO DAILY [facility] Last Admin: 10/04/18 09:42 Dose: 250 mg Enoxaparin Sodium (Lovenox(*)) 40 mg SUBCUT Q24H [facility] Last Admin: 10/04/18 09:42 Dose: 40 mg Finasteride (Proscar Tab*) 5 mg PO QAM [facility] Last Admin: 10/04/18 09:42 Dose: 5 mg Guaifenesin (Mucinex*) 600 mg PO BID [facility] Last Admin: 10/04/18 09:42 Dose: 600 mg Ceftriaxone Sodium 1 gm/ (Sodium Chloride) 50 mls @ 200 mls/hr IVPB Q24H [facility] Last Admin: 10/03/18 17:04 Dose: Not Given Lorazepam (Ativan Tab(*)) 0.5 mg PO Q6H PRN PRN Reason: ANXIETY Last Admin: 10/03/18 20:26 Dose: 0.5 mg Methylprednisolone Sodium Succinate (Solu-Medrol 125mg *) 60 mg IV Q8H [facility] Last Admin: 10/04/18 05:16 Dose: 60 mg Mometasone Furoate/Formoterol Fumar (Dulera 200/5 Mdi*) 2 puff INH BID [facility] Last Admin: 10/04/18 08:08 Dose: 2 puff Morphine Sulfate (Morphine Oral Concentrate*) 5 mg PO Q2H PRN PRN Reason: PAIN Oseltamivir Phosphate (Tamiflu Cap*) 75 mg PO BID [facility] Stop: 10/07/18 21:01 Last Admin: 10/04/18 09:42 Dose: 75 mg Sertraline HCl (Zoloft*) 50 mg PO DAILY [facility] Last Admin: 10/04/18 09:42 Dose: 50 mg Tamsulosin HCl (Flomax Cap*) 0.4 mg PO QAM [facility] Last Admin: 10/04/18 09:42 Dose: 0.4 mg Tiotropium [place] (Spiriva Cap.Inh*) 1 cap INH DAILY [facility] Last Admin: 10/04/18 08:08 Dose: 1 cap Vital Signs - 8 hr 10/04/18 10/04/18 10/04/18 03:00 03:01 03:39 Temperature Pulse Rate 77 73 Respiratory 18 24 18 Rate Blood Pressure 149/34 (mmHg) O2 Sat by Pulse 98 98 Oximetry 10/04/18 10/04/18 10/04/18 03:56 04:00 04:01 Temperature 98.4 F Pulse Rate 70 70 Respiratory 20 20 Rate Blood Pressure 126/58 (mmHg) O2 Sat by Pulse 99 98 Oximetry 10/04/18 10/04/18 10/04/18 05:00 05:01 05:45 Temperature Pulse Rate 72 81 Respiratory 27 24 17 Rate Blood Pressure 127/58 (mmHg) O2 Sat by Pulse 96 97 Oximetry 10/04/18 10/04/18 10/04/18 06:00 06:01 07:00 Temperature Pulse Rate 70 70 70 Respiratory 21 25 17 Rate Blood Pressure 115/57 113/56 (mmHg) O2 Sat by Pulse 100 100 100 Oximetry 10/04/18 10/04/18 10/04/18 07:01 07:55 08:00 Temperature 97.3 F Pulse Rate 68 92 77 Respiratory 20 22 25 Rate Blood Pressure 129/64 (mmHg) O2 Sat by Pulse 100 93 100 Oximetry 10/04/18 10/04/18 10/04/18 08:01 08:28 09:00 Temperature Pulse Rate 71 97 Respiratory 21 30 32 Rate Blood Pressure 161/74 (mmHg) O2 Sat by Pulse 100 97 Oximetry 10/04/18 09:41 Temperature Pulse Rate Respiratory 33 Rate Blood Pressure (mmHg) O2 Sat by Pulse Oximetry Oxygen Devices in Use Now: High Flow Nasal Cannula - at 15L Appearance: 78 yo M in NAD, AAOx3 Eyes: No Scleral Icterus, PERRLA Ears/Nose/Mouth/Throat: NL Teeth, Lips, Gums, Mucous Membranes Moist Neck: NL Appearance and Movements; NL JVP, Trachea Midline Respiratory: - - distant breath sounds b/l with rhonchi at b/l lower to mid lungs Cardiovascular: NL Sounds; No Murmurs; No JVD, RRR Abdominal: NL Sounds; No Tenderness; No Distention Lymphatic: No Cervical Adenopathy Extremities: No Edema, No Clubbing, Cyanosis Skin: No Rash or Ulcers, No Nodules or Sclerosis Neurological: Alert and Oriented x 3, NL Muscle Strength and Tone Result Diagrams: 10/04/18 05:12 10/04/18 05:12 Additional Lab and Data: Laboratory Results - last 24 hr 10/03/18 10/03/18 05:24 05:24 WBC 6.8 RBC 3.28 L Hgb 9.5 L Hct 29 L MCV 87 MCH 29 MCHC 33 RDW 15 Plt Count 134 L MPV 9.2 Neut % (Auto) 86.4 H Lymph % (Auto) 6.7 L Schley % (Auto) 6.4 Eos % (Auto) 0 Baso % (Auto) 0.5 Absolute Neuts (auto) 5.9 Absolute Lymphs (auto) 0.5 L Absolute Monos (auto) 0.4 Absolute Eos (auto) 0 Absolute Basos (auto) 0 Absolute Nucleated RBC 0 Nucleated RBC % 0 Sodium 136 Potassium 4.5 Chloride 104 Carbon Dioxide 33 H BUN 28 H Creatinine 0.47 L Est GFR ( Amer) 208.5 Est GFR (Non-Af Amer) 172.3 BUN/Creatinine Ratio 59.6 H Glucose 159 H Calcium 8.4 L Microbiology and Other Data: Microbiology 10/01/18 21:17 Blood Venous Aerobic Blood Culture - Preliminary No Growth Day 2 10/01/18 21:17 Blood Venous Anaerobic Blood Culture - Preliminary No Growth Day 2 10/01/18 21:11 Blood Venous Aerobic Blood Culture - Preliminary No Growth Day 2 10/01/18 21:11 Blood Venous Anaerobic Blood Culture - Preliminary No Growth Day 2 10/02/18 00:01 Nasal Nasal Screen MRSA (PCR) - Final Mrsa Not Detected 10/02/18 00:01 Nasopharyngeal Influenza Types A,B Antigen - Final Specimen received for Influenza A/B Molecular testing Assess/Plan/Problems-Billing Assessment: 78 male PMH COPD with noctural (and sometimes day time) Bipap use for chronic hypoxic respiratory failure, [employer] [facility] PPM , bioprosthetic AVR, significant asbestos exposure presenting with 3 day productive cough, tachycardia, diaphoresis. Suspected COPD exacerbation in setting of viral insult (daughter, son, grandson all sick). Solumedrol, Bipap, CFTX/azithro/nebs. Made DNR/DNI. Prognosis guarded. - Patient Problems (1) Acute respiratory failure with hypoxia Comment: likely 2/2 COPD exacerbation + viral insult. plan as below. On chronic hypoxemic resp failure inpt with 02 at 2 L at home (2) COPD (chronic obstructive pulmonary disease) Comment: -will see if Dr. Dominguez can see pt - Suspected acute exacerbation + viral illness that affected whole family - Continue Spiriva - Dulera started (home uses Symbicort) - duonebs - Continue BiPAP qHS and prn, otherwise tolerating Salter better than vapotherm - solumedrol 60q8 - CFTX and azithromycin, (spiked fever day of admission). no clear infiltrate on CXR. procalcitonin was wnl. As mentioned, suspect more viral insult. Despite negative Rapid Flu swab, empiric tamiflu was started in case this was false negative. - sputum culture if able to provide (3) Aortic valve replaced Comment: 2008, bioprosthetic . will check Echo (4) CAD (coronary artery disease) Comment: Continue ASA, statin [facility] April 2016 with 30% LAD narrowing at worst. not on BB 2/2 severe COPD likely trop at 0.07-likley demand ischemia (5) Gilbert syndrome Comment: bili elevated, mostly indirect. Pt has h/o chronic mild bilirubin elevation suspect Gilbert's (6) Transient atrial fibrillation Comment: Questionable , at admission, resolved. cont telem for now. so far no recurrence (7) DNR (do not resuscitate) Comment: possible palliative consult if daughter agrees (8) DVT prophylaxis Comment: -Continue Lovenox Status and Disposition: medicine inpatient. in ICU for rescue Bipap.
[2018-10-04] MEDS: Morphine ORAL CONCENTRATE* 5 MG/0.25 ML ORAL.SYRIN PO PRN (12:15)
[2018-10-04] MEDS: cefTRIAXone(*) 1 GM in NS 0.9% 50 ML* 50 ML IVPB SCH (14:23)
--- NOTE | 2018-10-04 16:38 | ECHO ---
Patient: CASEY CORADO [facility] Rec#: [id number] : 1940 Date: 10/04/2018 Age: 78y Height: 170 cm / 66.9 in Weight: 60 kg / 132.2 lbs Sex: M BSA: 1.69 Room#: ICU 7 Admit Date#: 10/01/2018 Type: Inpatient Referring: Nancy Hancock MD Reading: Julio Ball MD Business Planning Analyst: Karla Silva,RALPHCS,RDMS CC: Cj Barrios MD Transthoracic Echocardiogram Indication: Respiratory failure, AOV disorder BP: 143/94 HR: 115 Rhythm: NSR with PVCs Findings History: COPD, AVR, HTN, HLD, pacemaker Technical Comments: The study quality is fair. Left Ventricle: The left ventricular chamber size is normal. Basal interventricular septum shows moderate thickening. Global left ventricular wall motion and contractility are within normal limits. The estimated ejection fraction is 60-65%. Abnormal left ventricular diastolic function is observed. Left Atrium: The left atrium is severely dilated. Right Ventricle: The right ventricular chamber size and systolic function are within normal limits. Right Atrium: The right atrium is mild to moderately dilated. A pacemaker wire is visualized in the right atrium. Aortic Valve: There is a trace of aortic regurgitation. The mean gradient of the aortic valve is 15 mmHg. The aortic valve area, by VTI's, is calculated at 1.4 cm2. A porcine bio-prosthetic aortic valve is present. The bio-prosthetic aortic valve appears to be functioning normally. Mitral Valve: There is mitral annular calcification. The mitral valve leaflets are mildly thickened. Mitral valve leaflet mobility is mildly restricted. There is mild mitral regurgitation. There is no evidence of mitral stenosis. Tricuspid Valve: The tricuspid valve leaflets are normal. There is mild to moderate tricuspid regurgitation. Unable to estimate the right ventricular systolic pressure. Pulmonic Valve: There is no evidence of pulmonic valve thickening. There is mild pulmonic regurgitation. Pericardium: There is no significant pericardial effusion. A left pleural effusion is present. Aorta: The ascending aorta is not well visualized. The aortic arch is not well visualized. There is mild dilatation of the aortic root. Pulmonary Artery: The main pulmonary artery is not well visualized. Venous: The inferior vena cava is not visualized. Summary: There are no significant changes when compared to the previous study done on 11/30/16 Conclusions Global left ventricular wall motion and contractility are within normal limits. The estimated ejection fraction is 60-65%. A pacemaker wire is visualized in the right atrium. A porcine bio-prosthetic aortic valve is present. The bio-prosthetic aortic valve appears to be functioning normally. The mean gradient of the aortic valve is 15 mmHg. There is mild mitral regurgitation. There is mild to moderate tricuspid regurgitation. Unable to estimate the right ventricular systolic pressure. There is no significant pericardial effusion. A left pleural effusion is present. Measurements Name Value Normal Range RVIDd (AP) 2D 3.8 cm (0.9 - 2.6) RVDdMajor (2D) 3.8 cm (2.2 - 4.4) RAd ISD 4CH 5.9 cm (3.4 - 4.9) RA (A4C)W 5 cm (2.9 - 4.6) IVSd (2D) 1.7 cm (0.6 - 1) LVPWd (2D) 1 cm (0.6 - 1) LVIDd (2D) 4.5 cm (3.6 - 5.4) LVIDs (2D) 2.6 cm - LV FS (2D) 42 % (25 - 45) Aortic Annulus 2.2 cm (1.4 - 2.6) Ao root diameter (2D) 3.6 cm (2.1 - 3.5) LA dimension (AP) 2D 5.3 cm (2.3 - 3.8) LAd ISD 4CH 6 cm (2.9 - 5.3) LA ISD 4CH W 5.2 cm (2.5 - 4.5) Name Value Normal Range MV E-wave Vmax 1.1 m/sec - MV deceleration time 161 msec - MV A-wave Vmax 0.9 m/sec - MV E:A ratio 1.1 ratio - LV septal e' Vmax 0.06 m/sec - LV lateral e' Vmax 0.08 m/sec - LV E:e' septal ratio 19 ratio - LV E:e' lateral ratio 14 ratio - Name Value Normal Range AV Vmax 2.6 m/sec - AV VTI 49 cm - AV peak gradient 27 mmHg - AV mean gradient 15 mmHg - LVOT diameter 2 cm - LVOT Vmax 1.1 m/sec - LVOT VTI 22 cm - LVOT peak gradient 5 mmHg - LVOT mean gradient 2 mmHg - DOI (VTI) 0.4 ratio - NOA (continuity Vmax) 1.3 cm2 - NOA (continuity VTI) 1.4 cm2 - Name Value Normal Range MV Vmax 1.1 m/sec - MV VTI 22 cm - MV peak gradient 5 mmHg - MV mean gradient 2 mmHg - MV PHT 61 msec - MVA (PHT) 3.6 cm2 - MVA (continuity VTI) 3.2 cm2 - Name Value Normal Range RAP 8 mmHg -
[2018-10-04] MEDS: Atorvastatin* 40 MG TAB PO SCH (21:09)
--- NOTE | 2018-10-04 21:43 | CONS ---
PULMONARY CONSULTATION REPORT: DATE OF CONSULT: 10/04/18 CONSULTATION REQUESTED BY: Dr. Nancy Hancock. REASON FOR CONSULT: Evaluation of COPD. HISTORY OF PRESENT ILLNESS: The patient is a 78-year-old male with history of COPD; chronic hypercapnic respiratory failure, on BiPAP at home; hypertension; aortic valve replacement in 2008; pacemaker placement a year ago. The patient with significant dyspnea on exertion at baseline. The patient presents for evaluation of worsening shortness of breath that worsened recently. The patient also reported cough productive of mild amounts of phlegm, mostly dry in nature. The patient reports sick contacts recently with family members with similar symptoms. The patient also reports subjective fevers. The patient also with 1 episode of diarrhea prior to presentation with no abdominal pain or urinary complaints. The patient denied palpitations, chest pain, lower extremity swelling. In the emergency room, the patient was noted to be in mild distress, was initiated on BiPAP rescue. He was later transitioned to Vapotherm and was admitted to ICU for close monitoring. He was initiated on nebulizer treatments. His troponin was found to be mildly elevated. He was found to be in atrial fibrillation with ventricular rate in the 120s. The patient continues to remain in the ICU. Has still been needing support with high flow at 15 L. He continues to have significant air hunger requiring intermittent BiPAP for rescue. Pulmonary consultation was requested for recommendations regarding further management and also recommendations regarding possible palliative care approach. I have seen and examined the patient at bedside earlier today. The patient remains on BiPAP. He has received morphine recently and reports improvement in work of breathing. He was not able to provide much history as he was on BiPAP at that time. Reported not having significant mucus production, reports dry cough. He was on 50% FiO2 with the BiPAP. PAST MEDICAL HISTORY: 1. Hypertension. 2. COPD. 3. Coronary artery disease. 4. Chronic respiratory failure, on BiPAP. 5. Aortic valve repair in 2008. 6. Pacemaker 1 year ago. 7. BPH. 8. Dyslipidemia. 9. Non-ST elevation VT. 10. Cholecystectomy in 2017. 11. Right inguinal hernia repair. MEDICATIONS: At home: 1. Albuterol. 2. Meclizine. 3. Magnesium oxide. 4. Finasteride. 5. Budesonide/formoterol. 6. Atorvastatin. 7. Aspirin. 8. Tylenol. 9. Spiriva. 10. Flomax. 11. Sertraline. ALLERGIES: SULFAMETHOXAZOLE, TRIMETHOPRIM. FAMILY HISTORY: The patient's mother had heart murmur, related to complications of surgery. SOCIAL HISTORY: Former smoker, 1 pack per day, quit few years ago. Denies alcohol or drug abuse. REVIEW OF SYSTEMS: Attempted; however, is limited as the patient is currently on BiPAP and he is not able to provide much information. PHYSICAL EXAM: Thin male, in mild distress, using accessory muscles of respiration. Vital Signs: Temperature 97.1, pulse 98 beats per minute, respiratory rate 20 per minute, O2 sat 98% on 15 L, blood pressure 147/54. HEENT: Pupils equal, reactive to light. Mucous membranes moist. Lungs: Diminished air entry bilaterally, scattered wheeze present. Cardiovascular: S1 , S2 present, regular. Abdomen: Soft, nontender, nondistended. Bowel sounds present. Extremities: Normal range of motion. No edema. Skin: No rash or bruises. Neuro: No focal deficits. DIAGNOSTIC STUDIES/LAB DATA: WBC count 7.2, hemoglobin 10, hematocrit 30, platelet count 163. Sodium 137, potassium 4.7, chloride 101, bicarb 35, BUN 35 , creatinine 0.47. Troponin slightly elevated at 0.07. BNP slightly elevated at 204. Influenza A and B negative. Blood cultures negative to date. Chest x-ray performed on admission was personally reviewed by me - evidence of hyperinflation with no acute airspace opacities. IMPRESSION AND RECOMMENDATIONS: 78-year-old male, cachectic appearing with history of moderate chronic obstructive pulmonary disease noted on pulmonary function testing done about a year ago with no reversibility to bronchodilators , admitted with progressively worsening shortness of breath after recent sick contact, being treated for acute chronic obstructive pulmonary disease exacerbation. The patient has history of chronic hypercapnic respiratory failure at baseline that is being treated with BiPAP. The patient without significant improvement since admission. He is receiving bronchodilators [id number]. He is also on broad-spectrum antibiotics for bronchitis/community-acquired pneumonia. He is receiving Solu-Medrol at 60 q.8. The patient requiring BiPAP for rescue and also requiring high-flow O2. He has diminished airflow bilaterally. His acute exacerbation is likely from recent bronchitis. The patient and daughter requested DNR and no aggressive intervention. At this point, given only history of moderate chronic obstructive pulmonary disease, would prefer to continue with rescue BiPAP and high flow to give the patient opportunity to come over this acute insult. If the patient fails to improve or seems to be having significant respiratory distress, would then use more morphine for rescue. I do not think the patient is at this point appropriate for palliative care or comfort care measures unless he fails to improve or continues to deteriorate. Titrate FiO2 as tolerated, would aim for goal O2 around 90% to 92%. Thank you for allowing me to participate in the care of your patient. Will follow up with you. D/w RT [id number]/EDITH #: [id number] LORETA
[2018-10-05] MEDS: Albuterol/Ipratropium NEB.SOL* Albuterol 2.5 MG/Ipratropium 0.5 MG 3 ML INH SCH ×4 (00:50→19:23)
--- NOTE | 2018-10-05 03:41 | PRO ---
PULMONARY FUNCTION TEST REPORT: DATE OF PROCEDURE: 10/04/18 - ROOM #ICU-07 CLINICAL INFORMATION: 78-year-old male with shortness of breath. REFERRING MD: Dr. Rayo Chacko.* COMMENTS: Pulmonary function testing equipment was quality controlled. The patient was able to follow instructions; however, complained of shortness of breath and dizziness post-albuterol administration. Test did not meet criteria for acceptability due to poor effort and prolonged exhalation. INTERPRETATION: Forced vital capacity is 1.62 L or 45% predicted. FEV1 is 1.60 L or 63% predicted. FEV1/FVC is 138% predicted. Flow volume loop is of poor technical quality. Bronchodilators were administered with no reversibility. IMPRESSION: Spirometry suggestive of obstructive ventilatory defect with no reversibility to bronchodilators. [id number]/[facility] #: [id number] MTDD
[2018-10-05] MEDS: methylPREDNISolone 125 MG* 2 ML VIAL IV SCH ×3 (05:35→21:41)
[2018-10-05 05:44] LABS: ABS Basophils 0 10^3/ul (0-0.2); ABS Eosinophils 0 10^3/ul (0-0.6); ABS Lymphocytes 0.4 10^3/ul (1.0-4.8); ABS Monocytes 0.5 10^3/ul (0-0.8); ABS Neutrophils 6.2 10^3/ul (1.5-7.7); ABS Nucleated RBC 0 10^3/ul; Eosinophil % 0 % (0-6); Hematocrit 29 % (42-52); Hemoglobin 9.7 g/dl (14.0-18.0); Lymphocyte % 5.8 % (25-47); Mean Corpuscular HGB Conc 33 g/dl (31-36); Mean Corpuscular Hemoglobin 29 pg (27-31); Mean Corpuscular Volume 88 fL (80-94); Mean Platelet Volume 8.5 fL (7.4-10.4); Nucleated Red Blood Cells % 0; Platelet Count 190 10^3/ul (150-450); Red Blood Count 3.34 10^6/ul (4.00-5.40); Red Cell Distribution Width 14 % (10.5-15); White Blood Count 7.1 10^3/ul (3.5-10.8)
[2018-10-05 06:03] LABS: EGFR Non-African American 168.1 (>60)
[2018-10-05] MEDS: Mometasone/Formoter 200/5 MDI INH SCH ×2 (07:59→19:27)
[2018-10-05] MEDS: Tiotropium CAP.INH* CAP.INH/18 MCG (USE ORDER SET !) INH SCH (08:00)
[2018-10-05] MEDS: Enoxaparin(*) 40 MG/0.4 ML SYR SUBCUT SCH (08:19)
[2018-10-05] MEDS: Oseltamivir CAP* 75 MG CAP PO SCH ×2 (08:20→19:47)
[2018-10-05] MEDS: Morphine ORAL CONCENTRATE* 5 MG/0.25 ML ORAL.SYRIN PO PRN ×2 (08:20→19:47)
[2018-10-05] MEDS: Aspirin EC TAB* 81 MG TAB.EC PO SCH (08:20)
[2018-10-05] MEDS: Tamsulosin CAP* 0.4 MG PO SCH (08:20)
[2018-10-05] MEDS: Azithromycin TAB* 250 MG PO SCH (08:20)
[2018-10-05] MEDS: Finasteride TAB* 5 MG PO SCH (08:20)
[2018-10-05] MEDS: guaiFENesin ER TAB 600 MG PO SCH ×2 (08:20→19:47)
[2018-10-05] MEDS: Sertraline* 50 MG TAB PO SCH (08:20)
[2018-10-05] MEDS ORDERED: Sodium Polystyrene ORAL.SOL* 15 GM/60 ML BTL PO ONE (08:21)
--- NOTE | 2018-10-05 10:16 | PN ---
Subjective Date of Service: 10/05/18 Interval History: feels stronger. Good appetite. Still on 15 L high flow 02 Objective Active Medications: Acetaminophen (Tylenol Tab*) 650 mg PO Q4H PRN PRN Reason: FEVER/PAIN Albuterol/Ipratropium (Duoneb (Albuterol 2.5 Mg/Ipratropium 0.5 Mg)) 1 neb INH [id number] AWAKE [facility] Last Admin: 10/05/18 07:56 Dose: 1 neb Aspirin (Aspirin Ec Tab*) 81 mg PO DAILY [facility] Last Admin: 10/05/18 08:20 Dose: 81 mg Atorvastatin Calcium (Lipitor*) 40 mg PO QPM [facility] Last Admin: 10/04/18 21:09 Dose: 40 mg Azithromycin (Zithromax Tab*) 250 mg PO DAILY [facility] Last Admin: 10/05/18 08:20 Dose: 250 mg Enoxaparin Sodium (Lovenox(*)) 40 mg SUBCUT Q24H [facility] Last Admin: 10/05/18 08:19 Dose: 40 mg Finasteride (Proscar Tab*) 5 mg PO QAM [facility] Last Admin: 10/05/18 08:20 Dose: 5 mg Guaifenesin (Mucinex*) 600 mg PO BID [facility] Last Admin: 10/05/18 08:20 Dose: 600 mg Ceftriaxone Sodium 1 gm/ (Sodium Chloride) 50 mls @ 200 mls/hr IVPB Q24H [facility] Last Admin: 10/04/18 14:23 Dose: 200 mls/hr Lorazepam (Ativan Tab(*)) 0.5 mg PO Q6H PRN PRN Reason: ANXIETY Last Admin: 10/03/18 20:26 Dose: 0.5 mg Methylprednisolone Sodium Succinate (Solu-Medrol 125mg *) 60 mg IV Q8H [facility] Last Admin: 10/05/18 05:35 Dose: 60 mg Mometasone Furoate/Formoterol Fumar (Dulera 200/5 Mdi*) 2 puff INH BID [facility] Last Admin: 10/05/18 07:59 Dose: 2 puff Morphine Sulfate (Morphine Oral Concentrate*) 5 mg PO Q2H PRN PRN Reason: PAIN Last Admin: 10/05/18 08:20 Dose: 5 mg Oseltamivir Phosphate (Tamiflu Cap*) 75 mg PO BID [facility] Stop: 10/07/18 21:01 Last Admin: 10/05/18 08:20 Dose: 75 mg Sertraline HCl (Zoloft*) 50 mg PO DAILY [facility] Last Admin: 10/05/18 08:20 Dose: 50 mg Tamsulosin HCl (Flomax Cap*) 0.4 mg PO QAM [facility] Last Admin: 10/05/18 08:20 Dose: 0.4 mg Tiotropium [place] (Spiriva Cap.Inh*) 1 cap INH DAILY [facility] Last Admin: 10/05/18 08:00 Dose: 1 cap Vital Signs - 8 hr 10/05/18 10/05/18 10/05/18 03:00 03:01 03:39 Temperature 98.5 F Pulse Rate 91 89 Respiratory 24 35 Rate Blood Pressure 144/62 (mmHg) O2 Sat by Pulse 99 99 Oximetry 10/05/18 10/05/18 10/05/18 03:53 04:00 04:01 Temperature Pulse Rate 74 77 Respiratory 25 23 26 Rate Blood Pressure 107/57 (mmHg) O2 Sat by Pulse 99 98 Oximetry 10/05/18 10/05/18 10/05/18 05:00 05:02 05:08 Temperature Pulse Rate 84 99 93 Respiratory 23 27 24 Rate Blood Pressure 131/60 (mmHg) O2 Sat by Pulse 99 88 96 Oximetry 10/05/18 10/05/18 10/05/18 06:00 06:01 07:00 Temperature Pulse Rate 80 76 77 Respiratory 47 31 28 Rate Blood Pressure 141/70 162/66 (mmHg) O2 Sat by Pulse 100 100 100 Oximetry 10/05/18 10/05/18 10/05/18 07:01 07:29 07:36 Temperature 98 F Pulse Rate 80 Respiratory 26 28 Rate Blood Pressure (mmHg) O2 Sat by Pulse 96 Oximetry 10/05/18 10/05/18 10/05/18 08:00 08:01 08:33 Temperature Pulse Rate 73 69 89 Respiratory 27 30 21 Rate Blood Pressure 165/67 150/93 (mmHg) O2 Sat by Pulse 100 100 94 Oximetry 10/05/18 10/05/18 09:00 09:01 Temperature Pulse Rate 99 111 Respiratory 34 39 Rate Blood Pressure 171/75 (mmHg) O2 Sat by Pulse 97 96 Oximetry Oxygen Devices in Use Now: High Flow Nasal Cannula Appearance: 78 yo M in nAD, aAOx3 Eyes: No Scleral Icterus, PERRLA Ears/Nose/Mouth/Throat: NL Teeth, Lips, Gums, Mucous Membranes Moist Neck: NL Appearance and Movements; NL JVP, Trachea Midline Respiratory: Symmetrical Chest Expansion and Respiratory Effort, - - decreased breath sounds b/l with bibasiliar scant rhonchi Cardiovascular: NL Sounds; No Murmurs; No JVD, - - tachy Abdominal: NL Sounds; No Tenderness; No Distention, No Hepatosplenomegaly Lymphatic: No Cervical Adenopathy Extremities: No Edema Skin: No Rash or Ulcers, No Nodules or Sclerosis Neurological: Alert and Oriented x 3, NL Muscle Strength and Tone Result Diagrams: 10/05/18 05:30 10/05/18 05:30 Additional Lab and Data: Laboratory Results - last 24 hr 10/03/18 10/03/18 05:24 05:24 WBC 6.8 RBC 3.28 L Hgb 9.5 L Hct 29 L MCV 87 MCH 29 MCHC 33 RDW 15 Plt Count 134 L MPV 9.2 Neut % (Auto) 86.4 H Lymph % (Auto) 6.7 L [place] % (Auto) 6.4 Eos % (Auto) 0 Baso % (Auto) 0.5 Absolute Neuts (auto) 5.9 Absolute Lymphs (auto) 0.5 L Absolute Monos (auto) 0.4 Absolute Eos (auto) 0 Absolute Basos (auto) 0 Absolute Nucleated RBC 0 Nucleated RBC % 0 Sodium 136 Potassium 4.5 Chloride 104 Carbon Dioxide 33 H BUN 28 H Creatinine 0.47 L Est GFR ( Amer) 208.5 Est GFR (Non-Af Amer) 172.3 BUN/Creatinine Ratio 59.6 H Glucose 159 H Calcium 8.4 L Microbiology and Other Data: Microbiology 10/01/18 21:17 Blood Venous Aerobic Blood Culture - Preliminary No Growth Day 2 10/01/18 21:17 Blood Venous Anaerobic Blood Culture - Preliminary No Growth Day 2 10/01/18 21:11 Blood Venous Aerobic Blood Culture - Preliminary No Growth Day 2 10/01/18 21:11 Blood Venous Anaerobic Blood Culture - Preliminary No Growth Day 2 10/02/18 00:01 Nasal Nasal Screen MRSA (PCR) - Final Mrsa Not Detected 10/02/18 00:01 Nasopharyngeal Influenza Types A,B Antigen - Final Specimen received for Influenza A/B Molecular testing Assess/Plan/Problems-Billing Assessment: 78 male PMH COPD with noctural (and sometimes day time) Bipap use for chronic hypoxic respiratory failure, [facility] PPM , bioprosthetic AVR, significant asbestos exposure presenting with 3 day productive cough, tachycardia, diaphoresis. Suspected COPD exacerbation in setting of viral insult (daughter, son, grandson all sick). Solumedrol, Bipap, CFTX/azithro/nebs. Made DNR/DNI. Prognosis guarded. - Patient Problems (1) Acute respiratory failure with hypoxia Comment: likely 2/2 COPD exacerbation + viral insult. plan as below. On chronic hypoxemic resp failure inpt with 02 at 2 L at home (2) COPD (chronic obstructive pulmonary disease) Comment: -appreciate Dr. Dominguez's consult-cont current tx - Suspected acute exacerbation + viral illness that affected whole family - Continue Spiriva - Dulera started (home uses Symbicort) - duonebs - Continue BiPAP qHS and prn, otherwise tolerating [place] better than vapotherm - solumedrol 60q8 - CFTX and azithromycin, (spiked fever day of admission). no clear infiltrate on CXR. procalcitonin was wnl. As mentioned, suspect more viral insult. Despite negative Rapid Flu swab, empiric tamiflu was started in case this was false negative. (3) Aortic valve replaced Comment: 2008, bioprosthetic . Echo shows good valve functiuon and EF 60% (4) CAD (coronary artery disease) Comment: Continue ASA, statin [facility] April 2016 with 30% LAD narrowing at worst. not on BB 2/2 severe COPD likely trop at 0.07-likley demand ischemia (5) Gilbert syndrome Comment: bili elevated, mostly indirect. Pt has h/o chronic mild bilirubin elevation suspect Gilbert's (6) Transient atrial fibrillation Comment: Questionable , at admission, resolved. cont telem for now. so far no recurrence, but continues to be in sinus tachy with PAC's. will start Cardizem PO with hold parameters (7) DNR (do not resuscitate) Comment: DNR (8) DVT prophylaxis Comment: -Continue Lovenox Status and Disposition: medicine inpatient. in ICU for rescue Bipap.
[2018-10-05] MEDS ORDERED: Diltiazem TAB* 30 MG PO SCH (11:00)
[2018-10-05] MEDS: cefTRIAXone(*) 1 GM in NS 0.9% 50 ML* 50 ML IVPB SCH (14:16)
--- NOTE | 2018-10-05 14:47 | PN ---
Progress Note - Progress Note Date of Service: 10/05/18 - Pulm f/u note Note: Pt seen and examined at bedside. Pt reports feeling slightly better. FiO2 requirements improved. Pt reports feeling tired Active Medications Generic Name Dose Route Start Last Admin Trade Name Freq PRN Reason Stop Dose Admin Acetaminophen 650 mg 10/01/18 23:07 Tylenol Tab* PO Q4H PRN FEVER/PAIN Albuterol/Ipratropium 1 neb 10/02/18 13:00 10/05/18 13:21 Duoneb (Albuterol 2.5 Mg/Ipratropium 0.5 Mg) INH 1 neb [id number] AWAKE ALYSA Administration Aspirin 81 mg 10/02/18 09:00 10/05/18 08:20 Aspirin Ec Tab* PO 81 mg DAILY ALYSA Administration Atorvastatin Calcium 40 mg 10/02/18 18:00 10/04/18 21:09 Lipitor* PO 40 mg QPM ALYSA Administration Azithromycin 250 mg 10/02/18 09:00 10/05/18 08:20 Zithromax Tab* PO 250 mg DAILY ALYSA Administration Diltiazem HCl 30 mg 10/05/18 11:00 10/05/18 10:22 Cardizem Tab* PO 30 mg Q6H ALYSA Administration Enoxaparin Sodium 40 mg 10/03/18 08:00 10/05/18 08:19 Lovenox(*) SUBCUT 40 mg Q24H ALYSA Administration Finasteride 5 mg 10/02/18 09:00 10/05/18 08:20 Proscar Tab* PO 5 mg QAM ALYSA Administration Guaifenesin 600 mg 10/02/18 21:00 10/05/18 08:20 Mucinex* PO 600 mg BID ALYSA Administration Ceftriaxone Sodium 1 gm/ 50 mls @ 200 mls/hr 10/02/18 14:27 10/04/18 14:23 Sodium Chloride IVPB 200 mls/hr Q24H ALYSA Administration Lorazepam 0.5 mg 10/02/18 13:49 10/03/18 20:26 Ativan Tab(*) PO 0.5 mg Q6H PRN Administration ANXIETY Methylprednisolone Sodium Succinate 60 mg 10/02/18 06:00 10/05/18 05:35 Solu-Medrol 125mg * IV 60 mg Q8H ALYSA Administration Mometasone Furoate/Formoterol Fumar 2 puff 10/02/18 21:00 10/05/18 07:59 Dulera 200/5 Mdi* INH 2 puff BID ALYSA Administration Morphine Sulfate 5 mg 10/04/18 10:21 10/05/18 08:20 Morphine Oral Concentrate* PO 5 mg Q2H PRN Administration PAIN Oseltamivir Phosphate 75 mg 10/03/18 10:45 10/05/18 08:20 Tamiflu Cap* PO 10/07/18 21:01 75 mg BID ALYSA Administration Sertraline HCl 50 mg 10/02/18 09:00 10/05/18 08:20 Zoloft* PO 50 mg DAILY ALYSA Administration Tamsulosin HCl 0.4 mg 10/02/18 09:00 10/05/18 08:20 Flomax Cap* PO 0.4 mg QAM ALYSA Administration Tiotropium [place] 1 cap 10/02/18 09:00 10/05/18 08:00 Spiriva Cap.Inh* INH 1 cap DAILY ALYSA Administration Vital Signs Temp Pulse Resp BP Pulse Ox 97.3 F 106 28 148/71 100 10/05/18 12:00 10/05/18 14:01 10/05/18 14:01 10/05/18 13:31 10/05/18 14:01 O/E: Pt in NAD HEENT: PERRLA, No JVD Lungs: Diminished air entry b/l, wheeze+ CVS: S1, S2+, irregular, tachycardic ABd: Soft, BS+ Ext: Normal ROM Skin: NO rash Neuro: No focal deficits Laboratory Results - last 24 hr 10/05/18 10/05/18 10/05/18 05:30 05:30 05:30 WBC 7.1 RBC 3.34 L Hgb 9.7 L Hct 29 L MCV 88 MCH 29 MCHC 33 RDW 14 Plt Count 190 MPV 8.5 Neut % (Auto) 86.7 H Lymph % (Auto) 5.8 L [place] % (Auto) 7.1 H Eos % (Auto) 0 Baso % (Auto) 0.4 Absolute Neuts (auto) 6.2 Absolute Lymphs (auto) 0.4 L Absolute Monos (auto) 0.5 Absolute Eos (auto) 0 Absolute Basos (auto) 0 Absolute Nucleated RBC 0 Nucleated RBC % 0 Sodium 139 Potassium 5.1 H Chloride 98 L Carbon Dioxide 40 H Anion Gap 1 L BUN 36 H Creatinine 0.48 L Est GFR ( Amer) 203.4 Est GFR (Non-Af Amer) 168.1 BUN/Creatinine Ratio 75.0 H Glucose 137 H Hemoglobin A1c 5.2 Calcium 8.7 I/R: 78 male with COPD, chronic resp failure with hypoxia and hypercapnia on O2 and Bipap, s/p [employer] PPM , bioprosthetic AVR, significant asbestos exposure presenting with 3 day productive cough, tachycardia, diaphoresis being treated for acute COPD exacerbation sec to viral bronchitis Pt with worsening hypoxic resp failure requiring high flow, improving Pt switched to cynthia this am He is in less distress today c/w Morphine prn c/w bronchodilators Will c/w Solumedrol, slow taper Can titrate FiO2 further to goal O2 sat around 92% c/w abx to complete 7 day course OOB to chair Pt is DNR D/w bedside RN
[2018-10-05] MEDS: Atorvastatin* 40 MG TAB PO SCH (16:51)
[2018-10-05] MEDS: Diltiazem TAB* 60 MG PO SCH ×3 (16:51→23:00)
[2018-10-05] MEDS: LORazepam TAB(*) 0.5 MG PO PRN (23:00)
[2018-10-06] MEDS: Albuterol/Ipratropium NEB.SOL* Albuterol 2.5 MG/Ipratropium 0.5 MG 3 ML INH SCH ×4 (00:36→19:15)
[2018-10-06] MEDS: Morphine ORAL CONCENTRATE* 5 MG/0.25 ML ORAL.SYRIN PO PRN ×3 (00:53→09:46)
[2018-10-06] MEDS: methylPREDNISolone 125 MG* 2 ML VIAL IV SCH ×3 (05:33→22:36)
[2018-10-06] MEDS: Diltiazem TAB* 60 MG PO SCH ×3 (05:33→19:53)
[2018-10-06 05:54] LABS: ABS Basophils 0 10^3/ul (0-0.2); ABS Eosinophils 0 10^3/ul (0-0.6); ABS Lymphocytes 0.3 10^3/ul (1.0-4.8); ABS Monocytes 0.4 10^3/ul (0-0.8); ABS Neutrophils 7.2 10^3/ul (1.5-7.7); ABS Nucleated RBC 0 10^3/ul; Eosinophil % 0 % (0-6); Hematocrit 33 % (42-52); Lymphocyte % 3.9 % (25-47); Mean Corpuscular HGB Conc 34 g/dl (31-36); Mean Corpuscular Hemoglobin 29 pg (27-31); Mean Corpuscular Volume 86 fL (80-94); Mean Platelet Volume 8.3 fL (7.4-10.4); Nucleated Red Blood Cells % 0; Platelet Count 233 10^3/ul (150-450); Red Cell Distribution Width 14 % (10.5-15); White Blood Count 7.9 10^3/ul (3.5-10.8)
[2018-10-06 06:10] LABS: EGFR Non-African American 181.1 (>60)
[2018-10-06] MEDS: Tiotropium CAP.INH* CAP.INH/18 MCG (USE ORDER SET !) INH SCH (07:08)
[2018-10-06] MEDS: Mometasone/Formoter 200/5 MDI INH SCH ×2 (07:08→19:20)
[2018-10-06] MEDS ORDERED: Ondansetron INJ* 2 MG/ML VIAL IV PRN (09:37)
[2018-10-06] MEDS: NS 0.9% 1000 ML* 1,000 ML IV SCH ×2 (09:46→22:58)
[2018-10-06] MEDS: guaiFENesin ER TAB 600 MG PO SCH ×3 (10:09→22:27)
[2018-10-06] MEDS: Azithromycin TAB* 250 MG PO SCH ×2 (10:09→11:38)
[2018-10-06] MEDS: Finasteride TAB* 5 MG PO SCH ×2 (10:09→11:38)
[2018-10-06] MEDS: Tamsulosin CAP* 0.4 MG PO SCH ×2 (10:09→11:31)
[2018-10-06] MEDS: Sertraline* 50 MG TAB PO SCH ×2 (10:09→11:36)
[2018-10-06] MEDS: Oseltamivir CAP* 75 MG CAP PO SCH ×3 (10:09→22:28)
[2018-10-06] MEDS: Aspirin EC TAB* 81 MG TAB.EC PO SCH ×2 (10:09→11:38)
--- NOTE | 2018-10-06 11:17 | PN ---
Subjective Date of Service: 10/06/18 Interval History: Pt stated he has not slept for 2 days. Appears to tired to talk. Had abd pain and received morphine for it. no it resolved. Not more SOB than before. As per d /w RN eats 20% of his meals Objective Active Medications: Acetaminophen (Tylenol Tab*) 650 mg PO Q4H PRN PRN Reason: FEVER/PAIN Albuterol/Ipratropium (Duoneb (Albuterol 2.5 Mg/Ipratropium 0.5 Mg)) 1 neb INH [id number] AWAKE [facility] Last Admin: 10/06/18 07:08 Dose: 1 neb Aspirin (Aspirin Ec Tab*) 81 mg PO DAILY [facility] Last Admin: 10/06/18 10:09 Dose: 81 mg Atorvastatin Calcium (Lipitor*) 40 mg PO QPM [facility] Last Admin: 10/05/18 16:51 Dose: 40 mg Azithromycin (Zithromax Tab*) 250 mg PO DAILY [facility] Last Admin: 10/06/18 10:09 Dose: 250 mg Diltiazem HCl (Cardizem Tab*) 60 mg PO Q6HR [facility] Last Admin: 10/06/18 05:33 Dose: 60 mg Docusate Sodium (Colace Cap*) 100 mg PO BID [facility] Finasteride (Proscar Tab*) 5 mg PO QAM [facility] Last Admin: 10/06/18 10:09 Dose: 5 mg Guaifenesin (Mucinex*) 600 mg PO BID [facility] Last Admin: 10/06/18 10:09 Dose: 600 mg Ceftriaxone Sodium 1 gm/ (Sodium Chloride) 50 mls @ 200 mls/hr IVPB Q24H [facility] Last Admin: 10/05/18 14:16 Dose: 200 mls/hr Sodium Chloride (Ns 0.9% 1000 Ml*) 1,000 mls @ 75 mls/hr IV PER RATE [facility] Last Admin: 10/06/18 09:46 Dose: 75 mls/hr Lorazepam (Ativan Tab(*)) 0.5 mg PO Q6H PRN PRN Reason: ANXIETY Last Admin: 10/05/18 23:00 Dose: 0.5 mg Methylprednisolone Sodium Succinate (Solu-Medrol 125mg *) 60 mg IV Q8H [facility] Last Admin: 10/06/18 05:33 Dose: 60 mg Mometasone Furoate/Formoterol Fumar (Dulera 200/5 Mdi*) 2 puff INH BID [facility] Last Admin: 10/06/18 07:08 Dose: 2 puff Morphine Sulfate (Morphine Oral Concentrate*) 5 mg PO Q2H PRN PRN Reason: PAIN Last Admin: 10/06/18 09:46 Dose: 5 mg Ondansetron HCl (Zofran Inj*) 4 mg IV Q6H PRN PRN Reason: NAUSEA Last Admin: 10/06/18 09:46 Dose: 4 mg Oseltamivir Phosphate (Tamiflu Cap*) 75 mg PO BID [facility] Stop: 10/07/18 21:01 Last Admin: 10/06/18 10:09 Dose: 75 mg Polyethylene Glycol/Electrolytes (Miralax*) 17 gm PO DAILY [facility] Senna (Senokot Tab*) 2 tab PO BEDTIME [facility] Sertraline HCl (Zoloft*) 50 mg PO DAILY [facility] Last Admin: 10/06/18 10:09 Dose: 50 mg Tamsulosin HCl (Flomax Cap*) 0.4 mg PO QAM [facility] Last Admin: 10/06/18 10:09 Dose: 0.4 mg Tiotropium [place] (Spiriva Cap.Inh*) 1 cap INH DAILY [facility] Last Admin: 10/06/18 07:08 Dose: 1 cap Vital Signs - 8 hr 10/06/18 10/06/18 10/06/18 03:31 04:00 04:01 Temperature 97.9 F Pulse Rate 104 105 Respiratory 26 32 Rate Blood Pressure 150/68 (mmHg) O2 Sat by Pulse 92 93 Oximetry 10/06/18 10/06/18 10/06/18 04:31 05:00 05:26 Temperature Pulse Rate 99 108 119 Respiratory 26 28 29 Rate Blood Pressure 161/84 158/91 (mmHg) O2 Sat by Pulse 93 95 93 Oximetry 10/06/18 10/06/18 10/06/18 06:00 06:31 07:00 Temperature Pulse Rate 125 130 92 Respiratory 27 27 21 Rate Blood Pressure 146/114 (mmHg) O2 Sat by Pulse 93 91 94 Oximetry 10/06/18 10/06/18 10/06/18 07:10 08:00 09:00 Temperature 96.5 F Pulse Rate 83 104 76 Respiratory 24 21 22 Rate Blood Pressure (mmHg) O2 Sat by Pulse 98 96 93 Oximetry 10/06/18 10:00 Temperature Pulse Rate 91 Respiratory 21 Rate Blood Pressure (mmHg) O2 Sat by Pulse 94 Oximetry Oxygen Devices in Use Now: Nasal Cannula Appearance: 78 yo M in NAD, appears very tired, soft spoken, tachypneic -at baseline, thin body habitus Eyes: No Scleral Icterus, PERRLA Ears/Nose/Mouth/Throat: NL Teeth, Lips, Gums, Mucous Membranes Moist Neck: NL Appearance and Movements; NL JVP, Trachea Midline Respiratory: Symmetrical Chest Expansion and Respiratory Effort, - - decreased breath sounds b/l Cardiovascular: NL Sounds; No Murmurs; No JVD, RRR Abdominal: NL Sounds; No Tenderness; No Distention, No Hepatosplenomegaly Lymphatic: No Cervical Adenopathy Extremities: No Edema, No Clubbing, Cyanosis Skin: No Rash or Ulcers, No Nodules or Sclerosis Neurological: Alert and Oriented x 3, NL Muscle Strength and Tone Result Diagrams: 10/06/18 05:31 10/06/18 05:31 Additional Lab and Data: Laboratory Results - last 24 hr 10/03/18 10/03/18 05:24 05:24 WBC 6.8 RBC 3.28 L Hgb 9.5 L Hct 29 L MCV 87 MCH 29 MCHC 33 RDW 15 Plt Count 134 L MPV 9.2 Neut % (Auto) 86.4 H Lymph % (Auto) 6.7 L [place] % (Auto) 6.4 Eos % (Auto) 0 Baso % (Auto) 0.5 Absolute Neuts (auto) 5.9 Absolute Lymphs (auto) 0.5 L Absolute Monos (auto) 0.4 Absolute Eos (auto) 0 Absolute Basos (auto) 0 Absolute Nucleated RBC 0 Nucleated RBC % 0 Sodium 136 Potassium 4.5 Chloride 104 Carbon Dioxide 33 H BUN 28 H Creatinine 0.47 L Est GFR ( Amer) 208.5 Est GFR (Non-Af Amer) 172.3 BUN/Creatinine Ratio 59.6 H Glucose 159 H Calcium 8.4 L Microbiology and Other Data: Microbiology 10/01/18 21:17 Blood Venous Aerobic Blood Culture - Preliminary No Growth Day 2 10/01/18 21:17 Blood Venous Anaerobic Blood Culture - Preliminary No Growth Day 2 10/01/18 21:11 Blood Venous Aerobic Blood Culture - Preliminary No Growth Day 2 10/01/18 21:11 Blood Venous Anaerobic Blood Culture - Preliminary No Growth Day 2 10/02/18 00:01 Nasal Nasal Screen MRSA (PCR) - Final Mrsa Not Detected 10/02/18 00:01 Nasopharyngeal Influenza Types A,B Antigen - Final Specimen received for Influenza A/B Molecular testing Assess/Plan/Problems-Billing Assessment: 78 male PMH COPD with noctural (and sometimes day time) Bipap use for chronic hypoxic respiratory failure, [facility] PPM , bioprosthetic AVR, significant asbestos exposure presenting with 3 day productive cough, tachycardia, diaphoresis. Suspected COPD exacerbation in setting of viral insult (daughter, son, grandson all sick). Solumedrol, Bipap, CFTX/azithro/nebs. Made DNR/DNI. Prognosis guarded. - Patient Problems (1) Acute respiratory failure with hypoxia Comment: likely 2/2 COPD exacerbation + viral insult. plan as below. On chronic hypoxemic resp failure inpt with 02 at 2 L at home (2) COPD (chronic obstructive pulmonary disease) Comment: -appreciate Dr. Dominguez's consult-cont current tx - Suspected acute exacerbation + viral illness that affected whole family - Continue Spiriva - Dulera started (home uses Symbicort) - duonebs - Continue BiPAP qHS and prn, otherwise tolerating [place] better than vapotherm - solumedrol 60q8, no titration today, stilll poor resp status - CFTX and azithromycin, (spiked fever day of admission). no clear infiltrate on CXR. procalcitonin was wnl. As mentioned, suspect more viral insult. Despite negative Rapid Flu swab, empiric tamiflu was started in case this was false negative. (3) Aortic valve replaced Comment: 2008, bioprosthetic . Echo shows good valve functiuon and EF 60% (4) CAD (coronary artery disease) Comment: Continue ASA, statin [facility] April 2016 with 30% LAD narrowing at worst. not on BB 2/2 severe COPD likely trop at 0.07-[place] demand ischemia (5) Gilbert syndrome Comment: bili elevated, mostly indirect. Pt has h/o chronic mild bilirubin elevation suspect Gilbert's (6) Transient atrial fibrillation Comment: Questionable , at admission, resolved. cont telem for now. so far no recurrence, but continues to be in sinus tachy with PAC's. will start Cardizem PO with hold parameters (7) DVT prophylaxis Comment: -Continue Lovenox (8) Poor fluid intake Comment: start gentle IVF (9) DNR (do not resuscitate) Comment: DNR Status and Disposition: medicine inpatient. in ICU for rescue Bipap. Prognosis guarded, Daughter aware
[2018-10-06] MEDS: Polyethylene Glycol 3350* 17 GM PACKET PO SCH (11:40)
[2018-10-06] MEDS: cefTRIAXone(*) 1 GM in NS 0.9% 50 ML* 50 ML IVPB SCH (14:48)
[2018-10-06] MEDS: Atorvastatin* 40 MG TAB PO SCH (19:57)
[2018-10-06] MEDS: Docusate CAP* 100 MG PO SCH (22:31)
[2018-10-06] MEDS: Senna TAB PO SCH (22:32)
[2018-10-06] MEDS: Melatonin 3 MG TAB PO SCH (22:34)
[2018-10-07] MEDS: Morphine ORAL CONCENTRATE* 5 MG/0.25 ML ORAL.SYRIN PO PRN ×2 (00:16→22:17)
[2018-10-07] MEDS: Diltiazem TAB* 60 MG PO SCH ×5 (00:16→23:39)
[2018-10-07] MEDS: Albuterol/Ipratropium NEB.SOL* Albuterol 2.5 MG/Ipratropium 0.5 MG 3 ML INH SCH ×6 (01:23→23:08)
[2018-10-07] MEDS: methylPREDNISolone 125 MG* 2 ML VIAL IV SCH ×3 (05:38→21:40)
[2018-10-07 06:03] LABS: ABS Basophils 0 10^3/ul (0-0.2); ABS Eosinophils 0 10^3/ul (0-0.6); ABS Lymphocytes 0.3 10^3/ul (1.0-4.8); ABS Monocytes 0.4 10^3/ul (0-0.8); ABS Neutrophils 8.8 10^3/ul (1.5-7.7); ABS Nucleated RBC 0 10^3/ul; Eosinophil % 0 % (0-6); Hematocrit 32 % (42-52); Hemoglobin 10.6 g/dl (14.0-18.0); Mean Corpuscular HGB Conc 34 g/dl (31-36); Mean Corpuscular Hemoglobin 29 pg (27-31); Mean Corpuscular Volume 87 fL (80-94); Nucleated Red Blood Cells % 0; Platelet Count 226 10^3/ul (150-450); Red Blood Count 3.61 10^6/ul (4.00-5.40); Red Cell Distribution Width 14 % (10.5-15); White Blood Count 9.5 10^3/ul (3.5-10.8)
[2018-10-07] MEDS: Mometasone/Formoter 200/5 MDI INH SCH ×5 (06:03→23:09)
[2018-10-07] MEDS: Tiotropium CAP.INH* CAP.INH/18 MCG (USE ORDER SET !) INH SCH ×2 (06:03→08:21)
[2018-10-07 06:21] LABS: EGFR Non-African American 153.3 (>60)
[2018-10-07] MEDS: guaiFENesin ER TAB 600 MG PO SCH ×2 (08:24→21:38)
[2018-10-07] MEDS: Polyethylene Glycol 3350* 17 GM PACKET PO SCH (08:24)
[2018-10-07] MEDS: Azithromycin TAB* 250 MG PO SCH (08:24)
[2018-10-07] MEDS: Finasteride TAB* 5 MG PO SCH (08:24)
[2018-10-07] MEDS: Sertraline* 50 MG TAB PO SCH (08:25)
[2018-10-07] MEDS: Oseltamivir CAP* 75 MG CAP PO SCH ×2 (08:25→21:39)
[2018-10-07] MEDS: Docusate CAP* 100 MG PO SCH ×2 (08:25→21:39)
[2018-10-07] MEDS: Tamsulosin CAP* 0.4 MG PO SCH (08:25)
[2018-10-07] MEDS: Aspirin EC TAB* 81 MG TAB.EC PO SCH (08:25)
[2018-10-07] MEDS ORDERED: Al Hydrox/Mg Hydrox/Simet LIQ* 30 ML UDC PO PRN (09:06)
[2018-10-07] MEDS ORDERED: Albuterol 2.5 MG/3 ML NEB.SOL* (0.083%) INH PRN (09:10)
[2018-10-07] MEDS ORDERED: Iohexol 350* (CONTRAST) 500 ML MDV IV ONE (10:39)
[2018-10-07] MEDS: Acetylcysteine CAP (RENAL)* 600 MG PO SCH ×2 (12:02→21:36)
[2018-10-07] MEDS: NS 0.9% 1000 ML* 1,000 ML IV SCH (13:24)
[2018-10-07] MEDS: cefTRIAXone(*) 1 GM in NS 0.9% 50 ML* 50 ML IVPB SCH (13:34)
--- NOTE | 2018-10-07 16:52 | PN ---
Subjective Date of Service: 10/07/18 Interval History: Pt seen and examined. Meds and labs reviewed. Pt did not do well a few mins off of BiPAP; also complained of some chest discomfort earlier in AM. Please see discussion below CC: SOB and CP ROS: Denied DALE/dizziness, F/C, N/V, increased cough, sputum production, abd pain, diarrhea, constipation, dysuria, myalgias, arthralgias, throat pain, and new skin lesions. The rest of the 14 point ROS are unremarkable. PHYSICAL EXAM: GEN APPEARANCE: Awake, not in acute distress HEENT: NC/AT, PERRLA, moist oral mucosa, (-) throat erythema NECK: Soft, supple, (-) cervical LAD, (-)JVD HEART: S1S2 WNL, RRR, No MRG CHEST: CTA, BL, GAE, No W/R/R ABD: Soft, ND/NT, NABS 4x Q EXT: No C/C/E SKIN: Warm to touch PSYCH: No active psychosis, hallucinations, depression, SI/HI Objective Active Medications: Acetaminophen (Tylenol Tab*) 650 mg PO Q4H PRN PRN Reason: FEVER/PAIN Acetylcysteine (Acetylcysteine Cap (Renal)*) 1,200 mg PO BID [facility] Stop: 10/08/18 21:01 Last Admin: 10/07/18 12:02 Dose: 1,200 mg Al Hydrox/Mg Hydrox/Simethicone (Maalox Plus*) 30 ml PO Q6H PRN PRN Reason: Dyspepsia/Indigestion Albuterol (Ventolin 2.5 Mg/3 Ml Neb.Tarah*) 2.5 mg INH Q2H PRN PRN Reason: SOB/WHEEZING Albuterol/Ipratropium (Duoneb (Albuterol 2.5 Mg/Ipratropium 0.5 Mg)) 1 neb INH [id number] AWAKE [facility] Last Admin: 10/07/18 15:27 Dose: 1 neb Aspirin (Aspirin Ec Tab*) 81 mg PO DAILY [facility] Last Admin: 10/07/18 08:25 Dose: 81 mg Atorvastatin Calcium (Lipitor*) 40 mg PO QPM [facility] Last Admin: 10/06/18 19:57 Dose: 40 mg Azithromycin (Zithromax Tab*) 250 mg PO DAILY [facility] Last Admin: 10/07/18 08:24 Dose: 250 mg Diltiazem HCl (Cardizem Tab*) 60 mg PO Q6HR [facility] Last Admin: 10/07/18 12:02 Dose: 60 mg Docusate Sodium (Colace Cap*) 100 mg PO BID [facility] Last Admin: 10/07/18 08:25 Dose: 100 mg Finasteride (Proscar Tab*) 5 mg PO QAM [facility] Last Admin: 10/07/18 08:24 Dose: 5 mg Furosemide (Lasix Iv*) 40 mg IV DAILY [facility] Guaifenesin (Mucinex*) 600 mg PO BID [facility] Last Admin: 10/07/18 08:24 Dose: 600 mg Ceftriaxone Sodium 1 gm/ (Sodium Chloride) 50 mls @ 200 mls/hr IVPB Q24H [facility] Last Admin: 10/07/18 13:34 Dose: 200 mls/hr Lorazepam (Ativan Tab(*)) 0.5 mg PO Q6H PRN PRN Reason: ANXIETY Last Admin: 10/05/18 23:00 Dose: 0.5 mg Melatonin (Melatonin) 3 mg PO BEDTIME [facility]; Protocol Last Admin: 10/06/18 22:34 Dose: 3 mg Methylprednisolone Sodium Succinate (Solu-Medrol 125mg *) 60 mg IV Q8H [facility] Last Admin: 10/07/18 13:23 Dose: 60 mg Mometasone Furoate/Formoterol Fumar (Dulera 200/5 Mdi*) 2 puff INH BID [facility] Last Admin: 10/07/18 08:21 Dose: Not Given Mometasone Furoate/Formoterol Fumar (Dulera 200/5 Mdi*) 2 puff INH BID [facility] Last Admin: 10/07/18 11:34 Dose: Not Given Morphine Sulfate (Morphine Oral Concentrate*) 5 mg PO Q2H PRN PRN Reason: PAIN Last Admin: 10/07/18 00:16 Dose: 5 mg Ondansetron HCl (Zofran Inj*) 4 mg IV Q6H PRN PRN Reason: NAUSEA Last Admin: 10/06/18 09:46 Dose: 4 mg Oseltamivir Phosphate (Tamiflu Cap*) 75 mg PO BID [facility] Stop: 10/07/18 21:01 Last Admin: 10/07/18 08:25 Dose: 75 mg Polyethylene Glycol/Electrolytes (Miralax*) 17 gm PO DAILY [facility] Last Admin: 10/07/18 08:24 Dose: 17 gm Senna (Senokot Tab*) 2 tab PO BEDTIME [facility] Last Admin: 10/06/18 22:32 Dose: 2 tab Sertraline HCl (Zoloft*) 50 mg PO DAILY [facility] Last Admin: 10/07/18 08:25 Dose: 50 mg Tamsulosin HCl (Flomax Cap*) 0.4 mg PO QAM [facility] Last Admin: 10/07/18 08:25 Dose: 0.4 mg Vital Signs - 8 hr 10/07/18 10/07/18 10/07/18 09:00 09:31 09:52 Temperature Pulse Rate 74 74 82 Respiratory 28 24 24 Rate Blood Pressure 115/55 (mmHg) O2 Sat by Pulse 90 89 90 Oximetry 10/07/18 10/07/18 10/07/18 10:00 10:03 11:00 Temperature Pulse Rate 84 83 79 Respiratory 31 28 31 Rate Blood Pressure 125/58 (mmHg) O2 Sat by Pulse 72 95 95 Oximetry 10/07/18 10/07/18 10/07/18 11:01 11:36 11:42 Temperature Pulse Rate 85 78 89 Respiratory 37 23 27 Rate Blood Pressure 137/53 113/69 (mmHg) O2 Sat by Pulse 95 95 92 Oximetry 10/07/18 10/07/18 10/07/18 12:00 13:00 13:10 Temperature 98.4 F Pulse Rate 79 95 Respiratory 26 24 Rate Blood Pressure (mmHg) O2 Sat by Pulse 93 89 Oximetry 10/07/18 10/07/18 10/07/18 13:16 13:54 13:55 Temperature Pulse Rate 87 91 93 Respiratory 28 27 26 Rate Blood Pressure 132/63 132/63 132/63 (mmHg) O2 Sat by Pulse 90 92 91 Oximetry 10/07/18 10/07/18 10/07/18 14:00 14:56 15:00 Temperature Pulse Rate 87 97 113 Respiratory 27 29 29 Rate Blood Pressure 132/53 127/52 (mmHg) O2 Sat by Pulse 93 91 80 Oximetry 10/07/18 10/07/18 10/07/18 15:01 15:28 15:40 Temperature Pulse Rate 111 90 Respiratory 27 21 30 Rate Blood Pressure (mmHg) O2 Sat by Pulse 82 91 Oximetry 10/07/18 15:50 Temperature 97.8 F Pulse Rate Respiratory Rate Blood Pressure (mmHg) O2 Sat by Pulse Oximetry Oxygen Devices in Use Now: BiPAP Result Diagrams: 10/07/18 05:45 10/07/18 05:45 Additional Lab and Data: Laboratory Results - last 24 hr 10/03/18 10/03/18 05:24 05:24 WBC 6.8 RBC 3.28 L Hgb 9.5 L Hct 29 L MCV 87 MCH 29 MCHC 33 RDW 15 Plt Count 134 L MPV 9.2 Neut % (Auto) 86.4 H Lymph % (Auto) 6.[address] [place] % (Auto) 6.4 Eos % (Auto) 0 Baso % (Auto) 0.5 Absolute Neuts (auto) 5.9 Absolute Lymphs (auto) 0.5 L Absolute Monos (auto) 0.4 Absolute Eos (auto) 0 Absolute Basos (auto) 0 Absolute Nucleated RBC 0 Nucleated RBC % 0 Sodium 136 Potassium 4.5 Chloride 104 Carbon Dioxide 33 H BUN 28 H Creatinine 0.47 L Est GFR ( Amer) 208.5 Est GFR (Non-Af Amer) 172.3 BUN/Creatinine Ratio 59.6 H Glucose 159 H Calcium 8.4 L Microbiology and Other Data: Microbiology 10/01/18 21:17 Blood Venous Aerobic Blood Culture - Preliminary No Growth Day 2 10/01/18 21:17 Blood Venous Anaerobic Blood Culture - Preliminary No Growth Day 2 10/01/18 21:11 Blood Venous Aerobic Blood Culture - Preliminary No Growth Day 2 10/01/18 21:11 Blood Venous Anaerobic Blood Culture - Preliminary No Growth Day 2 10/02/18 00:01 Nasal Nasal Screen MRSA (PCR) - Final [place] Not Detected 10/02/18 00:01 Nasopharyngeal Influenza Types A,B Antigen - Final Specimen received for Influenza A/B Molecular testing Assess/Plan/Problems-Billing Assessment: 78 male PMH COPD with noctural (and sometimes day time) Bipap use for chronic hypoxic respiratory failure, [facility] PPM , bioprosthetic AVR, significant asbestos exposure presenting with 3 day productive cough, tachycardia, diaphoresis. Suspected COPD exacerbation in setting of viral insult (daughter, son, grandson all sick). Solumedrol, Bipap, CFTX/azithro/nebs. Made DNR/DNI. Prognosis guarded. - Patient Problems (1) Acute respiratory failure with hypoxia Current Visit: Yes Status: Acute Code(s): J96.01 - ACUTE RESPIRATORY FAILURE WITH HYPOXIA SNOMED Code(s): 20041405 Comment: -Likely 2/2 COPD exacerbation + viral insult. plan as below, however, improvement of ABG today is suggestive of another process -CTA of chest was done to primarily R/O PE, which was not suggestive of PE, however, it did reveal moderate pleural effusion not seen on portable CXR---and quite significant leading to compressive atelectasis. Therefore, given hx of CAD, despite only having minimally elevated BNP on admission, likely has component of CHF exacerbation, diastolic. This also correlates with worsening of renal function with IVF -Will repeat BNP as an add-on test today and will follow tomorrow -Will start pt on Lasix IV -D/C IVF -Continue BIPAP /, RR =14, FiO2 =40; titrate FiO2 per protocol (2) Diastolic CHF Current Visit: Yes Status: Acute Code(s): I50.30 - UNSPECIFIED DIASTOLIC ( CONGESTIVE) HEART FAILURE SNOMED Code(s): 020383506 Comment: -As above (3) COPD (chronic obstructive pulmonary disease) Current Visit: No Status: Acute Code(s): J44.9 - CHRONIC OBSTRUCTIVE PULMONARY DISEASE, UNSPECIFIED SNOMED Code(s): 86122979 Comment: -Changed neb orders along with inhalers -appreciate Dr. Dominguez's consult-cont current tx - Suspected acute exacerbation + viral illness that affected whole family - Continue Spiriva, Dulera - Dulera started (home uses Symbicort) - Continue BiPAP qHS and prn, otherwise tolerating [place] better than vapotherm - solumedrol 60q8, no titration today, stilll poor resp status - CFTX and azithromycin, (spiked fever day of admission). no clear infiltrate on CXR. procalcitonin was wnl. As mentioned, suspect more viral insult. Despite negative Rapid Flu swab, empiric tamiflu was started in case this was false negative. (4) Aortic valve replaced Current Visit: No Status: Acute Code(s): Z95.2 - PRESENCE OF PROSTHETIC HEART VALVE SNOMED Code(s): 5363090153206 Comment: 2008, bioprosthetic . Echo shows good valve functiuon and EF 60% (5) CAD (coronary artery disease) Current Visit: No Status: Acute Code(s): I25.10 - ATHSCL HEART DISEASE OF [place] CORONARY ARTERY W/O ANG PCTRS SNOMED Code(s): 38066442 Comment: Continue ASA, statin [facility] April 2016 with 30% LAD narrowing at worst. not on BB 2/2 severe COPD likely trop at 0.07-likley demand ischemia (6) Gilbert syndrome Current Visit: No Status: Acute Code(s): E80.4 - GILBERT SYNDROME SNOMED Code(s): 92757511 Comment: bili elevated, mostly indirect. Pt has h/o chronic mild bilirubin elevation suspect Gilbert's (7) Transient atrial fibrillation Current Visit: Yes Status: Acute Code(s): I48.91 - UNSPECIFIED ATRIAL FIBRILLATION SNOMED Code(s): 54328818 Comment: Questionable , at admission, resolved. cont telem for now. so far no recurrence, but continues to be in sinus tachy with PAC's. will start Cardizem PO with hold parameters (8) Poor fluid intake Current Visit: Yes Status: Acute Code(s): R63.8 - OTHER SYMPTOMS AND SIGNS CONCERNING FOOD AND FLUID INTAKE SNOMED Code(s): 581054447 Comment: -Please see above discussion (9) DVT prophylaxis Current Visit: No Status: Acute Code(s): MKV9446 - SNOMED Code(s): 785363775 Comment: -Place on low dose Lovenox Status and Disposition: -As above
[2018-10-07] MEDS: Atorvastatin* 40 MG TAB PO SCH (17:05)
[2018-10-07] MEDS: Enoxaparin(*) 30 MG/0.3 ML SYR SUBCUT SCH (17:05)
[2018-10-07] MEDS: Furosemide IV* 10 MG/ML VIAL (40 MG) IV SCH (17:05)
[2018-10-07] MEDS: Melatonin 3 MG TAB PO SCH (21:39)
[2018-10-07] MEDS: Senna TAB PO SCH (21:40)
[2018-10-07] MEDS: LORazepam TAB(*) 0.5 MG PO PRN (22:49)
[2018-10-08] MEDS: Albuterol/Ipratropium NEB.SOL* Albuterol 2.5 MG/Ipratropium 0.5 MG 3 ML INH SCH ×6 (03:25→23:18)
[2018-10-08] MEDS: methylPREDNISolone 125 MG* 2 ML VIAL IV SCH ×3 (06:15→22:27)
[2018-10-08] MEDS: Diltiazem TAB* 60 MG PO SCH ×3 (06:18→17:24)
[2018-10-08 06:35] LABS: ABS Basophils 0 10^3/ul (0-0.2); ABS Eosinophils 0 10^3/ul (0-0.6); ABS Lymphocytes 0.2 10^3/ul (1.0-4.8); ABS Monocytes 0.3 10^3/ul (0-0.8); ABS Neutrophils 8.2 10^3/ul (1.5-7.7); ABS Nucleated RBC 0 10^3/ul; Eosinophil % 0 % (0-6); Hematocrit 33 % (42-52); Hemoglobin 10.8 g/dl (14.0-18.0); Lymphocyte % 2.5 % (25-47); Mean Corpuscular HGB Conc 33 g/dl (31-36); Mean Corpuscular Hemoglobin 29 pg (27-31); Mean Corpuscular Volume 87 fL (80-94); Mean Platelet Volume 8.2 fL (7.4-10.4); Nucleated Red Blood Cells % 0; Platelet Count 225 10^3/ul (150-450); Red Blood Count 3.77 10^6/ul (4.00-5.40); Red Cell Distribution Width 14 % (10.5-15); White Blood Count 8.7 10^3/ul (3.5-10.8)
[2018-10-08 06:52] LABS: EGFR Non-African American 181.1 (>60)
[2018-10-08] MEDS: Mometasone/Formoter 200/5 MDI INH SCH ×2 (07:07→19:38)
[2018-10-08] MEDS: Acetylcysteine CAP (RENAL)* 600 MG PO SCH ×2 (10:08→21:27)
[2018-10-08] MEDS: Finasteride TAB* 5 MG PO SCH (10:08)
[2018-10-08] MEDS: Docusate CAP* 100 MG PO SCH ×2 (10:08→21:19)
[2018-10-08] MEDS: Oseltamivir CAP* 75 MG CAP PO SCH (10:08)
[2018-10-08] MEDS: Polyethylene Glycol 3350* 17 GM PACKET PO SCH (10:08)
[2018-10-08] MEDS: guaiFENesin ER TAB 600 MG PO SCH ×2 (10:08→21:20)
[2018-10-08] MEDS: Azithromycin TAB* 250 MG PO SCH (10:08)
[2018-10-08] MEDS: Aspirin EC TAB* 81 MG TAB.EC PO SCH (10:08)
[2018-10-08] MEDS: Sertraline* 50 MG TAB PO SCH (10:08)
[2018-10-08] MEDS: Tamsulosin CAP* 0.4 MG PO SCH (10:09)
[2018-10-08] MEDS ORDERED: Morphine ORAL CONCENTRATE* 5 MG/0.25 ML ORAL.SYRIN PO PRN ×3 (10:23→11:09)
[2018-10-08] MEDS ORDERED: Furosemide IV* 10 MG/ML VIAL (40 MG) ONE (10:35)
[2018-10-08] MEDS: Furosemide IV* 10 MG/ML VIAL (40 MG) IV SCH ×2 (10:37→21:13)
[2018-10-08] MEDS: cefTRIAXone(*) 1 GM in NS 0.9% 50 ML* 50 ML IVPB SCH (13:53)
[2018-10-08] MEDS ORDERED: LORazepam TAB(*) 0.5 MG PO PRN (14:21)
--- NOTE | 2018-10-08 15:13 | PN ---
Subjective Date of Service: 10/08/18 Interval History: Pt seen and examined early this AM and re-examined in afternoon after changes made. Per Julia OBRIEN, pt has received PO Morphine for respiratory distress last night and pt was not able to sleep. RN also withholding Lasix and clarified this should be given due to significant pleural effusions causing compressive atelectasis that compounds his air hunger. Meds and labs reviewed. Spoke with family and staff to update. Please see discussion below. CC: N/A ROS: Could not provide a reliable 14 point ROS given pt PHYSICAL EXAM: GEN APPEARANCE: Lethargic and barely opens eyes and did not follow command in AM ; later in PM, on reassessment, pt able to follow commands and able to answer simple questions by nodding head for yes and turning head side to side for no, although pt still somewhat lethargic, less so in comparison to AM HEENT: NC/AT, PERRLA, moist oral mucosa, (-) throat erythema NECK: Soft, supple, (-) cervical LAD, (-)JVD HEART: S1S2 WNL, RRR, No MRG CHEST: CTA, BL, GAE, No W/R/R ABD: Soft, ND/NT, NABS 4x Q EXT: No C/C/E SKIN: Warm to touch PSYCH: Could not be reliably assessed Objective Active Medications: Acetaminophen (Tylenol Tab*) 650 mg PO Q4H PRN PRN Reason: FEVER/PAIN Acetylcysteine (Acetylcysteine Cap (Renal)*) 1,200 mg PO BID [facility] Stop: 10/08/18 21:01 Last Admin: 10/08/18 10:08 Dose: Not Given Al Hydrox/Mg Hydrox/Simethicone (Maalox Plus*) 30 ml PO Q6H PRN PRN Reason: Dyspepsia/Indigestion Albuterol (Ventolin 2.5 Mg/3 Ml Neb.Tarah*) 2.5 mg INH Q2H PRN PRN Reason: SOB/WHEEZING Albuterol/Ipratropium (Duoneb (Albuterol 2.5 Mg/Ipratropium 0.5 Mg)) 1 neb INH [id number] AWAKE [facility] Last Admin: 10/08/18 14:35 Dose: 1 neb Aspirin (Aspirin Ec Tab*) 81 mg PO DAILY [facility] Last Admin: 10/08/18 10:08 Dose: Not Given Atorvastatin Calcium (Lipitor*) 40 mg PO QPM [facility] Last Admin: 10/07/18 17:05 Dose: 40 mg Diltiazem HCl (Cardizem Tab*) 60 mg PO Q6HR [facility] Last Admin: 10/08/18 12:42 Dose: Not Given Docusate Sodium (Colace Cap*) 100 mg PO BID [facility] Last Admin: 10/08/18 10:08 Dose: Not Given Enoxaparin Sodium (Lovenox(*)) 30 mg SUBCUT Q24H [facility] Last Admin: 10/07/18 17:05 Dose: 30 mg Finasteride (Proscar Tab*) 5 mg PO QAM [facility] Last Admin: 10/08/18 10:08 Dose: Not Given Furosemide (Lasix Iv*) 40 mg IV BID [facility] Guaifenesin (Mucinex*) 600 mg PO BID [facility] Last Admin: 10/08/18 10:08 Dose: Not Given Ceftriaxone Sodium 1 gm/ (Sodium Chloride) 50 mls @ 200 mls/hr IVPB Q24H [facility] Last Admin: 10/08/18 13:53 Dose: 200 mls/hr Lorazepam (Ativan Tab(*)) 0.25 mg PO Q6H PRN PRN Reason: ANXIETY Melatonin (Melatonin) 3 mg PO BEDTIME [facility]; Protocol Last Admin: 10/07/18 21:39 Dose: 3 mg Methylprednisolone Sodium Succinate (Solu-Medrol 125mg *) 60 mg IV Q8H [facility] Last Admin: 10/08/18 14:26 Dose: 60 mg Mometasone Furoate/Formoterol Fumar (Dulera 200/5 Mdi*) 2 puff INH BID [facility] Last Admin: 10/08/18 07:07 Dose: 2 puff Morphine Sulfate (Morphine Oral Concentrate*) 2.5 mg PO Q2H PRN PRN Reason: PAIN Ondansetron HCl (Zofran Inj*) 4 mg IV Q6H PRN PRN Reason: NAUSEA Last Admin: 10/06/18 09:46 Dose: 4 mg Polyethylene Glycol/Electrolytes (Miralax*) 17 gm PO DAILY [facility] Last Admin: 10/08/18 10:08 Dose: Not Given Senna (Senokot Tab*) 2 tab PO BEDTIME [facility] Last Admin: 11/23/18 21:40 Dose: 2 tab Sertraline HCl (Zoloft*) 50 mg PO DAILY [facility] Last Admin: 10/08/18 10:08 Dose: Not Given Tamsulosin HCl (Flomax Cap*) 0.4 mg PO QAM [facility] Last Admin: 10/08/18 10:09 Dose: Not Given Vital Signs - 8 hr 10/08/18 10/08/18 10/08/18 07:11 08:00 08:01 Temperature 96.5 F Pulse Rate 98 92 86 Respiratory 24 36 31 Rate Blood Pressure 158/72 (mmHg) O2 Sat by Pulse 95 89 89 Oximetry 10/08/18 10/08/18 10/08/18 09:00 09:01 10:00 Temperature Pulse Rate 85 83 91 Respiratory 29 45 23 Rate Blood Pressure 134/61 (mmHg) O2 Sat by Pulse 93 93 76 Oximetry 10/08/18 10/08/18 10/08/18 10:01 11:00 11:01 Temperature Pulse Rate 94 113 107 Respiratory 28 48 38 Rate Blood Pressure 178/77 99/50 (mmHg) O2 Sat by Pulse 75 93 93 Oximetry 10/08/18 10/08/18 10/08/18 11:32 12:00 12:01 Temperature 96 F Pulse Rate 64 122 124 Respiratory 35 23 41 Rate Blood Pressure 116/87 118/72 (mmHg) O2 Sat by Pulse 85 80 76 Oximetry 10/08/18 10/08/18 10/08/18 13:00 13:01 14:00 Temperature Pulse Rate 82 74 96 Respiratory 32 37 28 Rate Blood Pressure 123/62 (mmHg) O2 Sat by Pulse 98 97 96 Oximetry 10/08/18 10/08/18 10/08/18 14:02 14:35 15:00 Temperature Pulse Rate 95 107 76 Respiratory 28 34 30 Rate Blood Pressure 121/78 90/69 (mmHg) O2 Sat by Pulse 94 105 98 Oximetry Oxygen Devices in Use Now: BiPAP Result Diagrams: 10/08/18 06:20 10/08/18 06:20 Additional Lab and Data: Laboratory Results - last 24 hr 10/03/18 10/03/18 05:24 05:24 WBC 6.8 RBC 3.28 L Hgb 9.5 L Hct 29 L MCV 87 MCH 29 MCHC 33 RDW 15 Plt Count 134 L MPV 9.2 Neut % (Auto) 86.4 H Lymph % (Auto) 6.7 L [place] % (Auto) 6.4 Eos % (Auto) 0 Baso % (Auto) 0.5 Absolute Neuts (auto) 5.9 Absolute Lymphs (auto) 0.5 L Absolute Monos (auto) 0.4 Absolute Eos (auto) 0 Absolute Basos (auto) 0 Absolute Nucleated RBC 0 Nucleated RBC % 0 Sodium 136 Potassium 4.5 Chloride 104 Carbon Dioxide 33 H BUN 28 H Creatinine 0.47 L Est GFR ( Amer) 208.5 Est GFR (Non-Af Amer) 172.3 BUN/Creatinine Ratio 59.6 H Glucose 159 H Calcium 8.4 L Microbiology and Other Data: Microbiology 10/01/18 21:17 Blood Venous Aerobic Blood Culture - Preliminary No Growth Day 2 10/01/18 21:17 Blood Venous Anaerobic Blood Culture - Preliminary No Growth Day 2 10/01/18 21:11 Blood Venous Aerobic Blood Culture - Preliminary No Growth Day 2 10/01/18 21:11 Blood Venous Anaerobic Blood Culture - Preliminary No Growth Day 2 10/02/18 00:01 Nasal Nasal Screen MRSA (PCR) - Final Mrsa Not Detected 10/02/18 00:01 Nasopharyngeal Influenza Types A,B Antigen - Final Specimen received for Influenza A/B Molecular testing Assess/Plan/Problems-Billing Assessment: 78 male PMH COPD with noctural (and sometimes day time) Bipap use for chronic hypoxic respiratory failure, [employer] PPM , bioprosthetic AVR, significant asbestos exposure presenting with 3 day productive cough, tachycardia, diaphoresis. Suspected COPD exacerbation in setting of viral insult (daughter, son, grandson all sick). Solumedrol, Bipap, CFTX/azithro/nebs. Made DNR/DNI. Prognosis guarded. - Patient Problems (1) Acute respiratory failure with hypoxia Current Visit: Yes Status: Acute Code(s): J96.01 - ACUTE RESPIRATORY FAILURE WITH HYPOXIA SNOMED Code(s): 01907587 Comment: -ABG revealed hypoventilation on relatively well controlled hypoxia on previous BiPAP settings likely induced by Morphine and/or BZDs---lowered both dosing regimens along with increasing interval between each PRN -Repeat VBG reassuring. Of note: peripheral venous pH is approximately 0.03 to 0.04 pH units lower than the arterial pH, the venous serum HCO3 concentration is approximately 1 to 2 meq/L higher, and the venous PCO2 is approximately 3 to 8 mmHg higher to provide context in interpreting VBG results. Will repeat ABG at 1600 to further evaluate FiO2 needs -Explained to Pt and staff that given significant pleural effusion, pt will need a trial of being diuresed to fully assess prognosis and to determine whether he can be off BiPAP that keeps him in the ICU -Reviewed Dr. Dugan most recent assessment -Will increase IV Lasix to BID -Will D/C Azithromycin; consider D/C of Rocephin in AM for severe COPD exacerbation (not PNA) -Likely 2/2 COPD exacerbation + viral insult. -CTA of chest was done to primarily R/O PE, which was not suggestive of PE, however, it did reveal moderate pleural effusion not seen on portable CXR---and quite significant leading to compressive atelectasis. Therefore, given hx of CAD, despite only having minimally elevated BNP on admission, likely has component of CHF exacerbation, diastolic. This also correlates with worsening of renal function with IVF (2) Diastolic CHF Current Visit: Yes Status: Acute Code(s): I50.30 - UNSPECIFIED DIASTOLIC ( CONGESTIVE) HEART FAILURE SNOMED Code(s): 275968114 Comment: -As above (3) COPD (chronic obstructive pulmonary disease) Current Visit: No Status: Acute Code(s): J44.9 - CHRONIC OBSTRUCTIVE PULMONARY DISEASE, UNSPECIFIED SNOMED Code(s): 02430663 Comment: -Continue current regimen -appreciate Dr. Dominguez's consult-cont current tx - Suspected acute exacerbation + viral illness that affected whole family - Continue Spiriva, Dulera - solumedrol 60q8, no titration today, stilll poor resp status - As above (4) Aortic valve replaced Current Visit: No Status: Acute Code(s): Z95.2 - PRESENCE OF PROSTHETIC HEART VALVE SNOMED Code(s): 3399451514534 Comment: 2008, bioprosthetic . Echo shows good valve functiuon and EF 60% (5) CAD (coronary artery disease) Current Visit: No Status: Acute Code(s): I25.10 - ATHSCL HEART DISEASE OF [place] CORONARY ARTERY W/O ANG PCTRS SNOMED Code(s): 98333213 Comment: Continue ASA, statin C April 2016 with 30% LAD narrowing at worst. not on BB 2/2 severe COPD likely trop at 0.07-likley demand ischemia (6) Gilbert syndrome Current Visit: No Status: Acute Code(s): E80.4 - GILBERT SYNDROME SNOMED Code(s): 97993212 Comment: bili elevated, mostly indirect. Pt has h/o chronic mild bilirubin elevation suspect Gilbert's (7) Transient atrial fibrillation Current Visit: Yes Status: Acute Code(s): I48.91 - UNSPECIFIED ATRIAL FIBRILLATION SNOMED Code(s): 74872500 Comment: Questionable , at admission, resolved. cont telem for now. so far no recurrence, but continues to be in sinus tachy with PAC's. will start Cardizem PO with hold parameters (8) Poor fluid intake Current Visit: Yes Status: Acute Code(s): R63.8 - OTHER SYMPTOMS AND SIGNS CONCERNING FOOD AND FLUID INTAKE SNOMED Code(s): 301695843 Comment: -Please see above discussion (9) DVT prophylaxis Current Visit: No Status: Acute Code(s): WXP5223 - SNOMED Code(s): 419322813 Comment: -Place on low dose Lovenox Status and Disposition: -Touched base with family and discussed the difficulty of prognostication in the setting of acute issue given he is otherwise hemodynamically stable with no signs of multiple organ failure and has only been admitted twice this year and that Dr. Dugan last visit did not seem she was concerned despite previous talks of Comfort measures only; Pleural effusion I feel needs to be treated to better assess prognosis -Will observe O/N on diuretics to see if pt improves together with treatment of COPD exacerbation
[2018-10-08] MEDS: Enoxaparin(*) 30 MG/0.3 ML SYR SUBCUT SCH (17:24)
[2018-10-08] MEDS: Atorvastatin* 40 MG TAB PO SCH (17:24)
[2018-10-08] MEDS: Melatonin 3 MG TAB PO SCH (21:20)
[2018-10-08] MEDS: Senna TAB PO SCH (21:20)
[2018-10-08] MEDS: Diltiazem IV* 5 MG/ML 5 ML VIAL (for loading dose/IV Push) (25 MG) IV SLOW PU SCH (23:38)
[2018-10-09] MEDS: Albuterol/Ipratropium NEB.SOL* Albuterol 2.5 MG/Ipratropium 0.5 MG 3 ML INH SCH ×6 (03:39→23:12)
[2018-10-09] MEDS: Diltiazem IV* 5 MG/ML 5 ML VIAL (for loading dose/IV Push) (25 MG) IV SLOW PU SCH ×3 (04:42→19:05)
[2018-10-09 05:02] LABS: Hematocrit 34 % (42-52); Hemoglobin 11.1 g/dl (14.0-18.0); Mean Corpuscular HGB Conc 33 g/dl (31-36); Mean Corpuscular Hemoglobin 28 pg (27-31); Mean Corpuscular Volume 87 fL (80-94); Platelet Count 258 10^3/ul (150-450); Red Blood Count 3.92 10^6/ul (4.00-5.40); Red Cell Distribution Width 14 % (10.5-15); White Blood Count 8.6 10^3/ul (3.5-10.8)
[2018-10-09] MEDS: methylPREDNISolone 125 MG* 2 ML VIAL IV SCH (06:29)
[2018-10-09] MEDS: Mometasone/Formoter 200/5 MDI INH SCH ×2 (07:27→19:42)
[2018-10-09] MEDS: Docusate CAP* 100 MG PO SCH (08:33)
[2018-10-09] MEDS: Finasteride TAB* 5 MG PO SCH (08:33)
[2018-10-09] MEDS: Aspirin EC TAB* 81 MG TAB.EC PO SCH (08:33)
[2018-10-09] MEDS: Polyethylene Glycol 3350* 17 GM PACKET PO SCH (08:34)
[2018-10-09] MEDS: guaiFENesin ER TAB 600 MG PO SCH (08:34)
[2018-10-09] MEDS: Tamsulosin CAP* 0.4 MG PO SCH (08:34)
[2018-10-09] MEDS: Sertraline* 50 MG TAB PO SCH (08:34)
--- NOTE | 2018-10-09 09:58 | PN ---
Subjective Date of Service: 10/09/18 Interval History: Pt states he is feeling ok currently. He denies any SOB while on the BiPAP. He would like to come off the BiPAP to try to drink water. Julia OBRIEN tells me that he was off the BiPAP for about 10 min this AM and he requested to go back on due to SOB. He also reportedly has not been able to safely drink anything over the last couple days. Objective Active Medications: Acetaminophen (Tylenol Tab*) 650 mg PO Q4H PRN PRN Reason: FEVER/PAIN Al Hydrox/Mg Hydrox/Simethicone (Maalox Plus*) 30 ml PO Q6H PRN PRN Reason: Dyspepsia/Indigestion Albuterol (Ventolin 2.5 Mg/3 Ml Neb.Tarah*) 2.5 mg INH Q2H PRN PRN Reason: SOB/WHEEZING Albuterol/Ipratropium (Duoneb (Albuterol 2.5 Mg/Ipratropium 0.5 Mg)) 1 neb INH [id number] AWAKE [facility] Last Admin: 10/09/18 07:26 Dose: 1 neb Aspirin (Aspirin Ec Tab*) 81 mg PO DAILY [facility] Last Admin: 10/09/18 08:33 Dose: Not Given Atorvastatin Calcium (Lipitor*) 40 mg PO QPM [facility] Last Admin: 10/08/18 17:24 Dose: 40 mg Diltiazem HCl (Diltiazem Iv*) 10 mg IV SLOW PU Q6H [facility] Last Admin: 10/09/18 04:42 Dose: 10 mg Docusate Sodium (Colace Cap*) 100 mg PO BID [facility] Last Admin: 10/09/18 08:33 Dose: Not Given Enoxaparin Sodium (Lovenox(*)) 30 mg SUBCUT Q24H [facility] Last Admin: 10/08/18 17:24 Dose: 30 mg Finasteride (Proscar Tab*) 5 mg PO QAM [facility] Last Admin: 10/09/18 08:33 Dose: Not Given Furosemide (Lasix Iv*) 40 mg IV BID [facility] Last Admin: 10/08/18 21:13 Dose: 40 mg Guaifenesin (Mucinex*) 600 mg PO BID [facility] Last Admin: 10/09/18 08:34 Dose: Not Given Ceftriaxone Sodium 1 gm/ (Sodium Chloride) 50 mls @ 200 mls/hr IVPB Q24H [facility] Last Admin: 10/08/18 13:53 Dose: 200 mls/hr Lorazepam (Ativan Tab(*)) 0.25 mg PO Q6H PRN PRN Reason: ANXIETY Melatonin (Melatonin) 3 mg PO BEDTIME [facility]; Protocol Last Admin: 10/08/18 21:20 Dose: Not Given Methylprednisolone Sodium Succinate (Solu-Medrol 125mg *) 60 mg IV Q8H [facility] Last Admin: 10/09/18 06:29 Dose: 60 mg Mometasone Furoate/Formoterol Fumar (Dulera 200/5 Mdi*) 2 puff INH BID [facility] Last Admin: 10/09/18 07:27 Dose: 2 puff Morphine Sulfate (Morphine Oral Concentrate*) 2.5 mg PO Q2H PRN PRN Reason: PAIN Last Admin: 10/09/18 05:28 Dose: 2.5 mg Ondansetron HCl (Zofran Inj*) 4 mg IV Q6H PRN PRN Reason: NAUSEA Last Admin: 10/06/18 09:46 Dose: 4 mg Polyethylene Glycol/Electrolytes (Miralax*) 17 gm PO DAILY [facility] Last Admin: 10/09/18 08:34 Dose: Not Given Senna (Senokot Tab*) 2 tab PO BEDTIME [facility] Last Admin: 10/08/18 21:20 Dose: Not Given Sertraline HCl (Zoloft*) 50 mg PO DAILY [facility] Last Admin: 10/09/18 08:34 Dose: Not Given Tamsulosin HCl (Flomax Cap*) 0.4 mg PO QAM [facility] Last Admin: 10/09/18 08:34 Dose: Not Given Vital Signs - 8 hr 10/09/18 10/09/18 10/09/18 02:00 02:01 03:00 Temperature Pulse Rate 115 89 59 Respiratory 34 35 39 Rate Blood Pressure 133/77 82/60 (mmHg) O2 Sat by Pulse 89 89 90 Oximetry 10/09/18 10/09/18 10/09/18 03:01 03:02 03:31 Temperature 98.3 F Pulse Rate 108 59 Respiratory 31 31 Rate Blood Pressure 109/53 (mmHg) O2 Sat by Pulse 91 90 Oximetry 10/09/18 10/09/18 10/09/18 03:39 04:00 04:01 Temperature Pulse Rate 112 99 105 Respiratory 34 25 22 Rate Blood Pressure 104/60 (mmHg) O2 Sat by Pulse 92 90 91 Oximetry 10/09/18 10/09/18 10/09/18 05:00 05:01 06:00 Temperature Pulse Rate 90 91 Respiratory 38 39 30 Rate Blood Pressure 112/55 (mmHg) O2 Sat by Pulse 92 93 Oximetry 10/09/18 10/09/18 10/09/18 06:01 07:00 07:01 Temperature Pulse Rate 124 102 104 Respiratory 32 33 36 Rate Blood Pressure 129/77 148/70 (mmHg) O2 Sat by Pulse 94 93 94 Oximetry 10/09/18 10/09/18 10/09/18 07:31 08:00 08:01 Temperature Pulse Rate 110 100 113 Respiratory 38 32 31 Rate Blood Pressure 153/75 (mmHg) O2 Sat by Pulse 94 99 93 Oximetry 10/09/18 10/09/18 10/09/18 08:30 09:00 09:01 Temperature 99.9 F Pulse Rate Respiratory 31 28 Rate Blood Pressure 146/75 (mmHg) O2 Sat by Pulse Oximetry Oxygen Devices in Use Now: BiPAP Appearance: Elderly cachectic male sitting up in bed with BiPAP on in NAD Eyes: No Scleral Icterus Respiratory: Symmetrical Chest Expansion and Respiratory Effort, Clear to Auscultation, - - markedly diminished breath sounds throughout, crackles heard in the upper lobes Cardiovascular: - - irregularly irregular, tachycardic, trace ankle edema bilaterally Abdominal: NL Sounds; No Tenderness; No Distention Skin: No Nodules or Sclerosis Neurological: - - alert, has written notes to daughter, does not try to speak to me Result Diagrams: 10/09/18 04:48 10/09/18 04:48 Additional Lab and Data: Laboratory Results - last 24 hr 10/03/18 10/03/18 05:24 05:24 WBC 6.8 RBC 3.28 L Hgb 9.5 L Hct 29 L MCV 87 MCH 29 MCHC 33 RDW 15 Plt Count 134 L MPV 9.2 Neut % (Auto) 86.4 H Lymph % (Auto) 6.7 L [place] % (Auto) 6.4 Eos % (Auto) 0 Baso % (Auto) 0.5 Absolute Neuts (auto) 5.9 Absolute Lymphs (auto) 0.5 L Absolute Monos (auto) 0.4 Absolute Eos (auto) 0 Absolute Basos (auto) 0 Absolute Nucleated RBC 0 Nucleated RBC % 0 Sodium 136 Potassium 4.5 Chloride 104 Carbon Dioxide 33 H BUN 28 H Creatinine 0.47 L Est GFR ( Amer) 208.5 Est GFR (Non-Af Amer) 172.3 BUN/Creatinine Ratio 59.6 H Glucose 159 H Calcium 8.4 L Microbiology and Other Data: Microbiology 10/01/18 21:17 Blood Venous Aerobic Blood Culture - Preliminary No Growth Day 2 10/01/18 21:17 Blood Venous Anaerobic Blood Culture - Preliminary No Growth Day 2 10/01/18 21:11 Blood Venous Aerobic Blood Culture - Preliminary No Growth Day 2 10/01/18 21:11 Blood Venous Anaerobic Blood Culture - Preliminary No Growth Day 2 10/02/18 00:01 Nasal Nasal Screen MRSA (PCR) - Final Mrsa Not Detected 10/02/18 00:01 Nasopharyngeal Influenza Types A,B Antigen - Final Specimen received for Influenza A/B Molecular testing Assess/Plan/Problems-Billing Mr David is a 78 male PMHx of COPD with noctural (and sometimes day time) Bipap use for chronic hypoxic respiratory failure, [employer] PPM , bioprosthetic AVR, significant asbestos exposure presenting with 3 day productive cough, tachycardia, diaphoresis and was admitted for a suspected COPD exacerbation in setting of viral illness. - Patient Problems (1) Acute on chronic respiratory failure with hypoxia Current Visit: Yes Status: Acute Code(s): J96.21 - ACUTE AND CHRONIC RESPIRATORY FAILURE WITH HYPOXIA SNOMED Code(s): 31584956 Comment: Pt has a h/o chronic hypoxic respiratory failure secondary to moderate COPD. He utilizes BiPAP at home but has essentially been BiPAP dependent over the last couple days as he symptomatically can not be off the BiPAP. After my initial visit with the patient he/his daughter indicated they would like to try him off BiPAP. He very quickly developed worsened tachycardia , tachypnea and his saturations dropped to the high 80's (they did recover to low 90's). I discussed again with the patient and his daughter about options of continuing to try to improve vs comfort. They both chose to opt for comfort over improvement understanding that he has already been hospitalized for over 1 week without any significant improvement. We discussed using morphine for air hunger. Will change ativan po to IV for anxiety. The patient and his daughter are not wanting to fully commit to comfort measures only but seem to be heading in that direction. (2) COPD (chronic obstructive pulmonary disease) Current Visit: Yes Status: Acute Code(s): J44.9 - CHRONIC OBSTRUCTIVE PULMONARY DISEASE, UNSPECIFIED SNOMED Code(s): 06198559 Comment: I suspect most of the patient's dyspnea is secondary to a COPD exacerbation triggered by a viral illness. Will continue stop ceftriaxone as he has received it for 7 days. Continue current neb/inhaler regimen if he is able to cooperate with the use of the inhalers. Decrease solumedrol to 40mg IV q12hr as he has no wheezing and I doubt the steroids are making much of an improvement. As above will use morphine for comfort/air hunger. (3) Atrial fibrillation Current Visit: Yes Status: Acute Code(s): I48.91 - UNSPECIFIED ATRIAL FIBRILLATION SNOMED Code(s): 83975683 Comment: The patient appears to be in rapid afib. This was also identified on admission. As comfort is currently the goal will continue IV diltiazem and monitor the HR. No anticoagulation at this time as the patient is not able to safely take in orals without risk of aspiration (though pt and his daughter want him to be able to eat/drink for comfort). (4) Diastolic CHF Current Visit: Yes Status: Acute Code(s): I50.30 - UNSPECIFIED DIASTOLIC ( CONGESTIVE) HEART FAILURE SNOMED Code(s): 488787957 Comment: There was concern over the last couple days that the patient was in an acute diastolic CHF exacerbation. While he has pleural effusions on CT he does not look overtly fluid overloaded. Will stop the IV lasix. (5) HTN (hypertension) Current Visit: Yes Status: Acute Code(s): I10 - ESSENTIAL (PRIMARY) HYPERTENSION SNOMED Code(s): 98875018 Comment: BP is under fair control. Will continue IV diltiazem. (6) BPH (benign prostatic hyperplasia) Current Visit: Yes Status: Acute Code(s): N40.0 - BENIGN PROSTATIC HYPERPLASIA WITHOUT LOWER URINRY TRACT SYMP SNOMED Code(s): 580860170 Comment: Hold flomax given he can not swallow safely. (7) DVT prophylaxis Current Visit: Yes Status: Acute Code(s): SMJ5010 - SNOMED Code(s): 931111628 Comment: Giovanni (8) DNR (do not resuscitate) Current Visit: Yes Status: Acute Status and Disposition: .
[2018-10-09] MEDS ORDERED: Morphine ORAL CONCENTRATE* 5 MG/0.25 ML ORAL.SYRIN PO PRN (10:04)
[2018-10-09] MEDS ORDERED: LORazepam INJ* 2 MG/ML 1 ML VIAL IV PUSH PRN (10:25)
[2018-10-09] MEDS: Atorvastatin* 40 MG TAB PO SCH (19:05)
[2018-10-09] MEDS: Morphine VIAL* 4 MG/ML VIAL (1 ml vial) IV PRN (19:06)
[2018-10-09] MEDS: Enoxaparin(*) 30 MG/0.3 ML SYR SUBCUT SCH (19:12)
[2018-10-09] MEDS: methylPREDNISolone SOD 40 MG* 1 ML VIAL IV SCH (21:17)
[2018-10-10] MEDS: Diltiazem IV* 5 MG/ML 5 ML VIAL (for loading dose/IV Push) (25 MG) IV SLOW PU SCH ×4 (01:18→20:54)
[2018-10-10] MEDS: Albuterol/Ipratropium NEB.SOL* Albuterol 2.5 MG/Ipratropium 0.5 MG 3 ML INH SCH ×6 (03:23→23:19)
[2018-10-10] MEDS: Mometasone/Formoter 200/5 MDI INH SCH ×2 (07:30→19:35)
[2018-10-10] MEDS: Furosemide IV* 10 MG/ML VIAL (40 MG) IV SCH (08:06)
[2018-10-10] MEDS: methylPREDNISolone SOD 40 MG* 1 ML VIAL IV SCH ×2 (09:05→20:54)
[2018-10-10] MEDS: Aspirin EC TAB* 81 MG TAB.EC PO SCH (09:05)
--- NOTE | 2018-10-10 15:17 | PN ---
Subjective Date of Service: 10/10/18 Interval History: Pt is feeling ok. He would like to come off the BiPAP for a drink. He denies any SOB while on the BiPAP. Objective Active Medications: Acetaminophen (Tylenol Tab*) 650 mg PO Q4H PRN PRN Reason: FEVER/PAIN Al Hydrox/Mg Hydrox/Simethicone (Maalox Plus*) 30 ml PO Q6H PRN PRN Reason: Dyspepsia/Indigestion Albuterol (Ventolin 2.5 Mg/3 Ml Neb.Tarah*) 2.5 mg INH Q2H PRN PRN Reason: SOB/WHEEZING Albuterol/Ipratropium (Duoneb (Albuterol 2.5 Mg/Ipratropium 0.5 Mg)) 1 neb INH [id number] AWAKE [facility] Last Admin: 10/10/18 11:32 Dose: 1 neb Aspirin (Aspirin Ec Tab*) 81 mg PO DAILY [facility] Last Admin: 10/10/18 09:05 Dose: 81 mg Atorvastatin Calcium (Lipitor*) 40 mg PO QPM [facility] Last Admin: 10/09/18 19:05 Dose: 40 mg Diltiazem HCl (Diltiazem Iv*) 10 mg IV SLOW PU 0100,0700,1300,1900 [facility] Last Admin: 10/10/18 14:09 Dose: 10 mg Enoxaparin Sodium (Lovenox(*)) 30 mg SUBCUT Q24H [facility] Last Admin: 10/09/18 19:12 Dose: 30 mg Lorazepam (Ativan Inj*) 0.5 mg IV PUSH Q6H PRN PRN Reason: ANXIETY Methylprednisolone Sodium Succinate (Solu-Medrol 40 Mg) 40 mg IV Q12H [facility] Last Admin: 10/10/18 09:05 Dose: 40 mg Mometasone Furoate/Formoterol Fumar (Dulera 200/5 Mdi*) 2 puff INH BID [facility] Last Admin: 10/10/18 07:30 Dose: Not Given Morphine Sulfate (Morphine Oral Concentrate*) 5 mg PO Q2H PRN PRN Reason: PAIN Morphine Sulfate (Morphine Vial*) 2 mg IV Q4H PRN PRN Reason: pain or air hunger Last Admin: 10/09/18 19:06 Dose: 2 mg Ondansetron HCl (Zofran Inj*) 4 mg IV Q6H PRN PRN Reason: NAUSEA Last Admin: 10/06/18 09:46 Dose: 4 mg Vital Signs - 8 hr 10/10/18 10/10/18 10/10/18 07:32 07:42 08:00 Temperature 97.3 F Pulse Rate 90 85 Respiratory 23 26 Rate Blood Pressure 98/68 (mmHg) O2 Sat by Pulse 98 98 Oximetry 10/10/18 10/10/18 10/10/18 09:00 09:01 10:00 Temperature Pulse Rate 76 75 80 Respiratory 30 34 23 Rate Blood Pressure 115/64 (mmHg) O2 Sat by Pulse 92 86 99 Oximetry 10/10/18 10/10/18 10/10/18 10:01 11:00 11:08 Temperature Pulse Rate 82 97 82 Respiratory 33 28 28 Rate Blood Pressure 115/46 117/74 (mmHg) O2 Sat by Pulse 94 74 Oximetry 10/10/18 10/10/18 10/10/18 11:39 12:00 12:01 Temperature 97.8 F Pulse Rate Respiratory 25 31 Rate Blood Pressure 130/95 (mmHg) O2 Sat by Pulse Oximetry 10/10/18 10/10/18 10/10/18 13:00 14:00 14:01 Temperature Pulse Rate Respiratory 18 24 26 Rate Blood Pressure 122/69 120/72 (mmHg) O2 Sat by Pulse Oximetry 10/10/18 10/10/18 15:00 15:02 Temperature Pulse Rate Respiratory 29 28 Rate Blood Pressure 126/84 (mmHg) O2 Sat by Pulse Oximetry Oxygen Devices in Use Now: BiPAP Appearance: Elderly male sitting in a chair, on BiPAP, NAD Eyes: No Scleral Icterus Ears/Nose/Mouth/Throat: Mucous Membranes Moist Respiratory: Symmetrical Chest Expansion and Respiratory Effort, Clear to Auscultation - diminished breath sounds in all lung berry Cardiovascular: NL Sounds; No Murmurs; No JVD, No Edema, - - irregularly irregular, mildly tachycardic Abdominal: NL Sounds; No Tenderness; No Distention Extremities: No Clubbing, Cyanosis Skin: No Nodules or Sclerosis Neurological: - - alert, speaking some but hard to understand because of the BiPAP mask Result Diagrams: 10/09/18 04:48 10/09/18 04:48 Additional Lab and Data: Laboratory Results - last 24 hr 10/03/18 10/03/18 05:24 05:24 WBC 6.8 RBC 3.28 L Hgb 9.5 L Hct 29 L MCV 87 MCH 29 MCHC 33 RDW 15 Plt Count 134 L MPV 9.2 Neut % (Auto) 86.4 H Lymph % (Auto) 6.7 L [place] % (Auto) 6.4 Eos % (Auto) 0 Baso % (Auto) 0.5 Absolute Neuts (auto) 5.9 Absolute Lymphs (auto) 0.5 L Absolute Monos (auto) 0.4 Absolute Eos (auto) 0 Absolute Basos (auto) 0 Absolute Nucleated RBC 0 Nucleated RBC % 0 Sodium 136 Potassium 4.5 Chloride 104 Carbon Dioxide 33 H BUN 28 H Creatinine 0.47 L Est GFR ( Amer) 208.5 Est GFR (Non-Af Amer) 172.3 BUN/Creatinine Ratio 59.6 H Glucose 159 H Calcium 8.4 L Microbiology and Other Data: Microbiology 10/01/18 21:17 Blood Venous Aerobic Blood Culture - Preliminary No Growth Day 2 10/01/18 21:17 Blood Venous Anaerobic Blood Culture - Preliminary No Growth Day 2 10/01/18 21:11 Blood Venous Aerobic Blood Culture - Preliminary No Growth Day 2 10/01/18 21:11 Blood Venous Anaerobic Blood Culture - Preliminary No Growth Day 2 10/02/18 00:01 Nasal Nasal Screen MRSA (PCR) - Final Mrsa Not Detected 10/02/18 00:01 Nasopharyngeal Influenza Types A,B Antigen - Final Specimen received for Influenza A/B Molecular testing Assess/Plan/Problems-Billing Mr David is a 78 male PMHx of COPD with noctural (and sometimes day time) Bipap use for chronic hypoxic respiratory failure, [employer] PPM , bioprosthetic AVR, significant asbestos exposure presenting with 3 day productive cough, tachycardia, diaphoresis and was admitted for a suspected COPD exacerbation in setting of viral illness. - Patient Problems (1) Acute on chronic respiratory failure with hypoxia Current Visit: Yes Status: Acute Code(s): J96.21 - ACUTE AND CHRONIC RESPIRATORY FAILURE WITH HYPOXIA SNOMED Code(s): 20119794 Comment: Pt has a h/o chronic hypoxic respiratory failure secondary to moderate COPD. He utilizes BiPAP at home but has essentially been BiPAP dependent over the last couple days as he symptomatically can not be off the BiPAP. Today he seems brighter and more engaged, may be able to tolerate being off BiPAP for longer periods of time. While off the BiPAP will recommend trialing morphine for air hunger. If he fails to improve to the point that he can not stand to be off the BiPAP will discuss full comfort care. At this time the patient and his daughter want more comfort than currative treatment. (2) COPD (chronic obstructive pulmonary disease) Current Visit: Yes Status: Acute Code(s): J44.9 - CHRONIC OBSTRUCTIVE PULMONARY DISEASE, UNSPECIFIED SNOMED Code(s): 99706783 Comment: I suspect most of the patient's dyspnea is secondary to a COPD exacerbation triggered by a viral illness. Continue current neb/inhaler regimen if he is able to cooperate with the use of the inhalers. Continue solumedrol 40mg IV q12hr. Taper further tomorrow if continuing to improve. Utilize morphine for air hunger. (3) Atrial fibrillation Current Visit: Yes Status: Acute Code(s): I48.91 - UNSPECIFIED ATRIAL FIBRILLATION SNOMED Code(s): 49820090 Comment: The patient remains in rapid afib (HR in the low 100's while on BiPAP). This was also identified on admission. Continue IV diltiazem with goal of transitioning to oral if he can take pills and stay off the BiPAP machine. No anticoagulation now but if he improves to be stable off the BiPAP will need to discuss starting full anticoagulation. (4) Diastolic CHF Current Visit: Yes Status: Acute Code(s): I50.30 - UNSPECIFIED DIASTOLIC ( CONGESTIVE) HEART FAILURE SNOMED Code(s): 234325942 Comment: There was concern over the last couple days that the patient was in an acute diastolic CHF exacerbation. While he has pleural effusions on CT he does not look overtly fluid overloaded. Monitor fluid status. No lasix at this time. (5) HTN (hypertension) Current Visit: Yes Status: Acute Code(s): I10 - ESSENTIAL (PRIMARY) HYPERTENSION SNOMED Code(s): 65817137 Comment: BP is under fair control. Will continue IV diltiazem. (6) BPH (benign prostatic hyperplasia) Current Visit: Yes Status: Acute Code(s): N40.0 - BENIGN PROSTATIC HYPERPLASIA WITHOUT LOWER URINRY TRACT SYMP SNOMED Code(s): 579328343 Comment: Hold flomax given he can not swallow safely. (7) DVT prophylaxis Current Visit: Yes Status: Acute Code(s): JFY2105 - SNOMED Code(s): 558091277 Comment: Giovanni (8) DNR (do not resuscitate) Current Visit: Yes Status: Acute Status and Disposition: .
[2018-10-10] MEDS: Enoxaparin(*) 30 MG/0.3 ML SYR SUBCUT SCH (16:28)
[2018-10-10] MEDS: Atorvastatin* 40 MG TAB PO SCH (16:28)
--- NOTE | 2018-10-10 16:50 | PN ---
Progress Note - Progress Note Date of Service: 10/10/18 - Pulm f/u note Note: Pt seen and examined at bedside. Pt still in ICU, having issues with A.fib with RVR. Has been requiring BiPAP less. Is currently on salter Active Medications Generic Name Dose Route Start Last Admin Trade Name Freq PRN Reason Stop Dose Admin Acetaminophen 650 mg 10/01/18 23:07 Tylenol Tab* PO Q4H PRN FEVER/PAIN Al Hydrox/Mg Hydrox/Simethicone 30 ml 10/07/18 09:06 Maalox Plus* PO Q6H PRN Dyspepsia/Indigestion Albuterol 2.5 mg 10/07/18 09:10 Ventolin 2.5 Mg/3 Ml Neb.Tarah* INH Q2H PRN SOB/WHEEZING Albuterol/Ipratropium 1 neb 10/07/18 11:00 10/10/18 15:40 Duoneb (Albuterol 2.5 Mg/Ipratropium 0.5 Mg) INH 1 neb [id number] AWAKE [facility] Administration Aspirin 81 mg 10/02/18 09:00 10/10/18 09:05 Aspirin Ec Tab* PO 81 mg DAILY [facility] Administration Atorvastatin Calcium 40 mg 10/02/18 18:00 10/10/18 16:28 Lipitor* PO 40 mg QPM [facility] Administration Diltiazem HCl 10 mg 10/10/18 01:00 10/10/18 14:09 Diltiazem Iv* IV SLOW PU 10 mg 0100,0700,1300,1900 [facility] Administration Enoxaparin Sodium 30 mg 10/07/18 17:00 10/10/18 16:28 Lovenox(*) SUBCUT 30 mg Q24H [facility] Administration Lorazepam 0.5 mg 10/09/18 10:25 Ativan Inj* IV PUSH Q6H PRN ANXIETY Methylprednisolone Sodium Succinate 40 mg 10/09/18 21:00 10/10/18 09:05 Solu-Medrol 40 Mg IV 40 mg Q12H [facility] Administration Mometasone Furoate/Formoterol Fumar 2 puff 10/07/18 10:00 10/10/18 07:30 Dulera 200/5 Mdi* INH Not Given BID [facility] Morphine Sulfate 5 mg 10/09/18 10:04 Morphine Oral Concentrate* PO Q2H PRN PAIN Morphine Sulfate 2 mg 10/09/18 16:25 10/09/18 19:06 Morphine Vial* IV 2 mg Q4H PRN Administration pain or air hunger Ondansetron HCl 4 mg 10/06/18 09:37 10/06/18 09:46 Zofran Inj* IV 4 mg Q6H PRN Administration NAUSEA O/E: Pt sitting in recliner, mild distress, mouth breathing+ HEENT: PERRLA, no JVD Lungs: Diminished air entry, rhonchi+ CVS: S1, S2+, irregular Abd: Soft, BS+ Ext: No edema Skin: No rash Neuro: No focal deficits Labs: No new labs I/R: 78 male with COPD, chronic resp failure with hypoxia and hypercapnia on O2 and Bipap, s/p [employer] PPM , bioprosthetic AVR, significant asbestos exposure presenting with 3 day productive cough, tachycardia, diaphoresis being treated for acute COPD exacerbation sec to viral bronchitis Pt improving Titrate FiO2 as tolerated c/w Morphine prn c/w bronchodilators, will order metanebs as he sounds more rhonchorus Will c/w Solumedrol, slow taper Poor oral intake, feed with assistance OOB to chair Pt is DNR
[2018-10-10] MEDS: Morphine VIAL* 4 MG/ML VIAL (1 ml vial) IV PRN ×2 (17:34→20:53)
[2018-10-11] MEDS: Morphine VIAL* 4 MG/ML VIAL (1 ml vial) IV PRN ×5 (01:12→20:32)
[2018-10-11] MEDS: Diltiazem IV* 5 MG/ML 5 ML VIAL (for loading dose/IV Push) (25 MG) IV SLOW PU SCH ×3 (01:12→11:09)
[2018-10-11] MEDS: Albuterol/Ipratropium NEB.SOL* Albuterol 2.5 MG/Ipratropium 0.5 MG 3 ML INH SCH ×4 (04:10→19:20)
[2018-10-11 05:22] LABS: Hematocrit 35 % (42-52); Hemoglobin 11.4 g/dl (14.0-18.0); Mean Corpuscular HGB Conc 33 g/dl (31-36); Mean Corpuscular Hemoglobin 29 pg (27-31); Mean Corpuscular Volume 88 fL (80-94); Mean Platelet Volume 7.9 fL (7.4-10.4); Platelet Count 208 10^3/ul (150-450); Red Blood Count 3.97 10^6/ul (4.00-5.40); Red Cell Distribution Width 14 % (10.5-15); White Blood Count 13.6 10^3/ul (3.5-10.8)
[2018-10-11 05:38] LABS: EGFR Non-African American 164.2 (>60)
[2018-10-11] MEDS: Mometasone/Formoter 200/5 MDI INH SCH ×2 (07:17→19:20)
[2018-10-11] MEDS: methylPREDNISolone SOD 40 MG* 1 ML VIAL IV SCH ×2 (09:15→20:32)
[2018-10-11] MEDS: Aspirin EC TAB* 81 MG TAB.EC PO SCH (09:15)
[2018-10-11] MEDS ORDERED: Diltiazem IV* 5 MG/ML 5 ML VIAL (for loading dose/IV Push) (25 MG) IV PUSH ONE (11:00)
[2018-10-11] MEDS ORDERED: Naloxone* 0.4 MG/ML 1 ML VIAL IV ONE (11:00)
[2018-10-11] MEDS ORDERED: Naloxone* 0.4 MG/ML 1 ML VIAL ONE (11:00)
[2018-10-11] MEDS ORDERED: Diltiazem IV* 5 MG/ML 5 ML VIAL (for loading dose/IV Push) (25 MG) IV SLOW PU ONE (11:14)
--- NOTE | 2018-10-11 12:44 | PN ---
Subjective Date of Service: 10/11/18 Interval History: HOSPITALIST PROGRESS NOTE Patient seen and examined at bedside. Care reviewed and d/w Darling Ratliff RN. He was evaluated around 8AM. At that point he seemed to be doing well, breathing comfortably on NC 3 liters. Daughter updated at bedside and hopeful after seeing his improvement. Patient was alert and awake, but did not talk much. Transferred to Telemetry around 9:45AM. Around 11 AM I was called by RN because patient had agonal breathing. As per 4 S RN (Oseas Wilson) patient seemed to be well when arrived to floor, was able to drink some Ensure. Shortly before 11 she saw patient went back in to rapid Afib and went to bedside to check and found him obtunded, with agonal breathing. I arrived at bedside and called [facility] alert for impending respiratory arrest. He was placed back on BiPAP, received Narcan with no much change on his mental status. ABG revealed severe respiratory acidosis. Family History: Unchanged from Admission Social History: Unchanged from Admission Past Medical History: Unchanged from Admission Objective Active Medications: Acetaminophen (Tylenol Tab*) 650 mg PO Q4H PRN PRN Reason: FEVER/PAIN Al Hydrox/Mg Hydrox/Simethicone (Maalox Plus*) 30 ml PO Q6H PRN PRN Reason: Dyspepsia/Indigestion Albuterol (Ventolin 2.5 Mg/3 Ml Neb.Tarah*) 2.5 mg INH Q2H PRN PRN Reason: SOB/WHEEZING Last Admin: 10/11/18 11:25 Dose: 2.5 mg Albuterol/Ipratropium (Duoneb (Albuterol 2.5 Mg/Ipratropium 0.5 Mg)) 1 neb INH [id number] AWAKE [facility] Aspirin (Aspirin Ec Tab*) 81 mg PO DAILY [facility] Last Admin: 10/11/18 09:15 Dose: 81 mg Atorvastatin Calcium (Lipitor*) 40 mg PO QPM [facility] Last Admin: 10/10/18 16:28 Dose: 40 mg Enoxaparin Sodium (Lovenox(*)) 30 mg SUBCUT Q24H [facility] Last Admin: 10/10/18 16:28 Dose: 30 mg Diltiazem HCl 125 mg/ Sodium (Chloride) 125 mls @ 5 mls/hr IV Q24H [facility]; Protocol Lorazepam (Ativan Inj*) 0.5 mg IV PUSH Q6H PRN PRN Reason: ANXIETY Methylprednisolone Sodium Succinate (Solu-Medrol 40 Mg) 40 mg IV Q12H [facility] Last Admin: 10/11/18 09:15 Dose: 40 mg Mometasone Furoate/Formoterol Fumar (Dulera 200/5 Mdi*) 2 puff INH BID [facility] Last Admin: 10/11/18 07:17 Dose: 2 puff Morphine Sulfate (Morphine Oral Concentrate*) 5 mg PO Q2H PRN PRN Reason: PAIN Morphine Sulfate (Morphine Vial*) 2 mg IV Q4H PRN PRN Reason: pain or air hunger Last Admin: 10/11/18 11:55 Dose: 2 mg Ondansetron HCl (Zofran Inj*) 4 mg IV Q6H PRN PRN Reason: NAUSEA Last Admin: 10/06/18 09:46 Dose: 4 mg Vital Signs - 8 hr 10/11/18 10/11/18 10/11/18 05:00 05:01 05:57 Temperature Pulse Rate 73 83 Respiratory 32 28 25 Rate Blood Pressure 149/59 (mmHg) O2 Sat by Pulse 99 99 Oximetry 10/11/18 10/11/18 10/11/18 06:00 06:01 06:34 Temperature Pulse Rate 84 78 83 Respiratory 21 33 27 Rate Blood Pressure 146/76 141/85 (mmHg) O2 Sat by Pulse 100 100 100 Oximetry 10/11/18 10/11/18 10/11/18 07:00 07:01 07:18 Temperature Pulse Rate 104 97 78 Respiratory 21 23 23 Rate Blood Pressure 146/76 (mmHg) O2 Sat by Pulse 100 99 98 Oximetry 10/11/18 10/11/18 10/11/18 08:00 08:02 08:50 Temperature 96.3 F Pulse Rate 83 104 99 Respiratory 23 29 26 Rate Blood Pressure 181/98 181/98 (mmHg) O2 Sat by Pulse 99 100 100 Oximetry 10/11/18 10/11/18 10/11/18 09:00 09:01 09:23 Temperature Pulse Rate 97 98 110 Respiratory 30 27 21 Rate Blood Pressure 186/108 192/85 (mmHg) O2 Sat by Pulse 98 100 98 Oximetry 10/11/18 10/11/18 10/11/18 09:59 10:10 10:55 Temperature 96.4 F Pulse Rate 102 140 Respiratory 30 30 30 Rate Blood Pressure 183/34 182/85 (mmHg) O2 Sat by Pulse 100 99 Oximetry 10/11/18 10/11/18 10/11/18 11:03 11:17 11:33 Temperature 95.9 F Pulse Rate 147 99 Respiratory 30 35 30 Rate Blood Pressure 152/86 111/90 (mmHg) O2 Sat by Pulse 99 96 Oximetry 10/11/18 11:55 Temperature Pulse Rate Respiratory 30 Rate Blood Pressure (mmHg) O2 Sat by Pulse Oximetry Oxygen Devices in Use Now: BiPAP Appearance: Elderly frail gentleman lying in bed, agonal breathing Eyes: No Scleral Icterus Ears/Nose/Mouth/Throat: Mucous Membranes Moist Neck: Trachea Midline Respiratory: Symmetrical Chest Expansion and Respiratory Effort, - - BS+ bilaterally decreased Cardiovascular: - - Normal S1 and S2, irregularly irregular Abdominal: NL Sounds; No Tenderness; No Distention Neurological: - - Lethargic Result Diagrams: 10/11/18 05:13 10/11/18 05:13 Additional Lab and Data: Laboratory Tests 10/11/18 11:00 ABG pH 7.14 L* ABG pCO2 150 H* ABG pO2 164 H ABG HCO3 37.6 H ABG O2 Saturation 100.2 H ABG Base Excess 16.3 H Assess/Plan/Problems-Billing Assessment: Mr David is a 78 yo M with PMH of COPD with noctural (and sometimes day time) Bipap use for chronic hypoxic respiratory failure, [employer] PPM , bioprosthetic AVR, significant asbestos exposure who presented to ED with 3 day productive cough, tachycardia, diaphoresis and was admitted for COPD exacerbation in setting of viral illness. - Patient Problems (1) Acute hypercapnic respiratory failure Comment: - Acute on chronic hypercapnic respiratory failure. - Patient had been released from BiPAP last evening and did not wear it last night. This AM seemed to be improved, but developed acute CO2 retention with CO2 150 and pH 7.14. - Resumed rescue BiPAP and will need to continue overnight BiPAP too as patient cannot tolerate long periods without it. - Transferred back to ICU. - No significant change with Narcan, I don't think low dose Morphine was the cause. (2) Acute on chronic respiratory failure with hypoxia Comment: - Pt has a h/o chronic hypoxic respiratory failure secondary to moderate COPD. - He is BiPAP dependent at this point - will continue to d/w Palliative care with he daughter, but she's not ready for this decision yet. (3) COPD (chronic obstructive pulmonary disease) Comment: - COPD exacerbation triggered by a viral illness (sick contacts at home ). - Solumedrol 40mg IV q12hr. - Continue bronchodilators. - Morphine PRN for air hunger. (4) Atrial fibrillation Comment: - Was in rapid Afib during code and responded to Diltiazem 20mg IV x 1 dose. If he goes fast again, will start Diltiazem drip. - With his decompensation, anticoagulation is not a priority right now, as I think he'll due to his lung disease soon, and anticoagulation would just increase his risk of bleeding. (5) Diastolic CHF Comment: - Appears to be stable at this time, but at risk for sudden decompensation due to Afib RVR. (6) DVT prophylaxis Comment: - Lovenox (7) DNR (do not resuscitate) Comment: - Patient is DNR/DNI with trial of BiPAP. Overall prognosis is very poor. Will continue conversations with family, but at this point, he would benefit of comfort measures only as he'll soon. Status and Disposition: Inpatient. 45 minutes Critical care time.
[2018-10-11] MEDS ORDERED: Diltiazem IV VIAL* 125 MG in NS 0.9% 100 ML* 100 ML IV SCH (13:00)
--- NOTE | 2018-10-11 13:22 | PN ---
Progress Note - Progress Note Date of Service: 10/11/18 - Pulm f/u note Note: Pt seen and examined at bedside this am and again this afternoon Pt was on BiPAP last evening, was not placed on BiPAP at night. Pt was comfortable on 3L nasal cannula this am, sitting up in chair, was transferred to floor An hour later, was noted to have A.fib with RVR on monitor by RN, when she checked pt, he was obtunded with agonal breathing. He was placed on BiPAP, received 20mg Cardizem, was transferred back to ICU. ABG showed worsening resp acidosis Pt quickly improved on BiPAP, resp rate slowed down, HR better controlled after receiving Morphine without any further episodes of RVR Active Medications Generic Name Dose Route Start Last Admin Trade Name Freq PRN Reason Stop Dose Admin Acetaminophen 650 mg 10/01/18 23:07 Tylenol Tab* PO Q4H PRN FEVER/PAIN Al Hydrox/Mg Hydrox/Simethicone 30 ml 10/07/18 09:06 Maalox Plus* PO Q6H PRN Dyspepsia/Indigestion Albuterol 2.5 mg 10/07/18 09:10 10/11/18 11:25 Ventolin 2.5 Mg/3 Ml Neb.Tarah* INH 2.5 mg Q2H PRN Administration SOB/WHEEZING Albuterol/Ipratropium 1 neb 10/11/18 13:00 Duoneb (Albuterol 2.5 Mg/Ipratropium 0.5 Mg) INH [id number] AWAKE [facility] Aspirin 81 mg 10/02/18 09:00 10/11/18 09:15 Aspirin Ec Tab* PO 81 mg DAILY [facility] Administration Atorvastatin Calcium 40 mg 10/02/18 18:00 10/10/18 16:28 Lipitor* PO 40 mg QPM [facility] Administration Enoxaparin Sodium 30 mg 10/07/18 17:00 10/10/18 16:28 Lovenox(*) SUBCUT 30 mg Q24H [facility] Administration Diltiazem HCl 125 mg/ Sodium 125 mls @ 5 mls/hr 10/11/18 13:00 Chloride IV Q24H [facility] Protocol 5 MG/HR Lorazepam 0.5 mg 10/09/18 10:25 Ativan Inj* IV PUSH Q6H PRN ANXIETY Methylprednisolone Sodium Succinate 40 mg 10/09/18 21:00 10/11/18 09:15 Solu-Medrol 40 Mg IV 40 mg Q12H [facility] Administration Mometasone Furoate/Formoterol Fumar 2 puff 10/07/18 10:00 10/11/18 07:17 Dulera 200/5 Mdi* INH 2 puff BID [facility] Administration Morphine Sulfate 5 mg 10/09/18 10:04 Morphine Oral Concentrate* PO Q2H PRN PAIN Morphine Sulfate 2 mg 10/09/18 16:25 10/11/18 11:55 Morphine Vial* IV 2 mg Q4H PRN Administration pain or air hunger Ondansetron HCl 4 mg 10/06/18 09:37 10/06/18 09:46 Zofran Inj* IV 4 mg Q6H PRN Administration NAUSEA Vital Signs Temp Pulse Resp BP Pulse Ox 95.9 F 82 27 119/47 100 10/11/18 11:17 10/11/18 13:01 10/11/18 13:01 10/11/18 13:01 10/11/18 13:01 O/E: Pt in mild distress using accessory muscles HEENT: PERRLA, no JVD Lungs: Diminished air entry, rhonchi+ CVS: S1, S2+, irregular Abd: Soft, BS+ Ext: No edema Skin: No rash Neuro: Alert, awake after BiPAP, No focal deficits Laboratory Results - last 24 hr 10/11/18 10/11/18 10/11/18 05:13 05:13 11:00 WBC 13.6 H RBC 3.97 L Hgb 11.4 L Hct 35 L MCV 88 MCH 29 MCHC 33 RDW 14 Plt Count 208 MPV 7.9 Patient Temperature Not Reportable ABG pH 7.14 L* ABG pH (Temp Correct) Not Reportable ABG pCO2 150 H* ABG pCO2 (Temp Corrct Not Reportable ABG pO2 164 H ABG pO2 (Temp Correct Not Reportable ABG HCO3 37.6 H ABG O2 Saturation 100.2 H ABG Base Excess 16.3 H Respiration Rate Not Reportable O2 Delivery Device bipap Ventilator Type Not Reportable Vent Mode Not Reportable FiO2 50 Inspiratory Time Not Reportable PEEP Not Reportable Pressure Support Not Reportable Pressure Control Not Reportable EPAP Not Reportable IPAP Not Reportable BiPAP Not Reportable Sodium 144 Potassium 4.6 Chloride 97 L Carbon Dioxide 44 H* Anion Gap 3 BUN 40 H Creatinine 0.49 L Est GFR ( Amer) 198.7 Est GFR (Non-Af Amer) 164.2 BUN/Creatinine Ratio 81.6 H Glucose 160 H Calcium 8.5 L I/R: 78 male with COPD, chronic resp failure with hypoxia and hypercapnia on O2 and Bipap, s/p [employer] Judes PPM , bioprosthetic AVR, 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 presenting with 3 day productive cough, tachycardia , diaphoresis being treated for acute COPD exacerbation sec to viral bronchitis Pt was improving, deteriorated acutely this am after he was transferred to medical floor Is requiring continuous BiPAP and Morphine prn His pulmonary disease is significant and has minimal reserve and quickly decompensates Titrate FiO2 as tolerated c/w Morphine prn c/w bronchodilators, metanebs to help mobilize secretions Recent CTA didnot show PE, has evidence of lt lower lobe collapse and associated pl effusion, likely sec to mucus plug Will c/w metanebs as tolerated Will c/w Solumedrol, slow taper A.fib with episodes of RVR, has not required drip again Will c/w Cardizem prn Poor oral intake, feed with assistance Bedrest for today Prognosis poor Had lengthy discussion with daughter at bedside today. Discussed plan of care, acute events this am and poor prognosis Pts daughter would expect to take him home with home hospice. She understands that pt might not recover enough to be able to be safely discharged Will reassess tomorrow She understands that if unable to achieve goal of transitioning to home hospice it is appropriate to initiate comfort measures Pt is DNR
[2018-10-11] MEDS: Atorvastatin* 40 MG TAB PO SCH (17:31)
[2018-10-11] MEDS: Enoxaparin(*) 30 MG/0.3 ML SYR SUBCUT SCH (17:31)
[2018-10-12] MEDS: Albuterol/Ipratropium NEB.SOL* Albuterol 2.5 MG/Ipratropium 0.5 MG 3 ML INH SCH ×4 (01:35→19:57)
[2018-10-12] MEDS: Mometasone/Formoter 200/5 MDI INH SCH ×2 (07:35→19:57)
[2018-10-12] MEDS: Aspirin EC TAB* 81 MG TAB.EC PO SCH (08:31)
[2018-10-12] MEDS: methylPREDNISolone SOD 40 MG* 1 ML VIAL IV SCH ×2 (08:31→21:18)
[2018-10-12] MEDS: Morphine VIAL* 4 MG/ML VIAL (1 ml vial) IV PRN (10:15)
--- NOTE | 2018-10-12 10:34 | PN ---
Subjective Date of Service: 10/12/18 Interval History: Pt stated that he feels "well". Occasionally trying to cough. Very tachypneic on eval, but not complaining of difficulty breathing Family History: Unchanged from Admission Social History: Unchanged from Admission Past Medical History: Unchanged from Admission Objective Active Medications: Acetaminophen (Tylenol Tab*) 650 mg PO Q4H PRN PRN Reason: FEVER/PAIN Al Hydrox/Mg Hydrox/Simethicone (Maalox Plus*) 30 ml PO Q6H PRN PRN Reason: Dyspepsia/Indigestion Albuterol (Ventolin 2.5 Mg/3 Ml Neb.Tarah*) 2.5 mg INH Q2H PRN PRN Reason: SOB/WHEEZING Last Admin: 10/11/18 11:25 Dose: 2.5 mg Albuterol/Ipratropium (Duoneb (Albuterol 2.5 Mg/Ipratropium 0.5 Mg)) 1 neb INH [id number] AWAKE [facility] Last Admin: 10/12/18 07:35 Dose: 1 neb Aspirin (Aspirin Ec Tab*) 81 mg PO DAILY [facility] Last Admin: 10/12/18 08:31 Dose: 81 mg Atorvastatin Calcium (Lipitor*) 40 mg PO QPM [facility] Last Admin: 10/11/18 17:31 Dose: 40 mg Enoxaparin Sodium (Lovenox(*)) 30 mg SUBCUT Q24H [facility] Last Admin: 10/11/18 17:31 Dose: 30 mg Diltiazem HCl 125 mg/ Sodium (Chloride) 125 mls @ 5 mls/hr IV Q24H [facility]; Protocol Last Admin: 10/11/18 13:15 Dose: Not Given Lorazepam (Ativan Inj*) 0.5 mg IV PUSH Q6H PRN PRN Reason: ANXIETY Methylprednisolone Sodium Succinate (Solu-Medrol 40 Mg) 40 mg IV Q12H [facility] Last Admin: 10/12/18 08:31 Dose: 40 mg Mometasone Furoate/Formoterol Fumar (Dulera 200/5 Mdi*) 2 puff INH BID [facility] Last Admin: 10/12/18 07:35 Dose: 2 puff Morphine Sulfate (Morphine Oral Concentrate*) 5 mg PO Q2H PRN PRN Reason: PAIN Morphine Sulfate (Morphine Vial*) 2 mg IV Q4H PRN PRN Reason: pain or air hunger Last Admin: 10/12/18 10:15 Dose: 2 mg Ondansetron HCl (Zofran Inj*) 4 mg IV Q6H PRN PRN Reason: NAUSEA Last Admin: 10/06/18 09:46 Dose: 4 mg Vital Signs - 8 hr 10/12/18 10/12/18 10/12/18 03:00 03:01 04:00 Temperature Pulse Rate 70 70 Respiratory 28 18 20 Rate Blood Pressure 139/26 (mmHg) O2 Sat by Pulse 100 100 Oximetry 10/12/18 10/12/18 10/12/18 04:17 05:00 05:01 Temperature Pulse Rate 70 73 69 Respiratory 29 21 22 Rate Blood Pressure 134/34 140/35 (mmHg) O2 Sat by Pulse 98 98 98 Oximetry 10/12/18 10/12/18 10/12/18 06:00 07:00 07:27 Temperature Pulse Rate 73 Respiratory 33 20 24 Rate Blood Pressure 124/52 148/28 (mmHg) O2 Sat by Pulse 100 Oximetry 10/12/18 10/12/18 10/12/18 07:37 07:38 08:00 Temperature Pulse Rate 84 78 75 Respiratory 100 18 25 Rate Blood Pressure 122/46 (mmHg) O2 Sat by Pulse 20 100 87 Oximetry 10/12/18 10/12/18 10/12/18 08:01 08:18 09:00 Temperature 98.4 F Pulse Rate 76 97 Respiratory 25 25 Rate Blood Pressure (mmHg) O2 Sat by Pulse 90 97 Oximetry 10/12/18 10/12/18 10/12/18 09:01 10:00 10:15 Temperature Pulse Rate 86 Respiratory 31 24 22 Rate Blood Pressure 138/45 (mmHg) O2 Sat by Pulse 96 Oximetry Oxygen Devices in Use Now: Nasal Cannula - at 2L Appearance: 78 yo M visible accesory muscle use, but pt not c/o SOB, AAOx3. chronically ill appearing, thin body habitus Eyes: No Scleral Icterus, PERRLA Ears/Nose/Mouth/Throat: NL Teeth, Lips, Gums, Mucous Membranes Moist Neck: NL Appearance and Movements; NL JVP Respiratory: Symmetrical Chest Expansion and Respiratory Effort, - - scattered rhonchi trhoughout b/l lungs Cardiovascular: - - irregular, sinus arrythmia on monitor Abdominal: NL Sounds; No Tenderness; No Distention, No Hepatosplenomegaly Lymphatic: No Cervical Adenopathy Extremities: No Edema Skin: No Nodules or Sclerosis Neurological: Alert and Oriented x 3, NL Muscle Strength and Tone Result Diagrams: 10/11/18 05:13 10/11/18 05:13 Additional Lab and Data: Laboratory Tests 10/11/18 11:00 ABG pH 7.14 L* ABG pCO2 150 H* ABG pO2 164 H ABG HCO3 37.6 H ABG O2 Saturation 100.2 H ABG Base Excess 16.3 H Microbiology and Other Data: Microbiology 10/01/18 21:17 Blood Venous Aerobic Blood Culture - Preliminary No Growth Day 2 10/01/18 21:17 Blood Venous Anaerobic Blood Culture - Preliminary No Growth Day 2 10/01/18 21:11 Blood Venous Aerobic Blood Culture - Preliminary No Growth Day 2 10/01/18 21:11 Blood Venous Anaerobic Blood Culture - Preliminary No Growth Day 2 10/02/18 00:01 Nasal Nasal Screen MRSA (PCR) - Final Mrsa Not Detected 10/02/18 00:01 Nasopharyngeal Influenza Types A,B Antigen - Final Specimen received for Influenza A/B Molecular testing Assess/Plan/Problems-Billing Assessment: Mr David is a 78 yo M with PMH of COPD with noctural (and sometimes day time) Bipap use for chronic hypoxic respiratory failure, [employer] PPM , bioprosthetic AVR, significant asbestos exposure who presented to ED with 3 day productive cough, tachycardia, diaphoresis and was admitted for COPD exacerbation in setting of viral illness. - Patient Problems (1) Acute hypercapnic respiratory failure Comment: - Acute on chronic hypercapnic respiratory failure developed on , now back in ICU in precarious resp state, although not complaining of SOB and 02 sats 95% on 2 L NC - on BiPAP at night and prn , refused it this AM -pulm consulted (2) COPD (chronic obstructive pulmonary disease) Comment: - COPD exacerbation triggered by a viral illness (sick contacts at home ). - Solumedrol 40mg IV q12hr. - Continue bronchodilators. - Morphine PRN for air hunger. (3) Atrial fibrillation Comment: - Was in rapid Afib during code on 10/11/18 and responded to Diltiazem 20mg IV x 1 dose. If now bck i sinus arrythmia With his decompensation, anticoagulation is not a priority right now, as I think he'll due to his lung disease soon, and anticoagulation would just increase his risk of bleeding especially in pt with poor PO intake on IV steroids (4) Aortic valve replaced Comment: 2008, bioprosthetic . Echo shows good valve functiuon and EF 60% (5) CAD (coronary artery disease) Comment: Continue ASA, statin [facility] April 2016 with 30% LAD narrowing at worst. not on BB 2/2 severe COPD likely (6) Gilbert syndrome Comment: bili elevated, mostly indirect. Pt has h/o chronic mild bilirubin elevation suspect Gilbert's (7) DNR (do not resuscitate) Comment: - Patient is DNR/DNI with trial of BiPAP. Overall prognosis is very poor. Will continue conversations with family, but at this point, he would benefit of comfort measures only , family reluctant though (8) DVT prophylaxis Comment: - Lovenox Status and Disposition: Inpatient.
[2018-10-12] MEDS ORDERED: Omeprazole CAP* 20 MG PO ONE (10:39)
--- NOTE | 2018-10-12 16:41 | PN ---
Progress Note - Progress Note Date of Service: 10/12/18 - Pulm f/u note Note: Pt seen and examined at bedside. Pt sitting up in chair, appeared comfortable. No acute events o/n Active Medications Generic Name Dose Route Start Last Admin Trade Name Freq PRN Reason Stop Dose Admin Acetaminophen 650 mg 10/01/18 23:07 Tylenol Tab* PO Q4H PRN FEVER/PAIN Al Hydrox/Mg Hydrox/Simethicone 30 ml 10/07/18 09:06 Maalox Plus* PO Q6H PRN Dyspepsia/Indigestion Albuterol 2.5 mg 10/07/18 09:10 10/11/18 11:25 Ventolin 2.5 Mg/3 Ml Neb.Tarah* INH 2.5 mg Q2H PRN Administration SOB/WHEEZING Albuterol/Ipratropium 1 neb 10/11/18 13:00 10/12/18 12:18 Duoneb (Albuterol 2.5 Mg/Ipratropium 0.5 Mg) INH 1 neb [id number] AWAKE ALYSA Administration Aspirin 81 mg 10/02/18 09:00 10/12/18 08:31 Aspirin Ec Tab* PO 81 mg DAILY ALYSA Administration Atorvastatin Calcium 40 mg 10/02/18 18:00 10/11/18 17:31 Lipitor* PO 40 mg QPM ALYSA Administration Enoxaparin Sodium 30 mg 10/07/18 17:00 10/11/18 17:31 Lovenox(*) SUBCUT 30 mg Q24H ALYSA Administration Lorazepam 0.5 mg 10/09/18 10:25 Ativan Inj* IV PUSH Q6H PRN ANXIETY Methylprednisolone Sodium Succinate 40 mg 10/09/18 21:00 10/12/18 08:31 Solu-Medrol 40 Mg IV 40 mg Q12H ALYSA Administration Mometasone Furoate/Formoterol Fumar 2 puff 10/07/18 10:00 10/12/18 07:35 Dulera 200/5 Mdi* INH 2 puff BID ALYSA Administration Morphine Sulfate 5 mg 10/09/18 10:04 Morphine Oral Concentrate* PO Q2H PRN PAIN Morphine Sulfate 2 mg 10/09/18 16:25 10/12/18 10:15 Morphine Vial* IV 2 mg Q4H PRN Administration pain or air hunger Omeprazole 20 mg 10/13/18 06:00 Prilosec Cap* PO DAILY@0600 [facility] Ondansetron HCl 4 mg 10/06/18 09:37 10/06/18 09:46 Zofran Inj* IV 4 mg Q6H PRN Administration NAUSEA Vital Signs Temp Pulse Resp BP Pulse Ox 98.1 F 88 18 168/78 98 10/12/18 13:44 10/12/18 12:20 10/12/18 12:20 10/12/18 11:00 10/12/18 12:20 O/E: Pt sitting up in chair, becomes visibly tachypneic with nay movement HEENT: PERRLA, no JVD Lungs: Diminished air entry, rhonchi+ CVS: S1, S2+, irregular Abd: Soft, BS+ Ext: No edema Skin: No rash Neuro: Alert, awake, No focal deficits Labs: No new labs I/R: 78 male with COPD, chronic resp failure with hypoxia and hypercapnia on O2 and Bipap, s/p [employer] PPM , bioprosthetic AVR, 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 presenting with 3 day productive cough, tachycardia , diaphoresis being treated for acute COPD exacerbation sec to viral bronchitis Pt was improving, deteriorated acutely yesterday after he was transferred to medical floor His pulmonary disease is significant and has minimal reserve and quickly decompensates fairly quickly Titrate FiO2 as tolerated c/w Morphine prn c/w bronchodilators, metanebs to help mobilize secretions Recent CTA didnot show PE, has evidence of lt lower lobe collapse and associated pl effusion, likely sec to mucus plug Will c/w metanebs as tolerated Will c/w Solumedrol, slow taper A.fib with episodes of RVR, controlled today Will c/w Cardizem prn Poor oral intake, feed with assistance Prognosis poor Pt will be transitioning to home hospice Pt is DNR
[2018-10-12] MEDS: Atorvastatin* 40 MG TAB PO SCH (17:36)
[2018-10-12] MEDS: Enoxaparin(*) 30 MG/0.3 ML SYR SUBCUT SCH (17:36)
[2018-10-13] MEDS: Albuterol/Ipratropium NEB.SOL* Albuterol 2.5 MG/Ipratropium 0.5 MG 3 ML INH SCH ×2 (01:05→07:20)
[2018-10-13] MEDS ORDERED: Omeprazole CAP* 20 MG PO SCH (06:00)
[2018-10-13] MEDS: Mometasone/Formoter 200/5 MDI INH SCH (07:20)
[2018-10-13] MEDS ORDERED: Sodium Phosphate ADULT ENEMA* 118 ml bottle PR PRN (08:34)
[2018-10-13] MEDS ORDERED: Magnesium CITRATE* 300 ML BTL PO ONE (08:34)
[2018-10-13 08:39] VITALS: BP 153/77
[2018-10-13] MEDS: Aspirin EC TAB* 81 MG TAB.EC PO SCH (09:11)
[2018-10-13] MEDS: methylPREDNISolone SOD 40 MG* 1 ML VIAL IV SCH (09:11)
[2018-10-13] MEDS ORDERED: Senna TAB PO SCH (21:00)
--- NOTE | 2018-10-14 12:25 | DS ---
CC: Dr. Chacko; Dr. Dominguez.* DISCHARGE/ SUMMARY: DATE OF ADMISSION: 10/01/18 DATE OF : 10/13/18 TIME OF : 11:15 a.m. PRIMARY CARE PROVIDER: Dr. Chacko. CAUSE OF : Acute on chronic hypoxemic respiratory failure due to COPD, secondary to acute viral bronchitis. HOSPITALIZATION COURSE: Luca David is a 78-year-old male who has a history of COPD and used to use oxygen at night only prior to current admission on 10/01 when he presented complaining of severe shortness of breath. His family all had gone through viral illness at that time and the patient thought that he "picked up a virus." His infectious workup did not yield any evidence of bacterial infection. Nevertheless, the patient was placed on broad-spectrum antibiotics initially due to his poor respiratory status. The patient was placed on BiPAP in the intensive care unit and required intermittent BiPAP and high-flow nasal cannula. He was seen by Dr. Dominguez in consultation who recommended continuation of management with parenteral steroids, nebulizer treatments, and antibiotics. The thought was that the acute viral bronchitis tipped his chronic disease over the edge. A CT angiogram of the chest was obtained on 10/12/18 to rule out any other underlying pathology. It showed small bilateral pleural effusions and complete atelectasis of the left lower lobe, but no suspicious focal pulmonary lesions. There was no evidence of PE. The patient continued to be treated, but he became basically BiPAP dependent. There was an attempt of the patient to be transferred out to the floor from the ICU on 10/11/18 but within hours he deconditioned and developed acute hypercapnic respiratory failure and required transferring back to the ICU. He spent another day and a half in the ICU and at that point the discussions were carried on with the family about comfort care. The patient overall felt better and felt that he was eating better, but nevertheless his work of breathing despite no significant hypoxemia noted on his oxygen saturation was severe. The patient was on 3 L oxygen throughout the last 48 hours of his hospital stay , but his respiratory rate continued to be in the high 20s to 30s. The family decided the patient is going to go home with home hospice and the plan was for him to be discharged on 10/14/18 with home hospice. On 10/12/18, the patient received a dose of morphine that he requested for air hunger and shortly thereafter he became unresponsive with agonal breathing. His pupils were not pinpoint at that point and were sluggishly reactive to light. The family was contacted at that point and decision was made for the patient not to undergo further aggressive management and to continue comfort care only. The patient was transferred from a 2-person room to a comfort room. Shortly after the event mentioned d above, he at 11:15 a.m. At that point the patient was noted to have pupils fixed and nonreactive. He was unresponsive to all the stimuli. There were no respirations or heart beat noted on evaluation. He was pronounced at 11:15 a.m. on 10/13/18. Family was present in the room at that point and declined an autopsy. Please note that this is a short summary of the patient's hospitalization, please refer to further medical records for details. TIME SPENT: Approximately 35 minutes was spent on the patient's discharge. [id number]/CPS #: [id number] MTDD
== END 2018-10-13 11:15 | disposition expired | DRG 189 ==
LOC: ED 20:37 → ICU 22:55 → MEDTELE 10-11 09:46 → ICU 10-11 11:23 → MED 10-12 16:52
PROVIDERS: ADMIT Internal Medicine; ATTEND Internal Medicine
PROC: 5A09457 Assistance with Respiratory Ventilation, 24-96 Consecutive Hours, Continuous Positive Airway Pressure (ICD-10-PCS; principal; 2018-10-02)
DX: J96.21 Acute and chronic respiratory failure with hypoxia (principal); E43 Unspecified severe protein-calorie malnutrition; J44.1 Chronic obstructive pulmonary disease with (acute) exacerbation; J90 Pleural effusion, not elsewhere classified; I50.30 Unspecified diastolic (congestive) heart failure; Z68.1 Body mass index [BMI] 19.9 or less, adult; J44.0 Chronic obstructive pulmonary disease with (acute) lower respiratory infection; J20.8 Acute bronchitis due to other specified organisms; J96.22 Acute and chronic respiratory failure with hypercapnia; I10 Essential (primary) hypertension; N40.0 Benign prostatic hyperplasia without lower urinary tract symptoms; I25.10 Atherosclerotic heart disease of native coronary artery without angina pectoris; H91.90 Unspecified hearing loss, unspecified ear; I48.91 Unspecified atrial fibrillation; E78.5 Hyperlipidemia, unspecified; E78.00 Pure hypercholesterolemia, unspecified; R74.8 Abnormal levels of other serum enzymes; I49.1 Atrial premature depolarization; Z66 Do not resuscitate; E80.4 Gilbert syndrome; Z77.090 Contact with and (suspected) exposure to asbestos; Z95.2 Presence of prosthetic heart valve; Z99.81 Dependence on supplemental oxygen; Z95.0 Presence of cardiac pacemaker; I25.2 Old myocardial infarction; Z90.49 Acquired absence of other specified parts of digestive tract; Z88.1 Allergy status to other antibiotic agents; Z88.2 Allergy status to sulfonamides; Z83.6 Family history of other diseases of the respiratory system; Z95.3 Presence of xenogenic heart valve; Z95.1 Presence of aortocoronary bypass graft; Z97.4 Presence of external hearing-aid; Z82.49 Family history of ischemic heart disease and other diseases of the circulatory system; Z87.891 Personal history of nicotine dependence; Z72.89 Other problems related to lifestyle
CPT/HCPCS: 36415; 36600; 71045; 71275; 80048; 80053; 80076; 82803; 83036; 83605; 83735; 83880; 84100; 84145; 84484; 85025; 85027; 87040; 87641; 93005; 93306; 94640; 94660; 94667; 94668; 99284; A9270-GY; J0456; J0696; J1100; J1650; J1940; J2060; J2270; J2310; J2405; J2920; J2930; J7611; Q9967